=== PATIENT | male | born 1975 | race Caucasian/White ===

== ENCOUNTER 2017-07-05 09:34 | Emergency (ER) | payer OTHER ==
--- NOTE | 2017-07-05 10:24 | RAD ---
PORTABLE CHEST 1 VIEW: Date: 07/05/17 Time: 1002 hours HISTORY: Chest pain. FINDINGS/IMPRESSION: Comparison made with exam of 03/26/17. The heart is enlarged. There is probable consolidation in the left lower lung. No pneumothoraces, fr ank pulmonary edema, or large effusions are identified. POS: [facility]
[2017-07-05 10:25] LABS: #Eosinphils 0.2 thou/uL (0.0-0.7); #Lymphocytes 1.6 thou/uL (1.20-3.40); #Monocytes 0.5 thou/uL (0.11-0.59); #Neutrophils 4.4 thou/uL (1.40-6.50); %Basophils 0.7 % (0.0-1.0); %Eosinophils 3.4 % (0.0-10.0); %Monocytes 7.1 % (0.0-10.0); Hematocrit 43.9 % (42.0-52.0); Mean Platelet Volume 8.4 fL (7.4-10.4); Red Blood Cell (RBC) Count 4.74 mill/uL (4.70-6.10); White Blood Cell (WBC) Count 6.8 thou/uL (4.8-10.8)
[2017-07-05 10:31] LABS: PTT 33.4 SEC (22.9-36.1); Prothrombin Time 13.4 SEC (12.0-14.7)
[2017-07-05 10:49] LABS: ALT (SGPT) 17 U/L (8-55); AST (SGOT) 17 U/L (5-34); Alkaline Phosphatase 67 U/L (40-150); Anion Gap 15 mmol/L (10-20); BUN (Urea Nitrogen) 19 mg/dL (8.9-20.6); Bilirubin, Total 0.6 mg/dL (0.2-1.2); CK (CPK) 125 U/L (30-200); Calc. Creatinine Clearance 0 mL/min (70-130); Calcium 9.3 mg/dL (7.8-10.44); Carbon Dioxide 24 mmol/L (22-29); Chloride 104 mmol/L (98-107); Estimated GFR-MDRD Greater than 90; Globulin 3.4 g/dL (2.4-3.5); Lipase 28 U/L (8-78); Protein, Total 7.6 g/dL (6.0-8.3)
[2017-07-05 10:51] LABS: Troponin I Less than 0.010 ng/mL (< 0.028)
--- NOTE | 2017-07-05 12:08 | CT ---
CT BRAIN NONCONTRAST: HISTORY: A 41-year-old male with an episode of left facial drooping, left facial numbness, drooling, right up per extremity weakness and hypesthesia, and right lower extremity weakness and hypesthesia. FINDINGS: There is no midline shift or any other mass effect. There is no evidence of acute intracranial hemo rrhage, large cortical infarct, obstructive hydrocephalus, or extraaxial fluid collection. The calv arium is intact. IMPRESSION: No acute intracranial findings. jn [] POS: [facility]
[2017-07-05 14:29] LABS: Troponin I Less than 0.010 ng/mL (< 0.028)
== END 2017-07-05 14:45 | disposition home or self-care (01) ==
LOC: ERS 09:34
DX: R07.9 Chest pain, unspecified (principal); G43.909 Migraine, unspecified, not intractable, without status migrainosus; I10 Essential (primary) hypertension; E78.5 Hyperlipidemia, unspecified; E03.9 Hypothyroidism, unspecified; R56.9 Unspecified convulsions; I48.91 Unspecified atrial fibrillation; Z79.82 Long term (current) use of aspirin; Z79.899 Other long term (current) drug therapy
CPT/HCPCS: 36415; 70450; 71010; 80053; 82550; 82553; 83690; 83880; 84484; 85025; 85610; 85730; 93005; 94760

== ENCOUNTER 2017-07-31 20:23 | Emergency (ER) | payer OTHER ==
--- NOTE | 2017-07-31 20:46 | RAD ---
CHEST ONE VIEW 07/31/17 HISTORY: Chest pain. COMPARISON: Chest one view 07/05/17. FINDINGS: Atelectasis is present in both lung bases. Lungs are hypoinflated. No pneumothorax. IMPRESSION: Lung hypoinflation and atelectasis in the basis. POS: [facility]
[2017-07-31] MEDS ORDERED: Acetaminophen 500 MG TAB ONE (21:00)
[2017-07-31] MEDS ORDERED: Nitroglycerin 2% Ointment 1 INCH/1 GM Packet ONE (21:00)
[2017-07-31] MEDS ORDERED: diphenhydrAMINE 50 MG/ML VIAL ONE (21:03)
[2017-07-31 21:06] LABS: #Basophils 0.1 thou/uL (0.0-0.2); #Eosinphils 0.3 thou/uL (0.0-0.7); #Monocytes 0.8 thou/uL (0.11-0.59); #Neutrophils 3.7 thou/uL (1.40-6.50); %Basophils 1.1 % (0.0-1.0); %Lymphocytes 29.8 % (21.0-51.0); %Monocytes 11.2 % (0.0-10.0); Hematocrit 40.1 % (42.0-52.0); Mean Platelet Volume 8.2 fL (7.4-10.4); Red Blood Cell (RBC) Count 4.34 mill/uL (4.70-6.10); White Blood Cell (WBC) Count 6.8 thou/uL (4.8-10.8)
[2017-07-31] MEDS ORDERED: methylPREDNISolone Sod Succ/PF 125 MG/2 ML VIAL ONE (21:12)
[2017-07-31] MEDS ORDERED: Water For Inject, Bacteriostat 30 ML ONE (21:12)
[2017-07-31 21:16] LABS: ALT (SGPT) 14 U/L (8-55); AST (SGOT) 17 U/L (5-34); Alkaline Phosphatase 76 U/L (40-150); Anion Gap 15 mmol/L (10-20); BUN (Urea Nitrogen) 18 mg/dL (8.9-20.6); Bilirubin, Total 0.7 mg/dL (0.2-1.2); CK (CPK) 195 U/L (30-200); Calc. Creatinine Clearance 0 mL/min (70-130); Calcium 9.1 mg/dL (7.8-10.44); Carbon Dioxide 24 mmol/L (22-29); Chloride 105 mmol/L (98-107); Estimated GFR-MDRD Greater than 90; Globulin 3.1 g/dL (2.4-3.5); Lipase 42 U/L (8-78); Protein, Total 7.3 g/dL (6.0-8.3)
[2017-07-31 21:25] LABS: Troponin I Less than 0.010 ng/mL (< 0.028)
== END 2017-08-01 00:07 | disposition home or self-care (01) ==
LOC: ERS 20:23
DX: R07.89 Other chest pain (principal); R79.1 Abnormal coagulation profile; I48.91 Unspecified atrial fibrillation; E03.9 Hypothyroidism, unspecified; E78.2 Mixed hyperlipidemia; I10 Essential (primary) hypertension
CPT/HCPCS: 36415; 71010; 80053; 80164; 80185; 82553; 83690; 84484; 85025; 85379; 93005; 96374; 96375; J1200; J2930

== ENCOUNTER 2017-08-09 18:11 | Emergency (ER) | payer OTHER ==
[2017-08-09 18:50] LABS: #Eosinphils 0.2 thou/uL (0.0-0.7); #Lymphocytes 1.6 thou/uL (1.20-3.40); #Monocytes 0.7 thou/uL (0.11-0.59); #Neutrophils 3.8 thou/uL (1.40-6.50); %Basophils 0.6 % (0.0-1.0); %Eosinophils 3.2 % (0.0-10.0); %Lymphocytes 25.7 % (21.0-51.0); %Monocytes 11.3 % (0.0-10.0); Hematocrit 41.7 % (42.0-52.0); Mean Platelet Volume 9.5 fL (7.4-10.4); Red Blood Cell (RBC) Count 4.48 mill/uL (4.70-6.10); White Blood Cell (WBC) Count 6.3 thou/uL (4.8-10.8)
[2017-08-09 19:13] LABS: ALT (SGPT) 15 U/L (8-55); AST (SGOT) 18 U/L (5-34); Alkaline Phosphatase 62 U/L (40-150); Anion Gap 12 mmol/L (10-20); BUN (Urea Nitrogen) 22 mg/dL (8.9-20.6); Bilirubin, Total 0.7 mg/dL (0.2-1.2); CK (CPK) 246 U/L (30-200); Calc. Creatinine Clearance 0 mL/min (70-130); Calcium 9.6 mg/dL (7.8-10.44); Carbon Dioxide 30 mmol/L (22-29); Chloride 105 mmol/L (98-107); Estimated GFR-MDRD Greater than 90; Globulin 3.1 g/dL (2.4-3.5); Protein, Total 7.4 g/dL (6.0-8.3)
[2017-08-09 19:17] LABS: Troponin I Less than 0.010 ng/mL (< 0.028)
[2017-08-09] MEDS ORDERED: diphenhydrAMINE 50 MG/ML VIAL ONE (22:44)
[2017-08-09] MEDS ORDERED: Metoclopramide HCl 10 MG/2 ML VIAL ONE (22:45)
[2017-08-09] MEDS ORDERED: Ketorolac Tromethamine 30 MG/ML VIAL ONE (22:45)
--- NOTE | 2017-08-09 23:26 | CT ---
HEAD CT NONCONTRAST: Indication: Seizure. Comparison: 07-05-17 FINDINGS: Ventricular system is normal in size. Septum pellucidum and third ventricle are midline. No intracran ial hemorrhage, mass effect, or midline shift. IMPRESSION: No acute intracranial hemorrhage or mass effect. POS: [facility]
--- NOTE | 2017-09-14 12:32 | EKG ---
Test Reason : Blood Pressure : / mmHG Vent. Rate : 089 BPM Atrial Rate : 089 BPM P-R Int : 160 ms QRS Dur : 084 ms QT Int : 356 ms P-R-T Axes : 020 014 047 degrees QTc Int : 433 ms Sinus rhythm with Premature atrial complexes Otherwise normal ECG Confirmed by BELTRAN MAHONEY ([id number]), newspaper copy editor ENRIQUE WATSON ([id number]) on 09/14/2017 12:31:53 PM Referred By: Confirmed By:BELTRAN MAHONEY
== END 2017-08-10 00:31 | disposition home or self-care (01) ==
LOC: ERS 18:11
DX: G43.809 Other migraine, not intractable, without status migrainosus (principal); R56.9 Unspecified convulsions; I48.91 Unspecified atrial fibrillation; E03.9 Hypothyroidism, unspecified; E78.5 Hyperlipidemia, unspecified; E78.2 Mixed hyperlipidemia; I10 Essential (primary) hypertension
CPT/HCPCS: 36415; 70450; 80053; 80164; 82550; 82553; 84484; 85025; 93005; 96365; 96375; J1200; J1885; J2765

== ENCOUNTER 2017-08-26 14:36 | Emergency (ER) | payer OTHER ==
--- NOTE | 2017-08-26 16:15 | RAD ---
LEFT HIP TWO VIEWS: History: Left hip pain. Injury to left hip. FINDINGS: The femoral head is normally maintained. Joint space is normal. No fracture. No acute osseous lesion. IMPRESSION: Unremarkable left hip. POS: [facility]
[2017-08-26 17:06] LABS: #Basophils 0.1 thou/uL (0.0-0.2); #Eosinphils 0.3 thou/uL (0.0-0.7); #Lymphocytes 1.8 thou/uL (1.20-3.40); #Monocytes 0.6 thou/uL (0.11-0.59); #Neutrophils 3.4 thou/uL (1.40-6.50); %Basophils 0.8 % (0.0-1.0); %Eosinophils 5.1 % (0.0-10.0); %Lymphocytes 29.5 % (21.0-51.0); Hematocrit 43.2 % (42.0-52.0); Mean Platelet Volume 8.8 fL (7.4-10.4); White Blood Cell (WBC) Count 6.2 thou/uL (4.8-10.8)
[2017-08-26 17:17] LABS: PTT 32.4 SEC (22.9-36.1)
[2017-08-26 17:30] LABS: ALT (SGPT) 18 U/L (8-55); AST (SGOT) 18 U/L (5-34); Alkaline Phosphatase 74 U/L (40-150); Anion Gap 14 mmol/L (10-20); BUN (Urea Nitrogen) 21 mg/dL (8.9-20.6); Bilirubin, Total 0.5 mg/dL (0.2-1.2); Calc. Creatinine Clearance 0 mL/min (70-130); Calcium 9.4 mg/dL (7.8-10.44); Carbon Dioxide 25 mmol/L (22-29); Chloride 106 mmol/L (98-107); Estimated GFR-MDRD Greater than 90; Globulin 3.4 g/dL (2.4-3.5); Protein, Total 7.8 g/dL (6.0-8.3)
--- NOTE | 2017-08-26 19:20 | CT ---
CT OF HEAD NONCONTRAST 08/26/17 COMPARISON: 08/09/17 INDICATION: Altered mental status. FINDINGS: There is no evidence of intracranial hemorrhage, mass effect or midline shift. No significant interva l change from 08/09/17 exam. IMPRESSION: No acute intracranial hemorrhage or mass effect. POS: [facility]
== END 2017-08-26 19:09 | disposition home or self-care (01) ==
LOC: ERS 14:36
DX: R20.2 Paresthesia of skin (principal); I48.91 Unspecified atrial fibrillation; E03.9 Hypothyroidism, unspecified; I10 Essential (primary) hypertension; E78.2 Mixed hyperlipidemia; Z79.899 Other long term (current) drug therapy
CPT/HCPCS: 36415; 70450; 80053; 85025; 85610; 85730

== ENCOUNTER 2017-10-01 19:07 | Emergency (ER) | payer OTHER ==
[2017-10-01 19:38] LABS: #Basophils 0.1 thou/uL (0.0-0.2); #Eosinphils 0.2 thou/uL (0.0-0.7); #Monocytes 0.9 thou/uL (0.11-0.59); #Neutrophils 5.2 thou/uL (1.40-6.50); %Basophils 0.7 % (0.0-1.0); %Eosinophils 2.9 % (0.0-10.0); %Lymphocytes 24.2 % (21.0-51.0); %Monocytes 10.3 % (0.0-10.0); %Neutrophils 61.9 % (42.0-75.0); Hemoglobin 14.1 g/dL (14.0-18.0); Mean Corpuscular HGB CONC 34.5 g/dL (32.0-36.0); Mean Corpuscular Hemoglobin 31.6 pg (27.0-31.0); Mean Corpuscular Volume 91.4 fl (80.0-94.0); Mean Platelet Volume 9.5 fL (7.4-10.4); Platelet Count 152 thou/uL (130-400); RBC Distribution Width 12.1 % (11.5-14.5); Red Blood Cell (RBC) Count 4.48 mill/uL (4.70-6.10); White Blood Cell (WBC) Count 8.4 thou/uL (4.8-10.8)
[2017-10-01 19:59] LABS: ALT (SGPT) 14 U/L (8-55); AST (SGOT) 14 U/L (5-34); Albumin 4.5 g/dL (3.5-5.0); Alkaline Phosphatase 64 U/L (40-150); Anion Gap 15 mmol/L (10-20); BUN (Urea Nitrogen) 23 mg/dL (8.9-20.6); Bilirubin, Total 0.8 mg/dL (0.2-1.2); CK (CPK) 120 U/L (30-200); Calc. Creatinine Clearance 0 mL/min (70-130); Carbon Dioxide 28 mmol/L (22-29); Chloride 101 mmol/L (98-107); Estimated GFR-MDRD Greater than 90; Globulin 3.1 g/dL (2.4-3.5); Glucose 82 mg/dL (70-105); Potassium 3.9 mmol/L (3.5-5.1); Protein, Total 7.6 g/dL (6.0-8.3); Sodium 140 mmol/L (136-145)
[2017-10-01 20:03] LABS: Troponin I 0.018 ng/mL (< 0.028)
--- NOTE | 2017-10-01 20:49 | RAD ---
PORTABLE CHEST: 10/01/17 HISTORY: Chest pain. The heart is mildly prominent but the heart is accentuated by this projection. The lungs appear clear . No infiltrate. A rounded metallic foreign body overlies the left upper quadrant which apparently represents a coin i n the patient's pocket as noted by the technologist. IMPRESSION: No acute process. POS: [facility]
== END 2017-10-01 22:14 | disposition home or self-care (01) ==
LOC: ERS 19:07
DX: R00.2 Palpitations (principal); I48.91 Unspecified atrial fibrillation; E03.9 Hypothyroidism, unspecified; E78.5 Hyperlipidemia, unspecified; E78.2 Mixed hyperlipidemia; I10 Essential (primary) hypertension; Z79.899 Other long term (current) drug therapy
CPT/HCPCS: 36415; 71045; 80053; 82553; 84484; 85025; 93005

== ENCOUNTER 2017-11-10 10:37 | Observation (INO) | payer OTHER ==
[2017-11-10 11:08] LABS: #Basophils 0.1 thou/uL (0.0-0.2); #Eosinphils 0.4 thou/uL (0.0-0.7); #Lymphocytes 1.6 thou/uL (1.20-3.40); #Monocytes 0.6 thou/uL (0.11-0.59); #Neutrophils 3.9 thou/uL (1.40-6.50); %Basophils 0.8 % (0.0-1.0); %Eosinophils 5.5 % (0.0-10.0); %Monocytes 8.9 % (0.0-10.0); %Neutrophils 60.8 % (42.0-75.0); Hemoglobin 14.9 g/dL (14.0-18.0); Mean Corpuscular HGB CONC 34.7 g/dL (32.0-36.0); Mean Corpuscular Hemoglobin 31.2 pg (27.0-31.0); Mean Corpuscular Volume 89.8 fl (80.0-94.0); Mean Platelet Volume 8.3 fL (7.4-10.4); Platelet Count 192 thou/uL (130-400); RBC Distribution Width 11.7 % (11.5-14.5); Red Blood Cell (RBC) Count 4.76 mill/uL (4.70-6.10); White Blood Cell (WBC) Count 6.5 thou/uL (4.8-10.8)
[2017-11-10 11:15] LABS: Prothrombin Time 12.8 SEC (12.0-14.7)
[2017-11-10 11:16] LABS: PTT 34.5 SEC (22.9-36.1)
[2017-11-10 11:21] LABS: CRP (Inflammatory) Less than 0.50 mg/dL (= or < 0.5); Lipase 49 U/L (8-78)
[2017-11-10 11:25] LABS: ALT (SGPT) 17 U/L (8-55); AST (SGOT) 19 U/L (5-34); Albumin 4.8 g/dL (3.5-5.0); Alkaline Phosphatase 81 U/L (40-150); Anion Gap 12 mmol/L (10-20); BUN (Urea Nitrogen) 20 mg/dL (8.9-20.6); Bilirubin, Total 1.2 mg/dL (0.2-1.2); CK (CPK) 136 U/L (30-200); Calc. Creatinine Clearance 0 mL/min (70-130); Calcium 9.9 mg/dL (7.8-10.44); Carbon Dioxide 30 mmol/L (22-29); Chloride 104 mmol/L (98-107); Estimated GFR-MDRD Greater than 90; Globulin 2.9 g/dL (2.4-3.5); Glucose 94 mg/dL (70-105); Potassium 3.6 mmol/L (3.5-5.1); Protein, Total 7.7 g/dL (6.0-8.3); Sodium 142 mmol/L (136-145)
[2017-11-10 11:26] LABS: CKMB 2.3 ng/mL (0-6.6); Troponin I Less than 0.010 ng/mL (< 0.028)
--- NOTE | 2017-11-10 11:50 | RAD ---
PORTABLE AP CHEST X-RAY: 11/10/2017 HISTORY: Chest pain. COMPARISON: 10/01/2017 FINDINGS: The cardiac silhouette is magnified by projection but is stable in size. The pulmonary vasculature i s within normal limits, and the lungs remain clear. There has been no interval change when compared to the prior exam. IMPRESSION: No acute cardiopulmonary process. POS: [facility]
--- NOTE | 2017-11-10 12:02 | CT ---
CT ANGIOGRAM CHEST WITH CONTRAST CT ANGIOGRAM ABDOMEN WITH CONTRAST: (Aortic dissection protocol) HISTORY: Chest pain. COMPARISON: Chest radiograph same day. FINDINGS: CT angiogram of chest and abdomen performed after the intravenous administration of contrast. Three -D rendering was provided. There are some atelectatic changes in the lingula and the left lower lobe. There is a 3 mm nodule in the left lung apex. No pericardial effusion. Heart size is normal. No aortic dissection. No aneurysmal dilatation. The origins of the great vessels are all patent. No proximal pulmonary arterial filling defect. The exophytic anterior cortex interpolar left kidney mass has mildly increased in size from comparison examinations measuring up to 27 mm, previously up t o 22 or 23 mm. There an area of old fat necrosis of the only mesentery of the distal ileum. The appendix is felt to be visualized and is normal. The abdominal aortoiliac contour is normal. No aneurysmal dilatation. No dissection. No intramural hematoma. No penetrating atherosclerotic ulcer. The spleen is unremarkable. Pancreas is unremarkable. Liver is unremarkable. Moderate facet arthropathy of the lumbar spine. No suspicious lytic or blastic lesion in the skeleto n. IMPRESSION: 1. No aortic dissection, aneurysmal dilatation, intramural hematoma, nor penetrating atherosclerotic ulcer. 2. There is a punctate 3 mm left upper lobe pulmonary nodule. 3. Mild interval size increase of the anterior cortex inner pole left kidney mass measuring up to 27 mm. A nonemergent urologic consultation is recommended for followup. A dedicated renal protocol MR I with subtraction imaging with and without contrast is recommended to evaluate for a small enhancing foci of cystic neoplasm. CODE T POS: [facility]
[2017-11-10 12:04] LABS: Bilirubin Negative (Negative); Blood, Urine Negative (Negative); Clarity CLEAR (Clear); Glucose, Urine (Dipstick) Negative (Negative); Leukocyte Negative (Negative); Nitrite Negative (Negative); Protein, Urine (Dipstick) Negative (Neg-Trace); Specific Gravity, Urine 1.023 (1.002-1.036); pH, Urine 6.5 (5.0-9.0)
[2017-11-10] MEDS ORDERED: ISOVUE-370 76%-LOCM 1 ML ONE (13:11)
[2017-11-10] MEDS ORDERED: Bisacodyl 10 MG SUPP PR PRN (14:25)
[2017-11-10] MEDS ORDERED: Nitroglycerin 0.4 MG TAB (25 Tab Bottle) PO PRN (14:25)
[2017-11-10] MEDS ORDERED: Bisacodyl 5 MG TAB PO PRN (14:25)
[2017-11-10] MEDS ORDERED: hydrALAZINE 20 MG/ML VIAL SLOW IVP PRN (14:37)
--- NOTE | 2017-11-10 14:50 | HP ---
PRIMARY CARE PHYSICIAN: Calin To M.D. CHIEF COMPLAINT: Chest pain. HISTORY OF PRESENT ILLNESS: Mr. Mac is a pleasant 42-year-old gentleman who was seen at [facility] on 11/10/2017. He reports that he developed retrosternal chest discomfort y esterday. He describes it as pressure-like sensation, 5/10 at its worst on and off, accompanied by n ausea and dizziness, radiating to the back, not accompanied by shortness of breath. He also reports that the pain was radiating to his abdomen. He cannot recall any aggravating or relieving factors. REVIEW OF SYSTEMS: The following complete review of systems was negative, unless otherwise mentioned in the HPI or below: Constitutional: Weight loss or gain, ability to conduct usual activities. Skin: Rash, itching. Eyes: Double vision, pain. ENT/Mouth: Nose bleeding, neck stiffness, pain, tenderness. Cardiovascular: Palpitations, dyspnea on exertion, orthopnea. Respiratory: Shortness of breath, wheezing, cough, hemoptysis, fever or night sweats. Gastrointestinal: Poor appetite, abdominal pain, heartburn, nausea, vomiting, constipation, or diarr hea. Genitourinary: Urgency, frequency, dysuria, nocturia. Musculoskeletal: Pain, swelling. Neurologic/Psychiatric: Anxiety, depression. Allergy/Immunologic: Skin rash, bleeding tendency. PAST MEDICAL HISTORY: Significant for complex migraine headaches, hypertension, atrial fibrillation, hypothyroidism, and dyslipidemia. SURGICAL HISTORY: Tonsillectomy. FAMILY HISTORY: Significant for heart disease in his brother and uncles. SOCIAL HISTORY: Patient denies tobacco use, alcohol use or recreational drug use. ALLERGIES: ACETAMINOPHEN. CURRENT MEDICATIONS: Include divalproex 1500 mg at bedtime, lisinopril 20 mg daily, levetiracetam 50 0 mg 2 times a day, dicyclomine 10 mg 2 times a day, amlodipine 5 mg daily, gabapentin 300 mg 2 times a day and potassium chloride 10 mEq daily. PHYSICAL EXAMINATION: GENERAL: On examination, Mr. Sheridan is awake and alert, not in acute distress. VITAL SIGNS: Blood pressure is 147/97, pulse is 82, he is breathing at rate of 20 and saturating 97% on room air. He is afebrile. He is obese. EYES: No scleral icterus. No conjunctival pallor. ENT: Moist mucosal membranes. No oropharyngeal erythema or exudates. NECK: Supple, nontender, normal range of movement. Trachea is midline. RESPIRATORY: Accessory muscles of breathing are not active. Chest wall movements are symmetric bila terally. LUNGS: Clear to auscultation without wheeze, rhonchi or crepitations. CARDIOVASCULAR: S1 and S2 are heard, regular. LUNGS: Peripheral pulses palpable. No carotid bruit, no pericardial rub. ABDOMEN: Distended, nontender, bowel sounds heard, no hepatomegaly, no splenomegaly. NEUROLOGIC: Cranial nerves II-XII intact. Deep tendon reflexes are 2+. MUSCULOSKELETAL: Power is 5/5 in all 4 extremities. Normal range of movement at all major extremity joints. LYMPHATIC: No cervical lymphadenopathy. SKIN: No rashes or subcutaneous nodules. PSYCHIATRIC: Normal mood, normal affect. The patient is oriented to person, place, and time. IMAGING DATA AND LABORATORY DATA: Mr. Miranda'miri labs and investigations were reviewed. I reviewed his electrocardiogram, which shows inferior Q-waves. He is in sinus rhythm. Emergency room physician dhara chery reviewed old electrocardiograms and reports that the inferior Q-wave changes are not new. I also r eviewed his chest x-ray, which does not show any pulmonary infiltrates. He also had CT dissection pr otocol, which did not reveal any aortic dissection, aneurysmal dilatation, intramural hematoma or pen etrating atherosclerotic ulcer. He has a punctate 3 mm left upper lobe pulmonary nodule. He also jules d an increase in the exophytic anterior cortex interpolar left kidney mass from 22 or 23 mm to 27 mm in size. Laboratory investigation show an unremarkable CBC, INR 1.0, elevated carbon dioxide of 30, otherwise normal comprehensive metabolic profile, normal troponin I, normal BNP and normal lipase. U rinalysis is negative. ASSESSMENT AND PLAN: Mr. Sheridan is a pleasant 42-year-old gentleman who was seen at [facility] on 11/10/2017. His problem list includes: 1. Chest pain: Etiology is unclear. He received nitrates with improvement in his chest pain. We w ill be admitted to the hospital for telemetry monitoring and for stress test. Cardiology Service has been consulted by Emergency Room Service. 2. Atrial fibrillation. Patient is currently in normal sinus rhythm. 3. Renal mass: To be followed up as outpatient. 4. Pulmonary nodule: To be followed up as outpatient. 5. Seizures: Continue home medications. 6. Hypertension: Monitor vital signs, titrate antihypertensives as needed. P.r.n. IV hydralazine f or blood pressure spikes. Many thanks for allowing me to participate in your patient's care. Please feel free to contact me wi th any questions or concerns. LEVEL OF RISK: High. LEVEL OF COMPLEXITY: High.
[2017-11-10 15:18] VITALS: BMI 40.1
[2017-11-10 15:43] LABS: Troponin I Less than 0.010 ng/mL (< 0.028)
--- NOTE | 2017-11-10 16:16 | CON ---
DATE OF CONSULTATION: 11/10/2017 PRIMARY MIXING SUPERVISOR: Dr. Reema Sandoval. REASON FOR CONSULTATION: Chest pain and palpitation. HISTORY OF PRESENT ILLNESS: Mr. Sheridan is a 42-year-old gentleman who has been seen and evaluated by Dr. Reema Sandoval in the past. He was last seen in 05/2017. He does have a history of atrial fibril lation in addition to sleep apnea. He recently states he had chest tightness, although it sounds like palpitations. He also states had a history of PVCs in the past. He states it lasted for 10 minutes and was intermittent. He then pro ceeded to the emergency room and was subsequently admitted. His EKG suggested sinus rhythm with nons pecific ST-T wave changes. PAST MEDICAL HISTORY: Paroxysmal atrial fibrillation with CHADS-VASc score of 1, hypertension, hyper lipidemia. ALLERGIES: ACETAMINOPHEN. HOME MEDICATIONS: Lisinopril, testosterone, aspirin, Depakote, dicyclomine, potassium, gabapentin, a nd amlodipine. REVIEW OF SYSTEMS: Ten-point review of systems reviewed as above, otherwise negative. PHYSICAL EXAMINATION: GENERAL: Patient is a pleasant male who is in no acute distress. He does appear older than his stat ed age. VITAL SIGNS: Blood pressure 140/81, pulse 65, temperature afebrile. NEUROLOGIC: The patient is alert and oriented times 3 with no focal neurologic deficits. HEENT: Sclerae without icterus. Mouth has moist mucous membranes with normal pallor. NECK: No JVD. Carotid upstroke brisk. No bruits bilaterally. LUNGS: Clear to auscultation with unlabored respirations. BACK: No scoliosis or kyphosis. CARDIAC: Regular rate and rhythm with normal S1 and S2. No S3 or S4 noted. No significant rubs, mu rmurs, thrills, or gallops noted throughout the precordium. PMI is not displaced. There is no joyce ternal heave. ABDOMEN: Soft, nontender, nondistended. No peritoneal signs present. No hepatosplenomegaly. No ab normal striae. EXTREMITIES: 2+ femoral and 2+ dorsalis pedis pulses. No cyanosis, clubbing, or edema. SKIN: No gross abnormalities. PERTINENT LABORATORY DATA: Hemoglobin 14.9, creatinine 0.75. IMPRESSION: 1. Atypical chest pain. 2. Paroxysmal atrial fibrillation. RECOMMENDATIONS: Mr. Sheridan is scheduled for a noninvasive stress study. It will be a 2-day study gi wilmer his weight of 248. His symptoms may also suggest PVCs or paroxysmal atrial fibrillation. Contin ue to monitor on telemetry monitoring. Further recommendations per Dr. Reema Sandoval in a.m.
[2017-11-10 18:18] LABS: Troponin I Less than 0.010 ng/mL (< 0.028)
[2017-11-10] MEDS: Ibuprofen 200 MG TAB PO PRN (19:47)
[2017-11-11 05:39] LABS: #Eosinphils 0.4 thou/uL (0.0-0.7); #Lymphocytes 1.7 thou/uL (1.20-3.40); #Monocytes 0.6 thou/uL (0.11-0.59); #Neutrophils 3.4 thou/uL (1.40-6.50); %Basophils 0.4 % (0.0-1.0); %Eosinophils 7.2 % (0.0-10.0); %Lymphocytes 27.8 % (21.0-51.0); %Monocytes 9.4 % (0.0-10.0); %Neutrophils 55.2 % (42.0-75.0); Hemoglobin 13.5 g/dL (14.0-18.0); Mean Corpuscular HGB CONC 33.9 g/dL (32.0-36.0); Mean Corpuscular Hemoglobin 31.4 pg (27.0-31.0); Mean Corpuscular Volume 92.5 fl (80.0-94.0); Mean Platelet Volume 8.4 fL (7.4-10.4); Platelet Count 211 thou/uL (130-400); RBC Distribution Width 11.9 % (11.5-14.5); Red Blood Cell (RBC) Count 4.31 mill/uL (4.70-6.10); White Blood Cell (WBC) Count 6.2 thou/uL (4.8-10.8)
[2017-11-11] MEDS: Ibuprofen 200 MG TAB PO PRN (05:47)
[2017-11-11 06:07] LABS: Anion Gap 11 mmol/L (10-20); BUN (Urea Nitrogen) 21 mg/dL (8.9-20.6); Calc. Creatinine Clearance 213 mL/min (70-130); Calcium 9.1 mg/dL (7.8-10.44); Carbon Dioxide 27 mmol/L (22-29); Chloride 105 mmol/L (98-107); Estimated GFR-MDRD Greater than 90; Glucose 95 mg/dL (70-105); Potassium 3.6 mmol/L (3.5-5.1); Sodium 139 mmol/L (136-145)
[2017-11-11] MEDS ORDERED: Enoxaparin Sodium 40 MG/0.4 ML SYRINGE SC SCH (09:00)
--- NOTE | 2017-11-11 10:19 | ULT ---
LEFT LOWER EXTREMITY VENOUS DUPLEX EXAM: History: Left leg pain. FINDINGS: Real-time color doppler evaluation of the left lower extremity is performed from groin to calf. This includes evaluation of the common femoral, superficial, profunda femoral, saphenous, popliteal, and t rifurcation veins. This shows a patent deep venous system. There is normal compressibility and augmentation. There is no evidence of DVT. IMPRESSION: No evidence of DVT of the left lower extremity. POS: [facility]
[2017-11-11 12:18] VITALS: BP 159/88; TEMP 98.4
--- NOTE | 2017-11-11 12:59 | NM ---
NUCLEAR MEDICINE CARDIAC STRESS TEST WITH EJECTION FRACTION: HISTORY: Chest pain. Atrial fibrillation, hypertension, and dyslipidemia. COMPARISON: None. TECHNIQUE: Stress and rest was performed after the intravenous administration of 30.1 and 29.5 mCi technetium-9 9m sestamibi. There is normal left ventricular uptake of radiotracer. No scar or ischemia. Normal wall motion. Calc ulated ejection fraction of 51%. FINDINGS: No evidence of scar or ischemia. Calculated ejection fraction 51%. POS: [facility]
--- NOTE | 2017-11-11 13:36 | DIS ---
DATE OF ADMISSION: 11/10/2017 DATE OF DISCHARGE: 11/11/2017 PRIMARY CARE PHYSICIAN: Dr. Calin To. DISCHARGE DIAGNOSIS: Chest pain. CONDITION OF PATIENT ON THE DAY OF DISCHARGE: Stable. I assessed Mr. Sheridan on the day of discharge. He denies any chest pain or shortness of breath. Vital signs are stable. S1 and S2 are heard, reg ular. Lungs are clear to auscultation bilaterally. DISCHARGE MEDICATIONS: No changes were made to his preadmission home medications as dictated on hist ory and physical note from 11/10/2017. HOSPITAL COURSE: Mr. Sheridan is a pleasant 42-year-old gentleman who was admitted to [facility] on 11/10/2017 for chest pain. He also complained of left lower extremity pain. Pul monary embolism was ruled out with a negative D-dimer. He also had a nuclear stress test, which was normal, with a left ventricle ejection fraction of 51%. He also had a left lower extremity. Vascula r ultrasound, which did not reveal any evidence of deep vein thrombosis. He is being discharged home in a stable condition. On the day of discharge, he has a white count of 6200, hemoglobin 13.5, platelet count 211,000, jasmyne l electrolytes, elevated blood urea nitrogen of 21, with normal creatinine of 0.72. CONSULTATIONS DURING THIS HOSPITALIZATION: Cardiology, Dr. De Santiago. DISCHARGE DESTINATION: Home.
--- NOTE | 2017-11-13 14:25 | EKG ---
Test Reason : Blood Pressure : / mmHG Vent. Rate : 091 BPM Atrial Rate : 091 BPM P-R Int : 148 ms QRS Dur : 086 ms QT Int : 346 ms P-R-T Axes : 001 -20 -69 degrees QTc Int : 425 ms Sinus rhythm with Premature supraventricular complexes Inferior infarct , age undetermined Abnormal ECG Confirmed by ALTHEA RONQUILLO ([id number]), photograph editor ENRIQUE WATSON ([id number]) on 11/13/2017 2:24:54 PM Referred By: Confirmed By:ALTHEA RONQUILLO
--- NOTE | 2017-12-05 22:36 | STRESS ---
Acquisition Time: 2017-11-11 09:15:57 Total Exercise Time: 00:04:00 Test Indications: CHEST PAIN Medications: Protocol: ADENOSINE Max HR: 114 BPM 64% of Pred: 178 BPM Max BP: 160/078 mmHG Max Work Load: 1.0 METS RESTING ECG: NORMAL SINUS RHYTHM AT 76 BPM WITH OCCASIONAL PAC'S SYMPTOMS: DYSPNEA NORMAL BP RESPONSE ECTOPY: NONE ECG STRESS: NO SIGNIFICANT CHANGES INTERPRETATION: NEGATIVE ECG/AWAIT NUCLEAR IMAGES FOR DEFINITIVE DIANGOSIS Confirmed by DELANEY ANTONIO M.D. ([id number]) on 12/05/2017 10:35:36 PM Referred By: MD Anay COTA Confirmed By:DELANEY ANTONIO M.D.
== END 2017-11-11 13:58 | disposition home or self-care (01) ==
LOC: ERS 10:37 → 2SW 12:45
PROVIDERS: ADMIT Internal Medicine; ATTEND Internal Medicine
DX: R07.2 Precordial pain (principal); I10 Essential (primary) hypertension; I48.0 Paroxysmal atrial fibrillation; E03.9 Hypothyroidism, unspecified; E78.5 Hyperlipidemia, unspecified; R56.9 Unspecified convulsions; N28.89 Other specified disorders of kidney and ureter; R91.1 Solitary pulmonary nodule; G43.809 Other migraine, not intractable, without status migrainosus; Z88.8 Allergy status to other drugs, medicaments and biological substances; Z79.899 Other long term (current) drug therapy
CPT/HCPCS: 36415; 71045; 71275; 78452; 80048; 80053; 81003; 82553; 83690; 83880; 84484; 85025; 85379; 85610; 85730; 86140; 93005; 93017; 94760; 96372; A4216; A9500; G0378; J0153; J1650

== ENCOUNTER 2018-01-04 10:00 | Emergency (ER) | payer OTHER ==
[2018-01-04 10:40] LABS: #Eosinphils 0.1 thou/uL (0.0-0.7); #Lymphocytes 2.5 thou/uL (1.20-3.40); #Monocytes 0.7 thou/uL (0.11-0.59); #Neutrophils 4.9 thou/uL (1.40-6.50); %Basophils 0.6 % (0.0-1.0); %Eosinophils 1.6 % (0.0-10.0); %Lymphocytes 30.3 % (21.0-51.0); %Monocytes 8.4 % (0.0-10.0); %Neutrophils 59.1 % (42.0-75.0); Hemoglobin 15.4 g/dL (14.0-18.0); Mean Corpuscular HGB CONC 33.9 g/dL (32.0-36.0); Mean Corpuscular Hemoglobin 31.2 pg (27.0-31.0); Mean Corpuscular Volume 92.1 fl (80.0-94.0); Mean Platelet Volume 8.7 fL (7.4-10.4); Platelet Count 187 thou/uL (130-400); RBC Distribution Width 11.8 % (11.5-14.5); Red Blood Cell (RBC) Count 4.93 mill/uL (4.70-6.10); White Blood Cell (WBC) Count 8.3 thou/uL (4.8-10.8)
[2018-01-04 11:01] LABS: ALT (SGPT) 17 U/L (8-55); AST (SGOT) 16 U/L (5-34); Albumin 4.7 g/dL (3.5-5.0); Alkaline Phosphatase 71 U/L (40-150); Anion Gap 13 mmol/L (10-20); BUN (Urea Nitrogen) 20 mg/dL (8.9-20.6); Bilirubin, Total 0.8 mg/dL (0.2-1.2); Calc. Creatinine Clearance 0 mL/min (70-130); Calcium 9.6 mg/dL (7.8-10.44); Carbon Dioxide 31 mmol/L (22-29); Chloride 101 mmol/L (98-107); Estimated GFR-MDRD Greater than 90; Glucose 88 mg/dL (70-105); Potassium 3.6 mmol/L (3.5-5.1); Protein, Total 7.7 g/dL (6.0-8.3); Sodium 141 mmol/L (136-145)
[2018-01-04 11:05] LABS: CKMB 1.3 ng/mL (0-6.6); Troponin I Less than 0.010 ng/mL (< 0.028)
--- NOTE | 2018-01-04 11:36 | RAD ---
PORTABLE CHEST 1 VIEW: DATE: 01/04/18. TIME: 10:23 a.m. HISTORY: Chest pain. FINDINGS: Comparison is made with the exam of 11/10/17. The heart is enlarged. No focal areas of consolidation, pneumothorax, cyn pulmonary edema, or pleu ral effusions are seen. IMPRESSION: No acute process. POS: [facility]
[2018-01-04 12:15] LABS: Bilirubin Negative (Negative); Blood, Urine Negative (Negative); Clarity CLEAR (Clear); Glucose, Urine (Dipstick) Negative (Negative); Leukocyte Negative (Negative); Nitrite Negative (Negative); Protein, Urine (Dipstick) Negative (Neg-Trace); Specific Gravity, Urine 1.019 (1.002-1.036); pH, Urine 7.5 (5.0-9.0)
[2018-01-04 13:20] LABS: Troponin I Less than 0.010 ng/mL (< 0.028)
== END 2018-01-04 13:39 | disposition home or self-care (01) ==
LOC: ERS 10:00
DX: R07.9 Chest pain, unspecified (principal); R53.1 Weakness; R00.2 Palpitations; R32 Unspecified urinary incontinence; R35.0 Frequency of micturition; I48.91 Unspecified atrial fibrillation; E03.9 Hypothyroidism, unspecified; G43.909 Migraine, unspecified, not intractable, without status migrainosus; E78.5 Hyperlipidemia, unspecified; I10 Essential (primary) hypertension; E78.1 Pure hyperglyceridemia; Z79.899 Other long term (current) drug therapy
CPT/HCPCS: 36415; 71045; 80053; 81003; 82553; 84484; 85025; 93005; 94760; 96360

== ENCOUNTER 2018-01-19 12:33 | Outpatient (CLI) | payer OTHER ==
[2018-01-19 14:41] LABS: Hemoglobin 14.6 g/dL (14.0-18.0); Mean Corpuscular HGB CONC 34.3 g/dL (32.0-36.0); Mean Corpuscular Hemoglobin 30.9 pg (27.0-31.0); Mean Corpuscular Volume 90.2 fl (80.0-94.0); Mean Platelet Volume 8.4 fL (7.4-10.4); Platelet Count 189 thou/uL (130-400); RBC Distribution Width 11.6 % (11.5-14.5); Red Blood Cell (RBC) Count 4.73 mill/uL (4.70-6.10); White Blood Cell (WBC) Count 6.6 thou/uL (4.8-10.8)
[2018-01-19 14:47] LABS: PTT 32.9 SEC (22.9-36.1)
[2018-01-19 15:01] LABS: ALT (SGPT) 14 U/L (8-55); AST (SGOT) 15 U/L (5-34); Albumin 4.4 g/dL (3.5-5.0); Alkaline Phosphatase 71 U/L (40-150); Anion Gap 15 mmol/L (10-20); BUN (Urea Nitrogen) 18 mg/dL (8.9-20.6); Bilirubin, Total 1.1 mg/dL (0.2-1.2); Calc. Creatinine Clearance 0 mL/min (70-130); Calcium 9.5 mg/dL (7.8-10.44); Carbon Dioxide 27 mmol/L (22-29); Chloride 103 mmol/L (98-107); Estimated GFR-MDRD Greater than 90; Globulin 3.1 g/dL (2.4-3.5); Glucose 83 mg/dL (70-105); Potassium 3.5 mmol/L (3.5-5.1); Protein, Total 7.5 g/dL (6.0-8.3); Sodium 141 mmol/L (136-145)
== END 2018-01-19 12:34 | disposition home or self-care (01) ==
LOC: LABBT 12:33
PROVIDERS: ATTEND Internal Medicine Cardiovascular Disease
DX: Z01.818 Encounter for other preprocedural examination (principal); R07.9 Chest pain, unspecified
CPT/HCPCS: 80053; 85027; 85610; 85730

== ENCOUNTER 2018-01-26 05:39 | Day surgery (SDC) | payer OTHER ==
[2018-01-19 13:03] VITALS: BMI 39.4
[2018-01-26] MEDS ORDERED: Diazepam 5 MG TAB ONE ×2 (06:18→10:27)
[2018-01-26] MEDS ORDERED: Sodium Chloride 0.9% 1,000 ML IV SCH (06:30)
[2018-01-26] MEDS ORDERED: Diazepam 5 MG TAB PO SCH ×2 (06:30→10:30)
[2018-01-26] MEDS ORDERED: Lidocaine 1% (PF) 30 ML VIAL ONE (06:37)
[2018-01-26] MEDS ORDERED: Midazolam HCl 2 mg/2 ml Vial ONE (07:09)
[2018-01-26] MEDS ORDERED: Fentanyl 100 MCG/2 ML VIAL ONE (07:10)
[2018-01-26] MEDS ORDERED: Nitroglycerin 100MG/250ML BOT 250 ML ONE (07:43)
[2018-01-26] MEDS ORDERED: Iopamidol 370 76% 100 ML VIAL ONE (11:26)
--- NOTE | 2018-01-27 00:33 | DIS ---
DATE OF DISCHARGE: 01/26/2018 HOSPITAL COURSE: The patient came in for outpatient cardiac catheterization with normal coronary art eries and normal left ventricular function. The patient does have the following problems: 1. Labile hypertension, difficult to control. 2. Intermittent palpitations. He did have one episode documented in the past of atrial fibrillation, but as to my knowledge only on e episode has been documented over the years, other palpitations unassociated with any documented dys rhythmia. PLAN: 1. He will go home on amlodipine 10 mg a day. 2. Lisinopril 20 mg a day. 3. Clonidine 0.1 mg if systolic blood pressures are 180. 4. We would strongly consider outpatient LINQ recorder. He has had history of unexplained syncope. No explanation has been found other than probably orthostatic hypotension, but he also has frequent palpitations. He has gone to the emergency room multiple occasions with these complaints. LINQ woul d be likely helpful. We will refer to Dr. Brito for consideration of that.
== END 2018-01-26 13:43 | disposition home or self-care (01) ==
LOC: CCL 05:39
PROVIDERS: ATTEND Internal Medicine Cardiovascular Disease
PROC: 4A023N7 Measurement of Cardiac Sampling and Pressure, Left Heart, Percutaneous Approach (ICD-10-PCS; principal; 2018-01-26)
PROC: B2111ZZ Fluoroscopy of Multiple Coronary Arteries using Low Osmolar Contrast (ICD-10-PCS; principal; 2018-01-26)
PROC: B2151ZZ Fluoroscopy of Left Heart using Low Osmolar Contrast (ICD-10-PCS; principal; 2018-01-26)
DX: R07.89 Other chest pain (principal); E78.00 Pure hypercholesterolemia, unspecified; I10 Essential (primary) hypertension; G62.9 Polyneuropathy, unspecified; G40.909 Epilepsy, unspecified, not intractable, without status epilepticus; N19 Unspecified kidney failure; I48.0 Paroxysmal atrial fibrillation; I49.3 Ventricular premature depolarization; E78.2 Mixed hyperlipidemia; Z88.8 Allergy status to other drugs, medicaments and biological substances; Z79.82 Long term (current) use of aspirin; Z79.899 Other long term (current) drug therapy
CPT/HCPCS: 76942; 93458; 99152; 99153; C1769; J1644; J2001; J2250; J3010

== ENCOUNTER 2018-01-28 23:17 | Emergency (ER) | payer OTHER ==
[2018-01-29 00:09] LABS: Bilirubin Negative (Negative); Blood, Urine Negative (Negative); Clarity CLEAR (Clear); Glucose, Urine (Dipstick) Negative (Negative); Leukocyte Negative (Negative); Nitrite Negative (Negative); Protein, Urine (Dipstick) Negative (Neg-Trace); Specific Gravity, Urine 1.029 (1.002-1.036); Urobilinogen 0.2 mg/dL (0.2-1.0)
[2018-01-29 00:42] LABS: ALT (SGPT) 15 U/L (8-55); AST (SGOT) 12 U/L (5-34); Albumin 4.3 g/dL (3.5-5.0); Alkaline Phosphatase 69 U/L (40-150); Anion Gap 12 mmol/L (10-20); BUN (Urea Nitrogen) 18 mg/dL (8.9-20.6); Bilirubin, Total 0.6 mg/dL (0.2-1.2); Calc. Creatinine Clearance 0 mL/min (70-130); Calcium 9.5 mg/dL (7.8-10.44); Carbon Dioxide 30 mmol/L (22-29); Chloride 102 mmol/L (98-107); Estimated GFR-MDRD Greater than 90; Glucose 95 mg/dL (70-105); Potassium 4.1 mmol/L (3.5-5.1); Protein, Total 7.3 g/dL (6.0-8.3); Sodium 140 mmol/L (136-145)
[2018-01-29 03:10] LABS: #Eosinphils 0.1 thou/uL (0.0-0.7); #Monocytes 0.8 thou/uL (0.11-0.59); #Neutrophils 5.9 thou/uL (1.40-6.50); %Basophils 0.3 % (0.0-1.0); %Eosinophils 1.3 % (0.0-10.0); %Lymphocytes 22.3 % (21.0-51.0); %Monocytes 9.5 % (0.0-10.0); %Neutrophils 66.6 % (42.0-75.0); Hemoglobin 14.4 g/dL (14.0-18.0); Mean Corpuscular HGB CONC 35.1 g/dL (32.0-36.0); Mean Corpuscular Hemoglobin 31.5 pg (27.0-31.0); Mean Corpuscular Volume 89.7 fl (80.0-94.0); Mean Platelet Volume 8.4 fL (7.4-10.4); Platelet Count 215 thou/uL (130-400); RBC Distribution Width 12.1 % (11.5-14.5); Red Blood Cell (RBC) Count 4.58 mill/uL (4.70-6.10); White Blood Cell (WBC) Count 8.9 thou/uL (4.8-10.8)
== END 2018-01-29 00:46 | disposition home or self-care (01) ==
LOC: ERS 23:17
DX: N39.41 Urge incontinence (principal); I48.91 Unspecified atrial fibrillation; I49.3 Ventricular premature depolarization; E03.9 Hypothyroidism, unspecified; E78.2 Mixed hyperlipidemia; I10 Essential (primary) hypertension; G43.909 Migraine, unspecified, not intractable, without status migrainosus; Z79.899 Other long term (current) drug therapy
CPT/HCPCS: 36415; 80053; 81003; 85025; 87086

== ENCOUNTER 2018-02-05 10:43 | Emergency (ER) | payer OTHER ==
[2018-02-05] MEDS ORDERED: traMADol HCl 50 MG TAB ONE (11:52)
[2018-02-05] MEDS ORDERED: predniSONE 20 MG TAB ONE (11:52)
== END 2018-02-05 12:08 | disposition home or self-care (01) ==
LOC: ERS 10:43
DX: M54.41 Lumbago with sciatica, right side (principal); I48.91 Unspecified atrial fibrillation; E03.9 Hypothyroidism, unspecified; E78.5 Hyperlipidemia, unspecified; E78.2 Mixed hyperlipidemia; I10 Essential (primary) hypertension; G40.909 Epilepsy, unspecified, not intractable, without status epilepticus; Z79.899 Other long term (current) drug therapy
CPT/HCPCS: 99283; J7506

== ENCOUNTER 2018-02-07 23:38 | Emergency (ER) | payer OTHER ==
[2018-02-08 00:49] LABS: Bilirubin Negative (Negative); Blood, Urine Negative (Negative); Clarity CLEAR (Clear); Glucose, Urine (Dipstick) Negative (Negative); Leukocyte Negative (Negative); Nitrite Negative (Negative); Protein, Urine (Dipstick) Negative (Neg-Trace); Specific Gravity, Urine 1.034 (1.002-1.036)
[2018-02-08 00:58] LABS: #Lymphocytes 1.9 thou/uL (1.20-3.40); #Monocytes 1.1 thou/uL (0.11-0.59); #Neutrophils 9.3 thou/uL (1.40-6.50); %Basophils 0.1 % (0.0-1.0); %Eosinophils 0.3 % (0.0-10.0); %Lymphocytes 15.1 % (21.0-51.0); %Monocytes 8.7 % (0.0-10.0); %Neutrophils 75.8 % (42.0-75.0); Hemoglobin 13.4 g/dL (14.0-18.0); Mean Corpuscular Hemoglobin 32.1 pg (27.0-31.0); Mean Corpuscular Volume 91.5 fl (80.0-94.0); Mean Platelet Volume 8.4 fL (7.4-10.4); Platelet Count 177 thou/uL (130-400); RBC Distribution Width 12.2 % (11.5-14.5); Red Blood Cell (RBC) Count 4.18 mill/uL (4.70-6.10); White Blood Cell (WBC) Count 12.3 thou/uL (4.8-10.8)
[2018-02-08 01:11] LABS: ALT (SGPT) 13 U/L (8-55); AST (SGOT) 14 U/L (5-34); Alkaline Phosphatase 59 U/L (40-150); Anion Gap 13 mmol/L (10-20); BUN (Urea Nitrogen) 18 mg/dL (8.9-20.6); Bilirubin, Total 0.5 mg/dL (0.2-1.2); CK (CPK) 54 U/L (30-200); Calc. Creatinine Clearance 0 mL/min (70-130); Calcium 9.1 mg/dL (7.8-10.44); Carbon Dioxide 29 mmol/L (22-29); Chloride 103 mmol/L (98-107); Estimated GFR-MDRD Greater than 90; Globulin 2.8 g/dL (2.4-3.5); Glucose 111 mg/dL (70-105); Potassium 3.9 mmol/L (3.5-5.1); Protein, Total 6.8 g/dL (6.0-8.3); Sodium 141 mmol/L (136-145)
--- NOTE | 2018-02-08 07:26 | MRI ---
LUMBAR SPINE MRI NONCONTRAST: INDICATIONS: Low back pain. FINDINGS: The conus medullaris terminates at the L1 level. There is chronic appearing mild endplate irregulari ty of T12. No acute marrow edema. The lumbar spine disk space heights are relatively well preserved . No subluxation. No significant paraspinous edema. There is a central disk protrusion at T12-L1 with mild effacement of the central aspect of the ventra l thecal sac. No significant mass effect upon the conus medullaris. At the L1-L2 through L5-S1 levels, there is no significant compromise of the central canal or neural foramina. Minimal bulging disks are present at L3-L4, L4-L5, and L5-S1. IMPRESSION: 1. Incidental small central disk protrusion at T12-L1, approximating but not significantly deforming the conus medullaris. 2. No acute abnormality of significance evident within the lumbar spine. POS: [facility]
== END 2018-02-08 03:59 | disposition home or self-care (01) ==
LOC: ERS 23:38
DX: R32 Unspecified urinary incontinence (principal); M47.896 Other spondylosis, lumbar region; I48.91 Unspecified atrial fibrillation; I49.3 Ventricular premature depolarization; E03.9 Hypothyroidism, unspecified; E78.2 Mixed hyperlipidemia; I10 Essential (primary) hypertension; G43.909 Migraine, unspecified, not intractable, without status migrainosus; R56.9 Unspecified convulsions; Z79.899 Other long term (current) drug therapy
CPT/HCPCS: 72148; 80053; 81003; 82550; 85025

== ENCOUNTER 2018-02-21 09:25 | Outpatient (CLI) | payer OTHER ==
[2018-02-21 11:13] LABS: Anion Gap 14 mmol/L (10-20); BUN (Urea Nitrogen) 20 mg/dL (8.9-20.6); Calc. Creatinine Clearance 0 mL/min (70-130); Calcium 9.3 mg/dL (7.8-10.44); Carbon Dioxide 28 mmol/L (22-29); Chloride 104 mmol/L (98-107); Estimated GFR-MDRD Greater than 90; Glucose 85 mg/dL (70-105); Potassium 4.1 mmol/L (3.5-5.1); Sodium 142 mmol/L (136-145)
--- NOTE | 2018-02-21 12:44 | CT ---
CT ABDOMEN WITH AND WITHOUT IV CONTRAST: DATE: 02/21/18. HISTORY: Left renal lesion, complex left renal cyst. COMPARISON: Studies on 04/01/17 and 11/10/17. FINDINGS: Previously seen exophytic increased density cystic lesion superior pole left kidney is again seen. T here is no enhancement seen between the pre- and postcontrast images. The cystic lesion on similar s lice selection to prior study measures 3.1 cm x 2.9 cm and on the study on 11/10/17 measured 2.8 cm x 2.7 cm and on study in 2017 measured 2.8 cm x 2.4 cm. Some of the differences in measurement may be related to slice selection, although this does measure larger in size compared to study dating back t o 2016. No additional renal lesion is seen. There is no hydronephrosis. There is dependent atelect asis. There is approximately a 5 mm pleural-based nodular density in the left lower lobe adjacent to the ma pipe fissure which is stable in size compared to the study on 12/10/16. The liver, spleen, pancreas, bilateral adrenal glands, and right kidney demonstrate a normal CT appea fuad. The abdominal aorta is normal in caliber and has a normal CT appearance. IMPRESSION: 1. Bosniak type II cystic renal lesion superior pole left kidney which has been present since the pr ior studies in 2017 but does measure slightly larger in size compared to prior studies. No enhanceme nt is seen after the administration of intravenous contrast. 2. Stable pleural-based nodular density left lung base which could be related to a focal area of nod ular pleural thickening. POS: [facility]
== END 2018-02-21 09:26 | disposition home or self-care (01) ==
LOC: SCSCT 09:25
PROVIDERS: ATTEND Urology
DX: N28.1 Cyst of kidney, acquired (principal); J98.4 Other disorders of lung
CPT/HCPCS: 74170; 74178; 80048

== ENCOUNTER 2018-03-03 15:03 | Emergency (ER) | payer OTHER ==
[2018-03-03 15:34] LABS: #Basophils 0.1 thou/uL (0.0-0.2); #Eosinphils 0.2 thou/uL (0.0-0.7); #Lymphocytes 1.7 thou/uL (1.20-3.40); %Basophils 0.9 % (0.0-1.0); %Eosinophils 2.1 % (0.0-10.0); %Lymphocytes 21.2 % (21.0-51.0); %Monocytes 12.2 % (0.0-10.0); %Neutrophils 63.6 % (42.0-75.0); Hemoglobin 13.5 g/dL (14.0-18.0); Mean Corpuscular HGB CONC 34.4 g/dL (32.0-36.0); Mean Corpuscular Hemoglobin 31.5 pg (27.0-31.0); Mean Corpuscular Volume 91.5 fL (78.0-98.0); Mean Platelet Volume 8.1 fL (7.4-10.4); Platelet Count 213 thou/uL (130-400); RBC Distribution Width 12.4 % (11.5-14.5); White Blood Cell (WBC) Count 7.9 thou/uL (4.8-10.8)
[2018-03-03 15:56] LABS: ALT (SGPT) 17 U/L (8-55); AST (SGOT) 18 U/L (5-34); Albumin 4.4 g/dL (3.5-5.0); Alkaline Phosphatase 56 U/L (40-150); Anion Gap 17 mmol/L (10-20); BUN (Urea Nitrogen) 43 mg/dL (8.9-20.6); Bilirubin, Total 0.6 mg/dL (0.2-1.2); CK (CPK) 91 U/L (30-200); Calc. Creatinine Clearance 0 mL/min (70-130); Calcium 9.7 mg/dL (7.8-10.44); Carbon Dioxide 22 mmol/L (22-29); Chloride 106 mmol/L (98-107); Estimated GFR-MDRD 55; Globulin 3.1 g/dL (2.4-3.5); Glucose 84 mg/dL (70-105); Potassium 4.6 mmol/L (3.5-5.1); Protein, Total 7.5 g/dL (6.0-8.3); Sodium 140 mmol/L (136-145)
[2018-03-03 16:00] LABS: CKMB 1.6 ng/mL (0-6.6); Troponin I Less than 0.010 ng/mL (< 0.028)
--- NOTE | 2018-03-03 16:28 | RAD ---
CHEST ONE VIEW 03/03/18 HISTORY: Chest pain. COMPARISON: Radiograph 01/04/18. FINDINGS: The heart size is upper limits of normal. No pneumothorax. No effusion. No acute osseous abnormality. IMPRESSION: No acute intrathoracic abnormality. POS: [facility]
[2018-03-03] MEDS ORDERED: Nitroglycerin 2% Ointment 1 INCH/1 GM Packet ONE (16:59)
[2018-03-03] MEDS ORDERED: Nitroglycerin 0.4 MG TAB (25 Tab Bottle) ONE (17:00)
--- NOTE | 2018-03-03 17:08 | CT ---
HEAD CT WITHOUT CONTRAST 03/03/18 COMPARISON: 08/26/17 HISTORY: Dizziness, hypotension. TECHNIQUE: Serial axial CT imaging at 5 mm intervals from vertex through skull base without contrast. FINDINGS: The imaged paranasal sinuses and mastoid air cells demonstrate no acute findings. There is an old fra cture of the medial orbital wall on the right. No displaced calvarial fracture is noted. There is no intracranial hemorrhage, midline shift, mass effect, or ventricular enlargement. IMPRESSION: No acute findings. POS: [facility]
[2018-03-03] MEDS ORDERED: Meclizine HCl 25 MG TAB ONE (17:39)
== END 2018-03-03 20:01 | disposition home or self-care (01) ==
LOC: ERS 15:03
DX: E86.0 Dehydration (principal); R55 Syncope and collapse; I48.91 Unspecified atrial fibrillation; E03.9 Hypothyroidism, unspecified; I10 Essential (primary) hypertension; Z79.899 Other long term (current) drug therapy
CPT/HCPCS: 36415; 70450; 71045; 80053; 82553; 84484; 85025; 93005; 96360

== ENCOUNTER 2018-03-07 11:02 | Day surgery (SDC) | payer OTHER ==
[2018-03-04 10:15] VITALS: BMI 40.1
[2018-03-07] MEDS ORDERED: Lidocaine 1% w/Epinephrine 1:100K 30 ML VIAL ONE (12:09)
--- NOTE | 2018-03-07 14:30 | OP ---
DATE OF PROCEDURE: 03/07/2018 PROCEDURE: Loop recorder insertion. REFERRING PHYSICIAN: Philip Valadez M.D. REASON FOR PROCEDURE: Mr. Sheridan is a 42-year-old man with history of recurrent syncopal spells, poss ible life-threatening arrhythmia. He is here for LINQ recorder insertion. PROCEDURE: The left precordial space was prepped, draped and anesthetized with subcutaneous lidocain e. Following that with a standard Abloomy Reveal LINQ insertion tool kit, incision was made over t he 4th intercostal space and Abloomy LINQ loop recorder, model number LNQ11, serial number [id number] was inserted. The wound was closed with Dermabond application. CONCLUSION: Successful loop recording implantation. PLAN: Routine monitoring.
== END 2018-03-07 14:35 | disposition home or self-care (01) ==
LOC: CCL 11:02
PROVIDERS: ATTEND Internal Medicine Cardiovascular Disease
PROC: 0JH632Z Insertion of Monitoring Device into Chest Subcutaneous Tissue and Fascia, Percutaneous Approach (ICD-10-PCS; principal; 2018-03-07)
DX: R00.2 Palpitations (principal); Z88.8 Allergy status to other drugs, medicaments and biological substances; Z79.82 Long term (current) use of aspirin; Z79.899 Other long term (current) drug therapy
CPT/HCPCS: 33282; 93005; 93010; C1764; J2001

== ENCOUNTER 2018-03-16 13:06 | Emergency (ER) | payer OTHER ==
--- NOTE | 2018-03-19 14:24 | EKG ---
Test Reason : Blood Pressure : / mmHG Vent. Rate : 087 BPM Atrial Rate : 087 BPM P-R Int : 164 ms QRS Dur : 082 ms QT Int : 350 ms P-R-T Axes : 019 003 021 degrees QTc Int : 421 ms Normal sinus rhythm Minimal voltage criteria for LVH, may be normal variant Borderline ECG Confirmed by VIRAL SALAMANCA ([id number]), magazine editor ENRIQUE WATSON ([id number]) on 03/19/2018 2:23:49 PM Referred By: Confirmed By:VIRAL SALAMANCA
== END 2018-03-16 16:55 | disposition home or self-care (01) ==
LOC: ERS 13:06
DX: R00.2 Palpitations (principal); I48.91 Unspecified atrial fibrillation; E03.9 Hypothyroidism, unspecified; E78.2 Mixed hyperlipidemia; I10 Essential (primary) hypertension; G43.909 Migraine, unspecified, not intractable, without status migrainosus; Z79.899 Other long term (current) drug therapy
CPT/HCPCS: 93005

== ENCOUNTER 2018-03-23 12:35 | Emergency (ER) | payer OTHER ==
[2018-03-23 13:41] LABS: #Eosinphils 0.2 thou/uL (0.0-0.7); #Lymphocytes 1.6 thou/uL (1.20-3.40); #Monocytes 0.6 thou/uL (0.11-0.59); #Neutrophils 3.4 thou/uL (1.40-6.50); %Basophils 0.6 % (0.0-1.0); %Eosinophils 3.2 % (0.0-10.0); %Lymphocytes 26.9 % (21.0-51.0); %Monocytes 11.1 % (0.0-10.0); %Neutrophils 58.1 % (42.0-75.0); Hemoglobin 12.9 g/dL (14.0-18.0); Mean Corpuscular HGB CONC 36.3 g/dL (32.0-36.0); Mean Corpuscular Hemoglobin 33.5 pg (27.0-31.0); Mean Corpuscular Volume 92.5 fL (78.0-98.0); Platelet Count 145 thou/uL (130-400); RBC Distribution Width 12.3 % (11.5-14.5); Red Blood Cell (RBC) Count 3.85 mill/uL (4.70-6.10); White Blood Cell (WBC) Count 5.8 thou/uL (4.8-10.8)
--- NOTE | 2018-03-23 13:43 | RAD ---
PORTABLE CHEST 1 VIEW: Date: 03/23/18 Time: 1309 hours HISTORY: Chest pain. FINDINGS/IMPRESSION: Comparison made with exam of 03/03/18. The heart size is borderline. No lobar consolidation, pneumothoraces, cyn pulmonary edema, or large effusions are seen. POS: [facility]
[2018-03-23 14:05] LABS: ALT (SGPT) 15 U/L (8-55); AST (SGOT) 19 U/L (5-34); Albumin 4.5 g/dL (3.5-5.0); Alkaline Phosphatase 63 U/L (40-150); Anion Gap 17 mmol/L (10-20); BUN (Urea Nitrogen) 29 mg/dL (8.9-20.6); Bilirubin, Total 0.5 mg/dL (0.2-1.2); CK (CPK) 136 U/L (30-200); Calc. Creatinine Clearance 0 mL/min (70-130); Calcium 9.5 mg/dL (7.8-10.44); Carbon Dioxide 24 mmol/L (22-29); Chloride 104 mmol/L (98-107); Estimated GFR-MDRD 85; Glucose 78 mg/dL (70-105); Lipase 51 U/L (8-78); Potassium 4.1 mmol/L (3.5-5.1); Protein, Total 7.5 g/dL (6.0-8.3); Sodium 141 mmol/L (136-145)
[2018-03-23 14:09] LABS: CKMB 1.5 ng/mL (0-6.6); Troponin I Less than 0.010 ng/mL (< 0.028)
== END 2018-03-23 15:09 | disposition home or self-care (01) ==
LOC: ERS 12:35
DX: R07.9 Chest pain, unspecified (principal); I10 Essential (primary) hypertension; I48.91 Unspecified atrial fibrillation; E03.9 Hypothyroidism, unspecified; E78.2 Mixed hyperlipidemia; G43.909 Migraine, unspecified, not intractable, without status migrainosus; Z79.899 Other long term (current) drug therapy
CPT/HCPCS: 36415; 71045; 80053; 82550; 82553; 83690; 84484; 85025; 93005

== ENCOUNTER 2018-04-05 11:20 | Inpatient (IN) | payer OTHER ==
--- NOTE | 2018-04-05 12:25 | CT ---
NONCONTRAST CT HEAD: 04/05/2018 HISTORY: Altered mental status. History of atrial fibrillation and migraine headaches. COMPARISON: 03/03/2018 FINDINGS: There is no evidence of a hemorrhage, acute infarction, mass effect, or midline shift. The ventricul ar system is normal in size, shape, and position. Mild mucosal thickening is seen in the left maxillary antrum. There is a defect at the medial right orbital wall, which is stable from the prior exam, and may be developmental versus a remote injury. The mastoid air cells are clear. The calvarial structures are intact. IMPRESSION: No acute intracranial abnormalities demonstrated. POS: [facility]
--- NOTE | 2018-04-05 12:28 | CT ---
NONCONTRAST CT CERVICAL SPINE: 04/05/2018 HISTORY: Neck pain. TECHNIQUE: Contiguous axial CT images were obtained through the cervical spine, from the skull to the C1-C2 leve l. Sagittal and coronal reformatted images are provided. FINDINGS: There is no evidence of a fracture or subluxation involving the cervical spine. Mild facet degenerat james change is seen in the lower cervical spine. Prevertebral soft tissues are within normal limits. The visualized lung apices are clear. IMPRESSION: No fracture or subluxation involving the cervical spine. POS: [facility]
[2018-04-05 12:32] LABS: ALT (SGPT) 18 U/L (8-55); AST (SGOT) 30 U/L (5-34); Albumin 4.9 g/dL (3.5-5.0); Alkaline Phosphatase 65 U/L (40-150); Anion Gap 20 mmol/L (10-20); BUN (Urea Nitrogen) 38 mg/dL (8.9-20.6); Bilirubin, Total 1.2 mg/dL (0.2-1.2); Calc. Creatinine Clearance 0 mL/min (70-130); Calcium 10.6 mg/dL (7.8-10.44); Carbon Dioxide 24 mmol/L (22-29); Chloride 99 mmol/L (98-107); Estimated GFR-MDRD 18; Globulin 3.6 g/dL (2.4-3.5); Glucose 73 mg/dL (70-105); Potassium 4.6 mmol/L (3.5-5.1); Protein, Total 8.5 g/dL (6.0-8.3); Sodium 138 mmol/L (136-145)
--- NOTE | 2018-04-05 12:33 | CT ---
NONCONTRAST CT THORACIC SPINE: Date: 04-05-18 History: Back pain. FINDINGS: There is no evidence of a fracture or subluxation involving the thoracic spine. Vertebral body height s are within normal limits. There are multilevel facet degenerative changes with prominent bridging o steophytes involving the lower thoracic spine. There is mild right sided neural foraminal narrowing a t the T2-3 level with moderate right sided neural foraminal narrowing at T4-5 level and moderate righ t sided neural foraminal narrowing at the T4-5 and T5-6 levels, probably related to the facet degener ative changes. There is ligamentous calcification seen posteriorly involving the lower thoracic spine which does result in mild mass effect on the posterolateral aspect of the ventral subarachnoid space . There is mild narrowing of the central spinal canal at the T10-11 level. Prevertebral soft tissues are within normal limits. There is mild endplate irregularities at the T12-L1 level. This is a stable finding compared to lumba r spine on 02-08-18 and likely related to endplate degenerative change. IMPRESSION: 1. Degenerative changes of the thoracic spine, but no fracture or subluxation is seen. POS: LAUREN
--- NOTE | 2018-04-05 12:36 | CT ---
NONCONTRAST CT LUMBAR SPINE: Date: 04-05-18 History: Low back pain. Comparison: MRI lumbar spine, 02-08-18. FINDINGS: There is minimal wedge shaped deformity involving the T12 vertebral body with endplate degenerative c hanges at this level. However, this is stable from study on 02-08-18 and may be developmental in origi n and related to the endplate degenerative changes although remote compression deformity is a possibi lity. No acute fracture or subluxation is seen involving the lumbar spine. There are scattered mild d egenerative changes within the lumbar spine as visualized on lumbar spine MRI. Paravertebral soft tis sues are within normal limits. Visualized nonenhanced retroperitoneal structures are also grossly nor mal in appearance. IMPRESSION: 1. No acute findings involving the lumbar spine. 2. Mild degenerative changes with findings greatest at the T12-L1 level. These findings are stable co mpared to MRI lumbar spine. POS: LAUREN
[2018-04-05 13:29] LABS: #Basophils 0.1 thou/uL (0.0-0.2); #Eosinphils 0.2 thou/uL (0.0-0.7); #Lymphocytes 1.6 thou/uL (1.20-3.40); #Monocytes 0.9 thou/uL (0.11-0.59); #Neutrophils 7.5 thou/uL (1.40-6.50); %Basophils 0.6 % (0.0-1.0); %Eosinophils 1.9 % (0.0-10.0); %Lymphocytes 15.7 % (21.0-51.0); %Monocytes 9.1 % (0.0-10.0); %Neutrophils 72.7 % (42.0-75.0); Hemoglobin 13.5 g/dL (14.0-18.0); Mean Corpuscular HGB CONC 35.7 g/dL (32.0-36.0); Mean Corpuscular Hemoglobin 32.9 pg (27.0-31.0); Mean Corpuscular Volume 92.1 fL (78.0-98.0); Mean Platelet Volume 8.7 fL (7.4-10.4); Platelet Count 168 thou/uL (130-400); RBC Distribution Width 12.4 % (11.5-14.5); Red Blood Cell (RBC) Count 4.09 mill/uL (4.70-6.10); White Blood Cell (WBC) Count 10.2 thou/uL (4.8-10.8)
[2018-04-05 14:40] LABS: Bilirubin Small (Negative); Blood, Urine Negative (Negative); Clarity CLOUDY (Clear); Glucose, Urine (Dipstick) Negative (Negative); Leukocyte Negative (Negative); Nitrite Negative (Negative); Protein, Urine (Dipstick) 30 mg/dL (Neg-Trace); Specific Gravity, Urine 1.027 (1.002-1.036)
[2018-04-05 14:46] LABS: Squamous Epithelial 0-3 HPF (0-3); WBC/HPF 0-3 HPF (0-3)
[2018-04-05 14:48] LABS: Pathc Cast-AUWi Flag 13.95 (0-2.49)
[2018-04-05 14:50] LABS: Amphetamine Not Detected (NotDetected); Barbiturates Screen Not Detected (NotDetected); Benzodiazepine Screen Not Detected (NotDetected); Cocaine Metabolite Screen Not Detected (NotDetected); Medtox Control Line Valid? VALID (VALID); Medtox Reader # READER 4; Methadone Not Detected (NotDetected); Methamphetamine Not Detected (NotDetected); Opiate Screen Not Detected (NotDetected); Oxycodone Screen Not Detected (NotDetected); Phencyclidine (PCP) Not Detected (NotDetected); THC/Cannabinoid Screen Not Detected (NotDetected); Tricyclic Screen Not Detected (NotDetected)
[2018-04-05 14:55] LABS: Bacteria/HPF 1+ HPF (None Seen); Crystals/HPF 1+ STARCH HPF (Negative); Hyaline Casts/LPF NONE SEEN LPF (0-3 Hyaline); Manual Microscopic Reviewed? No Path Casts Seen; RBC/HPF None Seen HPF (0-3); Renal Epithelial None Seen HPF (0-3); Transitional Epithelial NONE SEEN HPF (0-3)
[2018-04-05] MEDS ORDERED: Ondansetron HCl/PF 4 MG/2 ML Vial IVP PRN (16:32)
[2018-04-05] MEDS ORDERED: Ondansetron ODT 4 MG TAB SL PRN (16:32)
[2018-04-05] MEDS ORDERED: Sodium Chloride 0.9% 1,000 ML IV SCH (16:32)
[2018-04-05] MEDS ORDERED: Lorazepam 2 MG/ML VIAL SLOW IVP PRN (16:42)
[2018-04-05] MEDS ORDERED: Mag-Al 1200 mg/1200 mg/30 ML UDCUP PO PRN (16:42)
[2018-04-05 17:59] VITALS: BMI 41.0
--- NOTE | 2018-04-05 19:07 | ULT ---
BILATERAL CAROTID DOPPLER ULTRASOUND: 04/05/18 HISTORY: Amaurosis fugax. COMPARISON: None. TECHNIQUE: Real time minor scale, color doppler and spectral analysis of the extracranial carotid and vertebral a rteries was performed. No hemodynamically significant stenosis. Antegrade flow of both vertebral arteries. Mild atherosclerotic plaque. Right ICA/CCA ratio of 0.71 and left ICA/CCA ratio of 0.79. IMPRESSION: No hemodynamically significant stenosis. POS: HOME
--- NOTE | 2018-04-05 19:52 | HP ---
PRIMARY CARE PHYSICIAN: Calin To M.D. CHIEF COMPLAINT: Passed out at work. HISTORY OF PRESENT ILLNESS: Mr. Sheridan is a pleasant 42-year-old gentleman that has a history of hype rtension, migraine disorder and seizure disorder. He was in his usual state of health until earlier today. 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 The details of which are very sketchy. It is unclear whether or not this was truly witnessed, but he says the next thing he knew he woke up in the ambulance. When he was brought to the emergency room, he had a CT scan of the head done, whi ch was negative for any acute intracranial abnormality. A prolactin level was elevated, but he was a lso found to have a creatinine of approximately 3.7, which was much higher than his baseline and for this reason, he is being admitted for possible seizure as well as acute renal failure. The patient s ays that he believes that when he works there are some bright white colored rocks, which sounds like he thinks that may trigger his seizures. He says that when he sees them, he loses his vision, but th en he says he loses his vision off and on and he "thinks that he might be going blind." Apparently, he told the ER provider that when he has seizures, he has difficulty with his vision, but he gave me a slightly different history. He says that he also gets pain in his neck and start shaking and this is when he loses the vision. Right now, he is back to his baseline, but he does appear to be a bit s haky. REVIEW OF SYSTEMS: All systems are reviewed and negative except for that mentioned in the history of present illness. PAST MEDICAL HISTORY: Significant for migraine headache, hypertension; possible atrial fibrillation, although in review of his electronic records, he only had possibly one known episode of atrial fibri llation; history of palpitations, which were never associated with any dysrhythmia, and he currently has a LINQ recorder placed; hypothyroidism, hyperlipidemia, and seizure disorder. PAST SURGICAL HISTORY: He has had a tonsillectomy. ALLERGIES: TYLENOL. SOCIAL HISTORY: He is . He is a nonsmoker, nondrinker. He denies using any illicit drugs. He is a F[employer]. FAMILY HISTORY: Significant for hypertension and cancer. MEDICATIONS: Include gabapentin and Depakote. He says on 2 blood pressure medicines as well as aspi rin. PHYSICAL EXAMINATION: GENERAL: He is alert and oriented. He appears to be in no acute distress. VITAL SIGNS: Blood pressure was 138/52, heart rate 81, respiratory rate of 18, and he is afebrile. HEENT: Pupils are equal, round, and reactive. Extraocular muscles are intact. Sclerae are anicteri c. Throat no erythema, no exudates. NECK: No adenopathy, no bruits. LUNGS: Clear to auscultation. There was no wheezing, no rales. CARDIOVASCULAR: He has a normal S1, S2, no S3 or S4. No murmurs, clicks, no rubs. ABDOMEN: Obese, it is soft, it is nontender, nondistended. Positive for bowel sounds. There was no rebound or guarding. EXTREMITIES: No clubbing, cyanosis, no edema. NEUROLOGIC: The exam is nonfocal. SKIN AND INTEGUMENT: No skin changes. No rash. LABORATORY DATA: On his lab work, white blood cell count 10.2, hemoglobin 13.5, hematocrit is 37.7, platelet count is 168. Sodium 138, potassium 4.6, chloride is 99, CO2 is 24, BUN of 38, creatinine 3 .7, glucose is 73. ASSESSMENT AND PLAN: This is a pleasant 42-year-old gentleman that was brought to the hospital after having what sounds like either a syncopal episode or possible seizure. Prolactin level was elevated . He has a known history of seizures. He also is in acute renal failure. I suspect given the type of work that he does, he likely has acute renal failure secondary to prerenal azotemia or volume depl etion. He will be admitted to the stroke unit. He meets criteria for admission based on the acute r enal failure. 1. With regards to the seizure, will need to reconcile and get the doses of his usual medications. A valproic acid level was done in the ER, which was therapeutic and possibly consult Neurology for ad justments of his medications. Also, this vision loss, it is unclear whether or not this is part of h is seizure complex or whether or not this relates to a complex migraine versus some type of transient ischemic attack. We will get carotid Dopplers as well as an echo and ask Neurology for their opinio n regarding this. We will also get a sed rate, given the presence of a headache as well and the visi on changes. 2. Hypertension. We will need to reconcile and restart his medications and p.r.n. medicines as need ed and he will also be placed on deep venous thrombosis and gastrointestinal prophylaxis.
[2018-04-05] MEDS: Gabapentin 300 MG CAP PO SCH (21:49)
[2018-04-05] MEDS: Amlodipine 10 MG TAB PO SCH (21:49)
[2018-04-05] MEDS: Topiramate 25 MG TAB PO SCH (21:49)
[2018-04-05] MEDS: Docusate 100 MG CAP PO SCH (21:51)
[2018-04-05] MEDS: Heparin 5,000 UNITS/ML VIAL SC SCH (21:51)
[2018-04-05] MEDS: Sodium Chloride 0.9% 1,000 ML IV SCH (21:52)
--- NOTE | 2018-04-05 23:58 | CON ---
DATE OF CONSULTATION: 04/05/2018 CONSULTING PHYSICIAN: Hospitalist Service. IMPRESSION: 1. Recurrent blackouts of questionable significance. 2. History of migraine-like headaches. 3. History of pseudoseizures. 4. Postural tremors, likely secondary to the Depakote. 5. Renal insufficiency of uncertain cause. PLAN: 1. Discontinue Depakote. 2. Topamax 50 mg twice a day. 3. Cardiology followup. HISTORY OR PRESENT ILLNESS: Mr. 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 His last admission, he was having pseudoseizures. He reports he has had num erous episodes where his vision goes out on him. He reports this is brought on by walking and an are a where the surface is very light. He gets weak in his knees collapse. He was seen by Dr. Lori danielle d had implanted monitor. He apparently had a blackout at work and was brought to the hospital by carlito jordan. He was found to have a creatinine of 3.79 with a BUN of 38. PHYSICAL EXAMINATION: He is alert and appropriate. His speech is fluent and clear. There are no fo ashley deficits. He has some postural tremor in both hands. There is some questionable slowing of his rapid alternating movements bilaterally. Gait was not tested. LABORATORY STUDIES: Reviewed. CT scan of the brain, cervical, thoracic, and lumbar spine were done and appear unremarkable. The numerous blackouts that he reports are questionable organic etiology given his past history of ps ychogenic symptomatology. The tremor appears consistent with drug-induced tremor and I will try to a ddress that.
[2018-04-06] MEDS: Amlodipine 10 MG TAB PO SCH ×2 (01:53→22:26)
[2018-04-06] MEDS: Sodium Chloride 0.9% 1,000 ML IV SCH ×5 (01:53→23:01)
[2018-04-06 05:40] LABS: #Eosinphils 0.4 thou/uL (0.0-0.7); #Lymphocytes 1.6 thou/uL (1.20-3.40); #Monocytes 0.8 thou/uL (0.11-0.59); %Basophils 0.4 % (0.0-1.0); %Eosinophils 5.2 % (0.0-10.0); %Lymphocytes 24.3 % (21.0-51.0); %Monocytes 11.1 % (0.0-10.0); %Neutrophils 58.9 % (42.0-75.0); Hemoglobin 11.8 g/dL (14.0-18.0); Mean Corpuscular HGB CONC 34.3 g/dL (32.0-36.0); Mean Corpuscular Hemoglobin 32.1 pg (27.0-31.0); Mean Corpuscular Volume 93.5 fL (78.0-98.0); Mean Platelet Volume 8.1 fL (7.4-10.4); Platelet Count 157 thou/uL (130-400); RBC Distribution Width 12.3 % (11.5-14.5); Red Blood Cell (RBC) Count 3.69 mill/uL (4.70-6.10); White Blood Cell (WBC) Count 6.7 thou/uL (4.8-10.8)
[2018-04-06 06:38] LABS: Anion Gap 14 mmol/L (10-20); BUN (Urea Nitrogen) 42 mg/dL (8.9-20.6); Calc. Creatinine Clearance 111 mL/min (70-130); Calcium 8.9 mg/dL (7.8-10.44); Carbon Dioxide 26 mmol/L (22-29); Cardiac Risk 6.5 (Less than 4.5); Chloride 105 mmol/L (98-107); Cholesterol 201 mg/dl (< 200 Desired); Estimated GFR-MDRD 55; Glucose 98 mg/dL (70-105); HDL Cholesterol 31 mg/dL (>60 Neg Risk); LDL Cholesterol, Calculated 109 mg/dL; Potassium 4.4 mmol/L (3.5-5.1); Sodium 141 mmol/L (136-145); Triglycerides 306 mg/dL (Less than 150)
[2018-04-06] MEDS: Topiramate 25 MG TAB PO SCH ×2 (07:52→22:26)
[2018-04-06] MEDS: Aspirin 325 mg Enteric Coated Tablet PO SCH (07:53)
[2018-04-06] MEDS: Heparin 5,000 UNITS/ML VIAL SC SCH ×2 (07:53→22:28)
[2018-04-06] MEDS: Gabapentin 300 MG CAP PO SCH ×2 (07:53→22:27)
[2018-04-06] MEDS: Docusate 100 MG CAP PO SCH ×2 (07:53→22:26)
[2018-04-06] MEDS ORDERED: Enoxaparin Sodium 40 MG/0.4 ML SYRINGE SC SCH (09:00)
--- NOTE | 2018-04-06 11:19 | PDOC.PN ---
- Subjective Encounter Start Date: 04/06/18 Encounter Start Time: 11:19 Mr. Sheridan was seen today in follow-up of syncope, and acute renal failure. He is concerned that his blood pressure is labile. He has a mild headache. - Objective Resuscitation Status: Resuscitation Status FULL:Full Resuscitation MAR Reviewed: Yes Vital Signs & Weight: Vital Signs (12 hours) Temp Pulse Resp BP Pulse Ox 04/06/18 08:00 98.4 F 67 16 04/06/18 07:44 98.4 F 67 16 111/60 100 04/06/18 04:00 97.6 F 67 18 106/57 L 96 04/06/18 01:53 70 04/06/18 00:00 98.1 F 70 18 108/55 L 93 L Weight Weight 254 lb I&O: 04/05/18 04/06/18 04/07/18 06:59 06:59 06:59 Intake Total 1490 Output Total 600 Balance 890 Result Diagrams: 04/06/18 05:26 04/06/18 05:26 Phys Exam - Physical Examination HEENT: PERRLA Respiratory: no wheezing, no rales, no rhonchi, clear to auscultation bilateral Cardiovascular: RRR, no significant murmur, no rub Gastrointestinal: soft, non-tender, positive bowel sounds Musculoskeletal: no edema Dx/Plan (1) Seizure Code(s): R56.9 - UNSPECIFIED CONVULSIONS Status: Acute (2) CONSTANTINE (acute kidney injury) Code(s): N17.9 - ACUTE KIDNEY FAILURE, UNSPECIFIED Status: Acute (3) Complicated migraine Code(s): G43.109 - MIGRAINE WITH AURA, NOT INTRACTABLE, W/O STATUS MIGRAINOSUS Status: Chronic - Plan * Syncope- vs. Seizure - Will await the EEG reults, and recommendations from Neurology * I suspect this was more syncope from dehydration * Acute renal failure- continue to hydrate, renal function is improving * Labile HTN- so far his blood pressure has been stable * Hopefully home tomorrow .
[2018-04-06 12:55] LABS: ANA Symphony (Qualitative) Negative (Negative); dsDNA IgG Antibody 1.8 IU/mL (<10 Negative)
[2018-04-06] MEDS ORDERED: Ondansetron HCl/PF 4 MG/2 ML Vial IVP PRN (23:25)
[2018-04-06] MEDS ORDERED: Ondansetron ODT 4 MG TAB PO PRN (23:25)
[2018-04-07 04:50] LABS: Anion Gap 12 mmol/L (10-20); BUN (Urea Nitrogen) 23 mg/dL (8.9-20.6); Calc. Creatinine Clearance 187 mL/min (70-130); Calcium 9.1 mg/dL (7.8-10.44); Carbon Dioxide 23 mmol/L (22-29); Chloride 107 mmol/L (98-107); Estimated GFR-MDRD Greater than 90; Glucose 97 mg/dL (70-105); Sodium 138 mmol/L (136-145)
[2018-04-07] MEDS: Sodium Chloride 0.9% 1,000 ML IV SCH ×2 (07:43→15:54)
[2018-04-07] MEDS: Topiramate 25 MG TAB PO SCH ×2 (09:50→22:13)
[2018-04-07] MEDS: Gabapentin 300 MG CAP PO SCH ×2 (09:50→22:14)
[2018-04-07] MEDS: Docusate 100 MG CAP PO SCH ×2 (09:50→22:14)
[2018-04-07] MEDS: Aspirin 325 mg Enteric Coated Tablet PO SCH (09:50)
[2018-04-07] MEDS: Heparin 5,000 UNITS/ML VIAL SC SCH ×2 (09:51→22:14)
--- NOTE | 2018-04-07 15:17 | PDOC.PN ---
- Subjective Encounter Start Date: 04/07/18 Encounter Start Time: 15:16 Mr. Sheridan says he has not had a bowel movement in a month. He also says his blood pressure has been varying widely. He also has other multiple other somatic complaints, such as transient vision loss, chest pain right sided, weakness in both legs, and numbness in his legs from the knees down. He also mentioned that his employers are tired of him missing work so much, and have told him he no longer has a job. He doesn't know what he's going to do. - Objective Resuscitation Status: Resuscitation Status FULL:Full Resuscitation MAR Reviewed: Yes Vital Signs & Weight: Vital Signs (12 hours) Temp Pulse Resp BP Pulse Ox 04/07/18 12:00 98.5 F 65 16 124/74 96 04/07/18 08:00 98.7 F 74 16 137/83 99 04/07/18 04:00 97.7 F 74 20 116/75 100 Weight Admit Weight 254 lb Weight 254 lb I&O: 04/06/18 04/07/18 04/08/18 06:59 06:59 06:59 Intake Total 4835 580 Output Total 1850 Balance 2985 580 Result Diagrams: 04/06/18 05:26 04/07/18 04:11 Phys Exam - Physical Examination HEENT: PERRLA Respiratory: no wheezing, no rales, no rhonchi, clear to auscultation bilateral Cardiovascular: RRR, no significant murmur, no rub Gastrointestinal: soft, non-tender, positive bowel sounds Musculoskeletal: no edema Dx/Plan (1) Seizure Code(s): R56.9 - UNSPECIFIED CONVULSIONS Status: Acute (2) CONSTANTINE (acute kidney injury) Code(s): N17.9 - ACUTE KIDNEY FAILURE, UNSPECIFIED Status: Acute (3) Complicated migraine Code(s): G43.109 - MIGRAINE WITH AURA, NOT INTRACTABLE, W/O STATUS MIGRAINOSUS Status: Chronic (4) Constipation Code(s): K59.00 - CONSTIPATION, UNSPECIFIED Status: Acute - Plan * Seizure- Topamax has been added to his regimen * Chest pain and irregular heart rate- will consult Dr. Sandoval * Constipation- treat symptomatically- i ping it has been a month since his last Bowel movement * Acute renal failure- resolved.
[2018-04-07] MEDS: Amlodipine 10 MG TAB PO SCH (22:13)
[2018-04-07] MEDS: Fleet Enema 133 ML BOT PR SCH (22:14)
[2018-04-08] MEDS: Artificial Tears 18 DROP/0.9 ML EA EYE PRN ×2 (06:47→09:09)
[2018-04-08] MEDS: Fleet Enema 133 ML BOT PR SCH (07:30)
[2018-04-08] MEDS: Heparin 5,000 UNITS/ML VIAL SC SCH (07:39)
[2018-04-08] MEDS: Aspirin 325 mg Enteric Coated Tablet PO SCH (07:39)
[2018-04-08] MEDS: Docusate 100 MG CAP PO SCH (07:39)
[2018-04-08] MEDS: Gabapentin 300 MG CAP PO SCH (07:39)
[2018-04-08] MEDS: Topiramate 25 MG TAB PO SCH (07:41)
--- NOTE | 2018-04-08 09:00 | CON ---
DATE OF CONSULTATION: 04/07/2018 HISTORY OF PRESENT ILLNESS: Jose Sheridan is a 42-year-old white male who has had previous history of atrial fibrillation as well as syncopal episodes. He underwent cardiac catheterization on 01/26/2018. He had normal left ventricular function and normal coronary arteries. He does have somewhat labile hypertension. He again had another syncopal episode with the patient not be able to give much history about the event. He did have a LINQ implantable loop recorder placed by Dr. Brito on 03/07/2018. PAST MEDICAL HISTORY: Hypertension, atrial fibrillation, history of palpitations, hypothyroidism, hyperlipidemia, and seizure disorder. OPERATIONS: Tonsillectomy. MEDICATIONS: Amlodipine, aspirin 81 daily, clonidine 0.1 p.r.n., gabapentin 300 b.i.d., ibuprofen 2 tablets b.i.d., lisinopril 20 b.i.d., meclizine one tablet t.i.d., hydrochlorothiazide 10 mEq daily, Flomax 0.4 mg daily. ALLERGIES: TYLENOL. SOCIAL HISTORY: Does not smoke or drink. FAMILY HISTORY: Negative for coronary artery disease. REVIEW OF SYSTEMS: Ten-point review of systems unremarkable. PHYSICAL EXAMINATION: VITAL SIGNS: Blood pressure 153/90, pulse of 70. HEENT: PERRL. NECK: Supple. CHEST: Clear. CARDIAC: S1, S2 normal, without any S3, S4, or murmurs. ABDOMEN: Normal bowel sounds without tenderness. EXTREMITIES: Revealed no clubbing, cyanosis, or edema. LABORATORY AND DIAGNOSTIC DATA: EKG reveals sinus arrhythmia. He does not have any significant arrhythmias since admission. Hemoglobin 11.8, hematocrit 34.5, white count 6700, platelets 157,000. Sodium 138, potassium 4.0, chloride 107, carbon dioxide 23, BUN 23, creatinine 0.84. Cholesterol 201, triglycerides 306, HDL 31, LDL 109. IMPRESSION: 1. Syncopal episode. 2. Hypertension, difficult to control. 3. Normal coronary arteries. 4. History of atrial fibrillation. PLAN: [employer] has been contacted to evaluate his LINQ implantable loop recorder tomorrow to see if he has had any significant arrhythmias at the time of his syncopal episode. [facility]
--- NOTE | 2018-04-08 09:32 | PRG ---
DATE OF SERVICE: 04/08/2018 HISTORY: Mr. Sheridan is doing okay today, no complaints. PHYSICAL EXAMINATION: VITAL SIGNS: His blood pressure is 100/60, pulse 60. LUNGS: Clear. CARDIAC: Normal S1, S2. The LINQ was interrogated. He has some episodes of heart rate up to 220. It is not clear that episode caused his syncope as some of the fast heart rates were actually the day before. ASSESSMENT: 1. Syncopal episode that may be related to orthostatic hypotension and dehydration. The patient umer eared to be dehydrated, his creatinine was up to 3.8, now down to 0.84. 2. Supraventricular tachycardia, very rapid. 3. Labile hypertension. PLAN: 1. I will ask Dr. Brito to see the patient about whether ablation should be done. 2. Blood pressure very difficult to regulate. He is hypertensive at times, still relatively hypoten sive now. I would recommend trying to treat with amlodipine instead of lisinopril, especially in vie w of the renal insufficiency that occurs when he gets dehydrated.
[2018-04-08 15:23] VITALS: BP 122/66; TEMP 97.6
--- NOTE | 2018-04-08 16:07 | PDOC.PN ---
- Subjective Encounter Start Date: 04/08/18 Encounter Start Time: 16:05 Mr. Sheridan was seen today in follow-up. He does not have any new complaints. - Objective Resuscitation Status: Resuscitation Status FULL:Full Resuscitation MAR Reviewed: Yes Vital Signs & Weight: Vital Signs (12 hours) Temp Pulse Resp BP Pulse Ox 04/08/18 15:22 97.6 F 60 16 122/66 100 04/08/18 11:44 98 F 64 16 118/68 96 04/08/18 08:00 97.5 F L 61 18 99 04/08/18 07:55 97.5 F L 61 18 100/61 99 Weight Admit Weight 254 lb Weight 246 lb 3.2 oz I&O: 04/07/18 04/08/18 04/09/18 06:59 06:59 06:59 Intake Total 4835 2189 240 Output Total 1850 1195 250 Balance 2985 994 -10 Result Diagrams: 04/06/18 05:26 04/07/18 04:11 Phys Exam - Physical Examination HEENT: PERRLA Respiratory: no wheezing, no rales, no rhonchi, clear to auscultation bilateral Cardiovascular: RRR, no significant murmur, no rub Gastrointestinal: soft, non-tender, positive bowel sounds Musculoskeletal: no edema Dx/Plan (1) Seizure Code(s): R56.9 - UNSPECIFIED CONVULSIONS Status: Acute (2) CONSTANTINE (acute kidney injury) Code(s): N17.9 - ACUTE KIDNEY FAILURE, UNSPECIFIED Status: Acute (3) Complicated migraine Code(s): G43.109 - MIGRAINE WITH AURA, NOT INTRACTABLE, W/O STATUS MIGRAINOSUS Status: Chronic (4) Constipation Code(s): K59.00 - CONSTIPATION, UNSPECIFIED Status: Acute - Plan * AFIB- case discussed with Dr. Brito and Dr. Sandoval- he will be placed on Multaq to suppress the heart rhythm. * Due to his frequent blackout spells he is not a good candidate for anticoagulation * He is stable for discharge home and close follow-up. .
[2018-04-08] MEDS ORDERED: Dronedarone HCl 400 MG TAB PO SCH (17:00)
--- NOTE | 2018-04-09 04:26 | DIS ---
DATE OF ADMISSION: 04/05/2018 DATE OF DISCHARGE: 04/08/2018 PRIMARY CARE PHYSICIAN: Calin To MD DISCHARGE DISPOSITION: Home. PRIMARY DISCHARGE DIAGNOSES: 1. Syncope. 2. Acute renal failure, resolved. 3. Hypertension. 4. Atrial fibrillation. 5. Seizure disorder. 6. Labile hypertension. DISCHARGE MEDICATIONS: Include Multaq 400 mg twice daily as well as Topamax 50 mg twice a day, Floma x 0.4 mg daily, Antivert 25 mg t.i.d., lisinopril was discontinued, gabapentin 300 mg twice daily, di valproex 1500 mg at bedtime, clonidine as needed, aspirin 81 mg daily, amlodipine 5 mg twice daily an d Tylenol Arthritis as needed. PROCEDURES DONE DURING ADMISSION: The patient had a CT scan of the thoracic, cervical, and lumbar sp ine, which were negative for any fracture. The patient also had a CT scan of the brain, which was ne gative for any acute intracranial abnormality. He had bilateral carotid artery Dopplers, which were negative. An echocardiogram in which he had an ejection fraction of 55-60%. The left atrium was nor mal in size and function. CODE STATUS: FULL CODE. ALLERGIES: ACETAMINOPHEN. CONSULTANTS: Include Dr. Sandoval, Cardiology; Dr. Brito, Electrophysiology; and Dr. Carreon, Neurology . HOSPITAL COURSE: Mr. Sheridan is a pleasant 42-year-old gentleman who presented to the emergency room a fter he had either a syncopal episode at work or he had a seizure. He also had a constellation of ot her symptoms. He was admitted and started on IV fluids and the acute renal failure improved and his creatinine went back to 0.84, which is at his baseline. He was seen by Neurology and his medications were adjusted. He was placed on Topamax in addition to the Depakote. He had his LINQ recorder inte rrogated and it was found that he was having periods of atrial fibrillation, however, it did not madison elate with the syncope. He was placed on Multaq by Dr. Brito and due to his frequent falls and syncop e, it was felt best not to place him on anticoagulation and to continue aspirin daily. The patient w as stabilized and subsequently able to be discharged home in stable condition.
--- NOTE | 2018-04-09 11:48 | EKG ---
Test Reason : REPEAT Blood Pressure : / mmHG Vent. Rate : 090 BPM Atrial Rate : 090 BPM P-R Int : 170 ms QRS Dur : 088 ms QT Int : 362 ms P-R-T Axes : 037 025 042 degrees QTc Int : 442 ms Sinus rhythm with marked sinus arrhythmia Otherwise normal ECG Confirmed by JAYCEE NICOLE DO ([id number]), general expeditor ENRIQUE WATSON ([id number] on 04/09/2018 11:48:23 AM Referred By: Confirmed By:JAYCEE NICOLE DO
--- NOTE | 2018-04-09 13:56 | EKG ---
Test Reason : Blood Pressure : / mmHG Vent. Rate : 096 BPM Atrial Rate : 096 BPM P-R Int : 146 ms QRS Dur : 086 ms QT Int : 342 ms P-R-T Axes : 045 032 059 degrees QTc Int : 432 ms Sinus rhythm with marked sinus arrhythmia Otherwise normal ECG Confirmed by LIBRA HOWARD D.O. ([id number]), scientific publications editor ENRIQUE WATSON ([id number] on 04/09/2018 1:56:26 PM Referred By: Confirmed By:LIBRA HOWARD D.O.
--- NOTE | 2018-04-09 20:06 | CON ---
ELECTROPHYSIOLOGY CONSULTATION REPORT DATE OF CONSULTATION: 04/08/2018 CONSULTING PHYSICIAN: Dr. Sandoval. HISTORY OF PRESENT ILLNESS: I am seeing Mr. 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 His problems are: 1. Recurrent syncopal spells. A. Prior loop recorder implant from 03/07/2018. B. Current episode of syncope with no apparent associated arrhythmia at the time of syncope, but was associated with seizures. 2. Paroxysmal atrial arrhythmias. A. Paroxysmal atrial fibrillation noted with RVR on the day preceding these episodes. 3. History of seizure disorder and complex migraines, followed by Dr. Carreon. 4. Acute renal insufficiency, possibly due to dehydration not improving from admit of creatinine 3.7 9 and BUN 38. Currently, BUN is 23, creatinine 0.84. 5. No history of structural heart disease with left heart catheterization on 01/26/2018, which is no rmal LVEF and no significant coronary artery disease. 6. Labile blood pressures. 7. History of hypothyroidism. 8. Hyperlipidemia. 9. Obesity. 10. chest pains. ALLERGIES: TYLENOL. MEDICATIONS AT HOME: Included Proscar, gabapentin, amlodipine 5 mg twice a day, divalproex, lisinopr il 10 mg twice a day, Iron Plus, vitamin B12, folic acid, ibuprofen 200 mg 2 tablets twice a day, beryl nidine, aspirin, meclizine, Tylenol, tamsulosin. SUBJECTIVE: Mr. Sheridan is here with episode of syncope/seizures on . He was out in the heat, wor ruben, and suddenly developed episodes of seizures. He cannot recall the event, but his emergency dep artment notes from EMS notes that he had a seizure and he fell back on some bricks. He had some post ictal confusion episode of unprovoked apart from being working in the heat. Patient reports neck kanwal ns. No chest pains. He did mention a day before on the , he is not feeling good, occasional sha ruben. He often feels palpitations and rapid heartbeats. Rest of 12-point system otherwise unremarka ble. PAST HISTORY: As above. Patient has been seen in our office by my colleague, Dr. Valadez who recomme nded LINQ recorder implant and see if the patient had persistent arrhythmias and history of syncope/s eizures. It was performed about a month ago. He has had very labile blood pressures, which Dr. Haleigh brantley's managing. Cardiac workup otherwise is negative. He is followed by Dr. Carreon who from neurolo gy standpoint, who is treating postural tremors with Depakote and note history of pseudoseizures, not true seizures in the past. Also, migraine headaches. He does note prior prepsychogenic symptomatol ogy in the past. FAMILY HISTORY: Noncontributory. The patient was adopted at a young age. SOCIAL HISTORY: Patient denies smoking or drug abuse. 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 OBJECTIVE: VITAL SIGNS: Blood pressure 118/68, heart rate 64, respiration 16, temperature 98 degrees Fahrenheit . GENERAL: He is alert and oriented, obese man in no apparent distress. NECK: Supple. Jugular veins not distended. CHEST: Coarse without crackles. CARDIAC: Heart sounds are regular rate and rhythm. No murmur or gallop. ABDOMEN: Benign. Bowel sounds positive. EXTREMITIES: Lower extremities without edema, clubbing, or cyanosis. Pulses are adequate. NEUROLOGIC: Patient is nonfocal. MUSCULOSKELETAL: No joint swelling or deformity. SKIN: Without rash. Left precordial loop recorder site is without reaction. DATABASE: EKGs reviewed. Initial EKG reveals sinus rhythm, rate of 90 beats per minute, no sign of ST-T changes. QTC normal at 442 milliseconds. Subsequent EKG on same day reveals sinus rhythm with frequent PACs at rate of 96 beats per minute. Telemetry strips also reviewed, reveals sinus tachycar sarath with PACs, but also short runs of atrial flutter/coarse fibrillation were noted. The loop record er interrogation was also reviewed and reveals no corresponding arrhythmia episode recorded by loop r ecorder to his syncopal/seizure episodes on the . On the other hand, he has multiple atrial fibr illation with rapid rate episodes are seen on the 04/04, episode thought to be short lasting up to 1 minute and 43 seconds, but with a regular rapid rates are noted up to 222 beats per minute with varia ble cycle length. The episodes of narrow complex. The frequent atrial fibrillation episodes are see n longest duration noted about 15 minutes since implant. The burden of atrial fibrillation is low at 0.1%. A 2D echo from 04/06, this admit reveals LV of 55-60%, trace MR, TR is seen. Carotid Doppler shows n o stenosis. LABORATORY DATA: Initial sodium 138, potassium of 4.6, BUN 30, creatinine is 3.79, , and 0.84 s ubsequently. LDL 109, HDL 31 is noted. AST and ALT 30 and 18. The initial white count is 10.2, hem oglobin 13.5, platelet count is 168,000. Tox screen was significant for valproic acid which the slim ent is taking, otherwise negative. ASSESSMENT AND PLAN: Mr. Sheridan is a 42-year-old man with history of frequent palpitations, very labi le blood pressure, psychogenic seizures with complex migraines, a variety of atypical symptoms, possi reginald complex migraines. He has had a syncopal spell again not explained by arrhythmias on the 2 , more likely to be a seizure episode versus hypertensive episode. The postictal confusion with m ore typical for seizure, though. His brain CT was negative for stroke. On the other hand, he has atrial fibrillation episodes relatively short lasting, but at the very rapi d rates. I think this gentleman would benefit from rate control and suppression of atrial arrhythmias. Some o f his symptoms may derive from his frequent palpitations. I will advise Multaq, hence the history of renal insufficiency initially albeit that normalized. Hence his history of syncopal spells and low CHADS-VASc score of 0, pressure of 1 and has hypertensio n. At this point, I would advise just aspirin for anticoagulation. At later date after stabilization of his neurologic symptoms, he might be considered for pulmonary ve nous isolation procedure, by this point, I would opt for medical management. Thank you again for allowing me to participate in the care of this patient.
== END 2018-04-08 18:16 | disposition home or self-care (01) | DRG 101 ==
LOC: ERS 11:20 → 2SE 16:11
PROVIDERS: ADMIT Internal Medicine; ATTEND Internal Medicine
DX: G40.909 Epilepsy, unspecified, not intractable, without status epilepticus (principal); N17.9 Acute kidney failure, unspecified; R55 Syncope and collapse; Z79.01 Long term (current) use of anticoagulants; I10 Essential (primary) hypertension; E03.9 Hypothyroidism, unspecified; E78.5 Hyperlipidemia, unspecified; Z95.818 Presence of other cardiac implants and grafts; G43.109 Migraine with aura, not intractable, without status migrainosus; K59.00 Constipation, unspecified; I48.0 Paroxysmal atrial fibrillation; E66.9 Obesity, unspecified; Z68.39 Body mass index [BMI] 39.0-39.9, adult; Z71.3 Dietary counseling and surveillance; E86.0 Dehydration
CPT/HCPCS: 36415; 36416; 70450; 72125; 72128; 72131; 80048; 80053; 80061; 80164; 80306; 81003; 81015; 83735; 84146; 85025; 85652; 86038; 86225; 93005; 93306; 93880; A4216; J1644; J2405; Q0162

== ENCOUNTER 2018-08-20 23:25 | Emergency (ER) | payer OTHER ==
[2018-08-20 23:59] LABS: #Eosinphils 0.3 thou/uL (0.0-0.7); #Lymphocytes 1.6 thou/uL (1.20-3.40); #Monocytes 0.7 thou/uL (0.11-0.59); %Basophils 0.6 % (0.0-1.0); %Eosinophils 4.1 % (0.0-10.0); %Lymphocytes 24.2 % (21.0-51.0); %Monocytes 10.9 % (0.0-10.0); %Neutrophils 60.3 % (42.0-75.0); Hemoglobin 13.8 g/dL (14.0-18.0); Mean Corpuscular HGB CONC 34.6 g/dL (32.0-36.0); Mean Corpuscular Hemoglobin 31.6 pg (27.0-31.0); Mean Corpuscular Volume 91.3 fL (78.0-98.0); Mean Platelet Volume 8.9 fL (7.4-10.4); Platelet Count 186 thou/uL (130-400); RBC Distribution Width 12.2 % (11.5-14.5); Red Blood Cell (RBC) Count 4.37 mill/uL (4.70-6.10); White Blood Cell (WBC) Count 6.7 thou/uL (4.8-10.8)
[2018-08-21 00:17] LABS: ALT (SGPT) 15 U/L (8-55); AST (SGOT) 16 U/L (5-34); Albumin 4.2 g/dL (3.5-5.0); Alkaline Phosphatase 71 U/L (40-150); Anion Gap 13 mmol/L (10-20); BUN (Urea Nitrogen) 15 mg/dL (8.9-20.6); Bilirubin, Total 0.5 mg/dL (0.2-1.2); Calc. Creatinine Clearance 0 mL/min (70-130); Calcium 9.6 mg/dL (7.8-10.44); Carbon Dioxide 28 mmol/L (22-29); Chloride 109 mmol/L (98-107); Estimated GFR-MDRD Greater than 90; Globulin 3.4 g/dL (2.4-3.5); Glucose 92 mg/dL (70-105); Potassium 3.6 mmol/L (3.5-5.1); Protein, Total 7.6 g/dL (6.0-8.3); Sodium 146 mmol/L (136-145)
[2018-08-21 04:30] LABS: Bilirubin Small (Negative); Blood, Urine Negative (Negative); Clarity CLEAR (Clear); Glucose, Urine (Dipstick) Negative (Negative); Leukocyte Negative (Negative); Nitrite Negative (Negative); Protein, Urine (Dipstick) Negative (Neg-Trace); Specific Gravity, Urine 1.029 (1.002-1.036)
--- NOTE | 2018-08-21 12:50 | ULT ---
PRELIMINARY REPORT/[facility]/EMERGENCY AFTER HOURS PROCEDURE: EXAM: US Bilateral Duplex Lower Extremity Veins EXAM DATE/TIME: 08/21/2018 5:29 AM CLINICAL HISTORY: 42 years old, male; Signs and symptoms; Swelling (edema) of limb; Lower extremity, bilateral TECHNIQUE: Real-time duplex ultrasound of the Bilateral Lower Extremities with 2-D minor scale, color Doppler lyndsey w and spectral waveform analysis. Complete exam focused on the bilateral lower extremity veins. COMPARISON: No relevant prior studies available. FINDINGS: Right deep veins: Unremarkable. The common femoral, femoral and popliteal veins are patent without th rombus. Normal compressibility, augmentation response and Doppler waveforms. Right superficial veins: Saphenofemoral junction is patent without thrombus. Left deep veins: Unremarkable. The common femoral, femoral and popliteal veins are patent without thr ombus. Normal compressibility, augmentation response and Doppler waveforms. Left superficial veins: Saphenofemoral junction is patent without thrombus. Soft tissues: Unremarkable. IMPRESSION: Negative for DVT. Thank you for allowing us to participate in the care of your patient. Dictated and Authenticated by: Mac Carbone MD 08/21/2018 7:00 AM Central Time ([place] & [place]) FINAL REPORT EMERGENT AFTER HOURS BILATERAL LOWER EXTREMITY VENOUS DOPPLER: IMPRESSION: Agree with the preliminary interpretation given by [facility]. No evidence for lower extremity deep venous thrombosis. POS: [facility]
== END 2018-08-20 23:59 | disposition home or self-care (01) ==
LOC: ERS 23:25
DX: R60.0 Localized edema (principal); I49.9 Cardiac arrhythmia, unspecified; I48.91 Unspecified atrial fibrillation; E03.9 Hypothyroidism, unspecified; E78.2 Mixed hyperlipidemia; I10 Essential (primary) hypertension; G43.909 Migraine, unspecified, not intractable, without status migrainosus; Z79.899 Other long term (current) drug therapy
CPT/HCPCS: 36415; 80053; 81003; 83880; 85025; 85379; 93970

== ENCOUNTER 2018-09-11 14:22 | Emergency (ER) | payer OTHER ==
[2018-09-11 16:16] LABS: #Basophils 0.1 thou/uL (0.0-0.2); #Eosinphils 0.3 thou/uL (0.0-0.7); #Lymphocytes 1.9 thou/uL (1.20-3.40); #Monocytes 0.8 thou/uL (0.11-0.59); #Neutrophils 3.5 thou/uL (1.40-6.50); %Basophils 0.8 % (0.0-1.0); %Eosinophils 4.4 % (0.0-10.0); %Lymphocytes 28.7 % (21.0-51.0); %Monocytes 12.2 % (0.0-10.0); %Neutrophils 53.8 % (42.0-75.0); Hemoglobin 13.8 g/dL (14.0-18.0); Mean Corpuscular HGB CONC 34.2 g/dL (32.0-36.0); Mean Corpuscular Hemoglobin 30.9 pg (27.0-31.0); Mean Corpuscular Volume 90.3 fL (78.0-98.0); Mean Platelet Volume 9.2 fL (7.4-10.4); Platelet Count 144 thou/uL (130-400); RBC Distribution Width 12.5 % (11.5-14.5); Red Blood Cell (RBC) Count 4.46 mill/uL (4.70-6.10); White Blood Cell (WBC) Count 6.5 thou/uL (4.8-10.8)
[2018-09-11 16:30] LABS: Bilirubin Negative (Negative); Blood, Urine Negative (Negative); Clarity CLEAR (Clear); Glucose, Urine (Dipstick) Negative (Negative); Leukocyte Negative (Negative); Nitrite Negative (Negative); Protein, Urine (Dipstick) Negative (Neg-Trace); Specific Gravity, Urine 1.015 (1.002-1.036)
--- NOTE | 2018-09-11 16:35 | RAD ---
CHEST ONE VIEW: History: Pain. Comparison: 03-23-18 FINDINGS: Portable upright chest demonstrates an enlarged cardiac silhouette. The pulmonary vessels and hilum a re normal. Costophrenic angles are clear. No consolidation or mass. No pneumothorax or osseous abnorm alities. IMPRESSION: Cardiomegaly. No acute cardiopulmonary process. POS: [facility]
[2018-09-11 16:38] LABS: ALT (SGPT) 14 U/L (8-55); AST (SGOT) 14 U/L (5-34); Albumin 4.4 g/dL (3.5-5.0); Alkaline Phosphatase 79 U/L (40-150); Anion Gap 12 mmol/L (10-20); BUN (Urea Nitrogen) 13 mg/dL (8.9-20.6); Bilirubin, Total 0.6 mg/dL (0.2-1.2); CK (CPK) 61 U/L (30-200); Calc. Creatinine Clearance 0 mL/min (70-130); Calcium 9.5 mg/dL (7.8-10.44); Carbon Dioxide 24 mmol/L (22-29); Chloride 110 mmol/L (98-107); Estimated GFR-MDRD Greater than 90; Globulin 3.1 g/dL (2.4-3.5); Glucose 76 mg/dL (70-105); Potassium 3.7 mmol/L (3.5-5.1); Protein, Total 7.5 g/dL (6.0-8.3); Sodium 142 mmol/L (136-145)
[2018-09-11 16:42] LABS: Amphetamine Not Detected (NotDetected); Barbiturates Screen Not Detected (NotDetected); Benzodiazepine Screen Not Detected (NotDetected); Cocaine Metabolite Screen Not Detected (NotDetected); Medtox Control Line Valid? VALID (VALID); Medtox Reader # READER 4; Methadone Not Detected (NotDetected); Methamphetamine Not Detected (NotDetected); Opiate Screen Not Detected (NotDetected); Oxycodone Screen Not Detected (NotDetected); Phencyclidine (PCP) Not Detected (NotDetected); THC/Cannabinoid Screen Not Detected (NotDetected); Tricyclic Screen Not Detected (NotDetected)
== END 2018-09-11 18:04 | disposition home or self-care (01) ==
LOC: ERS 14:22
DX: R41.0 Disorientation, unspecified (principal); I48.91 Unspecified atrial fibrillation; E03.9 Hypothyroidism, unspecified; E78.5 Hyperlipidemia, unspecified; E78.2 Mixed hyperlipidemia; I10 Essential (primary) hypertension; Z79.899 Other long term (current) drug therapy
CPT/HCPCS: 36415; 71045; 80053; 80178; 80306; 81003; 82550; 84484; 85025; 93005

== ENCOUNTER 2018-10-27 19:12 | Emergency (ER) | payer OTHER ==
[2018-10-27 20:41] LABS: #Eosinphils 0.3 thou/uL (0.0-0.7); #Lymphocytes 1.7 thou/uL (1.20-3.40); #Monocytes 0.6 thou/uL (0.11-0.59); #Neutrophils 4.4 thou/uL (1.40-6.50); %Basophils 0.4 % (0.0-1.0); %Eosinophils 4.3 % (0.0-10.0); %Lymphocytes 24.5 % (21.0-51.0); %Monocytes 8.5 % (0.0-10.0); %Neutrophils 62.3 % (42.0-75.0); Hemoglobin 14.4 g/dL (14.0-18.0); Mean Corpuscular HGB CONC 34.1 g/dL (32.0-36.0); Mean Corpuscular Hemoglobin 31.1 pg (27.0-31.0); Mean Corpuscular Volume 91.2 fL (78.0-98.0); Mean Platelet Volume 10.8 fL (7.4-10.4); Platelet Count 117 thou/uL (130-400); Platelet Morphology Comment Appears Adequate; RBC Distribution Width 11.8 % (11.5-14.5); Red Blood Cell (RBC) Count 4.63 mill/uL (4.70-6.10); White Blood Cell (WBC) Count 7.1 thou/uL (4.8-10.8)
[2018-10-27 20:47] LABS: ALT (SGPT) 16 U/L (8-55); AST (SGOT) 14 U/L (5-34); Albumin 4.5 g/dL (3.5-5.0); Alkaline Phosphatase 80 U/L (40-150); Anion Gap 13 mmol/L (10-20); BUN (Urea Nitrogen) 14 mg/dL (8.9-20.6); Bilirubin, Total 0.7 mg/dL (0.2-1.2); Calc. Creatinine Clearance 0 mL/min (70-130); Calcium 10.1 mg/dL (7.8-10.44); Carbon Dioxide 28 mmol/L (22-29); Chloride 104 mmol/L (98-107); Estimated GFR-MDRD Greater than 90; Globulin 3.1 g/dL (2.4-3.5); Glucose 105 mg/dL (70-105); Protein, Total 7.6 g/dL (6.0-8.3); Sodium 141 mmol/L (136-145)
[2018-10-27 21:43] LABS: Bilirubin Negative (Negative); Blood, Urine Negative (Negative); Clarity Clear (Clear); Glucose, Urine (Dipstick) Negative (Negative); Leukocyte Negative (Negative); Nitrite Negative (Negative); Protein, Urine (Dipstick) Trace mg/dL (Neg-Trace); Specific Gravity, Urine 1.023 (1.002-1.036)
== END 2018-10-27 23:51 | disposition home or self-care (01) ==
LOC: ERS 19:12
DX: R53.1 Weakness (principal); I48.91 Unspecified atrial fibrillation; I49.3 Ventricular premature depolarization; E03.9 Hypothyroidism, unspecified; I10 Essential (primary) hypertension; F32.9 Major depressive disorder, single episode, unspecified
CPT/HCPCS: 36415; 80053; 80164; 80178; 81003; 82140; 84443; 85025; 93005

== ENCOUNTER 2018-11-11 18:49 | Emergency (ER) | payer OTHER ==
[2018-11-11 19:48] LABS: #Eosinphils 0.3 thou/uL (0.0-0.7); #Lymphocytes 1.6 thou/uL (1.20-3.40); #Monocytes 0.6 thou/uL (0.11-0.59); #Neutrophils 4.5 thou/uL (1.40-6.50); %Basophils 0.7 % (0.0-1.0); %Eosinophils 3.9 % (0.0-10.0); %Lymphocytes 22.2 % (21.0-51.0); %Monocytes 9.2 % (0.0-10.0); Hemoglobin 14.2 g/dL (14.0-18.0); Mean Corpuscular HGB CONC 34.1 g/dL (32.0-36.0); Mean Corpuscular Hemoglobin 30.5 pg (27.0-31.0); Mean Corpuscular Volume 89.7 fL (78.0-98.0); Mean Platelet Volume 10.9 fL (7.4-10.4); Platelet Count 150 thou/uL (130-400); RBC Distribution Width 11.8 % (11.5-14.5); Red Blood Cell (RBC) Count 4.65 mill/uL (4.70-6.10)
--- NOTE | 2018-11-11 20:04 | RAD ---
AP VIEW CHEST 11/11/18 HISTORY: Forgetfulness. Syncope. Substernal pain. AP view chest demonstrates a cardiac loop recorder visualized. The lungs are well aerated. No evidence of active intrathoracic disease seen. No evidence of effusion s, pneumonia or pneumothorax seen. IMPRESSION: Unremarkable AP view chest. POS: [facility]
[2018-11-11 20:10] LABS: Bilirubin Negative (Negative); Blood, Urine Negative (Negative); Clarity CLEAR (Clear); Glucose, Urine (Dipstick) Negative (Negative); Leukocyte Negative (Negative); Nitrite Negative (Negative); Protein, Urine (Dipstick) Negative (Neg-Trace); Specific Gravity, Urine 1.021 (1.002-1.036); pH, Urine 7.5 (5.0-9.0)
[2018-11-11 20:11] LABS: Acetaminophen Less than 6.0 mcg/mL (10.0-30.0); Alcohol Less than 10 mg/dL (Less than 10); Salicylate Less than 8.0 mg/dL (15.0-30.0)
[2018-11-11 20:12] LABS: ALT (SGPT) 13 U/L (8-55); AST (SGOT) 13 U/L (5-34); Albumin 4.5 g/dL (3.5-5.0); Alkaline Phosphatase 77 U/L (40-150); Anion Gap 13 mmol/L (10-20); BUN (Urea Nitrogen) 22 mg/dL (8.9-20.6); Bilirubin, Total 0.6 mg/dL (0.2-1.2); CK (CPK) 61 U/L (30-200); Calc. Creatinine Clearance 0 mL/min (70-130); Calcium 9.8 mg/dL (7.8-10.44); Carbon Dioxide 28 mmol/L (22-29); Chloride 104 mmol/L (98-107); Estimated GFR-MDRD 70; Globulin 3.1 g/dL (2.4-3.5); Glucose 115 mg/dL (70-105); Protein, Total 7.6 g/dL (6.0-8.3); Sodium 141 mmol/L (136-145)
[2018-11-11 20:19] LABS: Amphetamine Not Detected (NotDetected); Barbiturates Screen Not Detected (NotDetected); Benzodiazepine Screen Not Detected (NotDetected); Cocaine Metabolite Screen Not Detected (NotDetected); Medtox Control Line Valid? VALID (VALID); Medtox Reader # READER 4; Methadone Not Detected (NotDetected); Methamphetamine Not Detected (NotDetected); Opiate Screen Not Detected (NotDetected); Oxycodone Screen Not Detected (NotDetected); Phencyclidine (PCP) Not Detected (NotDetected); THC/Cannabinoid Screen Not Detected (NotDetected); Tricyclic Screen Not Detected (NotDetected)
[2018-11-11] MEDS ORDERED: Metoclopramide 10 MG/10 ML UDCUP ONE (21:48)
[2018-11-11] MEDS ORDERED: Dexamethasone 10 MG/ML VIAL ONE (21:49)
[2018-11-11] MEDS ORDERED: Metoclopramide HCl 10 MG/2 ML VIAL ONE (21:49)
[2018-11-11] MEDS ORDERED: Ketorolac Tromethamine 30 MG/ML VIAL ONE (21:49)
== END 2018-11-11 22:58 | disposition home or self-care (01) ==
LOC: ERS 18:49
DX: R53.1 Weakness (principal); I48.91 Unspecified atrial fibrillation; E03.9 Hypothyroidism, unspecified; E78.1 Pure hyperglyceridemia; I49.3 Ventricular premature depolarization; Z79.899 Other long term (current) drug therapy
CPT/HCPCS: 36415; 71045; 80053; 80164; 80177; 80178; 80306; 80307; 81003; 82140; 82550; 84443; 84484; 85025; 93005; 94760; 96374; 96375; J1100; J1885; J2765; J8597

== ENCOUNTER 2018-11-21 09:58 | Emergency (ER) | payer OTHER ==
[2018-11-21 11:09] LABS: Hemoglobin 12.4 g/dL (14.0-18.0); Mean Corpuscular HGB CONC 34.1 g/dL (32.0-36.0); Mean Corpuscular Hemoglobin 31.3 pg (27.0-31.0); Mean Corpuscular Volume 91.6 fL (78.0-98.0); Mean Platelet Volume 10.2 fL (7.4-10.4); Platelet Count 100 thou/uL (130-400); RBC Distribution Width 12.4 % (11.5-14.5); Red Blood Cell (RBC) Count 3.98 mill/uL (4.70-6.10); White Blood Cell (WBC) Count 7.3 thou/uL (4.8-10.8)
[2018-11-21 11:19] LABS: ALT (SGPT) 16 U/L (8-55); AST (SGOT) 13 U/L (5-34); Albumin 4.2 g/dL (3.5-5.0); Alkaline Phosphatase 77 U/L (40-150); Anion Gap 11 mmol/L (10-20); BUN (Urea Nitrogen) 16 mg/dL (8.9-20.6); Bilirubin, Total 0.5 mg/dL (0.2-1.2); Calc. Creatinine Clearance 0 mL/min (70-130); Calcium 9.5 mg/dL (7.8-10.44); Carbon Dioxide 25 mmol/L (22-29); Chloride 109 mmol/L (98-107); Estimated GFR-MDRD Greater than 90; Globulin 2.9 g/dL (2.4-3.5); Glucose 112 mg/dL (70-105); Potassium 3.9 mmol/L (3.5-5.1); Protein, Total 7.1 g/dL (6.0-8.3); Sodium 141 mmol/L (136-145)
[2018-11-21 11:20] LABS: Acetaminophen Less than 6.0 mcg/mL (10.0-30.0); Alcohol Less than 10 mg/dL (Less than 10); CK (CPK) 69 U/L (30-200); Salicylate Less than 8.0 mg/dL (15.0-30.0)
[2018-11-21 11:22] LABS: Bilirubin Negative (Negative); Blood, Urine Negative (Negative); Clarity Clear (Clear); Glucose, Urine (Dipstick) Negative (Negative); Leukocyte Negative (Negative); Nitrite Negative (Negative); Protein, Urine (Dipstick) Negative (Neg-Trace); Specific Gravity, Urine 1.015 (1.005-1.030)
[2018-11-21 11:26] LABS: #Basophils 0.1 thou/uL (0.0-0.2); #Eosinphils 0.3 thou/uL (0.0-0.7); #Lymphocytes 1.2 thou/uL (1.20-3.40); #Monocytes 0.7 thou/uL (0.11-0.59); #Neutrophils 5.1 thou/uL (1.40-6.50); %Basophils 0.8 % (0.0-1.0); %Eosinophils 3.9 % (0.0-10.0); %Lymphocytes 15.9 % (21.0-51.0); %Monocytes 9.6 % (0.0-10.0); %Neutrophils 69.8 % (42.0-75.0); Platelet Morphology Comment Appears Decreased; RBC Morphology Normal
[2018-11-21 11:27] LABS: MDiff Complete? YES
[2018-11-21 11:36] LABS: Amphetamine Not Detected (NotDetected); Barbiturates Screen Not Detected (NotDetected); Benzodiazepine Screen Not Detected (NotDetected); Cocaine Metabolite Screen Not Detected (NotDetected); Medtox Control Line Valid? VALID (VALID); Methadone Not Detected (NotDetected); Methamphetamine Not Detected (NotDetected); Opiate Screen Not Detected (NotDetected); Oxycodone Screen Not Detected (NotDetected); Phencyclidine (PCP) Not Detected (NotDetected); THC/Cannabinoid Screen Not Detected (NotDetected); Tricyclic Screen Not Detected (NotDetected)
--- NOTE | 2018-11-21 12:17 | CT ---
CT OF THE BRAIN WITHOUT CONTRAST: INDICATION: History of being shaky and weak all over for 3 weeks. COMPARISON: Prior exam dated 04/05/2018. FINDINGS: No acute infarct, hemorrhage, or hydrocephalus is present. The septum pellucidum and third ventricle are midline. Mastoid air cells are clear. There is a right medial orbital wall defect which is sta ble to the prior. IMPRESSION: No acute intracranial abnormality. POS: [facility]
== END 2018-11-21 15:40 | disposition home or self-care (01) ==
LOC: SCSER 09:58
DX: G25.2 Other specified forms of tremor (principal); R26.9 Unspecified abnormalities of gait and mobility; R53.1 Weakness; I48.91 Unspecified atrial fibrillation; E03.9 Hypothyroidism, unspecified; E78.2 Mixed hyperlipidemia; I10 Essential (primary) hypertension; F32.9 Major depressive disorder, single episode, unspecified; Z79.899 Other long term (current) drug therapy
CPT/HCPCS: 36415; 70450; 80053; 80164; 80177; 80178; 80306; 80307; 81003; 82140; 82550; 84443; 85025; 93005

== ENCOUNTER 2018-11-25 14:48 | Emergency (ER) | payer OTHER | END 2018-11-25 15:20 | disposition home or self-care (01) | LOC: ERS 14:48 | DX: R60.0 Localized edema (principal); R63.0 Anorexia; E78.5 Hyperlipidemia, unspecified; I10 Essential (primary) hypertension; I48.91 Unspecified atrial fibrillation; E03.9 Hypothyroidism, unspecified; E78.2 Mixed hyperlipidemia; F32.9 Major depressive disorder, single episode, unspecified; Z79.899 Other long term (current) drug therapy; Z79.82 Long term (current) use of aspirin | CPT/HCPCS: 99283 ==

== ENCOUNTER 2018-12-09 21:24 | Emergency (ER) | payer OTHER ==
[2018-12-09 22:02] LABS: #Basophils 0.1 thou/uL (0.0-0.2); #Eosinphils 0.3 thou/uL (0.0-0.7); #Lymphocytes 1.8 thou/uL (1.20-3.40); #Monocytes 0.8 thou/uL (0.11-0.59); #Neutrophils 4.3 thou/uL (1.40-6.50); %Eosinophils 4.4 % (0.0-10.0); %Lymphocytes 24.9 % (21.0-51.0); %Monocytes 10.4 % (0.0-10.0); %Neutrophils 59.3 % (42.0-75.0); Hemoglobin 13.4 g/dL (14.0-18.0); Mean Corpuscular HGB CONC 33.6 g/dL (32.0-36.0); Mean Corpuscular Hemoglobin 30.8 pg (27.0-31.0); Mean Corpuscular Volume 91.6 fL (78.0-98.0); Mean Platelet Volume 9.5 fL (7.4-10.4); Platelet Count 174 thou/uL (130-400); RBC Distribution Width 12.4 % (11.5-14.5); Red Blood Cell (RBC) Count 4.34 mill/uL (4.70-6.10); White Blood Cell (WBC) Count 7.2 thou/uL (4.8-10.8)
[2018-12-09 22:16] LABS: ALT (SGPT) 22 U/L (8-55); AST (SGOT) 27 U/L (5-34); Albumin 4.6 g/dL (3.5-5.0); Alkaline Phosphatase 75 U/L (40-150); Anion Gap 13 mmol/L (10-20); BUN (Urea Nitrogen) 33 mg/dL (8.9-20.6); Bilirubin, Total 0.6 mg/dL (0.2-1.2); Calc. Creatinine Clearance 0 mL/min (70-130); Calcium 9.5 mg/dL (7.8-10.44); Carbon Dioxide 27 mmol/L (22-29); Chloride 103 mmol/L (98-107); Estimated GFR-MDRD 40; Globulin 3.4 g/dL (2.4-3.5); Glucose 93 mg/dL (70-105); Sodium 139 mmol/L (136-145)
[2018-12-09 22:21] LABS: Acetaminophen Less than 6.0 mcg/mL (10.0-30.0); Alcohol Less than 10 mg/dL (Less than 10); CK (CPK) 73 U/L (30-200); Salicylate Less than 8.0 mg/dL (15.0-30.0)
[2018-12-10] MEDS ORDERED: Ondansetron PF 4 MG/2 ML Vial ONE (03:10)
[2018-12-10 04:43] LABS: Bilirubin Negative (Negative); Blood, Urine Negative (Negative); Clarity CLEAR (Clear); Glucose, Urine (Dipstick) Negative (Negative); Leukocyte Negative (Negative); Nitrite Negative (Negative); Protein, Urine (Dipstick) Negative (Neg-Trace); Specific Gravity, Urine 1.012 (1.002-1.036)
[2018-12-10 04:57] LABS: Amphetamine Not Detected (NotDetected); Barbiturates Screen Not Detected (NotDetected); Benzodiazepine Screen Not Detected (NotDetected); Cocaine Metabolite Screen Not Detected (NotDetected); Medtox Control Line Valid? VALID (VALID); Medtox Reader # READER 4; Methadone Not Detected (NotDetected); Methamphetamine Not Detected (NotDetected); Opiate Screen Not Detected (NotDetected); Oxycodone Screen Not Detected (NotDetected); Phencyclidine (PCP) Not Detected (NotDetected); THC/Cannabinoid Screen Not Detected (NotDetected); Tricyclic Screen Not Detected (NotDetected)
--- NOTE | 2018-12-10 08:50 | RAD ---
AP VIEW CHEST: Date: 12/10/18 INDICATION: History of nausea, vomiting, and fever. COMPARISON: Prior exam dated 11/11/18. IMPRESSION: There is stable cardiomegaly and a loop recorder. No air space consolidation, pleural effusion, or pn eumothorax evident. POS: [facility]
== END 2018-12-10 05:17 | disposition home or self-care (01) ==
LOC: ERS 21:24
DX: E86.0 Dehydration (principal); R11.2 Nausea with vomiting, unspecified; E11.9 Type 2 diabetes mellitus without complications; E78.5 Hyperlipidemia, unspecified; I10 Essential (primary) hypertension; I48.91 Unspecified atrial fibrillation; E78.2 Mixed hyperlipidemia; G43.809 Other migraine, not intractable, without status migrainosus; F32.9 Major depressive disorder, single episode, unspecified; Z79.899 Other long term (current) drug therapy
CPT/HCPCS: 36415; 71045; 80053; 80306; 80307; 81003; 82550; 84443; 85025; 87804; 93005; 96361; 96374; J2405

== ENCOUNTER 2019-04-21 12:35 | Outpatient (CLI) | payer OTHER ==
--- NOTE | 2019-04-21 14:41 | CT ---
EXAM: CT Abdomen W WO Con PROVIDED CLINICAL HISTORY: Follow-up complex left renal cyst. COMPARISON: Studies on 02/21/2018 and 04/01/2017. FINDINGS: The exophytic increased density cystic lesion anterior aspect superior pole left kidney is again seen . This cystic lesion measures 3.1 cm craniocaudal x3.2 cm AP x3.2 cm transverse. Measurements on the prior exam were 2.8 cm x 2.9 cm x 3.1 cm. There has been slight interval enlargement of this lesi on compared to prior study as well as enlargement when compared to the study in 2017 were greatest dimension was 2.8 cm. The posterior inferior margin of the cystic lesion, which represents the intrar enal portion of the lesion, is lobulated with suggestion of a septation versus a closely adjacent small cystic lesion. This is a stable finding compared to the prior exams. Subcentimeter pleural-based nodular density at the right lateral costophrenic angle is again seen and unchanged when compared to studies dating back to 2017. There is mild dependent bibasilar atelectasis. Liver, spleen, pancreas, bilateral adrenal glands, right kidney, and abdominal aorta demonstrate a no rmal CT appearance There has been no other interval change when compared to prior studies. No lytic or sclerotic osseous lesions are identified. Degenerative changes are seen in the spine. No suspicious lytic or sclerotic osseous lesions are identified. IMPRESSION: Slight interval enlargement of a Bosniak type II left renal cystic lesion superior pole left kidney.
[2019-04-21] MEDS ORDERED: ISOVUE-370 76%-LOCM 1 ML ONE (16:05)
== END 2019-04-21 12:36 | disposition home or self-care (01) ==
LOC: BICCT 12:35
PROVIDERS: ATTEND Urology
DX: N28.1 Cyst of kidney, acquired (principal)
CPT/HCPCS: 36415; 74170; 80048; 80178

== ENCOUNTER 2019-08-25 16:15 | Emergency (ER) | payer OTHER ==
[2019-08-25 17:19] LABS: #Eosinphils 0.3 thou/uL (0.0-0.7); #Lymphocytes 1.2 thou/uL (1.20-3.40); #Monocytes 0.6 thou/uL (0.11-0.59); %Basophils 0.3 % (0.0-1.0); %Eosinophils 3.3 % (0.0-10.0); %Lymphocytes 14.8 % (21.0-51.0); %Monocytes 7.1 % (0.0-10.0); %Neutrophils 74.5 % (42.0-75.0); Hemoglobin 13.2 g/dL (14.0-18.0); Mean Corpuscular HGB CONC 34.2 g/dL (32.0-36.0); Mean Corpuscular Hemoglobin 30.5 pg (27.0-31.0); Mean Corpuscular Volume 89.3 fL (78.0-98.0); Mean Platelet Volume 9.5 fL (7.4-10.4); Platelet Count 169 thou/uL (130-400); Red Blood Cell (RBC) Count 4.32 mill/uL (4.70-6.10)
[2019-08-25 17:40] LABS: ALT (SGPT) 23 U/L (8-55); AST (SGOT) 20 U/L (5-34); Alkaline Phosphatase 65 U/L (40-110); Anion Gap 9 mmol/L (10-20); BUN (Urea Nitrogen) 15 mg/dL (8.9-20.6); Bilirubin, Total 0.3 mg/dL (0.2-1.2); Calc. Creatinine Clearance 0 mL/min (70-130); Calcium 9.1 mg/dL (7.8-10.44); Carbon Dioxide 30 mmol/L (22-29); Chloride 107 mmol/L (98-107); Estimated GFR-MDRD 87; Glucose 121 mg/dL (70-105); Potassium 3.5 mmol/L (3.5-5.1); Sodium 142 mmol/L (136-145)
[2019-08-25 17:53] LABS: Bilirubin Negative (Negative); Blood, Urine Negative (Negative); Clarity Clear (Clear); Glucose, Urine (Dipstick) Normal (Negative); Leukocyte Negative Leu/uL (Negative); Nitrite Negative (Negative); Protein, Urine (Dipstick) 20 mg/dL (Neg-Trace)
[2019-08-25] MEDS ORDERED: Ibuprofen 800 MG TAB ONE (18:14)
== END 2019-08-25 18:06 | disposition home or self-care (01) ==
LOC: ERS 16:15
DX: R53.1 Weakness (principal); M19.90 Unspecified osteoarthritis, unspecified site; I48.91 Unspecified atrial fibrillation; E78.5 Hyperlipidemia, unspecified; E87.1 Hypo-osmolality and hyponatremia; I10 Essential (primary) hypertension; F32.9 Major depressive disorder, single episode, unspecified; Z79.899 Other long term (current) drug therapy
CPT/HCPCS: 36415; 80053; 80164; 80178; 81003; 84443; 85025; 99284

== ENCOUNTER 2019-09-07 17:03 | Observation (INO) | payer OTHER ==
[2019-09-07 19:54] VITALS: BMI 44.0
[2019-09-07] MEDS ORDERED: Senokot S 8.6-50 MG TAB PO PRN (20:29)
[2019-09-07] MEDS ORDERED: Guaifenesin DM 100-10/5 ML UDCUP PO PRN (20:29)
[2019-09-07] MEDS ORDERED: Ondansetron ODT 4 MG TAB PO PRN (20:29)
[2019-09-07] MEDS ORDERED: Ondansetron PF 4 MG/2 ML Vial IVP PRN (20:29)
--- NOTE | 2019-09-07 20:52 | PDOC.EVN ---
Event Note - Event Note Event Note: Patient put in observation for Afib/flutter now rate controlled and switching to oral Diltiazem. Recent pacemaker by Dr. Brito so should tolerate rate control agents. Admission dictated #[id number]
[2019-09-07] MEDS ORDERED: OLANZapine 5 MG TAB PO SCH (21:00)
[2019-09-07] MEDS ORDERED: Zolpidem Tartrate 5 MG TAB PO SCH (21:00)
[2019-09-07] MEDS ORDERED: Rosuvastatin 10 MG TAB PO SCH (21:00)
[2019-09-07] MEDS ORDERED: Lithium Carbonate ER 450 mg Tablet PO SCH (21:00)
[2019-09-07] MEDS ORDERED: Diltiazem HCl SR 90 mg Capsule PO SCH (21:00)
--- NOTE | 2019-09-07 22:05 | HP ---
PRIMARY CARE PHYSICIAN: Calin To MD CHIEF COMPLAINT: Feeling a little off and told to come in by Dr. Brito's office. HISTORY OF PRESENT ILLNESS: This is a 43-year-old male with a history of long-standing atrial arrhythmias, unable to be controlled due to recurrent bradycardia. He had a pacemaker placed on the 13th of this month by Dr. rBito to prevent bradycardias to allow better control of his heart rate. The patient reports that he has been feeling a little bit off, a little bit confused for the last 2 days, otherwise not able to say much about anything else going on. He was called by Dr. Brito's office and told that he needed to come into the hospital. He went into the [facility] near his house. There, he was found to be in atrial flutter with a 2:1 block, heart rates in the 130s to 150s. He was given diltiazem 20 mg IV and 60 mg orally. His heart rate initially returned to sinus rhythm, however, then it went back into the flutter waves, so he is given another 20 mg of diltiazem and put on a diltiazem drip and transferred to our hospital. In the ER here, he was found to have his heart rate just under 100 beats per minute with sinus beats noted with multiple frequent sinus arrhythmic beats as well. He has been put in observation for Cardiology to evaluate him. Currently, he is off the diltiazem drip. His heart rate is in the 80s. REVIEW OF SYSTEMS: CONSTITUTIONAL: No fevers. No chills. EYES: No double vision. He has had some blurred vision recently, unable to say how long. ENT: No congestion, drainage, or sore throat. CARDIOVASCULAR: He has had some intermittent left-sided chest pains. He is not able to describe them or say often he was having them or how long they were going on, but he is not currently feeling any chest pain at this time. PULMONARY: No coughing, wheezing, or shortness of breath. GASTROINTESTINAL: He had some lower abdominal pains that he cannot really characterize, on and off. He does not certain exactly how long and he is not currently having them right now. No nausea or vomiting. No diarrhea or constipation. GENITOURINARY: No dysuria or hematuria. MUSCULOSKELETAL: No muscle aches or joint pain. SKIN: No rashes or other lesions noted. NEUROLOGIC: No numbness, tingling, or focal weakness. PAST MEDICAL HISTORY: 1. Paroxysmal atrial fibrillation with sick sinus. 2. Hypertension. 3. Hyperlipidemia. 4. Hypothyroidism. 5. Seizure disorder. 6. Bipolar disorder. 7. Complex migraines. PAST SURGICAL HISTORY: 1. Tonsillectomy. 2. Cardiac cath. 3. Pacemaker. PAST PSYCHIATRIC HISTORY: Depression with previous admissions to psychiatric facilities. SOCIAL HISTORY: The patient is , lives at home with his . Denies tobacco, alcohol, or illicit drug use. He is a full code. His is his medical decision maker. Her name is Francisca Sheridan. FAMILY HISTORY: Mother had coronary artery disease. ALLERGIES: TYLENOL. CURRENT MEDICATIONS: 1. Lisinopril 20 mg, I believe, with hydrochlorothiazide 12.5 mg combined 2 times a day. 2. Levetiracetam 500 mg daily. 3. Topiramate 50 mg twice a day. 4. . 5. Escitalopram 20 mg daily. 6. [place] 450 mg daily. 7. Midodrine 2.5 mg TID. 8. Potassium chloride 10 mEq twice a day. 9. Crestor 10 mg daily. 10. Zolpidem 5 mg at night. 11. Fenofibrate 40 mg daily. 12. Olanzapine 15 mg daily. 13. The patient does not appear to be on the flecainide that he was previously on. PHYSICAL EXAMINATION: VITAL SIGNS: Blood pressure 127/96, pulse 80, respirations 19, O2 saturation 95 % on room air, and temperature 98.5. GENERAL: This is a well-developed, obese, white male, in no acute distress. He does have slow responses in his mannerisms and responses indicate the possibility of some level of mental retardation. HEENT: Pupils are equal, round, and reactive to light. Oropharynx clear without lesions, erythema, or exudate. NECK: Supple. No lymphadenopathy. No thyroid nodules or enlargement. HEART: Irregularly irregular rhythm. Rate controlled. LUNGS: Clear to auscultation bilaterally. No wheezes, crackles, or rhonchi. ABDOMEN: Soft. Nontender to palpation. Normoactive bowel sounds. No hepatosplenomegaly or other masses. EXTREMITIES: No clubbing, cyanosis, or edema. SKIN: No rashes or lesions noted. NEUROLOGIC: Intact strength and sensation in all extremities. No facial droop. PSYCHIATRIC: Alert and oriented x3. Normal mood and affect. LABORATORY DATA: Labs from the outside hospital reviewed shows a normal white blood cell count. Normal hemoglobin, hematocrit, and platelets. Complete metabolic panel is notable for glucose of 118, BUN of 20, chloride of 110, albumin of 3.3. The rest of the complete metabolic panel is normal. Troponin was negative. Chest x-ray report from the outside hospital shows prior pacemaker implantation, cardiomegaly, very mild bibasilar interstitial edema, but no acute infiltrates or other acute changes. ASSESSMENT: 1. Atrial fibrillation/atrial flutter with rapid ventricular response, now controlled with diltiazem, off diltiazem drip. I will give a dose of 90 mg of the 12-hour diltiazem tonight and then tomorrow we will start him on a dose of 240 mg once daily Cardizem CD to try and provide good control to his heart rate. I will go ahead and consult Cardiology and they can notify Dr. Brito if he is needed as well. 2. Hypertension. We will resume the patient's lisinopril/hydrochlorothiazide and potassium. 3. Seizure disorder. We will resume the patient's home medications. 4. Insomnia. We will resume the patient's Ambien. 5. Gastrointestinal prophylaxis. We will put the patient on Pepcid twice a day. 6. Deep venous thrombosis prophylaxis. We will put the patient on SCDs while in bed. We will put him on subcu Lovenox for right now, just a prophylactic dose, and we will allow Cardiology to determine if he should be on an aspirin or on full anticoagulation for his atrial fibrillation. 7. Code status. I did discuss with the patient and the family. The patient is a full code. His is his medical decision maker should he be incapacitated, her name is Francisca Sheridan. Job ID: [id number] MTDD
[2019-09-07] MEDS: Topiramate 25 MG TAB PO SCH (23:17)
[2019-09-07] MEDS: Midodrine HCl 5 MG TAB PO SCH (23:18)
[2019-09-07] MEDS: Famotidine 20 MG TAB PO SCH (23:19)
[2019-09-08 05:27] LABS: #Eosinphils 0.3 thou/uL (0.0-0.7); #Lymphocytes 1.5 thou/uL (1.20-3.40); #Monocytes 0.7 thou/uL (0.11-0.59); #Neutrophils 5.1 thou/uL (1.40-6.50); %Basophils 0.1 % (0.0-1.0); %Eosinophils 4.5 % (0.0-10.0); %Monocytes 8.9 % (0.0-10.0); %Neutrophils 66.5 % (42.0-75.0); Hemoglobin 11.9 g/dL (14.0-18.0); Mean Corpuscular Hemoglobin 30.7 pg (27.0-31.0); Mean Corpuscular Volume 90.4 fL (78.0-98.0); Mean Platelet Volume 8.2 fL (7.4-10.4); Platelet Count 212 thou/uL (130-400); RBC Distribution Width 12.5 % (11.5-14.5); Red Blood Cell (RBC) Count 3.88 mill/uL (4.70-6.10); White Blood Cell (WBC) Count 7.6 thou/uL (4.8-10.8)
[2019-09-08 05:46] LABS: Anion Gap 11 mmol/L (10-20); BUN (Urea Nitrogen) 20 mg/dL (8.9-20.6); Calc. Creatinine Clearance 145 mL/min (70-130); Calcium 8.5 mg/dL (7.8-10.44); Carbon Dioxide 27 mmol/L (22-29); Chloride 107 mmol/L (98-107); Estimated GFR-MDRD 69; Glucose 92 mg/dL (70-105); Potassium 3.9 mmol/L (3.5-5.1); Sodium 141 mmol/L (136-145)
[2019-09-08] MEDS: Famotidine 20 MG TAB PO SCH (08:52)
[2019-09-08] MEDS: Midodrine HCl 5 MG TAB PO SCH (08:53)
[2019-09-08] MEDS: Topiramate 25 MG TAB PO SCH (08:53)
[2019-09-08] MEDS ORDERED: Escitalopram Oxalate 20 mg Tablet PO SCH (09:00)
[2019-09-08] MEDS ORDERED: Potassium Chloride 10 MEQ TAB PO SCH (09:00)
[2019-09-08] MEDS ORDERED: Lisinopril/Hydrochlorothiazide 20 mg/12.5 mg Tablet PO SCH (09:00)
[2019-09-08] MEDS ORDERED: Fenofibrate Nanocrystallized 145 MG TAB PO SCH (09:00)
[2019-09-08] MEDS ORDERED: levETIRAcetam 500 MG TAB PO SCH (09:00)
--- NOTE | 2019-09-08 09:29 | PDOC.HOSPP ---
- Subjective Encounter Date: 09/08/19 Encounter Time: 11:50 Subjective: Patient without complaints this morning. He has little bits of chest pain but states this is chronic. Feeling normal this morning. Seen by Dr. Brito and Sarah hernandez. - Objective Vital Signs & Weight: Vital Signs (12 hours) Temp Pulse Resp BP BP BP Pulse Ox 09/08/19 08:54 96 09/08/19 07:53 97.4 F L 73 18 111/68 96 09/08/19 03:46 97.6 F 76 18 110/54 L 97 09/07/19 23:10 97.6 F 150 H 22 H 133/81 94 L Weight Weight 273 lb 1 oz I&O: 09/07/19 09/08/19 09/09/19 06:59 06:59 06:59 Intake Total 240 Balance 240 Result Diagrams: 09/08/19 05:13 09/08/19 05:13 EKG Reviewed by me: Yes (short run of aflutter overnight, now in NSR) Hospitalist ROS - Review of Systems Constitutional: denies: fever, chills Respiratory: denies: cough, shortness of breath Cardiovascular: denies: palpitations Gastrointestinal: denies: nausea, vomiting, abdominal pain - Medication Medications: Active Medications Generic Name Dose Route Start Last Admin Trade Name Freq PRN Reason Stop Dose Admin Diltiazem HCl 240 mg 09/08/19 09:00 09/08/19 08:51 Cardizem Cd PO 240 mg DAILY THALIA Administration Divalproex Sodium 1,500 mg 09/07/19 21:00 09/07/19 23:18 Depakote Er PO 1,500 mg HS THALIA Administration Escitalopram Oxalate 20 mg 09/08/19 09:00 09/08/19 08:52 Lexapro PO 20 mg DAILY THALIA Administration Famotidine 20 mg 09/07/19 21:00 09/08/19 08:52 Pepcid PO 20 mg BID THALIA Administration Fenofibrate 145 mg 09/08/19 09:00 09/08/19 08:52 Tricor PO 145 mg DAILY THALIA Administration Lisinopril/HCTZ 1 tab 09/08/19 09:00 09/08/19 08:52 Prinizide 20-12.5 PO 1 tab DAILY THALIA Administration Levetiracetam 500 mg 09/08/19 09:00 09/08/19 08:52 Keppra PO 500 mg DAILY THALIA Administration Crook Carbonate 450 mg 09/07/19 21:00 09/07/19 23:18 Eskalith Er PO 450 mg HS THALIA Administration Midodrine 2.5 mg 09/07/19 21:00 09/08/19 08:53 Proamatine PO 2.5 mg TID THALIA Administration Olanzapine 15 mg 09/07/19 21:00 09/07/19 23:19 Zyprexa PO 15 mg HS THALIA Administration Potassium Chloride 10 meq 09/08/19 09:00 09/08/19 08:53 Klor-Con 10 PO 10 meq QAM THALIA Administration Rosuvastatin Calcium 10 mg 09/07/19 21:00 09/07/19 23:19 Crestor PO 10 mg HS THALIA Administration Topiramate 50 mg 09/07/19 21:00 09/08/19 08:53 Topamax PO 50 mg BID THALIA Administration Zolpidem Tartrate 5 mg 09/07/19 21:00 09/07/19 23:17 Ambien PO 5 mg HS THALIA Administration - Exam General Appearance: NAD Eye: anicteric sclera ENT: moist mucosa Heart: RRR, no murmur, no gallops, no rubs Respiratory: CTAB, no wheezes, no rales, no ronchi Gastrointestinal: soft, non-tender, non-distended, normal bowel sounds Psychiatric: normal behavior, A&O x 3 Psychiatric - other findings: flattened affect Hosp A/P (1) Atrial fibrillation and flutter Code(s): I48.91 - UNSPECIFIED ATRIAL FIBRILLATION; I48.92 - UNSPECIFIED ATRIAL FLUTTER Status: Resolved (2) Hypertension Code(s): I10 - ESSENTIAL (PRIMARY) HYPERTENSION Status: Chronic Qualifiers: Hypertension type: essential hypertension Qualified Code(s): I10 - Essential (primary) hypertension (3) Seizure disorder Code(s): G40.909 - EPILEPSY, UNSP, NOT INTRACTABLE, WITHOUT STATUS EPILEPTICUS Status: Chronic (4) Bipolar disorder Code(s): F31.9 - BIPOLAR DISORDER, UNSPECIFIED Status: Chronic (5) Insomnia Code(s): G47.00 - INSOMNIA, UNSPECIFIED Status: Chronic - Plan Patient with a run of Aflutter overnight, now back in sinus rhythm converted to oral diltiazem Spoke with Dr. Brito after he saw the patient. Plan is to continue cardizem, increase flecanide, and can f/u in Dr. Brito's office next week as previously scheduled Cleared to d/c home.
[2019-09-08] MEDS ORDERED: Flecainide 50 MG TAB PO SCH ×3 (11:00→21:00)
[2019-09-08 12:47] VITALS: BP 120/60; TEMP 97.7
[2019-09-08] MEDS ORDERED: Cyclobenzaprine 10 MG TAB PO SCH (15:00)
--- NOTE | 2019-09-08 16:34 | DIS ---
DATE OF ADMISSION: 09/07/2019 DATE OF DISCHARGE: 09/08/2019 PRIMARY CARE PHYSICIAN: Calin To MD ARMORER TECHNICIAN: Lawson Brito MD REASON FOR ADMISSION: Atrial fibrillation/atrial flutter with rapid ventricular rate. DIAGNOSES AT DISCHARGE: 1. Atrial fibrillation and flutter, controlled. 2. Hypertension. 3. Seizure disorder. 4. Bipolar disorder. 5. Insomnia. PROCEDURES: None. CONSULTATIONS: Electrophysiology, Dr. Brito. SUMMARY HOSPITAL COURSE: This is a 43-year-old man with a history of longstanding atrial arrhythmias and was also with recurrent syncopal episodes and some bradycardia with attempts at rate control. He had a pacemaker placed earlier this month by Dr. Brito. He reports feeling a little off for the last couple of days, but nothing that really bothered him much. He was called by Dr. Brito's office and told that he needs to be good to go into their office to be seen. He instead went to the nearest emergency room. There, he was found to be in atrial flutter in the 130s to 150s, was given diltiazem 20 mg IV and then 60 mg orally. This had return the heart rate to sinus rhythm, but it went back into atrial flutter, so he was given another 20 mg of diltiazem IV and started on a drip and transferred to our hospital. When he arrived to our ER, his heart rate was just under 100 beats per minute and mostly sinus rhythm with lots of atrial ectopic beats, but was asymptomatic otherwise. The patient was observed in the hospital overnight. He was given a dose of oral diltiazem last night and started on long-acting diltiazem this morning. He had one run of self-limited run of atrial flutter last night, it was asymptomatic and has been in sinus rhythm ever since. Dr. Brito did evaluate him this morning. He increased his flecainide and recommended continuing the diltiazem and is cleared him to go home to follow up as previously scheduled appointment next week on September 12. DISCHARGE MANAGEMENT: Discharged home. FOLLOWUP: Follow up with Dr. Brito as scheduled next week. ACTIVITY: As tolerated. DIET: Healthy heart diet. MEDICATIONS: 1. Cardizem CD 240 mg p.o. daily 30 capsules dispensed. 2. Flecainide 100 mg twice a day, 60 tablets dispensed. 3. Continue aspirin 81 mg daily. 4. Flexeril 10 mg 3 times a day. 5. Divalproex sodium extended release 1500 mg at night. 6. Escitalopram 20 mg daily. 7. Fenofibrate 160 mg daily. 8. Keppra 500 mg daily. 9. Levothyroxine 25 mcg daily. 10. Lisinopril/hydrochlorothiazide 20/12.5 mg daily. 11. [place] carbonate extended release 450 mg at night. 12. Meloxicam 15 mg daily. 13. Multivitamin daily. 14. Olanzapine 15 mg at night. 15. Potassium chloride 10 mEq daily. 16. Tamsulosin 0.4 mg daily. 17. Topamax 50 mg twice a day. 18. Ambien 5 mg at night. Job ID: [id number]
[2019-09-09] MEDS ORDERED: Levothyroxine Sodium 25 MCG TAB PO SCH (06:00)
[2019-09-09] MEDS ORDERED: Multivit, Therapeutic 1 TAB PO SCH (09:00)
[2019-09-09] MEDS ORDERED: Aspirin 81 mg Enteric Coated Tablet PO SCH (09:00)
[2019-09-09] MEDS ORDERED: Tamsulosin HCl 0.4 MG CAP PO SCH (09:00)
[2019-09-09] MEDS ORDERED: Meloxicam 15 MG TAB PO SCH (09:00)
--- NOTE | 2019-09-12 10:38 | CON ---
DATE OF CONSULTATION: This is Melita Lewis NP dictating a report for Lawson Brito MD. REASON FOR VISIT: Atrial flutter. Consultation was performed by Dr. Lawson Brito. HISTORY OF PRESENT ILLNESS: Mr. Sheridan is a 43-year-old gentleman, well known to our practice with a history of vasovagal syncope, sleep apnea, and bradycardia. At times, he would have extreme bradycardia with pauses up to 6 seconds with bradycardic episodes frequently in the 40-beat per minute range found on previously existing loop recorder. He underwent a dual-chamber pacemaker implantation in earlier this month. He has also been seen to have paroxysmal atrial fibrillation. His CHADS-VASc score is 0, so he is on baby aspirin daily for stroke prophylaxis. By one of his home pacemaker reports, he was found to have atrial flutter with occasional RVR, but episodes were fairly brief in duration up to 45 minutes. He was offered an outpatient office visit as well as an ablation today, with which he declined, and he ended up going to an emergency room closer to him and was transferred to [place] for further evaluation. He has been given IV loading dose of diltiazem and placed on a drip, converting him to sinus rhythm. Since that time, he has had paroxysmal atrial flutter episodes. He continues to have a myriad of vague symptoms, though does not appear to be extremely symptomatic with his atrial flutter. He reports he feels "weird" with episodes from time to time. Mr. Sheridan is currently resting in bed. He denies any ongoing heart racing, palpitations, chest pain or pressure, syncope, near syncope, stroke, or stroke-like symptoms. REVIEW OF SYSTEMS: Twelve-point review of systems was conducted. Positive for feeling cough. Otherwise, his 12-point review of systems was negative except that listed above in HPI. PAST MEDICAL HISTORY: 1. Recurrent syncopal episodes. 2. Seizure disorder with complex migraines, followed by Dr. Carreon. 3. Dual-chamber pacemaker, implanted in 08/2019. 4. Paroxysmal atrial fibrillation. 5. History of acute renal insufficiency secondary to dehydration with prior hospitalization. 6. Structurally normal heart, normal LVEF by left heart catheterization in 01/2018. 7. Hypothyroidism. 8. Hyperlipidemia. 9. Obesity. ALLERGIES: TYLENOL. HOME MEDICATIONS: Include: 1. Multivitamin daily. 2. Meloxicam daily. 3. Flexeril 10 mg t.i.d. 4. Aspirin 81 mg daily. 5. Tamsulosin one tablet daily. 6. Synthroid 25 mcg daily. 7. Lisinopril/hydrochlorothiazide one tablet daily. 8. Fenofibrate daily. 9. Escitalopram 20 mg daily. 10. Divalproex sodium 1500 mg nightly. 11. . 12. [place] one tablet nightly. 13. Topamax b.i.d. 14. Potassium daily. 15. Keppra daily. 16. Ambien nightly. 17. Flecainide 50 mg b.i.d. FAMILY HISTORY: Denies sudden cardiac or early-onset PAD. SOCIAL HISTORY: He is . Denies current tobacco habituation or illicit drug use. OBJECTIVE DATA: VITAL SIGNS: Temperature 97.4, pulse 73, blood pressure 111/68, respirations 18, and oxygen 96% on room air. GENERAL: The patient is somewhat sleepy and lethargic this morning, but arousable and oriented to person, place, and fairly to situation, which is his baseline. He is in no apparent distress, resting comfortably in the bed during the time of exam. NECK: Supple without jugular venous distention. There is no lymphadenopathy. Trachea is midline. LUNGS: Clear to auscultation, but diminished due to habitus. Respirations are even and unlabored. HEART: Rate is regularly regular. PMI is nonpalpable due to habitus. There is a left precordial device, was recently placed. Incision edges are well approximated. There is not any redness, drainage, or open areas. Normal healing is taking place. ABDOMEN: Obese, soft, and nontender without palpable masses. Hepatojugular reflux negative. EXTREMITIES: Warm and dry to touch without clubbing, cyanosis, or edema. NEUROLOGIC: Grossly intact and nonfocal. Gait was not assessed. DATABASE: EKG today shows sinus rhythm with paroxysmal atrial flutter episodes occasionally with RVR up to 130 beats per minute, largely with flutter rates between 90 and 115. DEVICE CHECK: The patient has a [employer] dual-chamber pacemaker. Device interrogation shows paroxysmal atrial flutter episodes occasionally with RVR, seen above, otherwise device is functioning normally. The longest atrial flutter episode was just under 1 hour. Most episodes are quite brief under 5-10 minutes. LABORATORY DATA: Hematology was unremarkable. Chemistry was unremarkable. Creatinine is 1.15. IMPRESSION: 1. Atrial flutter, likely CTI dependent. 2. Dual-chamber pacemaker in situ, recently placed with normal operation. 3. CHADS-VASc score of 0, on aspirin 81 mg daily for stroke prophylaxis. 4. Paroxysmal atrial fibrillation. 5. History of sick sinus syndrome, prompting the dual-pacemaker implant. 6. History of syncope secondary to vasovagal reactions and tachy-william arrhythmias. 7. Preserved left ventricular ejection fraction. 8. Seizure disorder. 9. Psychiatric disorders. PLAN AND RECOMMENDATIONS: I find Mr. Sheridan is back in sinus rhythm today. His pacemaker shows he is having paroxysmal atrial flutter episodes. In the past with a tendency for bradycardia, we had been limited with medical management for his atrial arrhythmias and not been at any rate control. I agree with the decision of Dr. Leggett for initiating diltiazem for rate control, but have also opted for increasing his flecainide. I have ordered a one-time 50 mg dose and then will restart his flecainide at 100 mg p.o. b.i.d. He has had renal insufficiency in the past; however, his creatinine is now 1.15 and stable. He should tolerate higher dose of this medication well. He has a followup appointment on 09/12, at which point we will re-evaluate his arrhythmia status and possibly contemplate CTI ablation in the future. Mr. Sheridan is a fairly complex gentleman with some psychiatric and seizure disorders. He is high risk for an atrial fibrillation ablation, but could benefit from a CTI ablation down the line. At this point, it appears he is mildly symptomatic with his atrial flutter and we will continue with medication management for now. I also encouraged him to follow up with his psychiatrist for management of his Lexapro and psychiatric disorders. The patient is stable for discharge today and we will see him back on the as mentioned above. Thank you for allowing me to participate in the care of this patient. Job ID: [id number]
== END 2019-09-08 15:31 | disposition home or self-care (01) ==
LOC: ERS 17:03 → 2SW 19:30
PROVIDERS: ADMIT Emergency Medicine; ATTEND Emergency Medicine
DX: I48.0 Paroxysmal atrial fibrillation (principal); I48.92 Unspecified atrial flutter; I10 Essential (primary) hypertension; E03.9 Hypothyroidism, unspecified; F31.9 Bipolar disorder, unspecified; G40.909 Epilepsy, unspecified, not intractable, without status epilepticus; G47.00 Insomnia, unspecified; Z79.82 Long term (current) use of aspirin; Z79.899 Other long term (current) drug therapy; Z88.6 Allergy status to analgesic agent; Z95.0 Presence of cardiac pacemaker
CPT/HCPCS: 36415; 80048; 85025; 93005; G0378

== ENCOUNTER 2019-09-12 15:19 | Outpatient (CLI) | payer OTHER ==
[2019-09-12 15:56] LABS: #Eosinphils 0.4 thou/uL (0.0-0.7); #Lymphocytes 1.4 thou/uL (1.20-3.40); #Monocytes 0.8 thou/uL (0.11-0.59); #Neutrophils 7.1 thou/uL (1.40-6.50); %Basophils 0.4 % (0.0-1.0); %Eosinophils 3.8 % (0.0-10.0); %Lymphocytes 14.6 % (21.0-51.0); %Monocytes 8.5 % (0.0-10.0); %Neutrophils 72.8 % (42.0-75.0); Hemoglobin 13.1 g/dL (14.0-18.0); Mean Corpuscular HGB CONC 34.2 g/dL (32.0-36.0); Mean Corpuscular Hemoglobin 31.2 pg (27.0-31.0); Mean Platelet Volume 10.8 fL (7.4-10.4); Platelet Count 168 thou/uL (130-400); RBC Distribution Width 12.6 % (11.5-14.5); Red Blood Cell (RBC) Count 4.19 mill/uL (4.70-6.10); White Blood Cell (WBC) Count 9.8 thou/uL (4.8-10.8)
[2019-09-12 16:22] LABS: ALT (SGPT) 19 U/L (8-55); AST (SGOT) 19 U/L (5-34); Albumin 4.4 g/dL (3.5-5.0); Alkaline Phosphatase 61 U/L (40-110); Anion Gap 12 mmol/L (10-20); BUN (Urea Nitrogen) 41 mg/dL (8.9-20.6); Bilirubin, Total 0.3 mg/dL (0.2-1.2); Calc. Creatinine Clearance 0 mL/min (70-130); Calcium 9.2 mg/dL (7.8-10.44); Carbon Dioxide 26 mmol/L (22-29); Chloride 107 mmol/L (98-107); Estimated GFR-MDRD 16; Glucose 87 mg/dL (70-105); Potassium 4.5 mmol/L (3.5-5.1); Protein, Total 7.4 g/dL (6.0-8.3); Sodium 140 mmol/L (136-145)
[2019-09-12 16:40] LABS: Free T4 (Free Thyroxine) 1.16 ng/dL (0.70-1.48); Thyroid Stimulating Hormone 6.1003 uIU/mL (0.35-4.94)
== END 2019-09-12 15:20 | disposition home or self-care (01) ==
LOC: LAB 15:19
PROVIDERS: ATTEND Family Medicine
DX: T56.891S Toxic effect of other metals, accidental (unintentional), sequela (principal); E03.9 Hypothyroidism, unspecified
CPT/HCPCS: 80053; 80178; 84439; 84443; 85025

== ENCOUNTER 2019-09-12 16:03 | Inpatient (IN) | payer OTHER ==
--- NOTE | 2019-09-12 16:47 | RAD ---
EXAM: Single view of the chest HISTORY: Syncope and chest pain COMPARISON: 04/14/2019 FINDINGS: Single view of the chest shows a normal sized cardiomediastinal silhouette. A pacemaker se en with its leads in the right atrium and ventricle. There is no evidence of consolidation, mass, or pleural effusion. The bones are unremarkable. IMPRESSION: No evidence of acute cardiopulmonary disease
[2019-09-12 16:50] LABS: #Eosinphils 0.4 thou/uL (0.0-0.7); #Lymphocytes 1.4 thou/uL (1.20-3.40); #Monocytes 0.7 thou/uL (0.11-0.59); #Neutrophils 6.5 thou/uL (1.40-6.50); %Basophils 0.1 % (0.0-1.0); %Lymphocytes 15.4 % (21.0-51.0); %Neutrophils 72.6 % (42.0-75.0); Hemoglobin 11.9 g/dL (14.0-18.0); Mean Corpuscular HGB CONC 34.7 g/dL (32.0-36.0); Mean Corpuscular Hemoglobin 31.4 pg (27.0-31.0); Mean Corpuscular Volume 90.4 fL (78.0-98.0); Mean Platelet Volume 9.5 fL (7.4-10.4); Platelet Count 225 thou/uL (130-400); RBC Distribution Width 12.6 % (11.5-14.5); Red Blood Cell (RBC) Count 3.78 mill/uL (4.70-6.10)
[2019-09-12 17:12] LABS: ALT (SGPT) 18 U/L (8-55); AST (SGOT) 18 U/L (5-34); Alkaline Phosphatase 55 U/L (40-110); Anion Gap 11 mmol/L (10-20); BUN (Urea Nitrogen) 42 mg/dL (8.9-20.6); Bilirubin, Total 0.3 mg/dL (0.2-1.2); CK (CPK) 72 U/L (30-200); Calc. Creatinine Clearance 0 mL/min (70-130); Calcium 8.8 mg/dL (7.8-10.44); Carbon Dioxide 25 mmol/L (22-29); Chloride 107 mmol/L (98-107); Estimated GFR-MDRD 15; Globulin 2.7 g/dL (2.4-3.5); Glucose 102 mg/dL (70-105); Lipase 74 U/L (8-78); Potassium 4.2 mmol/L (3.5-5.1); Protein, Total 6.7 g/dL (6.0-8.3); Sodium 139 mmol/L (136-145)
[2019-09-12 17:18] LABS: INR-International Normal Ratio 1.1; PTT 31.4 SEC (22.9-36.1); Prothrombin Time 13.9 SEC (12.0-14.7)
[2019-09-12 17:19] LABS: D-Dimer Test 0.56 *mcg/mL (0.27-0.43)
--- NOTE | 2019-09-12 17:19 | CT ---
CT BRAIN NONCONTRAST: DATE: HISTORY: 44-year-old male with altered mental status. FINDINGS: There is no evidence of acute intra-axial or extra-axial hemorrhage. There is no midline shift or any other mass effect. There is no extra-axial fluid collection. There is no evidence of obstructive hydrocephalus. Calvarium is intact. IMPRESSION: No acute intracranial findings.
[2019-09-12 17:31] LABS: Acetaminophen Less than 6.0 mcg/mL (10.0-30.0); Alcohol Less than 10 mg/dL (Less than 10); Salicylate Less than 8.0 mg/dL (15.0-30.0)
[2019-09-12 18:04] LABS: CKMB 1.8 ng/mL (0-6.6)
[2019-09-12 18:11] LABS: Bilirubin Negative (Negative); Blood, Urine Trace (Negative); Clarity Extra Turbid (Clear); Glucose, Urine (Dipstick) Normal (Negative); Leukocyte Negative Leu/uL (Negative); Nitrite Negative (Negative); Protein, Urine (Dipstick) 100 mg/dL (Neg-Trace)
[2019-09-12 18:16] LABS: Amphetamine Not Detected (NotDetected); Barbiturates Screen Not Detected (NotDetected); Benzodiazepine Screen Not Detected (NotDetected); Cocaine Metabolite Screen Not Detected (NotDetected); Medtox Control Line Valid? VALID (VALID); Medtox Reader # READER 1; Methadone Not Detected (NotDetected); Methamphetamine Not Detected (NotDetected); Opiate Screen Not Detected (NotDetected); Oxycodone Screen Not Detected (NotDetected); Phencyclidine (PCP) Not Detected (NotDetected); THC/Cannabinoid Screen Not Detected (NotDetected); Tricyclic Screen Not Detected (NotDetected)
[2019-09-12 18:19] LABS: Bacteria/HPF 1+ HPF (None Seen); Renal Epithelial 0-3 HPF (None Seen); Transitional Epithelial 0-3 HPF (None Seen)
[2019-09-12 18:20] LABS: Calcium Oxalate Crystals 2+ HPF (None Seen)
[2019-09-12] MEDS ORDERED: Amiodarone 150 MG/3 ML VIAL ONE (18:29)
[2019-09-12] MEDS ORDERED: Magnesium 2 GM/50 ML BAG (IN WATER) ONE (18:30)
[2019-09-12] MEDS ORDERED: levETIRAcetam In NaCl (Iso-Os) 1,000 MG in Premix Bag 1 BAG IVPB SCH (18:30)
[2019-09-12] MEDS ORDERED: Amiodarone 450 MG, Admixture Fee 1 EACH in Dextrose 5% in Water 250 ML IVPB SCH (18:45)
[2019-09-12] MEDS ORDERED: Amiodarone 150 MG, Admixture Fee 1 EACH in Dextrose 5% in Water 100 ML IVPB SCH (18:45)
[2019-09-12] MEDS ORDERED: Senokot S 8.6-50 MG TAB PO PRN (20:43)
[2019-09-12] MEDS ORDERED: Sodium Chloride 0.9% 1,000 ML IV SCH (20:45)
[2019-09-12 20:55] LABS: Troponin I 0.025 ng/mL (< 0.028)
[2019-09-13 00:43] VITALS: BMI 43.8
[2019-09-13] MEDS ORDERED: Sodium Chloride 0.9% 500 ML IV SCH (01:15)
--- NOTE | 2019-09-13 01:38 | HP ---
PRIMARY CARE PHYSICIAN: Dr. To. CHIEF COMPLAINT: Syncope. HISTORY OF PRESENT ILLNESS: Mr. Sheridan is a 44-year-old man, known to us from a recent admission with similar symptoms. Reports that he has been having multiple syncopal episodes over the last few days. Reports that he saw Dr. To on Wednesday, evidently saw Dr. Brito prior to admission. Reports that he has been not feeling very well. Has been passing out and generally not feeling well. He has a past medical history pertinent for chronic paroxysmal atrial fibrillation, aflutter, PVCs, hyperlipidemia, hypertension, hypothyroidism, seizure disorder, endorses complex migraines. He recently had a pacemaker placed for some symptomatic bradycardia, atrial fibrillation, aflutter. He was recently discharged from here on the of this month for aflutter, atrial fibrillation, and RVR. It was rate controlled and he was sent home to follow up with Dr. To, and Dr. Brito. Medications were changed, but he says he has not really felt well for most of this week. They increased his flecainide on the last admission. The patient does report that he saw him today prior to coming over here and that he was given another medication as a prescription, but does not remember what it was. Dr. Brito note noted that they might contemplate a CTI ablation in the future and for that reason, we will consult him for this admission as well. The patient was found to have acute renal failure. When it was checked, his GFR on 09/08, prior to discharge, was 69, today it is 15. BUN 42, creatinine is 4.32. Prolactin was also found to be 78.69. He had 2 troponins while in the emergency room. First one was slightly in the indeterminate range of 0.032 second one at 0.025. He will be admitted to [facility] for further management. REVIEW OF SYSTEMS: The patient reports multiple episodes of syncope. Reports that he generally does not feel well. He is not sure if he has had any seizure-type migraine in the last couple of days. Reports that he generally feels unwell. Does not feel like his normal self. He denies any fever, chills, any abdominal pain, any dysuria. All systems are reviewed and are negative unless mentioned in the HPI or above. PAST MEDICAL HISTORY: Please see HPI. PAST SURGICAL HISTORY: Tonsillectomy, cardiac cath, had a LINQ monitor placed and then removed, and this was replaced with a pacemaker on the August 25, 2019. PSYCHIATRIC HISTORY: Depression, bipolar, complex migraines/seizures. SOCIAL HISTORY: Denies any alcohol use, drug use, has no smoking history. He lives at home with his family. KNOWN ALLERGIES: Tylenol. CURRENT MEDICATIONS: 1. Aspirin 81 mg p.o. daily. 2. Flexeril 10 mg p.o. t.i.d. 3. Valproic acid 1500 mg p.o. at bedtime. 4. Escitalopram 20 mg p.o. daily. 5. Fenofibrate 160 mg p.o. daily. 6. Keppra 500 mg p.o. daily. 7. Lisinopril/hydrochlorothiazide 20/12.5 p.o. daily. 8. [place] 450 mg p.o. at bedtime. 9. Meloxicam 15 mg p.o. daily. 10. Multivitamin one tablet p.o. daily. 11. Zyprexa 15 mg p.o. at bedtime. 12. Potassium chloride 10 mEq p.o. daily. 13. Flomax 0.4 mg p.o. daily. 14. Ambien 5 mg p.o. at bedtime. 15. Diltiazem 240 mg p.o. daily. 16. Flecainide 100 mg p.o. q.12 hours. 17. Levothyroxine 25 mcg p.o. daily. 18. Topiramate 50 mg p.o. b.i.d.. PHYSICAL EXAMINATION: VITAL SIGNS: Blood pressure 112/75, pulse is 91, respiratory rate is 18, temperature is 98.6, pO2 saturations are 96% on room air. GENERAL: The patient is alert and oriented to person, place, and time. He appears nontoxic, but he does feel ill appearing. HEENT: Head is atraumatic and normocephalic. Eyes, pupils are equally round and reactive to light. Eyelids are normal to inspection. ENT, mucous membranes are moist. Mouth exam is normal. NECK: Normal range of motion. Trachea is midline. RESPIRATORY/CHEST: Breath sounds are clear. Chest expansion is equal. CARDIOVASCULAR: Irregularly irregular. Heart sounds are normal. ABDOMEN: Nontender. Bowel sounds are heard. BACK: Normal range of motion. No tenderness. EXTREMITIES: Upper extremities; normal range of motion, motor strength is normal, radial pulses are normal. Lower extremities; normal range of motion, motor strength is normal, pedal pulses are normal, there is no edema noted. NEURO: The patient is oriented to person, place, and time. Speech is normal. SKIN: Warm, dry, normal in color of that is visualized. PSYCHIATRIC: He has a normal affect. LABORATORY DATA: EKG in the emergency room shows sinus tach, beats per minute 116. Second EKG shows sinus tach, 96, with premature atrial complexes. Head CT shows no acute intracranial findings. Chest, no acute findings. ASSESSMENT AND PLAN: 1. Paroxysmal atrial fibrillation, atrial flutter. The patient was started on a Cordarone drip in the emergency room after he was given 150 mg IV push. He was also given magnesium 2 L of normal saline and a Keppra 1000 mg. The patient will be admitted to telemetry for further management and monitoring. We have asked Dr. Brito to consult as well as Cardiology. 2. Acute renal failure with a creatinine in the last 4 days elevated to 4.32 with BUN of 42, with a GFR of 15. We will stop any nephrotoxic medicines. We will repeat the lab values in the morning. The patient received 2 L of fluid in the emergency room. We will continue gentle hydration at 50 mL per hour. If creatinine does not improve, we will renal adjust medications. We have asked Dr. Marques to consult. 3. Seizure disorder/complex migraines. Keppra dosing was given in the emergency room. The patient did have an elevated prolactin. We will continue home medications. We will check a Keppra level in the morning after the IV dose given today in the emergency room. With renal failure, we will keep a close eye on this. 4. History of hypothyroidism. We will restart home medications. 5. History of bipolar disorder. Home medications will be restarted. We may have to renal adjust these doses if kidney function does not improve. 6. The patient had a D-dimer in the emergency room, which was elevated. CTA of the chest was unable to be performed due to the GFR. The patient with atrial fibrillation, atrial flutter. We will rule this out with a V/Q scan tomorrow. 7. Urine was negative for nitrites, leukocyte esterase, but did have some white blood cells, 1+ bacteria. This has been sent off for culture. We will hold off on treating for now. The patient also had blood cultures sent by the ER. These are also pending. 8. Gastrointestinal prophylaxis has been started. 9. Deep vein thrombosis. We will put the patient on SCDs while in bed. Lovenox for anticoagulation has been held for now. We will ask Cardiology to determine if the patient should be on full-dose aspirin or full-dose anticoagulation paroxysmal atrial fibrillation. 10. History of BPH. We are going to hold his Flomax for now. 11. The patient takes lithium and due to the patient's current renal function, we will check a lithium level. 12. Case discussed with Dr. Bernard, who agrees with plan. 13. Hospital course is dependent on clinical findings. Job ID: [id number]
[2019-09-13] MEDS ORDERED: Sodium Chloride 0.9% 1,000 ML IV SCH (01:45)
[2019-09-13 02:56] LABS: ALT (SGPT) 16 U/L (8-55); AST (SGOT) 21 U/L (5-34); Albumin 3.7 g/dL (3.5-5.0); Alkaline Phosphatase 56 U/L (40-110); Anion Gap 12 mmol/L (10-20); BUN (Urea Nitrogen) 40 mg/dL (8.9-20.6); Bilirubin, Total 0.2 mg/dL (0.2-1.2); Calc. Creatinine Clearance 55 mL/min (70-130); Carbon Dioxide 20 mmol/L (22-29); Chloride 113 mmol/L (98-107); Estimated GFR-MDRD 23; Globulin 2.5 g/dL (2.4-3.5); Glucose 122 mg/dL (70-105); Potassium 4.2 mmol/L (3.5-5.1); Protein, Total 6.2 g/dL (6.0-8.3); Sodium 141 mmol/L (136-145)
[2019-09-13 05:15] LABS: #Eosinphils 0.4 thou/uL (0.0-0.7); #Lymphocytes 1.5 thou/uL (1.20-3.40); #Monocytes 0.8 thou/uL (0.11-0.59); #Neutrophils 5.4 thou/uL (1.40-6.50); %Basophils 0.1 % (0.0-1.0); %Eosinophils 5.1 % (0.0-10.0); %Lymphocytes 17.8 % (21.0-51.0); %Monocytes 10.3 % (0.0-10.0); %Neutrophils 66.8 % (42.0-75.0); Hemoglobin 11.2 g/dL (14.0-18.0); Mean Corpuscular HGB CONC 32.7 g/dL (32.0-36.0); Mean Corpuscular Hemoglobin 30.4 pg (27.0-31.0); Mean Platelet Volume 9.6 fL (7.4-10.4); Platelet Count 155 thou/uL (130-400); RBC Distribution Width 12.5 % (11.5-14.5); Red Blood Cell (RBC) Count 3.68 mill/uL (4.70-6.10); White Blood Cell (WBC) Count 8.1 thou/uL (4.8-10.8)
[2019-09-13] MEDS: Levothyroxine Sodium 25 MCG TAB PO SCH (05:20)
--- NOTE | 2019-09-13 07:28 | PDOC.HOSPP ---
- Subjective Encounter Date: 09/13/19 Encounter Time: 14:00 Subjective: Patient with some shivering/intention tremor. States it has been going on only since last night. No chest pain. No SOB. Fainting a lot at home but none here. - Objective Vital Signs & Weight: Vital Signs (12 hours) Temp Pulse Resp BP Pulse Ox 09/13/19 04:00 97.4 F L 82 16 107/54 L 94 L 09/13/19 01:50 110/53 L 09/12/19 23:55 102/60 09/12/19 23:30 97.7 F 81 16 70/44 L 95 09/12/19 23:25 87/47 L 09/12/19 21:58 97.8 F 105 H 18 121/78 95 09/12/19 21:55 95 Weight Weight 271 lb 8 oz Result Diagrams: 09/13/19 04:32 09/13/19 02:05 Additional Labs: Accuchecks 09/12/19 16:19 POC Glucose 98 Hospitalist ROS - Review of Systems Constitutional: denies: fever, chills Respiratory: denies: cough, shortness of breath Cardiovascular: denies: chest pain, palpitations, orthopnea Gastrointestinal: denies: nausea, vomiting, abdominal pain - Medication Medications: Active Medications Generic Name Dose Route Start Last Admin Trade Name Freq PRN Reason Stop Dose Admin Divalproex Sodium 1,500 mg 09/12/19 21:00 09/13/19 01:38 Depakote Er PO Not Given HS THALIA Sodium Chloride 1,000 mls @ 50 mls/hr 09/12/19 20:45 09/13/19 00:21 Normal Saline 0.9% IV 09/13/19 16:44 1,000 mls .Q20H THALIA Administration Levothyroxine Sodium 25 mcg 09/13/19 06:00 09/13/19 05:20 Synthroid PO 25 mcg 0600 THALIA Administration - Exam General Appearance: NAD, awake alert Eye: anicteric sclera ENT: moist mucosa Heart: RRR, no murmur, no gallops, no rubs Respiratory: CTAB, no wheezes, no rales, no ronchi Gastrointestinal: soft, non-tender, non-distended, normal bowel sounds Extremities: no edema Psychiatric: A&O x 3, flat affect Hosp A/P (1) Atrial fibrillation and flutter Code(s): I48.91 - UNSPECIFIED ATRIAL FIBRILLATION; I48.92 - UNSPECIFIED ATRIAL FLUTTER Status: Resolved (2) Syncope Code(s): R55 - SYNCOPE AND COLLAPSE Status: Acute (3) Acute renal failure Status: Acute (4) Complicated migraine Code(s): G43.109 - MIGRAINE WITH AURA, NOT INTRACTABLE, W/O STATUS MIGRAINOSUS Status: Chronic (5) Seizure disorder Code(s): G40.909 - EPILEPSY, UNSP, NOT INTRACTABLE, WITHOUT STATUS EPILEPTICUS Status: Chronic (6) Bipolar disorder Code(s): F31.9 - BIPOLAR DISORDER, UNSPECIFIED Status: Chronic (7) Hypertension Code(s): I10 - ESSENTIAL (PRIMARY) HYPERTENSION Status: Chronic Qualifiers: Hypertension type: essential hypertension Qualified Code(s): I10 - Essential (primary) hypertension (8) Hypothyroidism Code(s): E03.9 - HYPOTHYROIDISM, UNSPECIFIED Status: Chronic - Plan Patient now in NSR with diltiazem drip from the ER, one low BP overnight but better this AM Dr. Brito consulted, will see tomorrow, continue diltiazem for now Renal failure markedly improved with IV fluids in ER, continue fluids Resume home meds for seizures and bipolar DVT prophylaxis- Lovenox
[2019-09-13] MEDS: Cyclobenzaprine 10 MG TAB PO SCH ×3 (09:34→22:39)
[2019-09-13] MEDS: Topiramate 25 MG TAB PO SCH ×2 (09:34→22:38)
[2019-09-13] MEDS: Escitalopram Oxalate 20 mg Tablet PO SCH (09:34)
[2019-09-13] MEDS: Fenofibrate Nanocrystallized 145 MG TAB PO SCH (09:34)
[2019-09-13] MEDS: levETIRAcetam 500 MG TAB PO SCH (09:34)
[2019-09-13] MEDS: Aspirin 81 mg Enteric Coated Tablet PO SCH (09:34)
[2019-09-13] MEDS: Multivitamin W/ Minerals 1 TAB PO SCH (09:34)
[2019-09-13] MEDS: Famotidine 20 MG TAB PO SCH (09:35)
[2019-09-13] MEDS: Tamsulosin HCl 0.4 MG CAP PO SCH (09:35)
--- NOTE | 2019-09-13 11:37 | NM ---
EXAM: Nuclear medicine VQ scan COMPARISON: Chest x-ray 09/12/2019 HISTORY: Shortness of breath TECHNIQUE: Perfusion images were obtained using 6.5 mCi of technetium 99m MAA. The patient could not perform ventilation images. FINDINGS: Perfusion: No small, medium, or large perfusion defects are seen. IMPRESSION: No perfusion defects identified. Normal perfusion exam.
--- NOTE | 2019-09-13 14:19 | CON ---
DATE OF CONSULTATION: 09/13/2019 CONSULTING PHYSICIAN: Dr. Mariella Stauffer. REASON FOR CONSULTATION: Acute kidney injury. REASON FOR ADMISSION: Syncope. HISTORY OF PRESENT ILLNESS: This is a 44-year-old male with history of hypertension, hyperlipidemia, PVC, hypothyroidism, atrial fibrillation, came to the hospital with syncope and was admitted and was found to have elevated creatinine. Nephrology was consulted. The patient is feeling better. No nausea or vomiting. No chest pain. No fever or chills. PAST MEDICAL HISTORY: Positive for; 1. Hypertension. 2. Hyperlipidemia. 3. PVCs. 4. Hypothyroidism. 5. Seizure disorder. 6. Migraines. 7. Atrial fibrillation. PAST SURGICAL HISTORY: 1. Tonsillectomy. 2. Cardiac cath procedure. 3. Pacemaker placement. HOME MEDICATIONS: Reviewed. ALLERGIES: TYLENOL. SOCIAL HISTORY: No smoking, alcohol, or illicit drug abuse. FAMILY HISTORY: No history of kidney disease. REVIEW OF SYSTEMS: CONSTITUTIONAL: Negative for weight loss or gain, ability to conduct usual activities. SKIN: Negative for rash, itching. EYES: Negative for double vision, pain. ENT/MOUTH: Negative for nose bleeding, neck stiffness, pain, tenderness. CARDIOVASCULAR: Negative for palpitations, dyspnea on exertion, orthopnea. RESPIRATORY: Negative for shortness of breath, wheezing, cough, hemoptysis, fever or night sweats. GASTROINTESTINAL: Negative for poor appetite, abdominal pain, heartburn, nausea, vomiting, constipation, or diarrhea. GENITOURINARY: Negative for urgency, frequency, dysuria, nocturia. MUSCULOSKELETAL: Negative for pain, swelling. NEUROLOGIC/PSYCHIATRIC: Negative for anxiety, depression. ALLERGY/IMMUNOLOGIC: Negative for skin rash, bleeding tendency. PHYSICAL EXAMINATION: GENERAL: This is a well-built male, in no apparent distress. VITAL SIGNS: Temperature 98.2, pulse 85, respiratory rate 16, blood pressure 136/82. HEENT: Atraumatic, normocephalic. Oral mucosa is moist. NECK: Supple. CV: S1, S2. Rate and rhythm regular. RESPIRATORY: Clear. GASTROINTESTINAL: Abdomen is soft. MUSCULOSKELETAL: 1+ edema. DERMATOLOGIC: No skin rash. NEUROLOGICAL: Alert and awake. PSYCHIATRIC: Mood and affect are normal. LABORATORY DATA: Hemoglobin 11.2. Potassium 4.2, BUN is 40, and creatinine is 2.9. ASSESSMENT AND PLAN: 1. Acute kidney injury. Creatinine is much better. On admission, it was 4.3, now is down to 2.9. Continue hydration. Avoid nephrotoxins. 2. Acidosis. 3. Anemia. 4. Edema. 5. History of hypertension. Plan to monitor labs. Avoid nephrotoxins and renally dose the medications. Medication list reviewed. Continue hydration as tolerated. We will follow. Job ID: [id number]
--- NOTE | 2019-09-13 15:49 | CON ---
DATE OF CONSULTATION: 09/13/2019 INDICATION FOR CONSULTATION: A 44-year-old gentleman with multiple episodes of atrial flutter, who has had episodes in the past of multiple syncopal episodes and was again admitted after having syncopal episodes. He has been followed by Dr. Brito as far as Electrophysiology is concerned. 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 He also had a history of atrial fibrillation/flutter, has been trying to be treated by medications. He continues to have atrial flutter. The pacemaker was interrogated yesterday when he came to the emergency room. He was found to have multiple episodes of atrial flutter. The ventricular response was not extremely high. He also was noted to have acute renal insufficiency and appeared to be dehydrated; however, he says he has been eating and drinking normally and has been urinating quite a bit. I am uncertain as to whether or not there may be some other etiology of this. I do not appear to be on any diuretics. At this time, his renal function has improved after being given normal saline. His creatinine on admission was 4.3, is now decreased down to 2.98. His sodium was 141 with potassium of 4.2. His cardiac enzymes are negative for any evidence of myocardial infarction and he denies any chest pain. He just continues to have syncopal episodes. PAST MEDICAL HISTORY: Mainly significant for the episodes of atrial fibrillation and flutter. He also has a history of somewhat of, I believe, he has some type of seizure disorder. He has been followed by Neurology in the past. He has a history of dehydration in the past also when he was recently admitted back in August. He was just recently admitted I believe on September 08. He has undergone I believe cardiac catheterization and echocardiogram in the past, which showed normal coronary arteries and normal left ventricular systolic function. He does seem to have other psychiatric disorder, I am uncertain exactly what his diagnoses are in full. PAST SURGICAL HISTORY: He has had a LINQ replaced, this was removed at the time he had a pacemaker inserted recently. He has also had a tonsillectomy. He has bipolar disorder and history of seizures and some migraines. SOCIAL HISTORY: There is no history of alcohol or tobacco abuse. He lives at home with his family. ALLERGIES: HE IS ALLERGIC TO TYLENOL. PRESENT MEDICATIONS: Prior to admission, he was on flecainide 100 mg every 12 hours, this has recently been increased, this has been placed on hold due to the renal function. Otherwise, he is taking; 1. Aspirin 81 mg a day. 2. Flexeril 10 mg three times a day. 3. Valproic acid. 4. Escitalopram. 5. Fenofibrate. 6. Keppra. 7. Lisinopril/hydrochlorothiazide. 8. [place]. 9. Meloxicam. 10. Multivitamin. 11. Zyprexa. 12. Potassium. 13. Flomax. 14. Ambien. 15. Diltiazem. 16. Levothyroxine. 17. Topiramate. REVIEW OF SYSTEMS: A 12-point review of systems is relatively unremarkable except for the concern of frequent falls or syncopal episodes. PHYSICAL EXAMINATION: GENERAL: Reveals a middle-aged gentleman, who is morbidly obese, somewhat difficult to understand, but otherwise is alert and oriented. VITAL SIGNS: Fluctuated. The blood pressure at times has been as low as 70/44, this is now improved. His blood pressure today at this time is 141/68, heart rate is in the 80s, respiratory rate is 18. He is afebrile. HEENT: Shows head to be normocephalic and atraumatic. Carotid pulses are present. There are no bruits. CHEST: Clear to auscultation. There were no rales, rhonchi, or wheezing. CARDIOVASCULAR: At this time shows a regular rhythm. There were no significant murmurs, heaves, thrills, bruits, or rubs. ABDOMEN: Shows morbid obesity. Positive bowel sounds are present. No tenderness or masses were palpable. EXTREMITIES: Show no clubbing or cyanosis. He did have minimal lower extremity edema, perhaps 1+, otherwise unremarkable. SKIN: Warm and dry. LABORATORY DATA: As noted above. The elevated BUN and creatinine with a BUN now of 40 with a creatinine 2.98. BUN on admission was 42 and creatinine was 4.3. , blood sugar was 122, magnesium was 2.9. His TSH level was elevated at 7.79 and prolactin level also was 78.6. DIAGNOSTIC STUDIES: His EKG showed atrial flutter with a well-controlled ventricular response at that time, which is now converted back to sinus rhythm. IMPRESSION: Frequent episodes of syncope, most likely due to orthostatic hypotension or possibly due to the decreased atrial kick associated with his atrial flutter, but he does have a normal ejection fraction and normal coronary arteries. This may be contributing some to his episodes of syncope. We will discuss this with the adult remedial education instructor and have Dr. Brito revisit with him tomorrow since he is followed him on a routine basis. He is not a good candidate for flecainide since his renal function has been fluctuating. Also, may be due to medications or interactions, but with the renal function with the patient not being able to adequately understand the situation, I would not advise this medication at this time. I would agree with the amiodarone as he is being given at this time. For his other medical problems, please refer to the notes dictated by the Hospital Service and I will ask Dr. Brito to visit with the patient tomorrow. Job ID: [id number] MTDD
[2019-09-13] MEDS ORDERED: FLU VACC QS2019-20(6MOS UP)/PF 60 MCG/0.5 ML SYRINGE IM ONE (21:00)
[2019-09-13] MEDS ORDERED: Lithium Carbonate ER 450 mg Tablet PO SCH (21:00)
[2019-09-13] MEDS: OLANZapine 5 MG TAB PO SCH (22:38)
[2019-09-13] MEDS: Diltiazem HCl SR 60 mg Capsule PO SCH (22:38)
[2019-09-13] MEDS: Zolpidem Tartrate 5 MG TAB PO SCH (23:09)
[2019-09-14 05:29] LABS: #Eosinphils 0.4 thou/uL (0.0-0.7); #Lymphocytes 1.5 thou/uL (1.20-3.40); #Monocytes 0.7 thou/uL (0.11-0.59); #Neutrophils 4.2 thou/uL (1.40-6.50); %Basophils 0.3 % (0.0-1.0); %Eosinophils 6.3 % (0.0-10.0); %Lymphocytes 21.6 % (21.0-51.0); %Monocytes 9.9 % (0.0-10.0); %Neutrophils 61.9 % (42.0-75.0); Hemoglobin 11.1 g/dL (14.0-18.0); Mean Corpuscular HGB CONC 32.8 g/dL (32.0-36.0); Mean Corpuscular Hemoglobin 29.6 pg (27.0-31.0); Mean Corpuscular Volume 90.3 fL (78.0-98.0); Mean Platelet Volume 9.1 fL (7.4-10.4); Platelet Count 163 thou/uL (130-400); RBC Distribution Width 12.4 % (11.5-14.5); Red Blood Cell (RBC) Count 3.74 mill/uL (4.70-6.10); White Blood Cell (WBC) Count 6.8 thou/uL (4.8-10.8)
[2019-09-14 05:52] LABS: Anion Gap 9 mmol/L (10-20); BUN (Urea Nitrogen) 23 mg/dL (8.9-20.6); Calc. Creatinine Clearance 137 mL/min (70-130); Calcium 8.2 mg/dL (7.8-10.44); Carbon Dioxide 23 mmol/L (22-29); Chloride 110 mmol/L (98-107); Estimated GFR-MDRD 66; Glucose 88 mg/dL (70-105); Potassium 4.5 mmol/L (3.5-5.1); Sodium 137 mmol/L (136-145)
[2019-09-14] MEDS: Levothyroxine Sodium 25 MCG TAB PO SCH (05:56)
--- NOTE | 2019-09-14 07:22 | PDOC.HOSPP ---
- Subjective Encounter Date: 09/14/19 Encounter Time: 11:30 Subjective: Patient a bit groggy this AM. No events overnight. - Objective Vital Signs & Weight: Vital Signs (12 hours) Temp Pulse Resp BP Pulse Ox 09/14/19 04:00 97.8 F 75 18 103/55 L 95 09/13/19 23:51 97.8 F 80 20 116/53 L 95 09/13/19 20:01 96 09/13/19 20:00 98.3 F 80 20 112/62 96 Weight Weight 271 lb 8 oz I&O: 09/13/19 09/14/19 09/15/19 06:59 06:59 06:59 Intake Total 2609 Output Total 3705 Balance -1096 Result Diagrams: 09/14/19 05:13 09/14/19 05:13 Hospitalist ROS - Review of Systems ROS unobtainable: due to mental status Other: sleeping, not talkative when I wake him up - Medication Medications: Active Medications Generic Name Dose Route Start Last Admin Trade Name Irene PRN Reason Stop Dose Admin Aspirin 81 mg 09/13/19 09:00 09/13/19 09:34 Ecotrin PO 81 mg QAM THALIA Administration Cyclobenzaprine HCl 10 mg 09/13/19 09:00 09/13/19 22:39 Flexeril PO 10 mg TID THALIA Administration Diltiazem HCl 60 mg 09/13/19 21:00 09/13/19 22:38 Cardizem Sr PO 60 mg BID THALIA Administration Divalproex Sodium 1,500 mg 09/12/19 21:00 09/13/19 22:39 Depakote Er PO 1,500 mg HS THALIA Administration Escitalopram Oxalate 20 mg 09/13/19 09:00 09/13/19 09:34 Lexapro PO 20 mg DAILY THALIA Administration Famotidine 20 mg 09/13/19 09:00 09/13/19 09:35 Pepcid PO 20 mg DAILY THALIA Administration Fenofibrate 145 mg 09/13/19 09:00 09/13/19 09:34 Tricor PO 145 mg DAILY THALIA Administration Iron/Minerals/Multivitamins 1 tab 09/13/19 09:00 09/13/19 09:34 Theragran M PO 1 tab DAILY THALIA Administration Levetiracetam 500 mg 09/13/19 09:00 09/13/19 09:34 Keppra PO 500 mg DAILY THALIA Administration Levothyroxine Sodium 25 mcg 09/13/19 06:00 09/14/19 05:56 Synthroid PO 25 mcg 0600 THAILA Administration Olanzapine 15 mg 09/13/19 21:00 09/13/19 22:38 Zyprexa PO 15 mg HS THALIA Administration Tamsulosin HCl 0.4 mg 09/13/19 09:00 09/13/19 09:35 Flomax PO 0.4 mg DAILY THALIA Administration Topiramate 50 mg 09/13/19 09:00 09/13/19 22:38 Topamax PO 50 mg BID THALIA Administration Zolpidem Tartrate 5 mg 09/13/19 21:00 09/13/19 23:09 Ambien PO Not Given HS THALIA - Exam General Appearance: NAD General - other findings: snoring loudly Heart: no murmur, no gallops, no rubs, irregular Respiratory: CTAB, no wheezes, no rales, no ronchi Respiratory - other findings: on and off obstructive sounds and snoring when he sleeps Gastrointestinal: soft, non-tender, non-distended, normal bowel sounds Gastrointestinal - other findings: obese Psychiatric: somnolent Hosp A/P (1) Atrial fibrillation and flutter Code(s): I48.91 - UNSPECIFIED ATRIAL FIBRILLATION; I48.92 - UNSPECIFIED ATRIAL FLUTTER Status: Resolved (2) Syncope Code(s): R55 - SYNCOPE AND COLLAPSE Status: Acute (3) Acute renal failure Status: Acute (4) Complicated migraine Code(s): G43.109 - MIGRAINE WITH AURA, NOT INTRACTABLE, W/O STATUS MIGRAINOSUS Status: Chronic (5) Seizure disorder Code(s): G40.909 - EPILEPSY, UNSP, NOT INTRACTABLE, WITHOUT STATUS EPILEPTICUS Status: Chronic (6) Bipolar disorder Code(s): F31.9 - BIPOLAR DISORDER, UNSPECIFIED Status: Chronic (7) Hypertension Code(s): I10 - ESSENTIAL (PRIMARY) HYPERTENSION Status: Chronic Qualifiers: Hypertension type: essential hypertension Qualified Code(s): I10 - Essential (primary) hypertension (8) Hypothyroidism Code(s): E03.9 - HYPOTHYROIDISM, UNSPECIFIED Status: Chronic - Plan Patient converted to NSR with Amiodarone but had hypotension and d/c'd Afib recurred, rate now controlled with diltiazem. Apparently patient never started his diltiazem outpatient Dr. Brito consulted, will continue Diltiazem and can restart Flecanide now that creatinine normalized Renal failure markedly improved with IV fluids in ER, continue fluids, creatinine normalized this AM Resume home meds for seizures and bipolar [place] level elevated with tremor, medication d/c'd for now, recheck level in the AM DVT prophylaxis- Lovenox
--- NOTE | 2019-09-14 07:51 | ULT ---
RENAL ULTRASOUND: HISTORY: Acute renal insufficiency. FINDINGS: Real-time imaging of the right and left kidneys was performed. The kidneys are within normal limits of size. The right kidney measures 11.3 cm in length. The left kidney measures 13.2 cm. In the mid to upper pole region of the left kidney is a complex hypoechoic mass measuring 3.4 x 4.9 cm. Review is made of an 04/21/2019 CT examination which showed a Bosniak type II cystic lesion in this region. The bladder region appears unremarkable. IMPRESSION: 1. No evidence of obstruction. 2. Complex left renal cyst again identified similar in appearance to the 04/21/2019 CT study. POS: LAUREN
[2019-09-14] MEDS: Famotidine 20 MG TAB PO SCH ×2 (08:24→20:39)
[2019-09-14] MEDS: Topiramate 25 MG TAB PO SCH ×2 (08:24→20:40)
[2019-09-14] MEDS: Fenofibrate Nanocrystallized 145 MG TAB PO SCH (08:24)
[2019-09-14] MEDS: Aspirin 81 mg Enteric Coated Tablet PO SCH (08:25)
[2019-09-14] MEDS: levETIRAcetam 500 MG TAB PO SCH (08:25)
[2019-09-14] MEDS: Diltiazem HCl SR 60 mg Capsule PO SCH ×2 (08:25→20:40)
[2019-09-14] MEDS: Multivitamin W/ Minerals 1 TAB PO SCH (08:25)
[2019-09-14] MEDS: Tamsulosin HCl 0.4 MG CAP PO SCH (08:25)
[2019-09-14] MEDS: Escitalopram Oxalate 20 mg Tablet PO SCH (08:25)
[2019-09-14] MEDS: Cyclobenzaprine 10 MG TAB PO SCH ×3 (08:25→20:39)
--- NOTE | 2019-09-14 09:54 | PRG ---
DATE OF SERVICE: 09/14/2019 SUBJECTIVE: I am seeing Mr. Sheridan at our [facility] as a followup. His problems are Mr. Sheridan was readmitted after continued dizziness and near syncopal spells. He was noted to have markedly elevated creatinine of 2.78. Also, the lithium level was elevated as well. He was transiently in the atrial flutter and received IV amiodarone, but that terminated. Eventually, it was stopped due to lower blood pressures. He is mostly maintaining sinus rhythm with intermittent short atrial flutter episodes only. OBJECTIVE: VITAL SIGNS: Blood pressure 105/56, heart rate 78, respirations 20, and temperature 97.7 degrees Fahrenheit. GENERAL: Alert and oriented man, in no apparent distress. NECK: Supple. Jugular veins difficult to visualize due to obesity. CHEST: Coarse without crackles. HEART: Sounds are regular rate and rhythm. No murmur or gallop. ABDOMEN: Benign. Bowel sounds positive. EXTREMITIES: Lower extremities without edema, clubbing, or cyanosis. DATABASE: EKG is reviewed, reveals currently sinus rhythm, atrially paced, [place] AV conduction. Interrogation of the ICD reveals intermittent episodes of atrial flutter with moderately controlled ventricular rates. LABORATORY DATA: Reviewed, revealing lithium level is 1.675 which is above the normal 1 to 1.2. The initial BUN is 42, creatinine is 4.32, sodium 139, potassium 4.2. Subsequently, the sodium 137, potassium 4.5, BUN is 23, creatinine 1.2, likely with hydration. The prolactin level was elevated at 78.69. Cortisol levels are 2. Troponin level is 0.025, previously 0.032. ASSESSMENT AND PLAN: Mr. Sheridan is a 44-year-old man with a history of syncopal spells, mostly due to vasovagal syncope, managed with midodrine. He also has atrial fibrillation/flutter, under moderate suppression with flecainide, apparently paroxysmal. According to his pacemaker interrogation, which was placed due to bradyarrhythmias couple of weeks ago, he still has episodes of atrial fibrillation/flutter, but the rates are mostly controlled. Now, he is readmitted with symptoms of syncopal episodes, although his history is extremely poor. He had just seen me prior to the admission in the office. Even there, he was markedly somnolent, but not passed out. His vital signs remained stable. I think his syncopal spells at this time more likely to be due to the polypharmacy with his psychoactive medications. Currently, he was in acute renal failure with elevated lithium levels, which could have contributed to this. On the other hand, he continues to have atrial fibrillation with flutter episodes, although I do not think that is a primary cause for his syncopal spells. For now, we will continue flecainide and diltiazem. We are contemplating outpatient ablation after medical/psychiatric stabilization is achieved. Due to his history of syncope and fall and low CHADS-VASc score, he is not on oral anticoagulation, just aspirin only. Should we proceed with the ablation, he will need to be anticoagulated, and I would like to have him stable on his psychoactive medication as well. Discussed with the patient. He seems to be more awake than I saw him last visit. We will follow up with you. Job ID: [id number]
[2019-09-14] MEDS: Midodrine HCl 5 MG TAB PO SCH ×2 (14:48→20:40)
--- NOTE | 2019-09-14 15:32 | PRG ---
DATE OF SERVICE: 09/14/2019 SUBJECTIVE: Patient was seen and examined at bedside and overnight events noted. Patient denies any shortness of breath or chest pain or palpitation. No history of nausea or vomiting or diarrhea or fever or chills or cramps. OBJECTIVE: GENERAL: This is an obese male, in no apparent distress. VITAL SIGNS: Temperature 97.7. Pulse 88. Respiratory rate 16. Blood pressure 113/70. HEENT: Atraumatic, normocephalic. Oral mucosa is moist NECK: Supple. CARDIOVASCULAR: S1, S2 heard. Rate and rhythm regular. RESPIRATORY: Clear to auscultation. GASTROINTESTINAL: Abdomen is soft. MUSCULOSKELETAL: No tenderness. No edema. DERMATOLOGIC: No skin rash. NEUROLOGIC: Alert and awake and oriented X3. No focal neurologic deficits. Moving all the extremities. PSYCHIATRIC: Mood and affect normal. LABORATORY DATA: Creatinine is 1.2. ASSESSMENT AND PLAN: 1. Acute kidney injury, much better. 2. Acidosis, better. 3. Anemia. 4. Edema. 5. History of hypertension, stable. 6. Obesity. Labs are much better. I will sign off. Please call back with any questions. Job ID: [id number]
[2019-09-14] MEDS: Flecainide 50 MG TAB PO SCH (20:39)
[2019-09-14] MEDS: Gabapentin 300 MG CAP PO SCH (20:39)
[2019-09-14] MEDS: Rosuvastatin 10 MG TAB PO SCH (20:39)
[2019-09-14] MEDS: Zolpidem Tartrate 5 MG TAB PO SCH (20:39)
[2019-09-14] MEDS: OLANZapine 5 MG TAB PO SCH (20:39)
[2019-09-15] MEDS: Levothyroxine Sodium 25 MCG TAB PO SCH (05:23)
[2019-09-15 08:08] LABS: #Eosinphils 0.5 thou/uL (0.0-0.7); #Lymphocytes 1.7 thou/uL (1.20-3.40); #Monocytes 0.8 thou/uL (0.11-0.59); #Neutrophils 4.3 thou/uL (1.40-6.50); %Basophils 0.1 % (0.0-1.0); %Eosinophils 6.8 % (0.0-10.0); %Lymphocytes 23.7 % (21.0-51.0); %Monocytes 10.5 % (0.0-10.0); %Neutrophils 58.9 % (42.0-75.0); Hemoglobin 11.7 g/dL (14.0-18.0); Mean Corpuscular HGB CONC 34.6 g/dL (32.0-36.0); Mean Corpuscular Hemoglobin 31.3 pg (27.0-31.0); Mean Corpuscular Volume 90.6 fL (78.0-98.0); Mean Platelet Volume 9.2 fL (7.4-10.4); Platelet Count 160 thou/uL (130-400); RBC Distribution Width 12.4 % (11.5-14.5); Red Blood Cell (RBC) Count 3.74 mill/uL (4.70-6.10); White Blood Cell (WBC) Count 7.3 thou/uL (4.8-10.8)
[2019-09-15 08:20] LABS: Anion Gap 11 mmol/L (10-20); BUN (Urea Nitrogen) 22 mg/dL (8.9-20.6); Calc. Creatinine Clearance 148 mL/min (70-130); Calcium 8.8 mg/dL (7.8-10.44); Carbon Dioxide 26 mmol/L (22-29); Chloride 108 mmol/L (98-107); Estimated GFR-MDRD 72; Glucose 100 mg/dL (70-105); Potassium 4.6 mmol/L (3.5-5.1); Sodium 140 mmol/L (136-145)
[2019-09-15] MEDS: Midodrine HCl 5 MG TAB PO SCH ×3 (08:59→21:34)
[2019-09-15] MEDS: Famotidine 20 MG TAB PO SCH ×2 (08:59→21:34)
[2019-09-15] MEDS: Fenofibrate Nanocrystallized 145 MG TAB PO SCH (08:59)
[2019-09-15] MEDS: levETIRAcetam 500 MG TAB PO SCH (09:00)
[2019-09-15] MEDS: Escitalopram Oxalate 20 mg Tablet PO SCH (09:00)
[2019-09-15] MEDS: Flecainide 50 MG TAB PO SCH (09:00)
[2019-09-15] MEDS: Aspirin 81 mg Enteric Coated Tablet PO SCH (09:00)
[2019-09-15] MEDS: Cyclobenzaprine 10 MG TAB PO SCH ×3 (09:00→21:36)
[2019-09-15] MEDS: Gabapentin 300 MG CAP PO SCH ×2 (09:01→21:37)
[2019-09-15] MEDS: Topiramate 25 MG TAB PO SCH ×2 (09:01→21:34)
[2019-09-15] MEDS: Tamsulosin HCl 0.4 MG CAP PO SCH (09:01)
[2019-09-15] MEDS: Multivitamin W/ Minerals 1 TAB PO SCH (09:01)
--- NOTE | 2019-09-15 10:18 | PDOC.EP ---
- Subjective Date: 09/15/19 Time: 10:11 Interval History: Follow up for arrhythmia management. More alert today but speech remains garbled. He is making eye contact and is able to converse, asking appropriate questions. - Review of Systems ROS unobtainable: due to mental status Constitutional: reports: malaise, weakness. denies: chills, fever Cardiology: denies: chest pain, edema, heart racing, palpitations, passing out Gastrointestinal: denies: abdominal pain, constipation, diarrhea - Objective Allergies/Adverse Reactions: Allergies Allergy/AdvReac Type Severity Reaction Status Date / Time acetaminophen [From Tylenol] Allergy Severe Swollen Verified 09/07/19 19:34 Lips Current Medications Aspirin (Ecotrin) 81 mg PO QAM [facility] Last Admin: 09/15/19 09:00 Dose: 81 mg Cyclobenzaprine HCl (Flexeril) 10 mg PO TID [facility] Last Admin: 09/15/19 09:00 Dose: 10 mg Diltiazem HCl (Cardizem Cd) 240 mg PO DAILY [facility] Divalproex Sodium (Depakote Er) 1,500 mg PO HS [facility] Last Admin: 09/14/19 20:41 Dose: 1,500 mg Escitalopram Oxalate (Lexapro) 20 mg PO DAILY [facility] Last Admin: 09/15/19 09:00 Dose: 20 mg Famotidine (Pepcid) 20 mg PO BID [facility] Last Admin: 09/15/19 08:59 Dose: 20 mg Fenofibrate (Tricor) 145 mg PO DAILY [facility] Last Admin: 09/15/19 08:59 Dose: 145 mg Flecainide Acetate (Tambocor) 100 mg PO Q12HR [facility] Last Admin: 09/15/19 09:00 Dose: 100 mg Gabapentin (Neurontin) 300 mg PO BID [facility] Last Admin: 09/15/19 09:01 Dose: 300 mg Amiodarone HCl 450 mg/Miscellaneous Medication 1 each/ Dextrose/Water 259 mls @ 0 mls/hr IVPB INF [facility]; Protocol Iron/Minerals/Multivitamins (Theragran M) 1 tab PO DAILY [facility] Last Admin: 09/15/19 09:01 Dose: 1 tab Levetiracetam (Keppra) 500 mg PO DAILY [facility] Last Admin: 09/15/19 09:00 Dose: 500 mg Levothyroxine Sodium (Synthroid) 25 mcg PO 0600 [facility] Last Admin: 09/15/19 05:23 Dose: 25 mcg Metoprolol Succinate (Toprol Xl) 25 mg PO DAILY [facility] Midodrine (Proamatine) 2.5 mg PO TID [facility] Last Admin: 09/15/19 08:59 Dose: 2.5 mg Olanzapine (Zyprexa) [address] [facility] Last Admin: 09/14/19 20:39 Dose: 15 mg Rosuvastatin Calcium (Crestor) [address] [facility] Last Admin: 09/14/19 20:39 Dose: 10 mg Senna/Docusate Sodium (Senokot S) 2 tab PO BID PRN PRN Reason: Constipation Sodium Chloride (Flush - Normal Saline) 10 ml IVF PRN PRN PRN Reason: Saline Flush Last Admin: 09/14/19 20:41 Dose: 10 ml Tamsulosin HCl (Flomax) 0.4 mg PO DAILY [facility] Last Admin: 09/15/19 09:01 Dose: 0.4 mg Topiramate (Topamax) 50 mg PO BID [facility] Last Admin: 09/15/19 09:01 Dose: 50 mg Zolpidem Tartrate (Ambien) [address] [facility] Last Admin: 09/14/19 20:39 Dose: 5 mg Vital Signs & Weight: Vital Signs Temp Pulse Resp BP Pulse Ox 09/15/19 07:50 98.6 F 88 16 96/70 98 09/15/19 03:52 98.4 F 81 16 102/60 94 L 09/15/19 00:00 98.3 F 88 16 92/64 96 Weight 271 lb 8 oz I/O: I/O 09/14/19 09/15/19 09/16/19 06:59 06:59 06:59 Intake Total 8429 1410 Output Total 2391 9772 Balance -7681 -085 - Medication Contraindications No Anticoagulant reason: Treatment not indicated (low chads vasck score.) - Physical Exam General: no apparent distress, other (lethargic and difficult to wake up. garbled speech persists) HEENT: mucus membranes moist, normocephaly Neck: supple neck, midline trachea, no JVD/HJR Cardiology: no murmur Lungs: clear to auscultation, no wheeze, rales, rhonchi Abdomen: soft, no hepatosplenomegaly, HJR negative Extremities: dry, strong pulses, warm - Labs Result Diagrams: 09/15/19 07:41 09/15/19 07:41 - EKG Interpretation EKG shows: Typical atrial flutter (paroxysmal.) - Device Device: dual, pacemaker Device Result: [facility] - Assessment/Plan Assessment/Plan: 1. Atrial fibrillation & typical atrial flutter - moderately suppressed with flecainide as OP but given amio in ER. Flecainide was stopped due to CONSTANTINE. - low chads2-vasc score: ASA only given his frequent falls and syncopal episodes 2. Altered mental status - possibly from polypharmacy and lithium toxicity 3. CONSTANTINE -resolved 4. Dual chamber PPM, nml function 5. Recurrent vasovagal syncope Starting on lovenox for anticoagulation in anticipation of EP study with ablation on Wednesday for CTI flutter and atrial fibrillation. Discussed R/B/U extensively with patient who agrees to procedure on Wednesday. Refrain from flecainide at this time and go with rate control over weekend. Hold
--- NOTE | 2019-09-15 11:14 | PDOC.HOSPP ---
- Subjective Encounter Date: 09/15/19 Encounter Time: 07:45 Subjective: +Somnolent.. No specific complaint. - Objective Vital Signs & Weight: Vital Signs (12 hours) Temp Pulse Resp BP BP Pulse Ox 09/15/19 11:04 112 H 99/62 09/15/19 07:50 98.6 F 88 16 96/70 98 09/15/19 03:52 98.4 F 81 16 102/60 94 L 09/15/19 00:00 98.3 F 88 16 92/64 96 Weight Weight 271 lb 8 oz I&O: 09/14/19 09/15/19 09/16/19 06:59 06:59 06:59 Intake Total 2609 1410 Output Total 7822 8826 Balance -1096 -215 Result Diagrams: 09/15/19 07:41 09/15/19 07:41 Hospitalist ROS - Medication Medications: Active Medications Generic Name Dose Route Start Last Admin Trade Name Freq PRN Reason Stop Dose Admin Aspirin 81 mg 09/13/19 09:00 09/15/19 09:00 Ecotrin PO 81 mg QAM THALIA Administration Cyclobenzaprine HCl 10 mg 09/13/19 09:00 09/15/19 09:00 Flexeril PO 10 mg TID THALIA Administration Diltiazem HCl 240 mg 09/15/19 09:00 09/15/19 11:04 Cardizem Cd PO 240 mg DAILY THALIA Administration Divalproex Sodium 1,500 mg 09/12/19 21:00 09/14/19 20:41 Depakote Er PO 1,500 mg HS THALIA Administration Escitalopram Oxalate 20 mg 09/13/19 09:00 09/15/19 09:00 Lexapro PO 20 mg DAILY THALIA Administration Famotidine 20 mg 09/14/19 21:00 09/15/19 08:59 Pepcid PO 20 mg BID THALIA Administration Fenofibrate 145 mg 09/13/19 09:00 09/15/19 08:59 Tricor PO 145 mg DAILY THALIA Administration Flecainide Acetate 100 mg 09/14/19 21:00 09/15/19 09:00 Tambocor PO 100 mg Q12HR THALIA Administration Gabapentin 300 mg 09/14/19 21:00 09/15/19 09:01 Neurontin PO 300 mg BID THALIA Administration Iron/Minerals/Multivitamins 1 tab 09/13/19 09:00 09/15/19 09:01 Theragran M PO 1 tab DAILY THALIA Administration Levetiracetam 500 mg 09/13/19 09:00 09/15/19 09:00 Keppra PO 500 mg DAILY THALIA Administration Levothyroxine Sodium 25 mcg 09/13/19 06:00 09/15/19 05:23 Synthroid PO 25 mcg 0600 THALIA Administration Metoprolol Succinate 25 mg 09/15/19 09:00 09/15/19 11:05 Toprol Xl PO 25 mg DAILY THALIA Administration Midodrine 2.5 mg 09/14/19 15:00 09/15/19 08:59 Proamatine PO 2.5 mg TID THALIA Administration Olanzapine 15 mg 09/13/19 21:00 09/14/19 20:39 Zyprexa PO 15 mg HS THALIA Administration Rosuvastatin Calcium 10 mg 09/14/19 21:00 09/14/19 20:39 Crestor PO 10 mg HS THALIA Administration Sodium Chloride 10 ml 09/12/19 20:43 09/14/19 20:41 Flush - Normal Saline IVF 10 ml PRN PRN Administration Saline Flush Tamsulosin HCl 0.4 mg 09/13/19 09:00 09/15/19 09:01 Flomax PO 0.4 mg DAILY THALIA Administration Topiramate 50 mg 09/13/19 09:00 09/15/19 09:01 Topamax PO 50 mg BID THALIA Administration Zolpidem Tartrate 5 mg 09/13/19 21:00 09/14/19 20:39 Ambien PO 5 mg HS THALIA Administration - Exam General Appearance: NAD Neck: no JVD Heart: RRR, irregular Respiratory: CTAB Gastrointestinal: soft Extremities: no edema Neurological: no weakness (+myoclonic jerks..) Hosp A/P (1) CONSTANTINE (acute kidney injury) Code(s): N17.9 - ACUTE KIDNEY FAILURE, UNSPECIFIED Status: Acute (2) [place] toxicity Code(s): T56.891A - TOXIC EFFECT OF OTH METALS, ACCIDENTAL (UNINTENTIONAL), INIT Status: Acute Qualifiers: Injury intent: accidental or unintentional (3) Bipolar disorder Code(s): F31.9 - BIPOLAR DISORDER, UNSPECIFIED Status: Chronic (4) Hypothyroidism Code(s): E03.9 - HYPOTHYROIDISM, UNSPECIFIED Status: Chronic (5) Seizure Code(s): R56.9 - UNSPECIFIED CONVULSIONS Status: Chronic (6) Atrial fibrillation and flutter Code(s): I48.91 - UNSPECIFIED ATRIAL FIBRILLATION; I48.92 - UNSPECIFIED ATRIAL FLUTTER Status: Resolved - Plan BP noticed to be low. Decrease Cardizem to 120 mg qd.. Possible ablation as outpatient.
--- NOTE | 2019-09-15 12:12 | PQF ---
RJ QUINN UMA MD [id number] [address] [place] [address] [id number] CLINICAL DOCUMENTATION IMPROVEMENT CLARIFICATION FORM: ICD-10 Updated PLEASE DO AN ADDENDUM TO THE PROGRESS NOTE WITH ANY DOCUMENTATION UPDATES OR ADDITIONS AND CARRY THROUGH TO DC SUMMARY. THANK YOU. DATE: 09/18/19 ATTN: Dr. Lopez Please exercise your independent, professional judgment in responding to the clarification form. Clinical indicators are provided on the bottom of this form for your review Please check appropriate box(s): [ ] Encephalopathy: Type: [ X ] Acute [ ] Subacute [ ] Chronic Etiology: [ ] Metabolic due to CONSTANTINE X ] Toxic due to polypharmacy and lithium toxicity [ ] Drug induced: [ ] Unspecified [ ] in the setting of underlying dementia [ ] Other (please specify) [ ] Transient Alteration of Awareness [ ] Other diagnosis [ ] Unable to determine In addition, please specify: Present on Admission (POA): [ X] Yes [ ] No [ ] Unable to determine For continuity of documentation, please document condition throughout progress notes and discharge summary. Thank You. CLINICAL INDICATORS - SIGNS / SYMPTOMS / LABS / RESULTS AND LOCATION IN EMR Altered mental status / confusion--> 09/15 Alisha: "altered mental status-possibly from polypharmacy and lithium toxicity" Metabolic / electrolyte abnormality-->09/12 bun 40, creat 2.98, GFR 23--09/15 bun 22, creat 1.11, GFR 72 per labs 09/13 Eden level 1.675 per lab RISK FACTORS / RESULTS AND LOCATION IN EMR Toxic substances / poisoning--> 09/15 Vertil: "Eden toxicity"; home med: lithium 450mg po HS 09/13 Obriant: "acute renal failure" TREATMENTS / RESULTS AND LOCATION IN EMR Renal consult 09/12 orders Eden 450mg po HS dc'd 09/13 per orders IV fluids--> 09/12-09/13/19 NS at 50; NS 1.4L bolus 09/13/19 per orders (This form is maintained as a part of the permanent medical record) 2014 [employer]. All Rights Reserved Nasra Uriarte RN, BSN, CCDS [email or web address] [phone] MTDColin
--- NOTE | 2019-09-15 16:33 | PRG ---
DATE OF SERVICE: 09/15/2019 SUBJECTIVE: Patient was seen and examined at bedside and overnight events noted. Patient denies any shortness of breath or chest pain or palpitation. No history of nausea or vomiting or diarrhea or fever or chills or cramps. OBJECTIVE: GENERAL: This is an obese male, in no apparent distress. VITAL SIGNS: Temperature 98.4. Heart rate 93. Respiratory rate 18. Blood pressure 140/70. HEENT: Atraumatic, normocephalic. Oral mucosa is moist. NECK: Supple. CARDIOVASCULAR: S1, S2 heard. Rate and rhythm regular. RESPIRATORY: Clear to auscultation. GASTROINTESTINAL: Abdomen is soft. MUSCULOSKELETAL: No tenderness. No edema. DERMATOLOGIC: No skin rash. NEUROLOGIC: Alert and awake and oriented x3. No focal neurologic deficits. Moving all the extremities. PSYCHIATRIC: Mood and affect normal. LABORATORY DATA: Potassium 4.6, BUN is 22, and creatinine is 1.1. ASSESSMENT AND PLAN: 1. Acute kidney injury, much better. 2. Acidosis. 3. Edema. 4. History of hypertension. 5. Obesity. Renal function is much better. I will sign off. Please call back with any questions. Job ID: [id number]
[2019-09-15] MEDS: Zolpidem Tartrate 5 MG TAB PO SCH (21:36)
[2019-09-15] MEDS: Rosuvastatin 10 MG TAB PO SCH (21:36)
[2019-09-15] MEDS: Digoxin 0.125 MG TAB PO SCH (21:36)
[2019-09-15] MEDS: OLANZapine 5 MG TAB PO SCH (21:36)
[2019-09-15] MEDS: Enoxaparin Sodium 120 MG/0.8 ML SYRINGE SC SCH (21:37)
[2019-09-16] MEDS ORDERED: Sodium Chloride 0.9% 500 ML IV SCH (04:45)
[2019-09-16] MEDS ORDERED: Midodrine HCl 5 MG TAB PO SCH (05:45)
[2019-09-16] MEDS: Levothyroxine Sodium 25 MCG TAB PO SCH (05:56)
[2019-09-16] MEDS: Famotidine 20 MG TAB PO SCH ×2 (08:16→21:03)
[2019-09-16] MEDS: Aspirin 81 mg Enteric Coated Tablet PO SCH (08:16)
[2019-09-16] MEDS: Fenofibrate Nanocrystallized 145 MG TAB PO SCH (08:16)
[2019-09-16] MEDS: Tamsulosin HCl 0.4 MG CAP PO SCH (08:17)
[2019-09-16] MEDS: Topiramate 25 MG TAB PO SCH ×2 (08:17→21:01)
[2019-09-16] MEDS: Multivitamin W/ Minerals 1 TAB PO SCH (08:17)
[2019-09-16] MEDS: Midodrine HCl 5 MG TAB PO SCH ×3 (08:17→21:02)
[2019-09-16] MEDS: Gabapentin 300 MG CAP PO SCH ×2 (08:18→21:02)
[2019-09-16] MEDS: levETIRAcetam 500 MG TAB PO SCH (08:18)
[2019-09-16] MEDS: Escitalopram Oxalate 20 mg Tablet PO SCH (08:18)
[2019-09-16] MEDS: Cyclobenzaprine 10 MG TAB PO SCH ×3 (08:18→21:03)
[2019-09-16] MEDS: Enoxaparin Sodium 120 MG/0.8 ML SYRINGE SC SCH ×2 (08:32→21:08)
--- NOTE | 2019-09-16 10:46 | PDOC.HOSPP ---
- Subjective Encounter Date: 09/16/19 Encounter Time: 07:50 Subjective: Somnolent, with prolonged apneic episodes noticed.. - Objective Vital Signs & Weight: Vital Signs (12 hours) Temp Pulse Resp BP Pulse Ox 09/16/19 08:46 72 09/16/19 07:20 97.9 F 72 16 102/62 93 L 09/16/19 04:00 99 F 72 14 84/52 L 95 09/16/19 00:00 99.1 F 77 20 94/58 L 96 Weight Weight 271 lb 8 oz I&O: 09/15/19 09/16/19 09/17/19 06:59 06:59 06:59 Intake Total 1410 980 Output Total 1625 520 Balance -215 460 Result Diagrams: 09/15/19 07:41 09/15/19 07:41 Additional Labs: Accuchecks 09/16/19 08:11 POC Glucose 105 Hospitalist ROS - Medication Medications: Active Medications Generic Name Dose Route Start Last Admin Trade Name Freq PRN Reason Stop Dose Admin Aspirin 81 mg 09/13/19 09:00 09/16/19 08:16 Ecotrin PO 81 mg QAM THALIA Administration Cyclobenzaprine HCl 10 mg 09/13/19 09:00 09/16/19 08:18 Flexeril PO 10 mg TID THALIA Administration Digoxin 0.125 mg 09/15/19 21:00 09/15/19 21:36 Lanoxin PO 09/16/19 21:01 0.125 mg QPM THALIA Administration Diltiazem HCl 120 mg 09/16/19 09:00 09/16/19 08:46 Cardizem Cd PO Not Given DAILY THALIA Divalproex Sodium 1,500 mg 09/12/19 21:00 09/15/19 21:41 Depakote Er PO 1,500 mg HS THALIA Administration Enoxaparin Sodium 120 mg 09/15/19 21:00 09/16/19 08:32 Lovenox SC 09/17/19 21:01 120 mg 0900,2100 THALIA Administration Escitalopram Oxalate 20 mg 09/13/19 09:00 09/16/19 08:18 Lexapro PO 20 mg DAILY THALIA Administration Famotidine 20 mg 09/14/19 21:00 09/16/19 08:16 Pepcid PO 20 mg BID THALIA Administration Fenofibrate 145 mg 09/13/19 09:00 09/16/19 08:16 Tricor PO 145 mg DAILY THALIA Administration Gabapentin 300 mg 09/14/19 21:00 09/16/19 08:18 Neurontin PO 300 mg BID THALIA Administration Iron/Minerals/Multivitamins 1 tab 09/13/19 09:00 09/16/19 08:17 Theragran M PO 1 tab DAILY THALIA Administration Levetiracetam 500 mg 09/13/19 09:00 09/16/19 08:18 Keppra PO 500 mg DAILY THALIA Administration Levothyroxine Sodium 25 mcg 09/13/19 06:00 09/16/19 05:56 Synthroid PO 25 mcg 0600 THALIA Administration Metoprolol Succinate 25 mg 09/15/19 09:00 09/16/19 08:46 Toprol Xl PO Not Given DAILY [facility] Midodrine 2.5 mg 09/14/19 15:00 09/16/19 08:17 Proamatine PO 2.5 mg TID THALIA Administration Olanzapine 15 mg 09/13/19 21:00 09/15/19 21:36 Zyprexa PO 15 mg HS THALIA Administration Rosuvastatin Calcium 10 mg 09/14/19 21:00 09/15/19 21:36 Crestor PO 10 mg HS THALIA Administration Sodium Chloride 10 ml 09/12/19 20:43 09/14/19 20:41 Flush - Normal Saline IVF 10 ml PRN PRN Administration Saline Flush Tamsulosin HCl 0.4 mg 09/13/19 09:00 09/16/19 08:17 Flomax PO 0.4 mg DAILY THALIA Administration Topiramate 50 mg 09/13/19 09:00 09/16/19 08:17 Topamax PO 50 mg BID THALIA Administration Zolpidem Tartrate 5 mg 09/13/19 21:00 09/15/19 21:36 Ambien PO 5 mg HS THALIA Administration - Exam Neck: no JVD Heart: RRR Respiratory: CTAB Gastrointestinal: soft Extremities: no edema Psychiatric: somnolent Hosp A/P (1) CONSTANTINE (acute kidney injury) Code(s): N17.9 - ACUTE KIDNEY FAILURE, UNSPECIFIED Status: Resolved (2) [place] toxicity Code(s): T56.891A - TOXIC EFFECT OF OTH METALS, ACCIDENTAL (UNINTENTIONAL), INIT Status: Resolved Qualifiers: Injury intent: accidental or unintentional (3) Bipolar disorder Code(s): F31.9 - BIPOLAR DISORDER, UNSPECIFIED Status: Chronic (4) Hypothyroidism Code(s): E03.9 - HYPOTHYROIDISM, UNSPECIFIED Status: Chronic (5) Seizure Code(s): R56.9 - UNSPECIFIED CONVULSIONS Status: Chronic (6) Sleep apnea in adult Code(s): G47.30 - SLEEP APNEA, UNSPECIFIED Status: Acute - Plan BP noticed to be low. Decrease Cardizem to 120 mg qd.. Started on Digoxin Possible EP & ablation on Wednesday. Restart [place]. Start CPAP... Sleep studies as outpatient..
[2019-09-16 11:26] LABS: Actual Bicarbonate (HCO3a) 22.7 mEq/L (22-28); Calcium, Ionized 1.19 mmol/L (1.12-1.30); Carboxyhemoglobin (COHb) 1.1 gm% (0.0-3.0); Hemoglobin (Hb) 12.4 g/dL (14.0-18.0); O2 Tension (PaO2) 71.4 mmHg (80.0-100.0); Potassium - ABG Lab 3.77 mmol/L (3.70-5.30); pH, Arterial 7.34 (7.35-7.45)
[2019-09-16 11:27] LABS: Puncture Site RRA
[2019-09-16 15:21] LABS: Free T4 (Free Thyroxine) 0.81 ng/dL (0.70-1.48)
[2019-09-16 15:33] LABS: Thyroid Stimulating Hormone 7.7597 uIU/mL (0.35-4.94)
[2019-09-16] MEDS: Digoxin 0.125 MG TAB PO SCH (20:59)
[2019-09-16] MEDS: OLANZapine 5 MG TAB PO SCH (21:00)
[2019-09-16] MEDS: Rosuvastatin 10 MG TAB PO SCH (21:00)
[2019-09-16] MEDS: Zolpidem Tartrate 5 MG TAB PO SCH (21:03)
[2019-09-17] MEDS: Levothyroxine Sodium 25 MCG TAB PO SCH (06:34)
[2019-09-17 06:35] LABS: Anion Gap 12 mmol/L (10-20); BUN (Urea Nitrogen) 21 mg/dL (8.9-20.6); Calc. Creatinine Clearance 156 mL/min (70-130); Calcium 8.8 mg/dL (7.8-10.44); Carbon Dioxide 26 mmol/L (22-29); Chloride 108 mmol/L (98-107); Estimated GFR-MDRD 77; Glucose 91 mg/dL (70-105); Potassium 3.9 mmol/L (3.5-5.1); Sodium 142 mmol/L (136-145)
--- NOTE | 2019-09-17 08:50 | PDOC.HOSPP ---
- Subjective Encounter Date: 09/17/19 Encounter Time: 07:50 Subjective: Somnolent.. - Objective Vital Signs & Weight: Vital Signs (12 hours) Temp Pulse Resp BP BP BP Pulse Ox 09/17/19 07:38 98.0 F 80 12 134/76 95 09/17/19 06:34 73 112/54 L 09/17/19 04:00 98.0 F 75 18 111/59 L 92 L 09/17/19 00:00 98.6 F 78 18 110/81 96 09/16/19 23:05 79 13 95 09/16/19 20:59 87 Weight Weight 271 lb 8 oz I&O: 09/16/19 09/17/19 09/18/19 06:59 06:59 06:59 Intake Total 980 1020 Output Total 520 1175 Balance 460 -155 Result Diagrams: 09/15/19 07:41 09/17/19 06:07 Hospitalist ROS - Medication Medications: Active Medications Generic Name Dose Route Start Last Admin Trade Name Freq PRN Reason Stop Dose Admin Aspirin 81 mg 09/13/19 09:00 09/16/19 08:16 Ecotrin PO 81 mg QAM THALIA Administration Cyclobenzaprine HCl 10 mg 09/13/19 09:00 09/16/19 21:03 Flexeril PO Not Given TID THALIA Diltiazem HCl 120 mg 09/16/19 09:00 09/17/19 06:34 Cardizem Cd PO 120 mg DAILY THALIA Administration Divalproex Sodium 1,500 mg 09/12/19 21:00 09/16/19 20:57 Depakote Er PO 1,500 mg HS THALIA Administration Enoxaparin Sodium 120 mg 09/15/19 21:00 09/16/19 21:08 Lovenox SC 09/17/19 21:01 120 mg 0900,2100 THALIA Administration Escitalopram Oxalate 20 mg 09/13/19 09:00 09/16/19 08:18 Lexapro PO 20 mg DAILY THALIA Administration Famotidine 20 mg 09/14/19 21:00 09/16/19 21:03 Pepcid PO 20 mg BID THALIA Administration Fenofibrate 145 mg 09/13/19 09:00 09/16/19 08:16 Tricor PO 145 mg DAILY THALIA Administration Gabapentin 300 mg 09/14/19 21:00 09/16/19 21:02 Neurontin PO 300 mg BID THALIA Administration Iron/Minerals/Multivitamins 1 tab 09/13/19 09:00 09/16/19 08:17 Theragran M PO 1 tab DAILY THALIA Administration Levetiracetam 500 mg 09/13/19 09:00 09/16/19 08:18 Keppra PO 500 mg DAILY THALIA Administration Levothyroxine Sodium 25 mcg 09/13/19 06:00 09/17/19 06:34 Synthroid PO 25 mcg 0600 THALIA Administration [place] Carbonate 300 mg 09/16/19 17:00 09/16/19 15:57 Lithobid Er PO 300 mg BID-WM THALIA Administration Metoprolol Succinate 25 mg 09/15/19 09:00 09/16/19 08:46 Toprol Xl PO Not Given DAILY [facility] Midodrine 2.5 mg 09/14/19 15:00 09/16/19 21:02 Proamatine PO 2.5 mg TID THALIA Administration Olanzapine 15 mg 09/13/19 21:00 09/16/19 21:00 Zyprexa PO 15 mg HS THALIA Administration Rosuvastatin Calcium 10 mg 09/14/19 21:00 09/16/19 21:00 Crestor PO 10 mg HS THALIA Administration Sodium Chloride 10 ml 09/12/19 20:43 09/14/19 20:41 Flush - Normal Saline IVF 10 ml PRN PRN Administration Saline Flush Tamsulosin HCl 0.4 mg 09/13/19 09:00 09/16/19 08:17 Flomax PO 0.4 mg DAILY THALIA Administration Topiramate 50 mg 09/13/19 09:00 09/16/19 21:01 Topamax PO 50 mg BID THALIA Administration Zolpidem Tartrate 5 mg 09/13/19 21:00 09/16/19 21:03 Ambien PO Not Given HS THALIA - Exam General Appearance: NAD Neck: no JVD Heart: RRR Respiratory: CTAB Gastrointestinal: soft Extremities: no edema Neurological: no weakness Hosp A/P (1) CONSTANTINE (acute kidney injury) Code(s): N17.9 - ACUTE KIDNEY FAILURE, UNSPECIFIED Status: Resolved (2) [place] toxicity Code(s): T56.891A - TOXIC EFFECT OF OTH METALS, ACCIDENTAL (UNINTENTIONAL), INIT Status: Resolved Qualifiers: Injury intent: accidental or unintentional (3) Bipolar disorder Code(s): F31.9 - BIPOLAR DISORDER, UNSPECIFIED Status: Chronic (4) Hypothyroidism Code(s): E03.9 - HYPOTHYROIDISM, UNSPECIFIED Status: Chronic (5) Seizure Code(s): R56.9 - UNSPECIFIED CONVULSIONS Status: Chronic (6) Sleep apnea in adult Code(s): G47.30 - SLEEP APNEA, UNSPECIFIED Status: Acute - Plan BPis better.. Cardizem decreased to 120 mg qd.. Started on Digoxin Possible EP & ablation on Wednesday. [place] restarted...f/u level. Start CPAP... Consider Sleep studies as outpatient..
[2019-09-17] MEDS: Midodrine HCl 5 MG TAB PO SCH ×3 (09:20→20:39)
[2019-09-17] MEDS: Gabapentin 300 MG CAP PO SCH ×2 (09:20→20:45)
[2019-09-17] MEDS: Escitalopram Oxalate 20 mg Tablet PO SCH (09:20)
[2019-09-17] MEDS: Topiramate 25 MG TAB PO SCH ×2 (09:22→20:42)
[2019-09-17] MEDS: Multivitamin W/ Minerals 1 TAB PO SCH (09:23)
[2019-09-17] MEDS: Tamsulosin HCl 0.4 MG CAP PO SCH (09:23)
[2019-09-17] MEDS: Fenofibrate Nanocrystallized 145 MG TAB PO SCH (09:24)
[2019-09-17] MEDS: levETIRAcetam 500 MG TAB PO SCH (09:24)
[2019-09-17] MEDS: Aspirin 81 mg Enteric Coated Tablet PO SCH (09:24)
[2019-09-17] MEDS: Famotidine 20 MG TAB PO SCH ×2 (09:26→20:45)
[2019-09-17] MEDS: Cyclobenzaprine 10 MG TAB PO SCH ×3 (09:26→20:38)
[2019-09-17] MEDS: Enoxaparin Sodium 120 MG/0.8 ML SYRINGE SC SCH ×2 (10:21→20:38)
[2019-09-17] MEDS: Zolpidem Tartrate 5 MG TAB PO SCH (20:38)
[2019-09-17] MEDS: Rosuvastatin 10 MG TAB PO SCH (20:38)
[2019-09-17] MEDS: OLANZapine 5 MG TAB PO SCH (20:41)
[2019-09-18 05:24] LABS: #Eosinphils 0.5 thou/uL (0.0-0.7); #Lymphocytes 1.7 thou/uL (1.20-3.40); #Monocytes 0.8 thou/uL (0.11-0.59); #Neutrophils 4.1 thou/uL (1.40-6.50); %Basophils 0.1 % (0.0-1.0); %Eosinophils 7.3 % (0.0-10.0); %Lymphocytes 23.6 % (21.0-51.0); %Monocytes 11.5 % (0.0-10.0); %Neutrophils 57.4 % (42.0-75.0); Hemoglobin 12.6 g/dL (14.0-18.0); Mean Corpuscular HGB CONC 33.3 g/dL (32.0-36.0); Mean Corpuscular Hemoglobin 29.6 pg (27.0-31.0); Mean Corpuscular Volume 88.9 fL (78.0-98.0); Mean Platelet Volume 9.2 fL (7.4-10.4); Platelet Count 148 thou/uL (130-400); RBC Distribution Width 12.7 % (11.5-14.5); Red Blood Cell (RBC) Count 4.26 mill/uL (4.70-6.10); White Blood Cell (WBC) Count 7.1 thou/uL (4.8-10.8)
[2019-09-18] MEDS: Levothyroxine Sodium 25 MCG TAB PO SCH (05:31)
[2019-09-18 05:41] LABS: Anion Gap 11 mmol/L (10-20); BUN (Urea Nitrogen) 23 mg/dL (8.9-20.6); Calc. Creatinine Clearance 177 mL/min (70-130); Carbon Dioxide 23 mmol/L (22-29); Chloride 108 mmol/L (98-107); Estimated GFR-MDRD 88; Glucose 88 mg/dL (70-105); Sodium 138 mmol/L (136-145)
[2019-09-18] MEDS ORDERED: Lidocaine 1% PF 5 ML VIAL ONE (10:27)
[2019-09-18] MEDS ORDERED: PHENYLEPHRINE-NS 100 MCG/ML 10 ML SYRINGE ONE (10:27)
[2019-09-18] MEDS ORDERED: diphenhydrAMINE 50 MG/ML VIAL ONE (10:27)
[2019-09-18] MEDS ORDERED: ePHEDrine/0.9% NaCl/PF SYRINGE 50 mg/10 ml ONE (10:27)
[2019-09-18] MEDS ORDERED: Ondansetron PF 4 MG/2 ML Vial ONE (10:27)
[2019-09-18] MEDS ORDERED: PROPOFOL 200 MG/20 ML VIAL ONE (10:27)
[2019-09-18] MEDS ORDERED: Vecuronium 10 MG VIAL ONE ×2 (10:27→12:31)
[2019-09-18] MEDS ORDERED: Glycopyrrolate 0.2 MG/ML 5 ML SYRINGE ONE (10:27)
[2019-09-18] MEDS ORDERED: Dexamethasone 20 MG/5 ML VIAL ONE (10:27)
[2019-09-18] MEDS ORDERED: Heparin 10,000 UNITS/1 ML VIAL ONE ×2 (10:51→14:26)
[2019-09-18] MEDS ORDERED: Heparin (Artline) 1,500 ML ONE (10:51)
[2019-09-18] MEDS: Cyclobenzaprine 10 MG TAB PO SCH ×3 (11:57→22:01)
[2019-09-18] MEDS: Midodrine HCl 5 MG TAB PO SCH ×3 (11:58→21:52)
[2019-09-18] MEDS: Famotidine 20 MG TAB PO SCH ×2 (11:58→21:52)
[2019-09-18] MEDS ORDERED: Fentanyl 100 MCG/2 ML VIAL ONE ×2 (12:31→15:24)
[2019-09-18] MEDS ORDERED: Midazolam HCl 2 mg/2 ml Vial ONE (12:31)
[2019-09-18] MEDS ORDERED: Phenylephrine HCL 10 MG/ML VIAL ONE (13:33)
--- NOTE | 2019-09-18 13:49 | PDOC.HOSPP ---
- Subjective Encounter Date: 09/18/19 Encounter Time: 21:30 Subjective: Patient is s/p ablation today. He has some chest pressure from the procedure, some shortness of breath. No other complaints. He is on oxygen at baseline at home - Objective Vital Signs & Weight: Vital Signs (12 hours) Temp Pulse Pulse Resp BP BP BP 09/18/19 11:22 98.0 F 73 16 99/51 L 09/18/19 09:08 69 110/67 09/18/19 07:20 97.6 F 68 16 106/62 09/18/19 04:12 96.8 F L 67 18 101/66 Pulse Ox 09/18/19 11:22 92 L 09/18/19 09:08 09/18/19 07:20 95 09/18/19 04:12 95 Weight Weight 271 lb 8 oz I&O: 09/17/19 09/18/19 09/19/19 06:59 06:59 06:59 Intake Total 1020 720 Output Total 1175 2125 Balance -155 -1405 Result Diagrams: 09/18/19 05:08 09/18/19 05:08 Hospitalist ROS - Review of Systems Constitutional: denies: fever, chills Respiratory: denies: cough, dry Cardiovascular: denies: chest pain Gastrointestinal: denies: nausea, vomiting - Medication Medications: Active Medications Generic Name Dose Route Start Last Admin Trade Name Freq PRN Reason Stop Dose Admin Aspirin 81 mg 09/13/19 09:00 09/17/19 09:24 Ecotrin PO 81 mg QAM THALIA Administration Cyclobenzaprine HCl 10 mg 09/13/19 09:00 09/18/19 11:57 Flexeril PO Not Given TID THALIA Diltiazem HCl 120 mg 09/16/19 09:00 09/17/19 06:34 Cardizem Cd PO 120 mg DAILY THALIA Administration Divalproex Sodium 1,500 mg 09/12/19 21:00 09/17/19 20:40 Depakote Er PO 1,500 mg HS THALIA Administration Escitalopram Oxalate 20 mg 09/13/19 09:00 09/17/19 09:20 Lexapro PO 20 mg DAILY THALIA Administration Famotidine 20 mg 09/14/19 21:00 09/18/19 11:58 Pepcid PO Not Given BID THALIA Fenofibrate 145 mg 09/13/19 09:00 09/17/19 09:24 Tricor PO 145 mg DAILY THALIA Administration Gabapentin 300 mg 09/14/19 21:00 09/17/19 20:45 Neurontin PO 300 mg BID THALIA Administration Iron/Minerals/Multivitamins 1 tab 09/13/19 09:00 09/17/19 09:23 Theragran M PO 1 tab DAILY THALIA Administration Levetiracetam 500 mg 09/13/19 09:00 09/17/19 09:24 Keppra PO 500 mg DAILY THALIA Administration Levothyroxine Sodium 25 mcg 09/13/19 06:00 09/18/19 05:31 Synthroid PO 25 mcg [address] [place] Carbonate 300 mg 09/16/19 17:00 09/18/19 11:58 Lithobid Er PO Not Given BID-WM THALIA Metoprolol Succinate 25 mg 09/15/19 09:00 09/17/19 09:22 Toprol Xl PO 25 mg DAILY THALIA Administration Midodrine 2.5 mg 09/14/19 15:00 09/18/19 11:58 Proamatine PO Not Given TID THALIA Olanzapine 15 mg 09/13/19 21:00 09/17/19 20:41 Zyprexa PO 15 mg HS [facility] Administration Rosuvastatin Calcium 10 mg 09/14/19 21:00 09/17/19 20:38 Crestor PO 10 mg HS THALIA Administration Sodium Chloride 10 ml 09/12/19 20:43 09/14/19 20:41 Flush - Normal Saline IVF 10 ml PRN PRN Administration Saline Flush Tamsulosin HCl 0.4 mg 09/13/19 09:00 09/17/19 09:23 Flomax PO 0.4 mg DAILY THALIA Administration Topiramate 50 mg 09/13/19 09:00 09/17/19 20:42 Topamax PO 50 mg BID THALIA Administration Zolpidem Tartrate 5 mg 09/13/19 21:00 09/17/19 20:38 Ambien PO Not Given HS THALIA - Exam General Appearance: NAD, awake alert Eye: PERRL, anicteric sclera ENT: normocephalic atraumatic, no oropharyngeal lesions Heart: RRR, no murmur, no gallops, no rubs Respiratory: CTAB, no wheezes, no rales, no ronchi Gastrointestinal: soft, non-tender, non-distended, no hepatomegaly Extremities: no cyanosis, no clubbing, no edema Skin: normal turgor, no lesions, no rashes Neurological: cranial nerve grossly intact, normal sensation to touch, no new deficit Hosp A/P - Plan Chest Xray; no acute disease CT brain: no acute disease Pulmonary perfusion: no defects Renal ultrasound: complex left renal cyst This is 44 year old male with multiple syncopal episodes found to be in paroxysmal atrial fibrillation, s/p ablation today Atrial fibrillation s/p pacemaker placement - on diltiazem 120 mg - s/p ablation today [place] toxicity - last level was low, lithium restartred Anemia - Hb 12.6 SEizure - keppra - topamax - depakote CONSTANTINE - resolved Lethargy - improved - stopped sleeping meds and flexeril Dispo: monitor heart rate in am
[2019-09-18] MEDS ORDERED: Heparin 25,000 units/D5W 500 ML ONE (14:32)
[2019-09-18] MEDS ORDERED: Isoproterenol 0.2 MG/1 ML AMP ONE ×2 (14:55→15:54)
[2019-09-18] MEDS ORDERED: Protamine Sulfate 50 MG/5 ML VIAL ONE (16:40)
[2019-09-18] MEDS ORDERED: Ondansetron HCl/PF 4 MG/2 ML Vial IVP PRN (17:02)
[2019-09-18] MEDS ORDERED: Naloxone HCl 0.4 mg/ml Vial ONE (17:53)
[2019-09-18] MEDS: Aspirin 81 mg Enteric Coated Tablet PO SCH (18:17)
[2019-09-18] MEDS: levETIRAcetam 500 MG TAB PO SCH (18:18)
[2019-09-18] MEDS: Fenofibrate Nanocrystallized 145 MG TAB PO SCH (18:18)
[2019-09-18] MEDS: Gabapentin 300 MG CAP PO SCH ×2 (18:18→21:55)
[2019-09-18] MEDS: Escitalopram Oxalate 20 mg Tablet PO SCH (18:18)
[2019-09-18] MEDS: Tamsulosin HCl 0.4 MG CAP PO SCH (18:19)
[2019-09-18] MEDS: Topiramate 25 MG TAB PO SCH ×2 (18:19→21:51)
[2019-09-18] MEDS: Multivitamin W/ Minerals 1 TAB PO SCH (18:19)
[2019-09-18] MEDS ORDERED: Ketorolac Tromethamine 30 MG/ML VIAL IVP PRN (19:00)
[2019-09-18] MEDS ORDERED: Rivaroxaban 10 MG TAB PO SCH (19:30)
[2019-09-18] MEDS: OLANZapine 5 MG TAB PO SCH (21:50)
[2019-09-18] MEDS: Rosuvastatin 10 MG TAB PO SCH (21:50)
[2019-09-18] MEDS: Sucralfate 1 GM TAB PO SCH (21:56)
--- NOTE | 2019-09-18 23:22 | OP ---
DATE OF PROCEDURE: 09/18/2019 PROCEDURE: Electrophysiology study and radiofrequency ablation report. REASON FOR PROCEDURE: Mr. Sheridan is a 44-year-old man with prior history of syncopal spells, vasovagal syncope but also marked pauses are noted. He has sleep apnea as well, LINQ recorder was in place in the past demonstrating frequent episodes of atrial fibrillation and flutter. More recently, underwent a dual-chamber pacemaker implantation also demonstrating frequent atrial flutter and fibrillation episodes both. He is here for ablation of the atrial fibrillation and flutter. A SETH prior to the procedure demonstrates no intracardiac clots. DESCRIPTION OF PROCEDURE: The patient received general anesthesia by Anesthesia specialist. Left and right femoral veins were prepped, draped, and anesthetized using subcutaneous lidocaine and under ultrasound guidance, both femoral veins were cannulated. On the left side, an 11-Albanian sheath and a Preface sheath were introduced through which an intracardiac echocardiogram probe was advanced to the right atrium, which was used to monitor the transeptal procedure as well as pericardial space and catheter manipulation throughout the case. Through the Preface sheath, a Duo-Deca catheter was used to place a decapolar coronary sinus catheter. Both CS cannulation was fairly difficult. The right-sided vein was cannulated also and two 8-Albanian short sheaths were introduced. A ThermoCool SFST catheter was advanced to the right atrium and with careful attention not to dislodge the preexisting pacemaker leads. 3D map of the right atrium was obtained. Basic EP study was performed with the following findings. Baseline rhythm was sinus rhythm at RR 712 milliseconds, AL 195 milliseconds, QRS 67 milliseconds, QT 350 milliseconds, AH 87 milliseconds, HV 55 milliseconds. The burst atrial pacing performed inducing typically appearing isthmus dependent atrial flutter with proximal to distal CS activation. Overdrive pacing at the cavotricuspid isthmus terminated the arrhythmia. Due to the typical appearing EKGs in the presenting rhythm, also central to distal CS activation pattern, the decision made to perform cavotricuspid isthmus ablation. Under ultrasound and CARTO map guidance, a cavo-tricuspid isthmus ablation was performed increasing the transisthmus time for the original 4 milliseconds to 130 milliseconds. The transisthmus block was demonstrated by longest transisthmus time was adjacent to the ablation line. Following that, through the right, Preface sheaths were exchanged to SL1 sheath. They were used to perform a transseptal puncture using a powered Frederic needle under intracardiac echo guidance. Prior to the puncture, IV heparin was administered in bolus in a drip fashion which were monitored with serial ACTs and adjusted to keep the ACT over 350 throughout the case. Through the SL1 sheaths, a ThermoCool SFST catheter and a 20-pole Lasso catheter were advanced to the left atrium. 3D map of the left atrium was obtained and left common pulmonary veins were noted. Chronic venous isolation procedure was performed isolating both right-sided veins and the left common pulmonary vein. In addition, a roof line and an inferior line were placed. The posterior wall had partial patency still at the end of the case due to conduction through an area adjacent to the esophagus to avoid excessive heating, minimize the skelton in this area. The re was no evidence of accessory pathway with LV pacing. Isuprel was administered. Burst atrial pacing was delivered and we did not induce atrial arrhythmias. No PACs are observed with Isuprel, any reconnections re-ablated. The catheter was withdrawn from the left atrium and the heparin was stopped and reversed later with protamine. Long sheaths were exchanged for short sheaths and Vascade closure devices were used to close all four venous access sites. Before removing the ICE catheter, no pericardial effusion was seen pre and postprocedure and also cardiac silhouette did not change significantly. CONCLUSION: 1. Inducible atrial flutter. 2. Successful cavotricuspid isthmus ablation performed limiting inducibility of atrial flutter. 3. Successful pulmonary venous isolation performed, has history of atrial fibrillation as well documented by the pacemaker. 4. Normal AV mohit function and His-Purkinje function, pre and post ablation. 5. No evidence of accessory pathway with LV pacing. 6. Adequate pacemaker function demonstrated pre and postprocedure. PLAN: Stop flecainide. Monitor for recurrent arrhythmias. Add oral anticoagulants. Job ID: [id number] [facility]
[2019-09-19] MEDS: Zolpidem Tartrate 5 MG TAB PO SCH ×2 (00:33→21:28)
[2019-09-19 05:31] LABS: Anion Gap 13 mmol/L (10-20); BUN (Urea Nitrogen) 19 mg/dL (8.9-20.6); Calc. Creatinine Clearance 177 mL/min (70-130); Carbon Dioxide 24 mmol/L (22-29); Chloride 108 mmol/L (98-107); Estimated GFR-MDRD 88; Glucose 100 mg/dL (70-105); Potassium 4.6 mmol/L (3.5-5.1); Sodium 140 mmol/L (136-145)
[2019-09-19] MEDS: Sucralfate 1 GM TAB PO SCH ×4 (06:37→21:28)
[2019-09-19] MEDS: Levothyroxine Sodium 25 MCG TAB PO SCH (06:37)
[2019-09-19] MEDS: Aspirin 81 mg Enteric Coated Tablet PO SCH (09:29)
[2019-09-19] MEDS: Cyclobenzaprine 10 MG TAB PO SCH ×3 (09:29→21:42)
[2019-09-19] MEDS: Escitalopram Oxalate 20 mg Tablet PO SCH (09:29)
[2019-09-19] MEDS: Famotidine 20 MG TAB PO SCH ×2 (09:29→21:27)
[2019-09-19] MEDS: Midodrine HCl 5 MG TAB PO SCH ×3 (09:30→21:27)
[2019-09-19] MEDS: Gabapentin 300 MG CAP PO SCH ×2 (09:30→21:27)
[2019-09-19] MEDS: Fenofibrate Nanocrystallized 145 MG TAB PO SCH (09:30)
[2019-09-19] MEDS: levETIRAcetam 500 MG TAB PO SCH (09:30)
[2019-09-19] MEDS: Multivitamin W/ Minerals 1 TAB PO SCH (09:34)
[2019-09-19] MEDS: Tamsulosin HCl 0.4 MG CAP PO SCH (09:34)
[2019-09-19] MEDS: Topiramate 25 MG TAB PO SCH ×2 (09:34→21:27)
--- NOTE | 2019-09-19 11:05 | EKG ---
Test Reason : Blood Pressure : / mmHG Vent. Rate : 071 BPM Atrial Rate : 071 BPM P-R Int : 222 ms QRS Dur : 094 ms QT Int : 420 ms P-R-T Axes : 043 051 070 degrees QTc Int : 456 ms Sinus rhythm with 1st degree A-V block Nonspecific T wave abnormality Abnormal ECG When compared with ECG of 12-SEP-2019 16:40, (Unconfirmed) NC interval has increased Vent. rate has decreased BY 45 BPM Non-specific change in ST segment in Anterior leads Confirmed by DR. Eran MEJIA ([id number]) on 09/19/2019 11:05:09 AM Referred By: [facility] Confirmed By:DR. Eran MEJIA
--- NOTE | 2019-09-19 11:12 | EKG ---
Test Reason : Blood Pressure : / mmHG Vent. Rate : 094 BPM Atrial Rate : 094 BPM P-R Int : 206 ms QRS Dur : 092 ms QT Int : 362 ms P-R-T Axes : 053 040 076 degrees QTc Int : 452 ms Normal sinus rhythm Nonspecific T wave abnormality Abnormal ECG When compared with ECG of 18-SEP-2019 08:32, (Unconfirmed) No significant change was found Confirmed by DR. Eran MEJIA ([id number]) on 09/19/2019 11:11:58 AM Referred By: [facility] Confirmed By:DR. Eran MEJIA
--- NOTE | 2019-09-19 13:42 | RAD ---
EXAM: XR Chest 1 View Portable PROVIDED CLINICAL HISTORY: Chest pain COMPARISON: 09/12/2019 FINDINGS: Cardiac silhouette appears prominent, likely least partially on the basis of portable technique. Left subclavian cardiac pacing device is again demonstrated in similar position. No focal consolidation, pleural fluid or pneumothorax apparent. IMPRESSION: No evidence for an acute cardiopulmonary process.
--- NOTE | 2019-09-19 16:49 | PDOC.EP ---
- Subjective Date: 09/19/19 Time: 08:00 Interval History: Follow up for arrhythmia management. - Review of Systems Constitutional: denies: chills, fever, malaise, sweats, weakness, other Respiratory: denies: cough, dry, hemoptysis, pleuritic pain, shortness of breath , SOB with excertion, sputum, wheezing, other Cardiology: reports: other. denies: chest pain, edema, heart racing, light headedness, orthopnea, paroxysmal noc. dyspnea, palpitations, passing out, pleuritic pain, pressure, swelling Gastrointestinal: denies: abdominal pain, constipation, diarrhea, nausea, vomitting Musculoskeletal: denies: unstable gait, neck pain, shoulder pain Neurological: denies: headache, vision changes - Objective Allergies/Adverse Reactions: Allergies Allergy/AdvReac Type Severity Reaction Status Date / Time acetaminophen [From Tylenol] Allergy Severe Swollen Verified 09/07/19 19:34 Lips Current Medications Aspirin (Ecotrin) 81 mg PO QAM [facility] Last Admin: 09/19/19 09:29 Dose: 81 mg Cyclobenzaprine HCl (Flexeril) 10 mg PO TID [facility] Last Admin: 09/19/19 09:29 Dose: Not Given Divalproex Sodium (Depakote Er) 1,500 mg PO HS [facility] Last Admin: 09/18/19 21:56 Dose: 1,500 mg Escitalopram Oxalate (Lexapro) 20 mg PO DAILY [facility] Last Admin: 09/19/19 09:29 Dose: 20 mg Famotidine (Pepcid) 20 mg PO BID [facility] Last Admin: 09/19/19 09:29 Dose: 20 mg Fenofibrate (Tricor) 145 mg PO DAILY [facility] Last Admin: 09/19/19 09:30 Dose: 145 mg Gabapentin (Neurontin) 300 mg PO BID [facility] Last Admin: 09/19/19 09:30 Dose: 300 mg Iron/Minerals/Multivitamins (Theragran M) 1 tab PO DAILY [facility] Last Admin: 09/19/19 09:34 Dose: 1 tab Ketorolac Tromethamine (Toradol) 30 mg IVP Q6H PRN PRN Reason: Pain Stop: 09/23/19 19:01 Levetiracetam (Keppra) 500 mg PO DAILY [facility] Last Admin: 09/19/19 09:30 Dose: 500 mg Levothyroxine Sodium (Synthroid) 25 mcg PO 0600 [facility] Last Admin: 09/19/19 06:37 Dose: 25 mcg [place] Carbonate (Lithobid Er) 300 mg PO BID[facility] [place] Last Admin: 09/19/19 09:28 Dose: 300 mg Metoprolol Succinate (Toprol Xl) 25 mg PO DAILY [facility] Last Admin: 09/19/19 09:30 Dose: 25 mg Midodrine (Proamatine) 2.5 mg PO TID [facility] Last Admin: 09/19/19 09:30 Dose: 2.5 mg Olanzapine (Zyprexa) 15 mg PO [facility] Last Admin: 09/18/19 21:50 Dose: 15 mg Pantoprazole Sodium (Protonix) 40 mg PO DAILY [facility] Stop: 10/18/19 09:01 Last Admin: 09/19/19 09:34 Dose: 40 mg Rivaroxaban (Xarelto) 20 mg PO 1800 [facility] Rosuvastatin Calcium (Crestor) 10 mg PO [facility] Last Admin: 09/18/19 21:50 Dose: 10 mg Senna/Docusate Sodium (Senokot S) 2 tab PO BID PRN PRN Reason: Constipation Sodium Chloride (Flush - Normal Saline) 10 ml IVF PRN PRN PRN Reason: Saline Flush Last Admin: 09/14/19 20:41 Dose: 10 ml Sucralfate (Carafate) 1 gm PO [facility] Stop: 10/02/19 17:01 Last Admin: 09/19/19 12:25 Dose: 1 gm Tamsulosin HCl (Flomax) 0.4 mg PO DAILY [facility] Last Admin: 09/19/19 09:34 Dose: 0.4 mg Topiramate (Topamax) 50 mg PO BID [facility] Last Admin: 09/19/19 09:34 Dose: 50 mg Zolpidem Tartrate (Ambien) 5 mg PO [facility] Last Admin: 09/19/19 00:33 Dose: 5 mg Vital Signs & Weight: Vital Signs Temp Pulse Pulse Pulse Resp BP BP 09/19/19 16:00 98.9 F 93 20 09/19/19 13:22 106 H 97 117/75 94/67 09/19/19 11:10 98.6 F 94 18 09/19/19 08:00 09/19/19 07:19 98.2 F 92 20 BP Pulse Ox 09/19/19 16:00 81/51 L 94 L 09/19/19 13:22 09/19/19 11:10 100/51 L 93 L 09/19/19 08:00 95 09/19/19 07:19 118/69 97 Weight 271 lb 8 oz I/O: I/O 09/18/19 09/19/19 09/20/19 06:59 06:59 06:59 Intake Total 720 300 600 Output Total 3465 7615 Balance -1405 -2275 600 - Quality Measures Condition: Atrial Fibrillation/Flutter (hx or current) CV meds: Xarelto: Yes - Physical Exam General: alert & oriented x3, appears well, no apparent distress, affect appropriate HEENT: mucus membranes moist, normocephaly Neck: supple neck, midline trachea, no JVD/HJR, no lymphadenopathy Cardiology: regular rate and rhythm, no murmur, PMI nondisplaced Lungs: clear to auscultation, no wheeze, rales, rhonchi Neurology: cranial nerve 2-12 intact, sensory function intact Abdomen: unremarkable, active bowel sounds, no pulsations/bruits, no hepatosplenomegaly Skin: groin sites stable - Labs Result Diagrams: 09/18/19 05:08 09/19/19 04:39 - EKG Interpretation EKG Method: 12 Lead EKG shows: Sinus rhythm - Assessment/Plan Assessment/Plan: 1. Atrial fibrillation & typical atrial flutter - moderately suppressed with flecainide as OP but given amio in ER. Flecainide was stopped due to COSNTANTINE. Flecainide DCd - low chads2-vasc score: Needs OAC post ablation. Xarelto resumed. -SR post ablation. 2. Altered mental status - possibly from polypharmacy and lithium toxicity 3. CONSTANTINE -resolved 4. Dual chamber PPM, nml function 5. Recurrent vasovagal syncope Resumed xarelto with recent ablation. Stable post ablation. DC on post PVAI meds : protonix 40mg PO QD x 30 days, Carafate 1 gram QID x 2 weeks. Furosemide 40mg PO PRN edema/SOB and KCl 20mEq PO to take with lasix. OK for DC by EP. follow up in 6 weeks to be arranged.
[2019-09-19] MEDS: Rivaroxaban 10 MG TAB PO SCH (17:39)
--- NOTE | 2019-09-19 18:51 | PDOC.HOSPP ---
- Subjective Encounter Date: 09/19/19 Encounter Time: 13:00 Subjective: The patient still had some mild chest pressure after procedure. No shortness of breath. Walked with PT and was thought to be weak on right side and need a rolling walker and home health. In afternoon, patient was sleeping. While being awoken, and nurse felt he was confused and kept saying "no" over and over again. Also had some hallucinations. Patient oriented times three on my evaluation. - Objective Vital Signs & Weight: Vital Signs (12 hours) Temp Pulse Pulse Pulse Resp BP BP 09/19/19 16:40 09/19/19 16:00 98.9 F 93 20 09/19/19 13:22 106 H 97 117/75 94/67 09/19/19 11:10 98.6 F 94 18 09/19/19 08:00 09/19/19 07:19 98.2 F 92 20 BP BP Pulse Ox 09/19/19 16:40 102/68 09/19/19 16:00 81/51 L 94 L 09/19/19 13:22 09/19/19 11:10 100/51 L 93 L 09/19/19 08:00 95 09/19/19 07:19 118/69 97 Weight Weight 271 lb 8 oz I&O: 09/18/19 09/19/19 09/20/19 06:59 06:59 06:59 Intake Total 720 300 600 Output Total 2125 2575 Balance -1405 -2276 600 Result Diagrams: 09/18/19 05:08 09/19/19 04:39 Additional Labs: Accuchecks 09/19/19 16:37 POC Glucose 106 Hospitalist ROS - Review of Systems Constitutional: denies: fever, chills - Medication Medications: Active Medications Generic Name Dose Route Start Last Admin Trade Name Freq PRN Reason Stop Dose Admin Aspirin 81 mg 09/13/19 09:00 09/19/19 09:29 Ecotrin PO 81 mg QAM THALIA Administration Cyclobenzaprine HCl 10 mg 09/13/19 09:00 09/19/19 17:21 Flexeril PO Not Given TID THALIA Divalproex Sodium 1,500 mg 09/12/19 21:00 09/18/19 21:56 Depakote Er PO 1,500 mg HS THALIA Administration Escitalopram Oxalate 20 mg 09/13/19 09:00 09/19/19 09:29 Lexapro PO 20 mg DAILY THALIA Administration Famotidine 20 mg 09/14/19 21:00 09/19/19 09:29 Pepcid PO 20 mg BID THALIA Administration Fenofibrate 145 mg 09/13/19 09:00 09/19/19 09:30 Tricor PO 145 mg DAILY THALIA Administration Gabapentin 300 mg 09/14/19 21:00 09/19/19 09:30 Neurontin PO 300 mg BID THALIA Administration Iron/Minerals/Multivitamins 1 tab 09/13/19 09:00 09/19/19 09:34 Theragran M PO 1 tab DAILY [facility] Administration Levetiracetam 500 mg 09/13/19 09:00 09/19/19 09:30 Keppra PO 500 mg DAILY [facility] Administration Levothyroxine Sodium 25 mcg 09/13/19 06:00 09/19/19 06:37 Synthroid PO 25 mcg 0600 THALIA Administration [place] Carbonate 300 mg 09/16/19 17:00 09/19/19 17:38 Lithobid Er PO 300 mg BID-[facility]ALIA Administration Metoprolol Succinate 25 mg 09/15/19 09:00 09/19/19 09:30 Toprol Xl PO 25 mg DAILY [facility] Administration Midodrine 2.5 mg 09/14/19 15:00 09/19/19 17:38 Proamatine PO 2.5 mg TID THALIA Administration Olanzapine 15 mg 09/13/19 21:00 09/18/19 21:50 Zyprexa PO 15 mg HS [facility] Administration Pantoprazole Sodium 40 mg 09/19/19 09:00 09/19/19 09:34 Protonix PO 10/18/19 09:01 40 mg DAILY [facility] Administration Rivaroxaban 20 mg 09/19/19 18:00 09/19/19 17:39 Xarelto PO 20 mg 1800 [facility] Administration Rosuvastatin Calcium 10 mg 09/14/19 21:00 09/18/19 21:50 Crestor PO 10 mg HS [facility]ALIA Administration Sodium Chloride 10 ml 09/12/19 20:43 09/14/19 20:41 Flush - Normal Saline IVF 10 ml PRN PRN Administration Saline Flush Sucralfate 1 gm 09/18/19 21:00 09/19/19 17:39 Carafate PO 10/02/19 17:01 1 gm ACHS THALIA Administration Tamsulosin HCl 0.4 mg 09/13/19 09:00 09/19/19 09:34 Flomax PO 0.4 mg DAILY [facility] Administration Topiramate 50 mg 09/13/19 09:00 09/19/19 09:34 Topamax PO 50 mg BID [facility] Administration Zolpidem Tartrate 5 mg 09/13/19 21:00 09/19/19 00:33 Ambien PO 5 mg HS THALIA Administration - Exam General Appearance: NAD, awake alert Eye: PERRL, anicteric sclera ENT: normocephalic atraumatic, no oropharyngeal lesions Neck: supple, symmetric, no JVD, no thyromegaly Heart: RRR, no murmur, no gallops, no rubs Respiratory: CTAB, no wheezes, no rales, no ronchi Gastrointestinal: soft, non-tender, non-distended Extremities: no cyanosis, no clubbing, no edema Hosp A/P - Plan Chest Xray; no acute disease CT brain: no acute disease Pulmonary perfusion: no defects Renal ultrasound: complex left renal cyst This is 44 year old male with multiple syncopal episodes found to be in paroxysmal atrial fibrillation, s/p ablation today Atrial fibrillation s/p pacemaker placement - on metoprolol. Diltiazem and fleicanide discontinued. Has recorder, can be discharged from EP Standpoint - s/p ablation 1/6 Orthostatic hypotension - on midodrine tid [place] toxicity - last level was low, lithium restarted. Will recheck level today #Slurred speech #Hallucinations - will check CT head and repeat lithium levels Anemia - Hb 12.6 SEizure - keppra - topamax - depakote CONSTANTINE - resolved Lethargy - improved - stopped sleeping meds and flexeril Dispo: monitor heart rate in am
--- NOTE | 2019-09-19 19:36 | CT ---
CT BRAIN 09/19/19 PROVIDED CLINICAL HISTORY: Altered mental status. FINDINGS: Comparison 09/12/19. The ventricular system is unchanged in size and morphology. There is no evidence for intracranial hem orrhage or mass effect. There is partial opacification of left sided mastoid air cells. The extracran ial soft tissues and osseous structures appear otherwise unremarkable. IMPRESSION: 1. No evidence for intracranial hemorrhage or mass effect. 2. Partial opacification of the left mastoid air cells. POS: ALFREDO
[2019-09-19] MEDS: Rosuvastatin 10 MG TAB PO SCH (21:27)
[2019-09-19] MEDS: OLANZapine 5 MG TAB PO SCH (21:28)
[2019-09-20] MEDS: Levothyroxine Sodium 25 MCG TAB PO SCH (06:25)
--- NOTE | 2019-09-20 07:37 | DIS ---
DATE OF ADMISSION: 09/12/2019 DATE OF DISCHARGE: 09/19/2019 DISCHARGE DIAGNOSES: Recurrent vasovagal syncope, possibly secondary to atrial fibrillation and atrial flutter; acute encephalopathy secondary to lithium toxicity; acute kidney injury; anemia; seizures. BRIEF HISTORY OF PRESENT ILLNESS: This is a 44-year-old male with past medical history of hyperlipidemia, hypertension, hypothyroidism, seizure disorder, bipolar disorder, who presented to the emergency room with passing out and not feeling well. Upon arrival to the ER, the patient was noted to have sinus tachycardia with a heart rate of 116. The patient was initially started on a Cardizem drip and was also given amiodarone. The patient was admitted for further management. The patient was also noted to have a creatinine of 4.32 when he initially presented to the emergency room and was given IV fluids. The patient also was noted to have an elevated lithium level of 1.675. Chest x-ray and CT head on admission showed no acute disease and a V/Q scan showed no evidence of PE. HOSPITAL COURSE: Atrial fibrillation/Atrial flutter: The patient had consultation with Cardiology, who recommended consultation with EP. The patient underwent a pacemaker interrogation, which still showed some episodes of atrial fibrillation and atrial flutter. Dr. Brito evaluated the patient and initially thought his syncopal spells were secondary to polypharmacy from his psychiatric medications versus possibly orthostatic hypotension. The patient was hydrated with IV fluids and his lithium dose was reduced. He was also started on anticoagulation with Xarelto. Eventually, the patient underwent an ablation on 09/18. The patient had a SETH prior to the procedure, which showed no intracardiac clots. The patient was monitored overnight and there were no further arrhythmias overnight. The patient was evaluated by Physical Therapy and was felt to be slightly weak on the right side and they recommended a rolling walker and home health. The patient will be discharged with metoprolol 25 mg p.o. daily. Diltiazem was discontinued by EP. The patient was discharged with Xarelto 20 mg , aspirin, and atorvastatin. The patient will need to follow up with Dr. Brito in 4 weeks. The patient should also follow up with his PCP in a week. History of orthostatic hypotension/vasovagal syncope: The patient will be continued on his midodrine as an outpatient. [place] toxicity/hallucinations: The patient did have an elevated lithium level of 1.65 on admission. He was on 450 mg at night. His lithium was reduced to 300 mg b.i.d. Repeat lithium level on the shows that it was low at 0.3. The patient appears to be stable and does not have any active psychosis. On discharge, stated that he is having some hallucinations, however, does not appear to be a threat to himself or anyone else. CT head was done which showed no acute disease. She was advised to follow up with his psychiatrist in [place] and if there is any evidence of acute psychosis, the patient should be seen by a psychiatrist urgently. Currently, I do not want to adjust any of his antipsychotics, given his recent ablation yesterday. Acute kidney injury: The patient had a creatinine of 4 on admission. He was hydrated with IV fluids. Nephrology was consulted. Renal ultrasound done on showed no hydronephrosis. Creatinine eventually came back to baseline at 0.93. Lethargy: The patient had some lethargy from his seizure medication and his psychoactive medication. His sleeping medications and his Flexeril were discontinued with improvement. [place] dose was reduced to 300 mg b.i.d. with improvement. The patient will continue on his seizure medications and follow up with his neurologist and psychiatrist. Seizure: The patient should continue Keppra, Topamax, and Depakote. Anemia: The patient's hemoglobin was 12.6. TSH was elevated, however, free T4 was normal. This will be worked up further as an outpatient with his PCP. NIURKA: patient has been refusing to wear his CPAP machine at night per nursing staff. He is encouraged to wear it. DISCHARGE PHYSICAL EXAMINATION: VITAL SIGNS: Temperature 98.9, heart rate 91, respiratory rate 16, O2 saturation 97% on room air, and blood pressure 100/63. GENERAL: The patient is alert, awake, oriented x3. He is off oxygen. CVS: Regular rate and rhythm with no murmurs, rubs, or gallops. LUNGS: Clear to auscultation bilaterally. ABDOMEN: Positive bowel sounds, soft, nontender, nondistended. EXTREMITIES: No edema. PSYCH: patient gives one word answers to most questions PERTINENT LABORATORY DATA: CBC on 09/18: Shows white count 7.1, hemoglobin 12.6, hematocrit 37.9. BMP on 09/19: Shows elevated chloride of 108. Rest of BMP is unremarkable. TSH on 09/16: 7.75. Free T4 on 09/16: 0.81. Prolactin on 09/12: 78.69. Cortisol: 2.00. LFTs: AST is 21, ALT is 16, alkaline phosphatase is 56. Ammonia: 33. PERTINENT IMAGING STUDIES: Chest x-ray on 09/12: No acute disease. CT brain on 09/12: There was no acute disease. V/Q scan on 09/13: Shows no defects. Renal ultrasound on 09/13: Shows complex renal cyst. Chest x-ray on 09/19: Shows no evidence of acute disease. DISCHARGE CONDITION: Stable. ACTIVITY: As tolerated. DIET: Heart healthy diet. DISCHARGE MEDICATIONS: 1. [place] 300 mg p.o. b.i.d. 2. Protonix 40 mg p.o. daily. 3. Xarelto 20 mg p.o. daily. 4. Sucralfate 1 g p.o. t.i.d. 5. Levothyroxine 25 mcg p.o. daily. 6. Ambien 5 mg p.o. at bedtime. 7. Flomax 0.4 mg p.o. at bedtime. 8. Rosuvastatin 10 mg p.o. at bedtime. 9. Zyprexa 15 mg p.o. daily. 10. Multivitamin one tablet p.o. daily. 11. Midodrine 2.5 mg p.o. t.i.d. 12. Metoprolol succinate 25 mg p.o. daily. 13. Lisinopril 20 mg p.o. b.i.d. 14. Keppra 500 mg p.o. daily. 15. Gabapentin 300 mg p.o. b.i.d. 16. Fenofibrate 160 mg p.o. daily. 17. Escitalopram 20 mg p.o. daily. 18. Depakote 1500 mg p.o. at bedtime. 19. Flexeril 10 mg tablet, one tablet p.o. t.i.d. p.r.n. 20. Aspirin 81 mg p.o. q.a.m. DISCHARGE INSTRUCTIONS: The patient underwent an ablation on 09/18 for his atrial fibrillation. He should continue his metoprolol. He should start taking Protonix 40 mg daily to prevent stomach ulcers and sucralfate for acid reflux. The patient did have some mild chest pain after his ablation, but repeat chest x-ray on the day of discharge was unremarkable. The patient should start taking Xarelto to prevent stroke. He should follow up with Dr. Brito from Cardiology in 4 weeks and his PCP in a week. The patient should also follow up with psychiatrist for any hallucinations and to call more urgently if there are any active psychotic episodes. The patient will be discharged with home health and with a rolling walker. Job ID: [id number] [facility]ITALColin
[2019-09-20] MEDS: Topiramate 25 MG TAB PO SCH (09:03)
[2019-09-20] MEDS: Sucralfate 1 GM TAB PO SCH ×3 (09:03→17:23)
[2019-09-20] MEDS: Midodrine HCl 5 MG TAB PO SCH ×2 (09:04→15:30)
[2019-09-20] MEDS: Fenofibrate Nanocrystallized 145 MG TAB PO SCH (09:05)
[2019-09-20] MEDS: Aspirin 81 mg Enteric Coated Tablet PO SCH (09:05)
[2019-09-20] MEDS: Cyclobenzaprine 10 MG TAB PO SCH ×2 (09:05→15:30)
[2019-09-20] MEDS: Multivitamin W/ Minerals 1 TAB PO SCH (09:05)
[2019-09-20] MEDS: Gabapentin 300 MG CAP PO SCH (09:06)
[2019-09-20] MEDS: Famotidine 20 MG TAB PO SCH (09:06)
[2019-09-20] MEDS: Tamsulosin HCl 0.4 MG CAP PO SCH (09:06)
[2019-09-20] MEDS: Escitalopram Oxalate 20 mg Tablet PO SCH (09:06)
[2019-09-20] MEDS: levETIRAcetam 500 MG TAB PO SCH (09:06)
--- NOTE | 2019-09-20 14:20 | PDOC.EP ---
- Subjective Date: 09/20/19 Time: 14:17 Interval History: arryhtmia management post ablation. Patient sleeping in bed, somewhat difficult to awaken but once awake he did converse. His speech remains garbled. his questions are appropriate. - Review of Systems Constitutional: denies: chills, fever, malaise, sweats Respiratory: denies: cough, dry, hemoptysis, pleuritic pain, shortness of breath Cardiology: reports: chest pain (aches with deep breath). denies: edema, heart racing, light headedness, palpitations Gastrointestinal: denies: abdominal pain, constipation, diarrhea, nausea, vomitting - Objective Allergies/Adverse Reactions: Allergies Allergy/AdvReac Type Severity Reaction Status Date / Time acetaminophen [From Tylenol] Allergy Severe Swollen Verified 09/07/19 19:34 Lips Current Medications Aspirin (Ecotrin) 81 mg PO QAM [facility] Last Admin: 09/20/19 09:05 Dose: 81 mg Cyclobenzaprine HCl (Flexeril) 10 mg PO TID [facility] Last Admin: 09/20/19 09:05 Dose: 10 mg Divalproex Sodium (Depakote Er) 1,500 mg PO HS [facility] Last Admin: 09/19/19 21:33 Dose: 1,500 mg Escitalopram Oxalate (Lexapro) 20 mg PO DAILY [facility] Last Admin: 09/20/19 09:06 Dose: 20 mg Famotidine (Pepcid) 20 mg PO BID [facility] Last Admin: 09/20/19 09:06 Dose: 20 mg Fenofibrate (Tricor) 145 mg PO DAILY [facility] Last Admin: 09/20/19 09:05 Dose: 145 mg Gabapentin (Neurontin) 300 mg PO BID [facility] Last Admin: 09/20/19 09:06 Dose: 300 mg Iron/Minerals/Multivitamins (Theragran M) 1 tab PO DAILY [facility] Last Admin: 09/20/19 09:05 Dose: 1 tab Ketorolac Tromethamine (Toradol) 30 mg IVP Q6H PRN PRN Reason: Pain Stop: 09/23/19 19:01 Levetiracetam (Keppra) 500 mg PO DAILY [facility] Last Admin: 09/20/19 09:06 Dose: 500 mg Levothyroxine Sodium (Synthroid) 25 mcg PO 0600 [facility] Last Admin: 09/20/19 06:25 Dose: 25 mcg [place] Carbonate (Lithobid Er) 300 mg PO BID-[facility] Last Admin: 09/20/19 09:02 Dose: 300 mg Metoprolol Succinate (Toprol Xl) 25 mg PO DAILY [facility] Last Admin: 09/20/19 09:06 Dose: 25 mg Midodrine (Proamatine) 2.5 mg PO TID [facility] Last Admin: 09/20/19 09:04 Dose: 2.5 mg Olanzapine (Zyprexa) 15 mg PO [facility] Last Admin: 09/19/19 21:28 Dose: 15 mg Pantoprazole Sodium (Protonix) 40 mg PO DAILY [facility] Stop: 10/18/19 09:01 Last Admin: 09/20/19 09:05 Dose: 40 mg Rivaroxaban (Xarelto) 20 mg PO 1800 [facility] Last Admin: 09/19/19 17:39 Dose: 20 mg Rosuvastatin Calcium (Crestor) 10 mg PO [facility] Last Admin: 09/19/19 21:27 Dose: 10 mg Senna/Docusate Sodium (Senokot S) 2 tab PO BID PRN PRN Reason: Constipation Sodium Chloride (Flush - Normal Saline) 10 ml IVF PRN PRN PRN Reason: Saline Flush Last Admin: 09/14/19 20:41 Dose: 10 ml Sucralfate (Carafate) 1 gm PO ACHS [facility] Stop: 10/02/19 17:01 Last Admin: 09/20/19 12:18 Dose: 1 gm Tamsulosin HCl (Flomax) 0.4 mg PO DAILY [facility] Last Admin: 09/20/19 09:06 Dose: 0.4 mg Topiramate (Topamax) 50 mg PO BID [facility] Last Admin: 09/20/19 09:03 Dose: 50 mg Zolpidem Tartrate (Ambien) 5 mg PO [facility] Last Admin: 09/19/19 21:28 Dose: 5 mg Vital Signs & Weight: Vital Signs Temp Pulse Pulse Pulse Resp BP BP 09/20/19 11:20 98.9 F 91 16 09/20/19 10:10 80 94 157/117 H 93/64 09/20/19 07:17 98.2 F 84 16 09/20/19 03:55 99.5 F 88 16 BP Pulse Ox 01/08/20 11:20 110/63 97 01/08/20 10:10 09/20/19 07:17 102/67 96 09/20/19 03:55 119/64 94 L Weight 271 lb 8 oz I/O: I/O 09/19/19 09/20/19 09/21/19 06:59 06:59 06:59 Intake Total 300 1080 Output Total 2575 1050 Balance -2275 30 - Quality Measures Condition: Atrial Fibrillation/Flutter (hx or current) CV meds: Xarelto: Yes - Physical Exam General: no apparent distress, affect appropriate. negative: speech clear HEENT: mucus membranes moist, normocephaly, EOMI. negative: jaundice Neck: supple neck, midline trachea, no JVD/HJR, no lymphadenopathy Cardiology: regular rate and rhythm, no murmur. negative: tachycardia, bradycardia Lungs: clear to auscultation, normal breath sounds Neurology: no lateralizing findings Abdomen: unremarkable, active bowel sounds, no hepatosplenomegaly, HJR negative Extremities: dry, strong pulses, warm Skin: groin sites stable - Labs Result Diagrams: 09/18/19 05:08 09/19/19 04:39 - EKG Interpretation EKG Method: Telemetry EKG shows: Sinus rhythm - Assessment/Plan Assessment/Plan: 1. Atrial fibrillation & typical atrial flutter - moderately suppressed with flecainide as OP but given amio in ER. Flecainide was stopped due to CONSTANTINE. Flecainide DCd - low chads2-vasc score: Needs OAC post ablation. Xarelto resumed. -SR post ablation. 2. Altered mental status - possibly from polypharmacy and lithium toxicity 3. CONSTANTINE -resolved 4. Dual chamber PPM, nml function 5. Recurrent vasovagal syncope DC was delayed for concerns with speech/repitition and questionable mental status. Having some mild chest discomfort post ablation from inflammation. Can take PRN ibuprofen if becomes bothersome. Continue xarelto with recent ablation. Stable post ablation. DC on post PVAI meds: protonix 40mg PO QD x 30 days, Carafate 1 gram QID x 2 weeks. Furosemide 40mg PO PRN edema/SOB and KCl 20mEq PO to take with lasix. OK for DC by EP. follow up in 6 weeks to be arranged.
[2019-09-20 15:39] VITALS: BP 113/73; TEMP 98
--- NOTE | 2019-09-20 16:56 | ECHO ---
DATE OF SERVICE: 09/18/19 REFERRING PHYSICIAN: Dr. Sandoval REASON FOR PROCEDURE: The patient is a 44-year-old man presenting with recurrent syncopal spells. History of seizure disord er, acute renal insufficiency, some lithium poisoning. Also has frequent recurring atrial arrhythmias including atypical atrial flutter, atrial fibrillation and typical atrial flutter as well. Here for radiofrequency ablation. SETH was performed prior to the procedure to rule out intracardiac clots. PROCEDURE: The patient received general anesthesia by Anesthesia specialist. After adequate level o f sedation achieved, a standard transesophageal echocardiogram probe was passed into the esophagus wi thout difficulty. Patient tolerated the procedure well, no complications noted. RESULTS: Left atrium is normal in size. The left atrial appendage well visualized and appears to be free of cl ots. The rest of the appendage velocities are excellent at up to 1 m per second. Four out of four pu lmonary veins were seen. The mitral valve has no significant regurgitation. The interatrial septum is free of defect. The left ventricular systolic function is preserved. Mild LVH is noted. Right side d chambers are nondilated. Pacemaker wires are noted in the right sided chambers. No significant tric uspid or pulmonary regurgitation seen. The aortic valve has three leaflets without regurgitation or s tenosis. Pericardial space without effusion. The visualized portion of ascending and descending aort a without aneurysm, dissection or atheroma. CONCLUSION: 1. No intracardiac clots. 2. Normal left ventricular systolic function. 3. Normal left atrial size. 4. No significant valvular heart disease. PLAN: Proceed with ablation.
[2019-09-20] MEDS: Rivaroxaban 10 MG TAB PO SCH (17:23)
--- NOTE | 2019-09-22 15:14 | EKG ---
Test Reason : POST ABLATION Blood Pressure : / mmHG Vent. Rate : 107 BPM Atrial Rate : 107 BPM P-R Int : 176 ms QRS Dur : 088 ms QT Int : 354 ms P-R-T Axes : 053 041 065 degrees QTc Int : 472 ms Sinus tachycardia Nonspecific T wave abnormality Abnormal ECG When compared with ECG of 18-SEP-2019 08:32, [place] interval has decreased Vent. rate has increased BY [address] Eran MEJIA ([id number]) on 09/22/2019 3:13:38 PM Referred By: [facility] Confirmed By:DR. Eran MEJIA
== END 2019-09-20 19:05 | disposition home health service (06) | DRG 273 ==
LOC: ERS 16:03 → 2SE 22:12
PROVIDERS: ADMIT Internal Medicine; ATTEND Internal Medicine
PROC: 02583ZZ Destruction of Conduction Mechanism, Percutaneous Approach (ICD-10-PCS; principal; 2019-09-18)
PROC: 02K83ZZ Map Conduction Mechanism, Percutaneous Approach (ICD-10-PCS; 2019-09-18)
PROC: 4A023FZ Measurement of Cardiac Rhythm, Percutaneous Approach (ICD-10-PCS; 2019-09-18)
PROC: 4A0234Z Measurement of Cardiac Electrical Activity, Percutaneous Approach (ICD-10-PCS; 2019-09-18)
DX: I48.92 Unspecified atrial flutter (principal); G92 Toxic encephalopathy; N17.9 Acute kidney failure, unspecified; E87.2 Acidosis; Z68.41 Body mass index [BMI] 40.0-44.9, adult; G40.909 Epilepsy, unspecified, not intractable, without status epilepticus; E78.5 Hyperlipidemia, unspecified; I10 Essential (primary) hypertension; E03.9 Hypothyroidism, unspecified; Z90.89 Acquired absence of other organs; Z95.0 Presence of cardiac pacemaker; F31.9 Bipolar disorder, unspecified; Z79.82 Long term (current) use of aspirin; Z79.899 Other long term (current) drug therapy; N40.0 Benign prostatic hyperplasia without lower urinary tract symptoms; G43.109 Migraine with aura, not intractable, without status migrainosus; D64.9 Anemia, unspecified; E66.9 Obesity, unspecified; T56.891A Toxic effect of other metals, accidental (unintentional), initial encounter; G47.30 Sleep apnea, unspecified; E78.00 Pure hypercholesterolemia, unspecified; I48.0 Paroxysmal atrial fibrillation; G47.33 Obstructive sleep apnea (adult) (pediatric)
CPT/HCPCS: 36415; 36416; 70450; 71045; 76770; 78582; 80048; 80053; 80177; 80178; 80306; 80307; 81003; 81015; 82140; 82533; 82550; 82553; 82805; 83690; 83735; 83880; 84146; 84439; 84443; 84484; 85025; 85347; 85379; 85610; 85730; 87040; 87086; 90471; 90686; 90732; 93005; 93010; 93312; 93613; 93622; 93623; 93656; 93657; 93662; 94660; 94760; 96361; 96365; 96366; 96367; 96368; A9540; A9558; C1731; C1732; C1759; C1769; G0008; G0009; J0282; J1100; J1200; J1644; J1650; J1953; J2001; J2250; J2310; J2370; J2405; J2704; J2720; J3010; J3475; J7070

== ENCOUNTER 2019-10-03 23:02 | Inpatient (IN) | payer OTHER ==
[2019-10-04 01:41] LABS: Troponin I 0.012 ng/mL (< 0.028)
[2019-10-04 05:19] LABS: Troponin I Less than 0.010 ng/mL (< 0.028)
[2019-10-04] MEDS ORDERED: Ondansetron PF 4 MG/2 ML Vial IVP PRN (06:46)
[2019-10-04] MEDS ORDERED: Sodium Chloride 0.9% 1,000 ML IV SCH (07:00)
--- NOTE | 2019-10-04 08:01 | HP ---
PRIMARY CARE PHYSICIAN: Unknown. CHIEF COMPLAINT: Dizziness, lightheadedness, diplopia. Transfer from [facility] for severe hypotension. HISTORY OF PRESENT ILLNESS: This is a 44-year-old male, recently discharged on 09/19/2019 with chronic medical comorbidities including paroxysmal atrial fibrillation, who has a permanent pacemaker in place with recent LINQ removal and ablation in early September 2019 for inducible atrial flutter, seizure disorder, bipolar disorder, on lithium, with recent toxicity and acute kidney injury, now resolved, orthostatic hypotension, documented hypertension, on lisinopril, p.r.n. clonidine, and metoprolol-XL, obstructive sleep apnea, who developed complaints of diplopia, dizziness, lightheadedness, and multiple episodes of near syncope at 1 :00 p.m. while at home, prompting his spouse to drive him to a tertiary ER for further evaluation. There he was noted to have severe hypotension of 55/30 and responded to IV fluid boluses with blood pressures of 110/68. Pulse was documented as normal sinus rhythm. Rest of lab work was reported to be unremarkable. In the ER, pacemaker interrogation revealed no abnormalities and threshold of pacing was noted to be set at 40 beats per minute. The patient was reported to have his pulse drop as low as 50s without pacing. The lithium level was normal. Serum creatinine was mildly elevated at 1.7. Noncontrast head CT was unremarkable. The patient was admitted for further observation. At bedside, the patient offers limited history. He denies any further complaints of double vision. He is asleep and states he feels overall better and he denies any dizziness or lightheadedness. Blood pressures have not been documented, but are reported by nursing staff to be normotensive. Orthostatic vital signs have not been checked. The patient reports that he takes all medications as prescribed in "everything that is in the bag." Review of medications notes p.r.n. clonidine 0.1 mg tablet, lisinopril 20 mg, metoprolol-XL 25 mg, and midodrine 2.5 mg three times per day amongst other medications. PAST MEDICAL HISTORY: Paroxysmal atrial fibrillation, status post permanent pacemaker and prior LINQ with recent ablation for inducible atrial fibrillation, recent hospitalization for acute toxic encephalopathy secondary to lithium toxicity and acute kidney injury, orthostatic hypotension, hypertension, NIURKA, seizure disorder, bipolar disorder. PAST SURGICAL HISTORY: Permanent pacemaker placement LINQ placement with subsequent removal, recent atrial fibrillation ablation, tonsillectomy, left heart cardiac catheterization. SOCIAL HISTORY: The patient is , lives at home with his spouse. He denies tobacco or alcohol use. ALLERGIES: LISTED TO ACETAMINOPHEN CAUSING ANAPHYLAXIS. REVIEW OF SYSTEMS: Pertinent positives as per HPI. Remainder of review of systems negative. MEDICATIONS: Reviewed as per admission medication reconciliation. FAMILY HISTORY: Notable for coronary artery disease in patient's mother. PHYSICAL EXAMINATION: VITAL SIGNS: At outside facility revealed initial blood pressure 55/30 with a documented pulse of 83, respirations 20, and temperature of 98.2. Most recent blood pressure is 123/75 with a pulse 44 to 70, sinus rhythm, and telemetry monitoring noting PACs, temperature 97.3, and oxygen saturation 98. GENERAL APPEARANCE: This is a middle-aged obese male who is an okay historian, and not in any obvious distress. HEENT: Normocephalic, atraumatic. No facial asymmetry. Pupils equally round. Extraocular muscles intact. Moist mucous membranes. NECK: Supple. CARDIOVASCULAR: S1, S2. Regular rate and rhythm. No harsh murmurs. No reproducible chest wall tenderness to palpation. There is a healing incision site over the left chest precordium. LUNGS: Nonlabored respiration on bilateral anterior auscultation. Symmetrical chest expansion. No wheezing or rales. ABDOMEN: Soft, obese, nontender, nondistended. EXTREMITIES: No appreciable edema in bilateral lower extremities. SKIN: Warm to touch without rash, pallor, or abrasions. LABORATORY DATA: Serial troponin negative x2. Review of outside labs reveal a white blood cell count of 8.2, H and H 11.4/35.9, MCV of 90.2, platelets 274. Chemistries reviewed. BUN and creatinine of 17/1.70 with a GFR of 47. Sodium 142, potassium 3.2, chloride 105, bicarb 25, calcium 8.8. LFTs unremarkable. Lipase 283, amylase 62. Urinalysis, specific gravity 1.025, negative nitrites, negative leukocyte esterase, 2.0 urobilinogen. Lactic acid of 2.90. Urine drug screen was negative. TSH is 9.869. ASSESSMENT: 1. Severe hypotension of unspecified etiology. Evaluate for cardiogenic etiology versus possible orthostatic hypotension. The patient will be admitted to telemetry observation unit. He received 2 L IV fluid bolus at outside facility with blood pressure now normotensive. He was also noted to have low pulse rates with pacemaker threshold set at 40 beats per minute without any pacing and normal interrogation. We will continue patient on maintenance IV fluids, withhold oral antihypertensive medications except for metoprolol-XL noting paroxysmal atrial flutter history, consult Cardiology and continue intravascular fluid resuscitation. The patient unfortunately is not an extremely reliable historian and unclear if the patient has taken any of his p.r.n. clonidine tablets. 2. Acute kidney injury, likely secondary to severe hypotension. The patient has received IV fluid resuscitation at outside facility. We will continue on maintenance IV fluids and repeat a.m. labs. 3. Lactic acidosis likely secondary to severe hypotension. Blood cultures obtained at outside facility. Suspect secondary to low blood pressures and low suspicion for infectious etiology. 4. History of recent ablation for inducible atrial flutter. Continue medication as per recent Electrophysiology recommendations. 5. History of orthostatic hypotension. Continue oral midodrine 2.5 mg 3 times per day. Withhold all oral antihypertensive medications. 6. Seizure disorder. Continue home medications documented on recent discharge summary for Keppra, Topamax, and Depakote. However, the patient has noted does not have all these medications in his current bag. We will need further clarification. 7. Obstructive sleep apnea. Continue CPAP. 8. Bipolar disorder. Continue oral lithium 300 mg p.o. twice daily. Rowena levels at borderline normal 0.938. Deep venous thrombosis prophylaxis. The patient is on therapeutic anticoagulation with Xarelto for atrial fibrillation history. Disposition: Telemetry observation status. Job ID: [id number] [facility]
[2019-10-04 09:12] LABS: Anion Gap 12 mmol/L (10-20); BUN (Urea Nitrogen) 20 mg/dL (8.9-20.6); Calc. Creatinine Clearance 133 mL/min (70-130); Calcium 8.7 mg/dL (7.8-10.44); Carbon Dioxide 23 mmol/L (22-29); Chloride 110 mmol/L (98-107); Estimated GFR-MDRD 64; Glucose 92 mg/dL (70-105); Potassium 3.9 mmol/L (3.5-5.1); Sodium 141 mmol/L (136-145)
[2019-10-04] MEDS ORDERED: Tamsulosin HCl 0.4 MG CAP PO SCH (10:00)
[2019-10-04] MEDS ORDERED: OLANZapine 5 MG TAB PO SCH (10:00)
[2019-10-04] MEDS ORDERED: Topiramate 25 MG TAB PO SCH (10:00)
[2019-10-04] MEDS ORDERED: Multivit, Therapeutic 1 TAB PO SCH (10:00)
[2019-10-04] MEDS ORDERED: Sucralfate 1 GM TAB PO SCH (10:00)
[2019-10-04] MEDS ORDERED: Aspirin 81 mg Enteric Coated Tablet PO SCH (10:00)
[2019-10-04] MEDS ORDERED: Levothyroxine Sodium 25 MCG TAB PO SCH (10:00)
[2019-10-04] MEDS ORDERED: Gabapentin 300 MG CAP PO SCH (10:00)
[2019-10-04] MEDS ORDERED: Ondansetron ODT 4 MG TAB PO PRN (13:54)
[2019-10-04] MEDS: Sucralfate 1 GM TAB PO SCH ×2 (15:23→20:26)
[2019-10-04] MEDS: Rivaroxaban 10 MG TAB PO SCH (18:02)
--- NOTE | 2019-10-04 19:34 | CON ---
DATE OF CONSULTATION: 10/04/2019 REASON FOR CONSULTATION: Severe hypotension. HISTORY OF PRESENT ILLNESS: Mr. Sheridan is a very pleasant gentleman with history of atrial fibrillation, autonomic insufficiency, recurrent hypotension, tachycardia and bradycardia, previous pacemaker with episode of near syncope with severe hypotension. Mr. Sheridan was transferred from [facility]. He was recently discharged on 09/19/2019. He had undergone ablation for an atrial arrhythmias, which I believe was atrial fibrillation. We will need to check on that versus atrial flutter. The patient also had history of bipolar disorder and history of renal insufficiency. He has a history of severe orthostatic hypotension and dysautonomia. He also had some sleep apnea. The patient had multiple episodes of near-syncope at home. It was noted in the emergency room, his blood pressure was as low as 55/30. He responded to intravenous fluid boluses with the blood pressure 110/68. Pulse is normal according to the notes. The lithium level is normal. Creatinine is slightly elevated at 1.7. The patient did not have chest pain or pressure, but states he did have near syncope. MEDICATIONS: Listed in his notes included; 1. Aspirin. 2. Tamsulosin. I do not know at what time he is taking that. 3. Levothyroxine. 4. Midodrine 5 mg 3 times a day. 5. Metoprolol succinate 25 mg a day. 6. Lisinopril 20 mg twice a day. 7. Gabapentin. 8. [place]. 9. Xarelto 20 mg a day. 10. Clonidine if needed. 11. Meloxicam. 12. Topamax. ALLERGIES: ALLERGY TO ACETAMINOPHEN OR INTOLERANCE. SOCIAL HISTORY: No alcohol or tobacco abuse. REVIEW OF SYSTEMS: CONSTITUTIONAL: Positive for weakness and fatigue. VISION: No changes now, but he said he did have trouble seeing when his blood pressure is low. HEARING: No changes. PULMONARY: No cough or wheezing. GASTROINTESTINAL: No nausea, vomiting, or diarrhea. SKIN: No rashes. NEUROLOGIC: No unilateral weakness or numbness. PSYCHIATRIC: No unusual depression or anxiety. HEMATOLOGIC: No unusual bruising. GENITOURINARY: No burning with urination. PHYSICAL EXAMINATION: GENERAL: This is a pleasant 44-year-old man. VITAL SIGNS: Blood pressure has been variable, recently it has been high 159/100 and pulse 88. LUNGS: Clear. CARDIAC: Normal S1 and normal S2. ABDOMEN: Soft and nontender. EXTREMITIES: Warm and dry. No clubbing. No cyanosis. He has no edema now. PERTINENT LABORATORY: His troponin was normal. Creatinine 1.23. [place] level on the was 0.938, which is slightly below the recorded therapeutic range of 1 to 1.2. The EKG does show intermittent periods of low heart rate. Speaking to the [employer] pacemaker public [employer] sales representative, it is programmed to intermittently drop the rate to see if the pacing can be ablated. ASSESSMENT: 1. Severe labile hypertension and hypotension, dysautonomia. 2. Atrial arrhythmias. The most recent procedure, had an ablation by Dr. Brito. It looks like he did have some atrial flutter at that time, also atrial fibrillation ablation. PLAN: 1. Try to simplify medicines. We will continue the metoprolol. 2. We will increase the pacemaker rate up to 70 to try to see if again smoothed out his blood pressure. 3. Have him take tamsulosin at bedtime instead in the morning as it causes orthostatic hypotension. 4. Stop midodrine at the present time. 5. Further recommendations following the hospital course. We will try to regulate his blood pressure more closely. Potentially could go higher on the beta shantelle and as I said, we will stop the midodrine at this time, very difficult situation. Job ID: [id number]
[2019-10-04] MEDS: Gabapentin 300 MG CAP PO SCH (20:26)
[2019-10-04] MEDS: Zolpidem Tartrate 5 MG TAB PO SCH (20:26)
[2019-10-04] MEDS: Topiramate 25 MG TAB PO SCH (20:26)
[2019-10-04] MEDS: Rosuvastatin 10 MG TAB PO SCH (20:26)
[2019-10-05 04:59] LABS: Hemoglobin 12.5 g/dL (14.0-18.0); Mean Corpuscular Hemoglobin 30.2 pg (27.0-31.0); Mean Corpuscular Volume 88.8 fL (78.0-98.0); Mean Platelet Volume 7.9 fL (7.4-10.4); Platelet Count 220 thou/uL (130-400); RBC Distribution Width 13.3 % (11.5-14.5); Red Blood Cell (RBC) Count 4.15 mill/uL (4.70-6.10); White Blood Cell (WBC) Count 6.5 thou/uL (4.8-10.8)
[2019-10-05] MEDS: Levothyroxine Sodium 25 MCG TAB PO SCH (05:37)
[2019-10-05 05:40] VITALS: BMI 43.8
[2019-10-05] MEDS: Aspirin 81 mg Enteric Coated Tablet PO SCH (09:00)
[2019-10-05] MEDS ORDERED: Tamsulosin HCl 0.4 MG CAP PO SCH (09:00)
[2019-10-05] MEDS ORDERED: Meloxicam 15 MG TAB PO SCH (09:00)
[2019-10-05] MEDS: OLANZapine 5 MG TAB PO SCH (09:01)
[2019-10-05] MEDS: Sucralfate 1 GM TAB PO SCH ×3 (09:01→21:05)
[2019-10-05] MEDS: Gabapentin 300 MG CAP PO SCH ×2 (09:01→21:05)
[2019-10-05] MEDS: Topiramate 25 MG TAB PO SCH ×2 (09:01→21:03)
[2019-10-05] MEDS: Multivit, Therapeutic 1 TAB PO SCH (09:02)
--- NOTE | 2019-10-05 09:42 | PRG ---
DATE OF SERVICE: 10/05/2019 SUBJECTIVE: Mr. Sheridan is feeling better. No complaints. OBJECTIVE: VITAL SIGNS: His blood pressure 136/85, pulse 80 and it is regular. LUNGS: Clear. CARDIAC: Normal S1 and normal S2. ABDOMEN: Soft and nontender. EXTREMITIES: There is no edema. ASSESSMENT: 1. Labile hypertension and hypotension, improved. 2. Status post pacemaker. We increased the heart rate yesterday. 3. Started giving the Flomax in the evening instead the morning. PLAN: Watch him today prior to go home tomorrow if he is doing well. Job ID: [id number]
--- NOTE | 2019-10-05 17:42 | PDOC.HOSPP ---
- Subjective Encounter Date: 10/05/19 Encounter Time: 10:00 Subjective: no overnight events. Blood pressure has been less labile since pacing HR changed to 70 last evening. This morning, lying comfortably in bed and has no complaints except for mild general weakness. - Objective Vital Signs & Weight: Vital Signs (12 hours) Temp Pulse Resp BP BP BP Pulse Ox 10/05/19 15:46 97.9 F 84 13 141/84 H 94 L 10/05/19 11:32 97.3 F L 84 13 135/83 97 10/05/19 07:31 95 10/05/19 07:29 97.4 F L 80 14 136/85 95 Weight Weight 271 lb 12.8 oz I&O: 10/04/19 10/05/19 10/06/19 06:59 06:59 06:59 Intake Total 1200 Output Total 1850 Balance -650 Result Diagrams: 10/05/19 04:13 10/04/19 08:50 Hospitalist ROS - Review of Systems Constitutional: denies: fever, chills, sweats, weakness, malaise, other Respiratory: denies: cough, dry, shortness of breath, hemoptysis, SOB with excertion, pleuritic pain, sputum, wheezing, other Cardiovascular: denies: chest pain, palpitations, orthopnea, paroxysmal noc. dyspnea, edema, light headedness, other Gastrointestinal: denies: nausea, vomiting, abdominal pain, diarrhea, constipation, melena, hematochezia, other Neurological: reports: weakness - Medication Medications: Active Medications Generic Name Dose Route Start Last Admin Trade Name Freq PRN Reason Stop Dose Admin Aspirin 81 mg 10/05/19 09:00 10/05/19 09:00 Ecotrin PO 81 mg QAM THALIA Administration Divalproex Sodium 1,500 mg 10/04/19 21:00 10/04/19 20:27 Depakote Er PO 1,500 mg HS THALIA Administration Gabapentin 300 mg 10/04/19 21:00 10/05/19 09:01 Neurontin PO 300 mg BID THALIA Administration Levothyroxine Sodium 25 mcg 10/05/19 06:00 10/05/19 05:37 Synthroid PO 25 mcg 0600 THALIA Administration Metoprolol Succinate 25 mg 10/05/19 09:00 10/05/19 09:01 Toprol Xl PO 25 mg DAILY THALIA Administration Multivitamins 1 tab 10/05/19 09:00 10/05/19 09:02 Theragran PO 1 tab DAILY THALIA Administration Olanzapine 15 mg 10/05/19 09:00 10/05/19 09:01 Zyprexa PO 15 mg DAILY THALIA Administration Ondansetron HCl 4 mg 10/04/19 13:54 10/04/19 13:57 Zofran Odt PO 4 mg Q4H PRN Administration Nausea/Vomiting Pantoprazole Sodium 40 mg 10/05/19 09:00 10/05/19 09:01 Protonix PO 40 mg DAILY THALIA Administration Rivaroxaban 20 mg 10/04/19 18:00 10/04/19 18:02 Xarelto PO 20 mg 1800 THALIA Administration Rosuvastatin Calcium 10 mg 10/04/19 21:00 10/04/19 20:26 Crestor PO 10 mg HS THALIA Administration Sodium Chloride 10 ml 10/04/19 09:00 10/05/19 09:06 Flush - Normal Saline IVF Not Given Q12HR [facility] Sucralfate 1 gm 10/04/19 15:00 10/05/19 15:29 Carafate PO 1 gm TID THALIA Administration Topiramate 25 mg 10/04/19 21:00 10/05/19 09:01 Topamax PO 25 mg BID THALIA Administration Zolpidem Tartrate 5 mg 10/04/19 21:00 10/04/19 20:26 Ambien PO 5 mg HS THALIA Administration - Exam General Appearance: NAD, awake alert Neck: supple, symmetric, no JVD, no thyromegaly, no lymphadenopathy, no carotid bruit Heart: no murmur, no gallops, no rubs, normal peripheral pulses, irregular Respiratory: no wheezes, no ronchi, normal chest expansion, no tachypnea, normal percussion Respiratory - other findings: inspiratory rales mostly RLF Gastrointestinal: soft, non-tender, non-distended, normal bowel sounds, no palpable masses, no hepatomegaly, no splenomegaly, no bruit Extremities: no edema Psychiatric: normal affect, normal behavior, A&O x 3 Hosp A/P - Plan * dysautonomia * symptomatic bradycardia with labile hypotension * BP has been well controlled and stable since changing pacemaker HR to 70 * * continue metoprolol, hold midodrine * changed tamsulosin to qPM per cardiology * atrial flutter * atrial fibrillation * rate controlled with metoprolol; will continue
[2019-10-05] MEDS: Rivaroxaban 10 MG TAB PO SCH (17:55)
[2019-10-05] MEDS: Rosuvastatin 10 MG TAB PO SCH (21:04)
[2019-10-05] MEDS: Tamsulosin HCl 0.4 MG CAP PO SCH (21:04)
[2019-10-05] MEDS: Zolpidem Tartrate 5 MG TAB PO SCH (21:05)
[2019-10-06] MEDS: Levothyroxine Sodium 25 MCG TAB PO SCH (05:39)
[2019-10-06] MEDS ORDERED: Diltiazem 125 MG in Sodium Chloride 0.9% 100 ML IVPB SCH (07:30)
[2019-10-06] MEDS ORDERED: Sotalol HCl 80 MG TAB PO SCH (09:00)
[2019-10-06] MEDS ORDERED: Metoprolol Tartrate 50 MG TAB PO SCH ×2 (09:10→09:30)
[2019-10-06] MEDS: Gabapentin 300 MG CAP PO SCH ×2 (09:11→21:36)
[2019-10-06] MEDS: Aspirin 81 mg Enteric Coated Tablet PO SCH (09:11)
[2019-10-06] MEDS: Multivit, Therapeutic 1 TAB PO SCH (09:11)
[2019-10-06] MEDS: Sucralfate 1 GM TAB PO SCH ×3 (09:12→21:35)
[2019-10-06] MEDS: Topiramate 25 MG TAB PO SCH ×2 (09:12→21:35)
[2019-10-06] MEDS: OLANZapine 5 MG TAB PO SCH (09:16)
--- NOTE | 2019-10-06 16:15 | CON ---
DATE OF CONSULTATION: 10/06/2019 REFERRING PHYSICIAN: Reema Sandoval MD HISTORY OF PRESENT ILLNESS: I am seeing Mr. Sheridan at our [facility] Telemetry Floor as an electrophysiology strategic consultant. His problems are: 1. Recurrent atrial arrhythmias. a. History of paroxysmal atrial fibrillation and atrial flutter with episodic RVR. b. Status post pulmonary venous isolation procedure on 09/18/2019, also PVAI and CTI ablation performed. c. Currently readmission with nonsustained atrial flutter episodes with rapid rates. 2. Recurrent syncopal spells. a. history of autonomic imbalance/vasovagal syncope related syncopal spell on chronic midodrine. 3. Tachy-william syndrome with marked pauses, prompted a dual-chamber pacemaker implantation in July 2019. 4. No history of structural heart disease, preserved LVEF in the past. 5. History of labile blood pressures. 6. History of hypothyroidism. 7. History of seizure disorder. 8. History of bipolar disorder, on lithium. 9. History of obesity. ALLERGIES: TYLENOL. MEDICATIONS: At home included 1. Divalproex. 2. Aspirin. 3. Tamsulosin. 4. Escitalopram. 5. Levetiracetam. 6. Zolpidem. 7. Zyprexa. 8. Synthroid. 9. Multivitamin. 10. Cyclobenzaprine. 11. Midodrine 5 mg 3 times a day. 12. Rosuvastatin. 13. Metoprolol succinate 25 mg daily. 14. Lisinopril 20 mg twice a day. 15. Gabapentin. 16. [place] 300 mg twice a day. 17. Xarelto 10 mg daily. 18. Sucralfate. 19. Clonidine. 20. Meloxicam. 21. Topiramate/Topamax. SUBJECTIVE: Mr. Sheridan is here feeling dizzy and lightheaded and in the ER was found to have a transiently low blood pressure. He had near syncopal spells at home and was brought back to the emergency room. Blood pressure is markedly reduced initially fluid boluses improved to 110/68. Initial rhythm was sinus rhythm but while monitoring on the floor, he developed atrial flutter with increased ventricular rates. His creatinine was mildly elevated, lithium levels were still normal and was admitted for further observation. Currently still persistent atrial flutter with atypical morphology. No further questions at this point. He denies PND or orthopnea. No chest pains. No fever, chills, cough, normal swallowing noted. No dizziness, loss of consciousness. Respiratory system otherwise unremarkable. PAST MEDICAL HISTORY: As above. SOCIAL HISTORY: The patient denies smoking, EtOH, or drug abuse. FAMILY HISTORY: Not contributory. OBJECTIVE DATA: VITAL SIGNS: Blood pressure is 112/86, heart rate 100, respiratory rate is 18, and temperature 98 degrees Fahrenheit, sitting blood pressures are fluctuating between 120s to 160s at times. GENERAL: Alert and oriented man, in no apparent distress. NECK: Supple. Jugular veins difficult to visualize. CHEST: Coarse. No crackles. HEART: Heart sounds are irregular. S1 is variable. No murmur or gallop. The epicardial pacemaker insertion site is healing well. ABDOMEN: Benign. Bowel sounds are positive. No hepatosplenomegaly noted. EXTREMITIES: Lower extremities without edema, clubbing, or cyanosis. Groin site is without reaction. NEUROLOGICAL: Nonfocal, although somewhat slow speech is noted, which is his baseline. No focalizing deficits. SKIN: Without rash. DATABASE: EKG is reviewed revealing an atypical atrial flutter currently on telemetry strips. On presentation, rhythm is sinus rhythm at 49 beats per minute. Interrogation of the pacemaker is reviewed revealing a [employer] MRI compatible dual-chamber pacemaker, longevity set over seven years. Lead parameters are adequate sensing over 5 mV in atrial and 12 mV in right ventricle. Current programming of turned off and the base rate is increased to 70 beats per minute. The patient had atrial fibrillation burden 5.7% since last check. Longest duration of documented notes which is 10 hours on the 26 of September, but a week after his ablation. ASSESSMENT AND PLAN: Mr. Sheridan is a pleasant 44-year-old man with history of recurrent atrial arrhythmias, syncopal spells, thought to be secondary to vasovagal syncope, but worsened by tachy-william arrhythmias. He has had a pacemaker implanted last year and on September 18, underwent a pulmonary venous isolation and cavotricuspid isthmus ablation from which he is recovering well. Despite has occasional recurrent atrial arrhythmia episodes. It is not clear whether these episodes are clearly corresponding to him feeling poorly, but suppression of the rhythm would be reasonable by resuming flecainide. In the past, he tolerated this medication well and has controlled his rhythm some although now after ablation expecting better efficacy from this drug. Also, he would benefit from increasing his beta shantelle therapy as tolerated. He may require resumption of midodrine to allow for blood pressure lowering to avoid excessive vasovagal spells in the future as well. Recent ablation for now good recovery. We will obtain 2D echo results, but no high suspicion for tamponade present. Continue Carafate and Protonix for at least 2 weeks post procedure, which is about now. Continue chronic anticoagulation with Xarelto. Thank you again for allowing me to participate in the care of this patient. Job ID: [id number]
[2019-10-06] MEDS: Rivaroxaban 10 MG TAB PO SCH (17:18)
[2019-10-06] MEDS: Flecainide 50 MG TAB PO SCH (17:18)
[2019-10-06] MEDS ORDERED: Flecainide 50 MG TAB PO SCH (18:00)
[2019-10-06] MEDS: Rosuvastatin 10 MG TAB PO SCH (21:35)
[2019-10-06] MEDS: Zolpidem Tartrate 5 MG TAB PO SCH (21:35)
[2019-10-06] MEDS: Tamsulosin HCl 0.4 MG CAP PO SCH (21:35)
[2019-10-07] MEDS: Levothyroxine Sodium 25 MCG TAB PO SCH (06:34)
[2019-10-07] MEDS: OLANZapine 5 MG TAB PO SCH (09:13)
[2019-10-07] MEDS: Flecainide 50 MG TAB PO SCH ×2 (09:14→22:18)
[2019-10-07] MEDS: Topiramate 25 MG TAB PO SCH ×2 (09:15→22:19)
[2019-10-07] MEDS: Aspirin 81 mg Enteric Coated Tablet PO SCH (09:15)
[2019-10-07] MEDS: Multivit, Therapeutic 1 TAB PO SCH (09:15)
[2019-10-07] MEDS: Gabapentin 300 MG CAP PO SCH ×2 (09:15→22:18)
[2019-10-07] MEDS: Sucralfate 1 GM TAB PO SCH ×3 (09:16→22:17)
--- NOTE | 2019-10-07 11:54 | PDOC.HOSPP ---
- Subjective Encounter Date: 10/06/19 Encounter Time: 10:00 Subjective: Overnight, converted to atypical aflut, remained asymptmatic. - Objective Vital Signs & Weight: Vital Signs (12 hours) Temp Pulse Resp BP BP Pulse Ox 10/07/19 11:41 98.2 F 87 18 113/71 96 10/07/19 08:08 97.1 F L 71 16 140/89 95 10/07/19 03:27 98.4 F 82 17 123/80 95 Weight Weight 270 lb 4.8 oz I&O: 10/06/19 10/07/19 10/08/19 06:59 06:59 06:59 Intake Total 1030 1560 Output Total 1500 400 Balance -470 1160 Result Diagrams: 10/05/19 04:13 10/04/19 08:50 Hospitalist ROS - Review of Systems Constitutional: denies: fever, chills, sweats, weakness, malaise, other Respiratory: denies: cough, dry, shortness of breath, hemoptysis, SOB with excertion, pleuritic pain, sputum, wheezing, other Cardiovascular: denies: chest pain, palpitations, orthopnea, paroxysmal noc. dyspnea, edema, light headedness, other Gastrointestinal: denies: nausea, vomiting, abdominal pain, diarrhea, constipation, melena, hematochezia, other Genitourinary: denies: dysuria, frequency, incontinence, hematuria, retention, other Neurological: denies: weakness, numbness, incoordination, change in speech, confusion, seizures, other - Medication Medications: Active Medications Generic Name Dose Route Start Last Admin Trade Name Irene PRN Reason Stop Dose Admin Aspirin 81 mg 10/05/19 09:00 10/07/19 09:15 Ecotrin PO 81 mg QAM THALIA Administration Divalproex Sodium 1,500 mg 10/04/19 21:00 10/06/19 21:35 Depakote Er PO 1,500 mg HS THALIA Administration Flecainide Acetate 100 mg 10/07/19 09:00 10/07/19 09:14 Tambocor PO 100 mg Q12HR THALIA Administration Gabapentin 300 mg 10/04/19 21:00 10/07/19 09:15 Neurontin PO 300 mg BID THALIA Administration Levothyroxine Sodium 25 mcg 10/05/19 06:00 10/07/19 06:34 Synthroid PO 25 mcg 0600 THALIA Administration Metoprolol Succinate 50 mg 10/07/19 09:00 10/07/19 09:15 Toprol Xl PO 50 mg DAILY THALIA Administration Multivitamins 1 tab 10/05/19 09:00 10/07/19 09:15 Theragran PO 1 tab DAILY THALIA Administration Olanzapine 15 mg 10/05/19 09:00 10/07/19 09:13 Zyprexa PO 15 mg DAILY THALIA Administration Ondansetron HCl 4 mg 10/04/19 13:54 10/04/19 13:57 Zofran Odt PO 4 mg Q4H PRN Administration Nausea/Vomiting Pantoprazole Sodium 40 mg 10/05/19 09:00 10/07/19 09:15 Protonix PO 40 mg DAILY THALIA Administration Rivaroxaban 20 mg 10/04/19 18:00 10/06/19 17:18 Xarelto PO 20 mg 1800 THALIA Administration Rosuvastatin Calcium 10 mg 10/04/19 21:00 10/06/19 21:35 Crestor PO 10 mg HS THALIA Administration Sodium Chloride 10 ml 10/04/19 09:00 10/07/19 09:16 Flush - Normal Saline IVF 10 ml Q12HR THALIA Administration Sucralfate 1 gm 10/04/19 15:00 10/07/19 09:16 Carafate PO 1 gm TID THALIA Administration Tamsulosin HCl 0.4 mg 10/05/19 21:00 10/06/19 21:35 Flomax PO 0.4 mg 2100 THALIA Administration Topiramate 25 mg 10/04/19 21:00 10/07/19 09:15 Topamax PO 25 mg BID THALIA Administration Zolpidem Tartrate 5 mg 10/04/19 21:00 10/06/19 21:35 Ambien PO 5 mg HS THALIA Administration - Exam General Appearance: NAD, awake alert Neck: supple, symmetric, no JVD, no thyromegaly, no lymphadenopathy, no carotid bruit Heart: no murmur, no gallops, irregular Respiratory: CTAB, no wheezes, no rales, no ronchi, normal chest expansion, no tachypnea, normal percussion Gastrointestinal: soft, non-tender, non-distended, normal bowel sounds, no palpable masses, no hepatomegaly, no splenomegaly, no bruit Neurological: cranial nerve grossly intact, normal sensation to touch, no weakness, no focal deficits, no new deficit Psychiatric: normal affect, normal behavior, A&O x 3 Hosp A/P - Plan * dysautonomia * symptomatic bradycardia with labile hypotension * BP has been well controlled and stable since changing pacemaker HR to 70 () * converted back to atypical atrial flut; echo benign * * continue metoprolol, per cardiology, will resume midodrine prior to discharge to prevent vasovagal episodes * changed tamsulosin to qPM per cardiology * atrial flutter * atrial fibrillation * rate controlled with metoprolol; will continue
--- NOTE | 2019-10-07 15:46 | PDOC.CPN ---
- Subjective Date: 10/07/19 Time: 13:00 Interval history: Patient without complaints. Still with breakthrough AFlutter with RVR. - Review of Systems General: denies: fever/chills, weight/appetite/sleep changes, night sweats, fatigue Respiratory: denies: cough, congestion, shortness of breath, exercise intolerance Cardiovascular: denies: chest pain, palpitation, edema, paroxysmal nocturnal dyspnea, orthopnea Gastrointestinal: denies: nausea, vomiting, diarrhea, constipation, abd pain, GI bleeding Musculoskeletal: denies: pain, tenderness, stiffness, swelling, arthritis/ arthralgias Neurological: denies: numbness, syncope, seizure, weakness - Objective Allergies/Adverse Reactions: Allergies Allergy/AdvReac Type Severity Reaction Status Date / Time acetaminophen [From Tylenol] Allergy Severe Swollen Verified 09/07/19 19:34 Lips Visit Medications: Current Medications Aspirin (Ecotrin) 81 mg PO QAM [facility] Last Admin: 10/07/19 09:15 Dose: 81 mg Divalproex Sodium (Depakote Er) 1,500 mg PO HS [facility] Last Admin: 10/06/19 21:35 Dose: 1,500 mg Flecainide Acetate (Tambocor) 100 mg PO Q12HR [facility] Last Admin: 10/07/19 09:14 Dose: 100 mg Gabapentin (Neurontin) 300 mg PO BID [facility] Last Admin: 10/07/19 09:15 Dose: 300 mg Diltiazem HCl 125 mg/ Sodium (Chloride) 125 mls @ 10 mls/hr IVPB INF [facility] Levothyroxine Sodium (Synthroid) 25 mcg PO 0600 [facility] Last Admin: 10/07/19 06:34 Dose: 25 mcg Metoprolol Succinate (Toprol Xl) 50 mg PO DAILY [facility] Last Admin: 10/07/19 09:15 Dose: 50 mg Multivitamins (Theragran) 1 tab PO DAILY [facility] Last Admin: 10/07/19 09:15 Dose: 1 tab Olanzapine (Zyprexa) 15 mg PO DAILY [facility] Last Admin: 10/07/19 09:13 Dose: 15 mg Pantoprazole Sodium (Protonix) 40 mg PO DAILY [facility] Last Admin: 10/07/19 09:15 Dose: 40 mg Rivaroxaban (Xarelto) 20 mg PO 1800 [facility] Last Admin: 10/06/19 17:18 Dose: 20 mg Rosuvastatin Calcium (Crestor) 10 mg PO HS [facility] Last Admin: 10/06/19 21:35 Dose: 10 mg Sodium Chloride (Flush - Normal Saline) 10 ml IVF Q12HR [facility] Last Admin: 10/07/19 09:16 Dose: 10 ml Sodium Chloride (Flush - Normal Saline) 10 ml IVF PRN PRN PRN Reason: Saline Flush Sucralfate (Carafate) 1 gm PO TID [facility] Last Admin: 10/07/19 09:16 Dose: 1 gm Tamsulosin HCl (Flomax) 0.4 mg PO 2100 [facility] Last Admin: 10/06/19 21:35 Dose: 0.4 mg Topiramate (Topamax) 25 mg PO BID [facility] Last Admin: 10/07/19 09:15 Dose: 25 mg Zolpidem Tartrate (Ambien) 5 mg PO HS [facility] Last Admin: 10/06/19 21:35 Dose: 5 mg Vital Signs & Weight: Vital Signs Temp Pulse Resp BP Pulse Ox 10/07/19 11:41 98.2 F 87 18 113/71 96 10/07/19 08:08 97.1 F L 71 16 140/89 95 Weight 270 lb 4.8 oz - Physical Exam General: appears well, no apparent distress HEENT: mucus membranes moist Neck: supple neck Cardiac: regular rate and rhythm Lungs: clear to auscultation Abdomen: soft, non-tender Extremities: no cyanosis Skin: clear Musculoskeletal: no pain - Labs Result Diagrams: 10/05/19 04:13 10/04/19 08:50 Troponin/CKMB Troponin I 0.010 ng/mL (< 0.028) 10/04/19 07:04 - Assessment/Plan Assessment/Plan: 1. AFlutter with RVR 2. BPD 3. History of recurrent syncope/dystonia Reviewed EKG. QT has lengthened since admit after 2 doses of flecainide. Recommend repeat EKG at 1700 prior to further dosage today. Advised caution with lithium/Xarelto combination. Patient without bleeding complications in the past on both meds. RG-Pt seen and examined. Agree with the above. Keep overnight
[2019-10-07] MEDS: Rivaroxaban 10 MG TAB PO SCH (17:27)
--- NOTE | 2019-10-07 18:50 | PDOC.HOSPP ---
- Subjective Encounter Date: 10/07/19 Encounter Time: 18:48 Subjective: Pt seen followup re: dysautonomia. feels better, no complaints. - Objective Vital Signs & Weight: Vital Signs (12 hours) Temp Pulse Resp BP BP Pulse Ox 10/07/19 16:29 98.0 F 85 20 136/89 96 10/07/19 11:41 98.2 F 87 18 113/71 96 10/07/19 08:08 97.1 F L 71 16 140/89 95 Weight Weight 270 lb 4.8 oz I&O: 10/06/19 10/07/19 10/08/19 06:59 06:59 06:59 Intake Total 1030 1560 Output Total 1500 400 Balance -470 1160 Result Diagrams: 10/05/19 04:13 10/04/19 08:50 Additional Labs: Labs and MARs reviewed by me EKG Reviewed by me: Yes (Tele: NSR) Hospitalist ROS - Review of Systems Cardiovascular: denies: chest pain, palpitations, orthopnea, paroxysmal noc. dyspnea, edema, light headedness Gastrointestinal: denies: nausea, vomiting, abdominal pain, diarrhea, constipation, melena, hematochezia - Medication Medications: Active Medications Generic Name Dose Route Start Last Admin Trade Name Freq PRN Reason Stop Dose Admin Aspirin 81 mg 10/05/19 09:00 10/07/19 09:15 Ecotrin PO 81 mg QAM THALIA Administration Divalproex Sodium 1,500 mg 10/04/19 21:00 10/06/19 21:35 Depakote Er PO 1,500 mg HS THALIA Administration Flecainide Acetate 100 mg 10/07/19 09:00 10/07/19 09:14 Tambocor PO 100 mg Q12HR THALIA Administration Gabapentin 300 mg 10/04/19 21:00 10/07/19 09:15 Neurontin PO 300 mg BID THALIA Administration Levothyroxine Sodium 25 mcg 10/05/19 06:00 10/07/19 06:34 Synthroid PO 25 mcg 0600 THALIA Administration Metoprolol Succinate 50 mg 10/07/19 09:00 10/07/19 09:15 Toprol Xl PO 50 mg DAILY THALIA Administration Multivitamins 1 tab 10/05/19 09:00 10/07/19 09:15 Theragran PO 1 tab DAILY THALIA Administration Olanzapine 15 mg 10/05/19 09:00 10/07/19 09:13 Zyprexa PO 15 mg DAILY THALIA Administration Pantoprazole Sodium 40 mg 10/05/19 09:00 10/07/19 09:15 Protonix PO 40 mg DAILY THALIA Administration Rivaroxaban 20 mg 10/04/19 18:00 10/07/19 17:27 Xarelto PO 20 mg 1800 THALIA Administration Rosuvastatin Calcium 10 mg 10/04/19 21:00 10/06/19 21:35 Crestor PO 10 mg HS THALIA Administration Sodium Chloride 10 ml 10/04/19 09:00 10/07/19 09:16 Flush - Normal Saline IVF 10 ml Q12HR THALIA Administration Sucralfate 1 gm 10/04/19 15:00 10/07/19 15:47 Carafate PO 1 gm TID THALIA Administration Tamsulosin HCl 0.4 mg 10/05/19 21:00 10/06/19 21:35 Flomax PO 0.4 mg 2100 THALIA Administration Topiramate 25 mg 10/04/19 21:00 10/07/19 09:15 Topamax PO 25 mg BID THALIA Administration Zolpidem Tartrate 5 mg 10/04/19 21:00 10/06/19 21:35 Ambien PO 5 mg HS THALIA Administration - Exam General Appearance: NAD Eye: anicteric sclera ENT: moist mucosa Neck: supple Heart: RRR, no rubs Respiratory: CTAB Gastrointestinal: soft, non-tender Extremities: no edema Musculoskeletal: no muscle wasting Psychiatric: normal affect, normal behavior Hosp A/P - Plan ASSESSMENT/PLAN: * dysautonomia * stable * symptomatic bradycardia with labile hypotension * start midodrine * atrial flutter * atrial fibrillation * Continue metoprolol and flecainide
[2019-10-07] MEDS: Tamsulosin HCl 0.4 MG CAP PO SCH (22:17)
[2019-10-07] MEDS: Zolpidem Tartrate 5 MG TAB PO SCH (22:18)
[2019-10-07] MEDS: Midodrine HCl 5 MG TAB PO SCH (22:18)
[2019-10-07] MEDS: Rosuvastatin 10 MG TAB PO SCH (22:18)
--- NOTE | 2019-10-08 01:08 | DIS ---
DATE OF ADMISSION: 10/04/2019 DATE OF DISCHARGE: 10/07/2019 PRIMARY CARE PROVIDER: Calin To MD DISCHARGE DIAGNOSES: 1. Symptomatic bradycardia. 2. Labile hypotension. 3. Atrial fibrillation/flutter. 4. Dysautonomia. CONDITION OF PATIENT ON THE DAY OF DISCHARGE: Stable. I assessed Mr. Sheridan on the day of discharge. He denies any chest pain or shortness of breath. Vital signs are stable. S1 and S2 are heard, regular. Lungs are clear to auscultation bilaterally. CONSULTATIONS DURING THIS HOSPITALIZATION: Cardiology, Dr. Sandoval, and Electrophysiology, Dr. rBito. HOSPITAL COURSE: Mr. Sheridan is a pleasant 44-year-old gentleman, who was admitted to [facility] on October 04, 2019 for severe hypotension. Please refer to Dr. Rishabh Caldwell's history and physical note dated October 04, 2019 for further details. He was seen by Cardiology and Electrophysiology Services. He had his heart rates at 70 on his pacemaker, with improvement in symptoms. He has been started on flecainide. He has also been started on midodrine. He has used both these medications in the past. He has been cleared for discharge by consultants services. He also had 2D echocardiogram, which showed normal left ventricular size, left ventricular ejection fraction estimated at 55% to 60%, normal-sized left atrium , and structurally normal mitral valve. Please note that he had runs of atrial fibrillation/flutter during this hospitalization, but had converted to sinus rhythm and was in normal sinus rhythm on the day of discharge. DISCHARGE MEDICATIONS: 1. Aspirin 81 mg daily. 2. Clonidine 0.1 mg as needed. 3. Flexeril 1 tablet 3 times a day as needed. 4. Divalproex 1500 mg at bedtime. 5. Escitalopram 20 mg daily. 6. Gabapentin 300 mg 2 times a day. 7. Keppra 500 mg daily. 8. Lisinopril 20 mg 2 times a day. 9. Meloxicam 15 mg daily. 10. Metoprolol succinate 25 mg daily. 11. Multivitamins one tablet daily. 12. Zyprexa 15 mg daily. 13. Crestor 10 mg at bedtime. 14. Tamsulosin 0.4 mg daily. 15. Topamax 50 mg 2 times a day. 16. Ambien 5 mg at bedtime. 17. Flecainide 100 mg 2 times a day. 18. Synthroid 25 mcg daily. 19. [place] carbonate 300 mg 2 times a day. 20. Midodrine 2.5 mg 3 times a day. 21. Rivaroxaban 20 mg daily. 22. Carafate 1 g 3 times a day. Please note that his lithium level was low at 0.938 during this hospitalization. He is advised to follow up with his primary care provider for the same. Many thanks for allowing me to participate in your patient's care. Please feel free to contact me with any questions or concerns. DISCHARGE DESTINATION: Home. TIME SPENT: Total amount of time spent coordinating this discharge: 32 minutes. ACTIVITY: Activity as tolerated. DIET: Heart healthy. POST-ACUTE CARE FOLLOWUP: With primary care provider in 3 days. Job ID: [id number] MTDD
[2019-10-08] MEDS: Levothyroxine Sodium 25 MCG TAB PO SCH (07:25)
[2019-10-08] MEDS: OLANZapine 5 MG TAB PO SCH (08:56)
[2019-10-08] MEDS: Flecainide 50 MG TAB PO SCH ×2 (08:56→20:31)
[2019-10-08] MEDS: Multivit, Therapeutic 1 TAB PO SCH (08:57)
[2019-10-08] MEDS: Aspirin 81 mg Enteric Coated Tablet PO SCH ×2 (08:57→09:13)
[2019-10-08] MEDS: Gabapentin 300 MG CAP PO SCH ×2 (08:57→20:31)
[2019-10-08] MEDS: Sucralfate 1 GM TAB PO SCH ×3 (08:57→20:32)
[2019-10-08] MEDS: Midodrine HCl 5 MG TAB PO SCH ×3 (08:57→20:32)
[2019-10-08] MEDS: Topiramate 25 MG TAB PO SCH ×2 (09:02→20:54)
[2019-10-08] MEDS ORDERED: Aspirin 81 mg Enteric Coated Tablet ONE (09:05)
--- NOTE | 2019-10-08 10:13 | PDOC.CPN ---
- Subjective Date: 10/08/19 Time: 10:11 Interval history: No new complaints. Still with intermittent breaththrough atrial tach. Repeat EKG with mild QT prolongation after flecainide. Not currently significant. - Review of Systems General: denies: fever/chills, weight/appetite/sleep changes, night sweats, fatigue Respiratory: denies: cough, congestion, shortness of breath, exercise intolerance Cardiovascular: denies: chest pain, palpitation, edema, paroxysmal nocturnal dyspnea, orthopnea Gastrointestinal: denies: nausea, vomiting, diarrhea, constipation, abd pain, GI bleeding Musculoskeletal: denies: pain, tenderness, stiffness, swelling, arthritis/ arthralgias Neurological: denies: numbness, syncope, seizure, weakness - Objective Allergies/Adverse Reactions: Allergies Allergy/AdvReac Type Severity Reaction Status Date / Time acetaminophen [From Tylenol] Allergy Severe Swollen Verified 09/07/19 19:34 Lips Visit Medications: Current Medications Aspirin (Ecotrin) 81 mg PO QAM [facility] Last Admin: 10/08/19 09:13 Dose: Not Given Divalproex Sodium (Depakote Er) 1,500 mg PO HS [facility] Last Admin: 10/07/19 22:17 Dose: 1,500 mg Flecainide Acetate (Tambocor) 100 mg PO Q12HR [facility] Last Admin: 10/08/19 08:56 Dose: 100 mg Gabapentin (Neurontin) 300 mg PO BID [facility] Last Admin: 10/08/19 08:57 Dose: 300 mg Diltiazem HCl 125 mg/ Sodium (Chloride) 125 mls @ 10 mls/hr IVPB INF [facility] Levothyroxine Sodium (Synthroid) 25 mcg PO 0600 [facility] Last Admin: 10/08/19 07:25 Dose: 25 mcg Metoprolol Succinate (Toprol Xl) 50 mg PO DAILY [facility] Last Admin: 10/08/19 08:57 Dose: 50 mg Midodrine (Proamatine) 5 mg PO TID [facility] Last Admin: 10/08/19 08:57 Dose: 5 mg Multivitamins (Theragran) 1 tab PO DAILY [facility] Last Admin: 10/08/19 08:57 Dose: 1 tab Olanzapine (Zyprexa) 15 mg PO DAILY [facility] Last Admin: 10/08/19 08:56 Dose: 15 mg Pantoprazole Sodium (Protonix) 40 mg PO DAILY [facility] Last Admin: 10/08/19 08:57 Dose: 40 mg Rivaroxaban (Xarelto) 20 mg PO 1800 [facility] Last Admin: 10/07/19 17:27 Dose: 20 mg Rosuvastatin Calcium (Crestor) 10 mg PO HS [facility] Last Admin: 10/07/19 22:18 Dose: 10 mg Sodium Chloride (Flush - Normal Saline) 10 ml IVF Q12HR [facility] Last Admin: 10/08/19 09:08 Dose: 10 ml Sodium Chloride (Flush - Normal Saline) 10 ml IVF PRN PRN PRN Reason: Saline Flush Sucralfate (Carafate) 1 gm PO TID [facility] Last Admin: 10/08/19 08:57 Dose: 1 gm Tamsulosin HCl (Flomax) 0.4 mg PO 2100 [facility] Last Admin: 10/07/19 22:17 Dose: 0.4 mg Topiramate (Topamax) 25 mg PO BID [facility] Last Admin: 10/08/19 09:02 Dose: 25 mg Zolpidem Tartrate (Ambien) 5 mg PO [facility] Last Admin: 10/07/19 22:18 Dose: 5 mg Vital Signs & Weight: Vital Signs Temp Pulse Resp BP Pulse Ox 10/08/19 07:37 97.5 F L 77 20 142/77 H 97 10/08/19 04:14 97.5 F L 71 16 135/74 96 Weight 274 lb - Physical Exam General: alert & oriented x3, no apparent distress HEENT: mucus membranes moist Neck: supple neck Cardiac: regular rate and rhythm Lungs: clear to auscultation Neuro: grossly intact Abdomen: unremarkable Extremities: no edema Skin: clear Musculoskeletal: no pain - Labs Result Diagrams: 10/05/19 04:13 10/04/19 08:50 Troponin/CKMB Troponin I 0.010 ng/mL (< 0.028) 10/04/19 07:04 - Assessment/Plan Assessment/Plan: 1. AFlutter with RVR 2. BPD 3. History of recurrent syncope/dystonia 4. Paroxysmal AF s/p previous PVI Still with short breakthrough runs of tachy. Will increase Toprol.
--- NOTE | 2019-10-08 15:58 | PDOC.HOSPP ---
- Subjective Encounter Date: 10/08/19 Encounter Time: 09:00 Subjective: Pt seen for followup re: dysautonomia. Feels better, no complaints today. - Objective Vital Signs & Weight: Vital Signs (12 hours) Temp Pulse Resp BP Pulse Ox 10/08/19 11:45 97.3 F L 80 16 121/77 95 10/08/19 07:37 97.5 F L 77 20 142/77 H 97 10/08/19 04:14 97.5 F L 71 16 135/74 96 Weight Weight 274 lb I&O: 10/07/19 10/08/19 10/09/19 06:59 06:59 06:59 Intake Total 1560 1940 Output Total 400 1520 Balance 1160 420 Result Diagrams: 10/05/19 04:13 10/04/19 08:50 Additional Labs: Labs and MARs reviewed by me EKG Reviewed by me: Yes (Tele; atrial arrhythmias) Hospitalist ROS - Review of Systems Cardiovascular: denies: chest pain, palpitations, orthopnea, paroxysmal noc. dyspnea, edema, light headedness Skin: denies: rash, lesions, marilynn, bruising - Medication Medications: Active Medications Generic Name Dose Route Start Last Admin Trade Name Freq PRN Reason Stop Dose Admin Aspirin 81 mg 10/05/19 09:00 10/08/19 09:13 Ecotrin PO Not Given QAM THALIA Divalproex Sodium 1,500 mg 10/04/19 21:00 10/07/19 22:17 Depakote Er PO 1,500 mg HS THALIA Administration Flecainide Acetate 100 mg 10/07/19 09:00 10/08/19 08:56 Tambocor PO 100 mg Q12HR THALIA Administration Gabapentin 300 mg 10/04/19 21:00 10/08/19 08:57 Neurontin PO 300 mg BID THALIA Administration Levothyroxine Sodium 25 mcg 10/05/19 06:00 10/08/19 07:25 Synthroid PO 25 mcg 0600 THALIA Administration Midodrine 5 mg 10/07/19 21:00 10/08/19 15:48 Proamatine PO 5 mg TID THALIA Administration Multivitamins 1 tab 10/05/19 09:00 10/08/19 08:57 Theragran PO 1 tab DAILY THALIA Administration Olanzapine 15 mg 10/05/19 09:00 10/08/19 08:56 Zyprexa PO 15 mg DAILY THALIA Administration Pantoprazole Sodium 40 mg 10/05/19 09:00 10/08/19 08:57 Protonix PO 40 mg DAILY THALIA Administration Rivaroxaban 20 mg 10/04/19 18:00 10/07/19 17:27 Xarelto PO 20 mg 1800 THALIA Administration Rosuvastatin Calcium 10 mg 10/04/19 21:00 10/07/19 22:18 Crestor PO 10 mg HS THALIA Administration Sodium Chloride 10 ml 10/04/19 09:00 10/08/19 09:08 Flush - Normal Saline IVF 10 ml Q12HR THALIA Administration Sucralfate 1 gm 10/04/19 15:00 10/08/19 15:48 Carafate PO 1 gm TID THALIA Administration Tamsulosin HCl 0.4 mg 10/05/19 21:00 10/07/19 22:17 Flomax PO 0.4 mg 2100 THALIA Administration Topiramate 25 mg 10/04/19 21:00 10/08/19 09:02 Topamax PO 25 mg BID THALIA Administration Zolpidem Tartrate 5 mg 10/04/19 21:00 10/07/19 22:18 Ambien PO 5 mg HS THALIA Administration - Exam General - other findings: Morbid obese Eye: anicteric sclera ENT: moist mucosa Neck: supple, no JVD Heart: RRR Respiratory: CTAB Gastrointestinal: soft, non-tender Extremities: no clubbing Psychiatric: normal affect, normal behavior Hosp A/P - Plan ASSESSMENT/PLAN: * dysautonomia * stable * symptomatic bradycardia with labile hypotension * Pt started on midodrine * atrial flutter * atrial fibrillation * Continue metoprolol and flecainide * Likely home tomorrow after seen by EP service.
[2019-10-08] MEDS: Rivaroxaban 10 MG TAB PO SCH (17:37)
[2019-10-08] MEDS: Rosuvastatin 10 MG TAB PO SCH (20:32)
[2019-10-08] MEDS: Tamsulosin HCl 0.4 MG CAP PO SCH (20:32)
[2019-10-08] MEDS: Zolpidem Tartrate 5 MG TAB PO SCH (20:33)
[2019-10-09] MEDS: Levothyroxine Sodium 25 MCG TAB PO SCH (05:27)
[2019-10-09] MEDS: Aspirin 81 mg Enteric Coated Tablet PO SCH (09:42)
[2019-10-09] MEDS: Gabapentin 300 MG CAP PO SCH ×2 (09:42→21:05)
[2019-10-09] MEDS: Flecainide 50 MG TAB PO SCH ×2 (09:42→21:05)
[2019-10-09] MEDS: Midodrine HCl 5 MG TAB PO SCH ×3 (09:43→21:05)
[2019-10-09] MEDS: OLANZapine 5 MG TAB PO SCH (09:43)
[2019-10-09] MEDS: Multivit, Therapeutic 1 TAB PO SCH (09:43)
[2019-10-09] MEDS: Sucralfate 1 GM TAB PO SCH ×3 (09:44→21:05)
[2019-10-09] MEDS: Topiramate 25 MG TAB PO SCH ×2 (09:44→21:05)
--- NOTE | 2019-10-09 16:31 | PDOC.EP ---
- Subjective Date: 10/09/19 Time: 16:29 Interval History: follow up for atrial flutter and medication management. Patient asleep in bed. Slightly difficult to arouse which is not entirely uncommon with this gentleman. He denies any cardiac events or concerns currently. - Review of Systems Constitutional: denies: chills, fever, malaise, sweats, weakness, other Respiratory: denies: cough, dry, hemoptysis, pleuritic pain, shortness of breath , SOB with excertion, sputum, wheezing, other Cardiology: denies: chest pain, edema, heart racing, light headedness, passing out - Objective Allergies/Adverse Reactions: Allergies Allergy/AdvReac Type Severity Reaction Status Date / Time acetaminophen [From Tylenol] Allergy Severe Swollen Verified 09/07/19 19:34 Lips Current Medications Aspirin (Ecotrin) 81 mg PO QAM [facility] Last Admin: 10/09/19 09:42 Dose: 81 mg Divalproex Sodium (Depakote Er) 1,500 mg PO [facility] Last Admin: 10/08/19 20:54 Dose: 1,500 mg Flecainide Acetate (Tambocor) 100 mg PO Q12HR [facility] Last Admin: 10/09/19 09:42 Dose: 100 mg Gabapentin (Neurontin) 300 mg PO BID [facility] Levothyroxine Sodium (Synthroid) 25 mcg PO 0600 [facility] Last Admin: 10/09/19 05:27 Dose: 25 mcg Metoprolol Succinate (Toprol Xl) 25 mg PO DAILY [facility] Last Admin: 10/09/19 09:43 Dose: 25 mg Midodrine (Proamatine) 5 mg PO TID [facility] Last Admin: 10/09/19 09:43 Dose: 5 mg Multivitamins (Theragran) 1 tab PO DAILY [facility] Last Admin: 10/09/19 09:43 Dose: 1 tab Olanzapine (Zyprexa) 15 mg PO DAILY [facility] Last Admin: 10/09/19 09:43 Dose: 15 mg Pantoprazole Sodium (Protonix) 40 mg PO DAILY [facility] Last Admin: 10/09/19 09:43 Dose: 40 mg Rivaroxaban (Xarelto) 20 mg PO 1800 [facility] Last Admin: 10/08/19 17:37 Dose: 20 mg Rosuvastatin Calcium (Crestor) 10 mg PO [facility] Last Admin: 10/08/19 20:32 Dose: 10 mg Sodium Chloride (Flush - Normal Saline) 10 ml IVF Q12HR [facility] Last Admin: 10/09/19 09:44 Dose: 10 ml Sodium Chloride (Flush - Normal Saline) 10 ml IVF PRN PRN PRN Reason: Saline Flush Sucralfate (Carafate) 1 gm PO TID [facility] Last Admin: 10/09/19 09:44 Dose: 1 gm Tamsulosin HCl (Flomax) 0.4 mg PO 2100 [facility] Last Admin: 10/08/19 20:32 Dose: 0.4 mg Topiramate (Topamax) 25 mg PO BID [facility] Last Admin: 10/09/19 09:44 Dose: 25 mg Zolpidem Tartrate (Ambien) 5 mg PO HS [facility] Last Admin: 10/08/19 20:33 Dose: 5 mg Vital Signs & Weight: Vital Signs Temp Pulse Resp BP Pulse Ox 10/09/19 11:44 98.3 F 76 14 133/74 95 10/09/19 08:20 95 10/09/19 07:35 97.1 F L 69 16 137/83 95 Weight 272 lb 11.2 oz I/O: I/O 10/08/19 10/09/19 10/10/19 06:59 06:59 06:59 Intake Total 1940 2780 Output Total 1520 550 Balance 420 2230 - Quality Measures Condition: Atrial Fibrillation/Flutter (hx or current) CV meds: Xarelto: Yes - Physical Exam General: no apparent distress, affect appropriate (at baseline.). negative: speech clear HEENT: mucus membranes moist, normocephaly. negative: jaundice Neck: supple neck, no JVD/HJR, no lymphadenopathy Cardiology: regular rate and rhythm, PMI nondisplaced Lungs: clear to auscultation, normal breath sounds, no wheeze, rales, rhonchi Neurology: cranial nerve 2-12 intact, grossly intact, sensory function intact - Labs Result Diagrams: 10/05/19 04:13 10/04/19 08:50 - EKG Interpretation EKG Method: Telemetry - Assessment/Plan Assessment/Plan: 1. Atrial arrhythmias - s/p PVAI and redo CTI flutter ablation on 09/18, refractory to flecainide - inflammative early recurrence of non sustained atrial flutter and PAT runs prompting reinitiation of flecainide. - No clear correlation of symptoms with tachy episodes. - rhythm stable x 24 hrs - Continue flecainide 100mg BID and toprol XL 25mg daily 2. Oral anticoagulation - requires at least 6-8 weeks OAC post ablation despite low CHADS2-VASC score - continue xarelto 3. 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 Bipolar - lithium levels now stable, per medicine 5. Recurrent syncope and collapse - questionable use of midodrine per admission. BP stable now on midodrine 5 TID OK for DC by EP. Had CONSTANTINE in August. Consider lower midodrine dose if creatinine elevates although it was stable at admit this visit.
--- NOTE | 2019-10-09 16:46 | PRG ---
DATE OF SERVICE: 10/09/2019 SUBJECTIVE: Mr. Sheridan is very sleepy. He really seems very groggy. No chest pain or pressure. OBJECTIVE: VITAL SIGNS: Blood pressure 133/74, pulse 76 and regular. LUNGS: Clear. CARDIAC: Normal S1, normal S2. ABDOMEN: Obese, nontender. EXTREMITIES: No edema. ASSESSMENT: 1. Cardiac status appears stable. 2. Very groggy. PLAN: Check electrolytes tomorrow. Hopefully be able to be released home tomorrow. Job ID: [id number]
--- NOTE | 2019-10-09 17:42 | PDOC.HOSPP ---
- Subjective Encounter Date: 10/09/19 Encounter Time: 07:40 Subjective: t seen for followup re: dysautonomia. No complaints today. - Objective Vital Signs & Weight: Vital Signs (12 hours) Temp Pulse Resp BP BP Pulse Ox 10/09/19 16:25 97.9 F 72 16 117/50 L 96 10/09/19 11:44 98.3 F 76 14 133/74 95 10/09/19 08:20 95 10/09/19 07:35 97.1 F L 69 16 137/83 95 Weight Weight 272 lb 11.2 oz I&O: 10/08/19 10/09/19 10/10/19 06:59 06:59 06:59 Intake Total 1940 2780 Output Total 1520 550 Balance 420 2230 Result Diagrams: 10/10/19 04:09 10/10/19 04:09 Additional Labs: Labs and MARs reviewed by me EKG Reviewed by me: Yes (tele: NSR) Hospitalist ROS - Review of Systems Constitutional: denies: fever, chills, sweats, weakness, malaise Cardiovascular: denies: chest pain, palpitations, orthopnea, paroxysmal noc. dyspnea, edema, light headedness - Medication Medications: Active Medications Generic Name Dose Route Start Last Admin Trade Name Freq PRN Reason Stop Dose Admin Aspirin 81 mg 10/05/19 09:00 10/09/19 09:42 Ecotrin PO 81 mg QAM THALIA Administration Divalproex Sodium 1,500 mg 10/04/19 21:00 10/08/19 20:54 Depakote Er PO 1,500 mg HS THALIA Administration Flecainide Acetate 100 mg 10/07/19 09:00 10/09/19 09:42 Tambocor PO 100 mg Q12HR [facility]ALIA Administration Levothyroxine Sodium 25 mcg 10/05/19 06:00 10/09/19 05:27 Synthroid PO 25 mcg 0600 [facility] Administration Metoprolol Succinate 25 mg 10/09/19 09:00 10/09/19 09:43 Toprol Xl PO 25 mg DAILY [facility] Administration Midodrine 5 mg 10/07/19 21:00 10/09/19 16:29 Proamatine PO 5 mg TID THALIA Administration Multivitamins 1 tab 10/05/19 09:00 10/09/19 09:43 Theragran PO 1 tab DAILY [facility]AL[facility] Administration Olanzapine 15 mg 10/05/19 09:00 10/09/19 09:43 Zyprexa PO 15 mg DAILY [facility] Administration Pantoprazole Sodium 40 mg 10/05/19 09:00 10/09/19 09:43 Protonix PO 40 mg DAILY [facility] Administration Rivaroxaban 20 mg 10/04/19 18:00 10/08/19 17:37 Xarelto PO 20 mg 1800 THALIA Administration Rosuvastatin Calcium 10 mg 10/04/19 21:00 10/08/19 20:32 Crestor PO 10 mg HS THALIA Administration Sodium Chloride 10 ml 10/04/19 09:00 10/09/19 09:44 Flush - Normal Saline IVF 10 ml Q12HR [facility]ALIA Administration Sucralfate 1 gm 10/04/19 15:00 10/09/19 16:29 Carafate PO 1 gm TID THALIA Administration Tamsulosin HCl 0.4 mg 10/05/19 21:00 10/08/19 20:32 Flomax PO 0.4 mg 2100 [facility] Administration Topiramate 25 mg 10/04/19 21:00 10/09/19 09:44 Topamax PO 25 mg BID [facility] Administration Zolpidem Tartrate 5 mg 10/04/19 21:00 10/08/19 20:33 Ambien PO 5 mg HS THALIA Administration - Exam General Appearance: NAD Eye: anicteric sclera ENT: moist mucosa Neck: supple Heart: RRR Respiratory: CTAB Gastrointestinal: soft, non-tender Musculoskeletal: normal tone, normal strength Psychiatric: normal affect, normal behavior Hosp A/P - Plan ASSESSMENT/PLAN: * dysautonomia * stable, continue midodrine * symptomatic bradycardia with labile hypotension * continue midodrine * atrial flutter * atrial fibrillation * Continue metoprolol and flecainide * Likely home in 24 h. * *
[2019-10-09] MEDS: Rivaroxaban 10 MG TAB PO SCH (18:06)
--- NOTE | 2019-10-09 18:59 | EKG ---
Test Reason : Blood Pressure : / mmHG Vent. Rate : 113 BPM Atrial Rate : 326 BPM P-R Int : 000 ms QRS Dur : 092 ms QT Int : 330 ms P-R-T Axes : 000 054 076 degrees QTc Int : 452 ms Demand pacemaker; interpretation is based on intrinsic rhythm Atrial fibrillation with rapid ventricular response with premature ventricular or aberrantly conducte d complexes Nonspecific T wave abnormality , probably digitalis effect Abnormal ECG When compared with ECG of 03-OCT-2019 23:13, (Unconfirmed) Atrial fibrillation has replaced Electronic ventricular pacemaker Vent. rate has increased BY 64 BPM Confirmed by NEVIN JENKINS, DR. Ruano (4) on 10/09/2019 6:58:29 PM Referred By: [facility] Confirmed By:DR. Bindu ROONEY MD
--- NOTE | 2019-10-09 19:02 | EKG ---
Test Reason : Blood Pressure : / mmHG Vent. Rate : 078 BPM Atrial Rate : 078 BPM P-R Int : 190 ms QRS Dur : 096 ms QT Int : 406 ms P-R-T Axes : 042 044 061 degrees QTc Int : 462 ms Normal sinus rhythm Nonspecific T wave abnormality Prolonged QT Abnormal ECG When compared with ECG of 07-OCT-2019 05:21, (Unconfirmed) Premature atrial complexes are no longer Present Confirmed by NEVIN JENKINS, STammy (4) on 10/09/2019 7:02:25 PM Referred By: [facility] Confirmed By:DR. Bindu ROONEY MD
--- NOTE | 2019-10-09 19:02 | EKG ---
Test Reason : Blood Pressure : / mmHG Vent. Rate : 080 BPM Atrial Rate : 080 BPM P-R Int : 000 ms QRS Dur : 096 ms QT Int : 404 ms P-R-T Axes : 040 038 069 degrees QTc Int : 465 ms demand atrial pacemaker Sinus rhythm with Premature atrial complexes Nonspecific T wave abnormality Prolonged QT Abnormal ECG When compared with ECG of 06-OCT-2019 13:41, (Unconfirmed) Sinus rhythm has replaced Atrial fibrillation Confirmed by ENVIN JENKINS, DR. Ruano (4) on 10/09/2019 7:01:56 PM Referred By: [facility] Confirmed By:DR. Bindu ROONEY MD
[2019-10-09] MEDS ORDERED: Gabapentin 300 MG CAP PO SCH (21:00)
[2019-10-09] MEDS: Tamsulosin HCl 0.4 MG CAP PO SCH (21:05)
[2019-10-09] MEDS: Rosuvastatin 10 MG TAB PO SCH (21:05)
[2019-10-09] MEDS: Zolpidem Tartrate 5 MG TAB PO SCH (21:06)
[2019-10-10 04:41] LABS: #Eosinphils 0.4 thou/uL (0.0-0.7); #Lymphocytes 1.7 thou/uL (1.20-3.40); #Monocytes 0.6 thou/uL (0.11-0.59); #Neutrophils 3.3 thou/uL (1.40-6.50); %Lymphocytes 28.3 % (21.0-51.0); %Monocytes 9.4 % (0.0-10.0); %Neutrophils 55.2 % (42.0-75.0); Hemoglobin 10.8 g/dL (14.0-18.0); Mean Corpuscular Hemoglobin 29.4 pg (27.0-31.0); Mean Platelet Volume 8.1 fL (7.4-10.4); Platelet Count 210 thou/uL (130-400); RBC Distribution Width 13.6 % (11.5-14.5); Red Blood Cell (RBC) Count 3.68 mill/uL (4.70-6.10); White Blood Cell (WBC) Count 5.9 thou/uL (4.8-10.8)
[2019-10-10 04:54] LABS: Anion Gap 12 mmol/L (10-20); BUN (Urea Nitrogen) 18 mg/dL (8.9-20.6); Calc. Creatinine Clearance 182 mL/min (70-130); Calcium 8.5 mg/dL (7.8-10.44); Carbon Dioxide 27 mmol/L (22-29); Chloride 106 mmol/L (98-107); Estimated GFR-MDRD Greater than 90; Glucose 95 mg/dL (70-105); Potassium 3.6 mmol/L (3.5-5.1); Sodium 141 mmol/L (136-145)
[2019-10-10] MEDS: Levothyroxine Sodium 25 MCG TAB PO SCH (06:09)
[2019-10-10] MEDS: Gabapentin 300 MG CAP PO SCH (08:37)
[2019-10-10] MEDS: Flecainide 50 MG TAB PO SCH (08:37)
[2019-10-10] MEDS: OLANZapine 5 MG TAB PO SCH (08:37)
[2019-10-10] MEDS: Midodrine HCl 5 MG TAB PO SCH ×2 (08:37→14:52)
[2019-10-10] MEDS: Aspirin 81 mg Enteric Coated Tablet PO SCH (08:37)
[2019-10-10] MEDS: Sucralfate 1 GM TAB PO SCH ×2 (08:37→14:52)
[2019-10-10] MEDS: Multivit, Therapeutic 1 TAB PO SCH (08:38)
[2019-10-10] MEDS: Topiramate 25 MG TAB PO SCH (08:45)
--- NOTE | 2019-10-10 11:53 | PRG ---
DATE OF SERVICE: 10/10/2019 SUBJECTIVE: Mr. Sheridan feels better today. No chest pain. His heart rate is controlled. OBJECTIVE: VITAL SIGNS: Blood pressure 132/70. LUNGS: Clear. CARDIAC: Normal S1. Normal S2. ABDOMEN: Soft and nontender. ASSESSMENT: 1. Labile hypertension. 2. Atrial arrhythmias, controlled. PLAN: He is on multiple medications including midodrine 5 mg 3 times a day, Toprol-XL 25 mg a day, aspirin 81 mg a day, flecainide 100 mg twice a day, Xarelto 20 mg a day, and Crestor 10 mg a day. Job ID: [id number]
[2019-10-10 15:20] VITALS: BP 137/71; TEMP 98.1
--- NOTE | 2019-10-11 02:13 | DIS ---
DATE OF ADMISSION: 10/04/2019 DATE OF DISCHARGE: 10/10/2019 PRIMARY CARE PROVIDER: Calin To MD DISCHARGE DIAGNOSES: 1. Symptomatic bradycardia. 2. Labile hypotension. 3. Atrial fibrillation/flutter. 4. Dysautonomia. Please note that I dictated another discharge summary on 10/07/2019. The patient was not discharged home that day and was held back for observation on telemetry. CONDITION OF PATIENT ON THE DAY OF DISCHARGE: Stable. I assessed Mr. Sheridan on the day of discharge. He denies any complaints. Vital signs are stable. S1 and S2 are heard, regular. Lungs are clear to auscultation bilaterally. CONSULTATIONS DURING THIS HOSPITALIZATION: Cardiology, Dr. Sandoval and electrophysiology, Dr. Brito. HOSPITAL COURSE: As dictated in my discharge summary dated 10/07/2019. DISCHARGE MEDICATIONS: His midodrine dose has been increased to 5 mg 3 times a day. Otherwise, no change was made to his medications as dictated in my discharge summary dated 10/07/2019. Please note that his lithium level was low at 0.938 during this hospitalization. Many thanks for allowing me to participate in your patient's care. Please feel free to contact me with any questions or concerns. POST-ACUTE CARE FOLLOWUP: With primary care provider in 3 days. DIET: Heart healthy. ACTIVITY: As tolerated. DISCHARGE DESTINATION: Home. TIME SPENT: Total amount of time spent coordinating this discharge: 18 minutes. Job ID: [id number] MTDD
--- NOTE | 2019-10-16 22:44 | PQF ---
JR QUINN DAVID [id number] CLINICAL DOCUMENTATION CLARIFICATION FORM: POST DISCHARGE Addendum to original discharge summary date: ____ Late entry note date: __ DATE:10/16/2019 ATTN: KAILA COTA Please exercise your independent, professional judgment in responding to the clarification form. Clinical indicators are provided on the bottom of this form for your review Please check appropriate box(s): [ x ] Hypotension due to dysautonomia [ ] Hypotension not due to dysautonomia [ ] Other diagnosis [ ] Unable to determine In addition, please specify: Present on Admission (POA): [ x ] Yes [ ] No [ ] Unable to determine For continuity of documentation, please document condition throughout progress notes and discharge summary. Thank You. CLINICAL INDICATORS - SIGNS / SYMPTOMS / LABS Dizziness, lightheadedness-Documented in H&P on 10/04 by Rishabh Caldwell MD Multiple episodes of near syncope at 1.00 P.M. While at home prompting his spouse to drive him to a tertiary ER for further evaluation, There he was noted to have severe hypotension of 55/30 and responded to IV fluid boluses.Documented in H&P on 10/04 by Rishabh Caldwell MD Dysautonomia-Documented in Hospitalist progress note on 10/05 by Jf Cardenas MD Symptomatic bradycardia with labile hypotension -Documented in Hospitalist progress note on 10/05 by Jf Cardenas MD Atrial flutter, atrial fibrillation -Documented in Hospitalist progress note on 10/05 by Jf Cardenas MD RISK FACTORS Symptomatic bradycardia with labile hypotension -Documented in Hospitalist progress note on 10/05 by Jf Cardenas MD Atrial flutter, atrial fibrillation -Documented in Hospitalist progress note on 10/05 by Jf Cardenas MD TREATMENTS: He has also been started on midodrine -Documented in Discharge summary on 10/07 by Manfred Hall Sodium chloride 1000 ml IV -Documented in Medication snapshot [employer] 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 All Rights Reserved [email or web address] [phone] [email or web address]
== END 2019-10-10 16:50 | disposition home or self-care (01) | DRG 91 ==
LOC: ERS 23:02 → 2NO 10-04 02:55
PROVIDERS: ADMIT Hospitalist; ATTEND Hospitalist
DX: G90.1 Familial dysautonomia [Riley-Day] (principal); R40.2122 Coma scale, eyes open, to pain, at arrival to emergency department; N17.9 Acute kidney failure, unspecified; E87.2 Acidosis; I48.92 Unspecified atrial flutter; Z68.41 Body mass index [BMI] 40.0-44.9, adult; I95.9 Hypotension, unspecified; R00.1 Bradycardia, unspecified; G47.33 Obstructive sleep apnea (adult) (pediatric); I10 Essential (primary) hypertension; F31.9 Bipolar disorder, unspecified; G40.909 Epilepsy, unspecified, not intractable, without status epilepticus; R40.2362 Coma scale, best motor response, obeys commands, at arrival to emergency department; R40.2252 Coma scale, best verbal response, oriented, at arrival to emergency department; E03.9 Hypothyroidism, unspecified; I49.9 Cardiac arrhythmia, unspecified; E66.9 Obesity, unspecified; I48.0 Paroxysmal atrial fibrillation; Z95.0 Presence of cardiac pacemaker; Z82.49 Family history of ischemic heart disease and other diseases of the circulatory system; Z88.8 Allergy status to other drugs, medicaments and biological substances
CPT/HCPCS: 36415; 36416; 80048; 80178; 84484; 85025; 85027; 93005; 93010; 93306; 94760; Q0162

== ENCOUNTER 2020-02-27 15:59 | Observation (INO) | payer OTHER ==
--- NOTE | 2020-02-27 17:20 | RAD ---
RADIOGRAPH CHEST 1 VIEW: DATE: 02/27/2020 HISTORY: 44-year-old male with hypertension FINDINGS: There are no airspace densities, pulmonary edema, pneumothorax, or cardiomegaly. The lateral costophr enic angles are sharp. Left-sided generator with double lead pacemaker. IMPRESSION: 1. No acute cardiopulmonary findings. 2. Transvenous permanent pacemaker.
[2020-02-27 19:18] LABS: #Basophils 0.1 thou/uL (0.0-0.2); #Eosinphils 0.2 thou/uL (0.0-0.7); #Lymphocytes 1.5 thou/uL (1.20-3.40); #Monocytes 0.7 thou/uL (0.11-0.59); #Neutrophils 5.7 thou/uL (1.40-6.50); %Basophils 0.6 % (0.0-1.0); %Eosinophils 2.4 % (0.0-10.0); %Lymphocytes 18.8 % (21.0-51.0); %Monocytes 8.5 % (0.0-10.0); %Neutrophils 69.7 % (42.0-75.0); Hemoglobin 14.7 g/dL (14.0-18.0); Mean Corpuscular HGB CONC 35.2 g/dL (32.0-36.0); Mean Corpuscular Hemoglobin 29.9 pg (27.0-31.0); Mean Platelet Volume 8.4 fL (7.4-10.4); Platelet Count 222 thou/uL (130-400); RBC Distribution Width 12.5 % (11.5-14.5); White Blood Cell (WBC) Count 8.2 thou/uL (4.8-10.8)
[2020-02-27 19:26] LABS: Bilirubin Negative (Negative); Blood, Urine Negative (Negative); Clarity Clear (Clear); Glucose, Urine (Dipstick) Normal (Negative); Leukocyte Negative Leu/uL (Negative); Nitrite Negative (Negative); Protein, Urine (Dipstick) 20 mg/dL (Neg-Trace); Urobilinogen Normal mg/dL (Less than 2)
[2020-02-27 19:45] LABS: ALT (SGPT) 30 U/L (8-55); AST (SGOT) 18 U/L (5-34); Albumin 4.4 g/dL (3.5-5.0); Alkaline Phosphatase 114 U/L (40-110); Anion Gap 14 mmol/L (10-20); BUN (Urea Nitrogen) 15 mg/dL (8.9-20.6); Bilirubin, Total 0.8 mg/dL (0.2-1.2); CK (CPK) 51 U/L (30-200); Calc. Creatinine Clearance 0 mL/min (70-130); Calcium 9.5 mg/dL (7.8-10.44); Carbon Dioxide 27 mmol/L (22-29); Chloride 101 mmol/L (98-107); Estimated GFR-MDRD Greater than 90; Globulin 3.4 g/dL (2.4-3.5); Glucose 97 mg/dL (70-105); Lipase 44 U/L (8-78); Potassium 3.3 mmol/L (3.5-5.1); Protein, Total 7.8 g/dL (6.0-8.3); Sodium 139 mmol/L (136-145)
[2020-02-27] MEDS ORDERED: Aspirin Chewable 81 MG TAB ONE (21:22)
[2020-02-27 22:34] LABS: Troponin I Less than 0.010 ng/mL (< 0.028)
--- NOTE | 2020-02-27 23:53 | PDOC.HHP ---
Hospitalist HPI - History of Present Illness Persistent chest pain x 3 days. History of Present Illness: Patient states he has been experiencing constant central chest pressure for the last 3 days. At its worst it is a 5/10 in severity and he has noted an elevated BP. Normally his BP runs in the 180s/100 range. As of recently his DBP has been 115 to 130. He has been taking 0.1 mg of Clonidine hourly and initially it helps to improve his BP slightly with some improvement in his discomfort but this only lasts 40 min to an hour. He has had blurring of his vision. No facial numbness or tingling. No headache no nausea/vomiting. Reports having discomfort in the left shoulder and left side of his neck with weakness in his left arm and tingling in his left hand. Denies any lower extremity weakness. No speech changes. Denies any sob. All other ROS negative. ED Course: EKG, NSR with HR of 93. PACs. No ST changes. T waves inverted in lead III. Patient given aspirin 324 mg. CXR unremarkable. UA done and unremarkable. Labs notable for slightly low potassium of 3.3 Hospitalist ROS - Review of Systems Constitutional: denies: fever, chills, sweats, weakness, malaise, other Eyes: reports: vision change (blurred vision). denies: pain, conjunctivae inflammation, eyelid inflammation, redness, other ENT: denies: ear pain, ear discharge, nose pain, nose discharge, nose congestion , mouth pain, mouth swelling, throat pain, throat swelling, other Respiratory: denies: cough, dry, shortness of breath, hemoptysis, SOB with excertion, pleuritic pain, sputum, wheezing, other Cardiovascular: reports: chest pain. denies: palpitations, orthopnea, paroxysmal noc. dyspnea, edema, light headedness, other Gastrointestinal: denies: nausea, vomiting, abdominal pain, diarrhea, constipation, melena, hematochezia, other Genitourinary: denies: dysuria, frequency, incontinence, hematuria, retention, other Musculoskeletal: reports: shoulder pain (left shoulder pain). denies: neck pain , arm pain, back pain, hand pain, leg pain, foot pain, other Neurological: reports: weakness (left arm and hand). denies: numbness, incoordination, change in speech, confusion, seizures, other - Medication Medications: ALLERGIES: Acetaminophen. CURRENT MEDICATIONS: Aspirin Childrens TABLET, CHEWABLE : Strength - 81 mg : ORAL Patient Dose: 1 tab(s) Oral once a day. gabapentin CAPSULE (HARD, SOFT, ETC.) : Strength - 300 mg : ORAL Patient Dose: 1 tab(s) Oral 2 times a day. levETIRAcetam oral TABLET : Strength - 500 mg : ORAL Patient Dose: 1 tab(s) Oral 2 times a day. levothyroxine oral TABLET : Strength - 25 mcg : ORAL Patient Dose: 1 tab(s) Oral once a day. lisinopril TABLET : Strength - 20 mg : ORAL Patient Dose: 1 tab(s) Oral once a day. metoprolol succinate TABLET, EXTENDED RELEASE 24 HR : Strength - 100 mg : ORAL Patient Dose: 25 tab(s) Oral once a day. pantoprazole oral TABLET, DELAYED RELEASE (ENTERIC COATED) : Strength - 40 mg : ORAL Patient Dose: 1 tab(s) Oral once a day. Xarelto TABLET : Strength - 20 mg : ORAL Patient Dose: 1 tab(s) Oral once a day. cyclobenzaprine tablet : Strength - 10 mg : ORAL Patient Dose: 10 mg Oral 2 times a day. escitalopram oxalate tablet : Strength - 20 mg : ORAL Patient Dose: 20 mg Oral once a day. fenofibrate tablet : Strength - 160 mg : ORAL Patient Dose: 160 mg Oral once a day. topiramate tablet : Strength - 50 mg : ORAL Patient Dose: 50 mg Oral 2 times a day. midodrine tablet : Strength - 2.5 mg : ORAL Patient Dose: 2.5 mg Oral 3 times a day. lithium carbonate capsule : Strength - 300 mg : ORAL Patient Dose: 300 mg Oral 2 times a day. divalproex tablet extended release 24 hr : Strength - 250 mg : ORAL Patient Dose: 1500 mg Oral once a day (at bedtime). tamsulosin capsule : Strength - 0.4 mg : ORAL Patient Dose: 0.4 mg Oral once a day (at bedtime). Ambien tablet : Strength - 5 mg : ORAL Patient Dose: 5 mg Oral once a day. OLANZapine oral tablet : Strength - 15 mg : ORAL Patient Dose: 15 mg Oral once a day. rosuvastatin tablet : Strength - 10 mg : ORAL Patient Dose: 10 mg Oral once a day. zolpidem oral tablet : Strength - 10 mg : ORAL Patient Dose: 5 mg Oral once a day (at bedtime). Hospitalist History - Past Medical History Source: patient Cardiac: reports: AFIB, CAD, HTN, Hyperlipidemia, Other (PVCs.) EDUCATION ASSISTANT: reports: Seizure Psych: reports: Anxiety, Bipolar, Depression, Other (Complex migraines) Endocrine: reports: Hypothyroidism - Past Surgical History Past Surgical History: reports: Tonsillectomy, Other (Cardiac cath Pacemaker Loop recorder) - Family History Family History: reports: no pertinent history - Social History Smoking Status: Never smoker Alcohol: reports: None Drugs: reports: none Living Situation: With Family Activity level: independent ambulation - Exam General Appearance: NAD, awake alert Eye: PERRL, anicteric sclera ENT: normocephalic atraumatic, no oropharyngeal lesions, moist mucosa Neck: supple, no lymphadenopathy Neck - other findings: discomfort to left side of neck on palpation, normal ROM Heart: no murmur, normal peripheral pulses, irregular Respiratory: CTAB, no wheezes, no rales, no ronchi, normal chest expansion, no tachypnea Gastrointestinal: soft Hospitalist Results - Labs Result Diagrams: 02/27/20 18:58 02/27/20 18:58 Lab results: WBC 8.2 thou/uL (4.8-10.8) 02/27/20 18:58 Hgb 14.7 g/dL (14.0-18.0) 02/27/20 18:58 Hct 41.6 % (42.0-52.0) L 02/27/20 18:58 MCV 85.0 fL (78.0-98.0) 02/27/20 18:58 Plt Count 222 thou/uL (130-400) 02/27/20 18:58 Neutrophils % 69.7 % (42.0-75.0) 02/27/20 18:58 Sodium 139 mmol/L (136-145) 02/27/20 18:58 Potassium 3.3 mmol/L (3.5-5.1) L 02/27/20 18:58 Chloride 101 mmol/L (98-107) 02/27/20 18:58 Carbon Dioxide 27 mmol/L (22-29) 02/27/20 18:58 BUN 15 mg/dL (8.9-20.6) 02/27/20 18:58 Creatinine 0.77 mg/dL (0.7-1.3) 02/27/20 18:58 Glucose 97 mg/dL (70-105) 02/27/20 18:58 Calcium 9.5 mg/dL (7.8-10.44) 02/27/20 18:58 Total Bilirubin 0.8 mg/dL (0.2-1.2) 02/27/20 18:58 AST 18 U/L (5-34) 02/27/20 18:58 ALT 30 U/L (8-55) 02/27/20 18:58 Alkaline Phosphatase 114 U/L (40-110) H 02/27/20 18:58 Creatine Kinase 51 U/L (30-200) 02/27/20 18:58 Troponin I Less than 0.010 ng/mL (< 0.028) 02/27/20 21:48 B-Natriuretic Peptide 15.5 pg/mL (0-100) 02/27/20 18:58 Serum Total Protein 7.8 g/dL (6.0-8.3) 02/27/20 18:58 Albumin 4.4 g/dL (3.5-5.0) 02/27/20 18:58 Lipase 44 U/L (8-78) 02/27/20 18:58 Urine Ketones Negative mg/dL (Negative) 02/27/20 19:00 Urine Blood Negative (Negative) 02/27/20 19:00 Urine Nitrite Negative (Negative) 02/27/20 19:00 Ur Leukocyte Esterase Negative Kerry/uL (Negative) 02/27/20 19:00 - Radiology Interpretation Chest x-ray Status: report reviewed by or Hospitalist H&P A/P - Problem (1) Chest pain Code(s): R07.9 - CHEST PAIN, UNSPECIFIED Status: Acute (2) Pain of left shoulder joint on movement Code(s): M25.512 - PAIN IN LEFT SHOULDER Status: Acute (3) Muscle weakness of left upper extremity Code(s): M62.81 - MUSCLE WEAKNESS (GENERALIZED) Status: Acute (4) Uncontrolled hypertension Code(s): I10 - ESSENTIAL (PRIMARY) HYPERTENSION Status: Chronic (5) Chronic a-fib Code(s): I48.20 - CHRONIC ATRIAL FIBRILLATION, UNSPECIFIED Status: Chronic (6) Hypertension Code(s): I10 - ESSENTIAL (PRIMARY) HYPERTENSION Status: Chronic Qualifiers: Hypertension type: essential hypertension Qualified Code(s): I10 - Essential (primary) hypertension (7) Bipolar disorder Code(s): F31.9 - BIPOLAR DISORDER, UNSPECIFIED Status: Chronic (8) Hypothyroidism Code(s): E03.9 - HYPOTHYROIDISM, UNSPECIFIED Status: Chronic (9) Seizure Code(s): R56.9 - UNSPECIFIED CONVULSIONS Status: Chronic - Plan Plan: Cardiac monitoring. Trend troponins. Nitro bid ordered. Add Mg+ and TSH. Cardiology consult. (Per patient request, he sees Dr. Sandoval) CT scan of LUE given pain with palpation and movement. Monitor BP. PRN Hydralazine. GI prophylaxis with Famotidine. DVT Prophylaxis with mechanical SCDs. CODE STATUS FULL
[2020-02-28] MEDS ORDERED: Nitroglycerin 0.4 MG TAB (25 Tab Bottle) PO PRN (00:12)
[2020-02-28] MEDS ORDERED: hydrALAZINE 20 MG/ML VIAL SLOW IVP PRN (00:25)
[2020-02-28] MEDS ORDERED: Nitroglycerin 2% Ointment 1 INCH/1 GM Packet TOP SCH (01:00)
[2020-02-28] MEDS ORDERED: Potassium Chloride 20 MEQ in Premix Bag 1 BAG IVPB SCH (01:00)
[2020-02-28 01:32] LABS: Troponin I Less than 0.010 ng/mL (< 0.028)
[2020-02-28] MEDS ORDERED: Cyclobenzaprine 10 MG TAB PO PRN (03:40)
[2020-02-28] MEDS ORDERED: Potassium Chloride 20 MEQ/100 ML PREMIX BAG ONE (04:36)
[2020-02-28 08:02] LABS: #Eosinphils 0.2 thou/uL (0.0-0.7); #Lymphocytes 1.7 thou/uL (1.20-3.40); #Monocytes 0.8 thou/uL (0.11-0.59); #Neutrophils 4.8 thou/uL (1.40-6.50); %Basophils 0.5 % (0.0-1.0); %Eosinophils 2.2 % (0.0-10.0); %Lymphocytes 22.6 % (21.0-51.0); %Monocytes 10.1 % (0.0-10.0); %Neutrophils 64.6 % (42.0-75.0); Hemoglobin 13.9 g/dL (14.0-18.0); Mean Corpuscular HGB CONC 34.8 g/dL (32.0-36.0); Mean Corpuscular Hemoglobin 30.1 pg (27.0-31.0); Mean Corpuscular Volume 86.5 fL (78.0-98.0); Mean Platelet Volume 10.3 fL (7.4-10.4); Platelet Count 148 thou/uL (130-400); RBC Distribution Width 12.5 % (11.5-14.5); Red Blood Cell (RBC) Count 4.62 mill/uL (4.70-6.10); White Blood Cell (WBC) Count 7.4 thou/uL (4.8-10.8)
--- NOTE | 2020-02-28 08:03 | CT ---
PRELIMINARY REPORT/[facility]/EMERGENCY AFTER HOURS PROCEDURE: EXAM: CT left Shoulder, without IV contrast. CLINICAL HISTORY: Possible rotator cuff injury. The patient reports his pain is on the left side of his chest and radia ting to his left shoulder and left side of his neck TECHNIQUE: Axial images were acquired through the left shoulder without IV contrast. Reformatted images were rev iewed. COMPARISON: None provided. FINDINGS: BONES: No acute fracture or focal osseous lesion. JOINTS: No dislocation. Mild glenohumeral joint space loss with subchondral sclerosis and marginal osteophyt es compatible with mild degenerative osteoarthritis. Joint space narrowing within the acromioclavicu lar joint with soft tissue thickening consistent with degenerative change. No obvious rotator cuff i njury. The rotator cuff muscles demonstrate normal bulk and attenuation. SOFT TISSUES: Left chest wall dual-lead pacemaker with leads in the right atrium and right ventricle. The heart is enlarged. No pericardial effusion. Mild atelectasis within the left lung. IMPRESSION: 1. No acute osseous abnormality. 2. Mild left Glenohumeral and acromioclavicular joint arthrosis. 3. Left-sided cardiac pacemaker with cardiomegaly. ELECTRONICALLY SIGNED BY: Hugo Blanco M.D. Feb 28, 2020 12:56:38 AM CDT This report is intended for review by the ordering physician only, in accordance of law. If you recei ve this report in error, please call [facility] at [phone]. FINAL REPORT EMERGENCY AFTER HOURS CT LEFT SHOULDER WITHOUT CONTRAST: FINDINGS/IMPRESSION: I agree with the findings and impression given in the preliminary report per [facility] physici an. No evidence of acute osseous abnormality of the shoulder. POS: BRETT
[2020-02-28 08:24] LABS: Anion Gap 15 mmol/L (10-20); BUN (Urea Nitrogen) 17 mg/dL (8.9-20.6); Calc. Creatinine Clearance 0 mL/min (70-130); Calcium 9.2 mg/dL (7.8-10.44); Carbon Dioxide 26 mmol/L (22-29); Cardiac Risk 5.6 (Less than 4.5); Chloride 103 mmol/L (98-107); Cholesterol 209 mg/dl (< 200 Desired); Estimated GFR-MDRD Greater than 90; Glucose 104 mg/dL (70-105); HDL Cholesterol 37 mg/dL (>60 Neg Risk); LDL Cholesterol, Calculated 121 mg/dL; Potassium 3.5 mmol/L (3.5-5.1); Sodium 140 mmol/L (136-145); Triglycerides 256 mg/dL (Less than 150)
[2020-02-28] MEDS: Levothyroxine Sodium 25 MCG TAB PO SCH (08:30)
[2020-02-28] MEDS ORDERED: OLANZapine 5 MG TAB PO SCH (09:00)
[2020-02-28] MEDS ORDERED: Famotidine/PF 20 mg/2ml Vial SLOW IVP SCH (09:00)
[2020-02-28] MEDS ORDERED: Lisinopril 20 MG TAB PO SCH (09:00)
[2020-02-28] MEDS: Escitalopram Oxalate 20 mg Tablet PO SCH (09:55)
[2020-02-28] MEDS: Aspirin 325 mg Enteric Coated Tablet PO SCH (09:55)
[2020-02-28] MEDS: Tamsulosin HCl 0.4 MG CAP PO SCH (09:56)
[2020-02-28] MEDS: levETIRAcetam 500 MG TAB PO SCH ×2 (09:56→22:33)
[2020-02-28] MEDS: Topiramate 25 MG TAB PO SCH ×2 (09:57→22:33)
[2020-02-28 10:59] VITALS: BMI 44.0
--- NOTE | 2020-02-28 12:34 | PDOC.HOSPP ---
- Subjective Encounter Date: 02/28/20 Encounter Time: 11:00 Subjective: no chest pain or sob has left shoulder pain, no weakness or tingling in the arm he does not recall all of his meds f/u with psychiatrist for bipolar disorder with depression lives with his - Objective Vital Signs & Weight: Vital Signs (12 hours) Temp Pulse Resp BP Pulse Ox 02/28/20 11:49 98.5 F 73 16 143/88 H 96 02/28/20 08:36 97.7 F 76 18 129/69 97 02/28/20 06:35 97.8 F 98 20 171/101 H 98 Weight Weight 273 lb I&O: 02/27/20 02/28/20 02/29/20 06:59 06:59 06:59 Output Total 275 Balance -275 Result Diagrams: 02/28/20 07:53 02/28/20 07:53 Hospitalist ROS - Medication Medications: Active Medications Generic Name Dose Route Start Last Admin Trade Name Freq PRN Reason Stop Dose Admin Aspirin 325 mg 02/28/20 09:00 02/28/20 09:55 Ecotrin PO 325 mg DAILY THALIA Administration Escitalopram Oxalate 20 mg 02/28/20 09:00 02/28/20 09:55 Lexapro PO 20 mg DAILY THALIA Administration Famotidine 20 mg 02/28/20 09:00 02/28/20 09:57 Pepcid SLOW IVP 20 mg Q12HR THALIA Administration Levetiracetam 500 mg 02/28/20 09:00 02/28/20 09:56 Keppra PO 500 mg BID THALIA Administration Levothyroxine Sodium 25 mcg 02/28/20 06:00 02/28/20 08:30 Synthroid PO 25 mcg 0600 THALIA Administration Lisinopril 20 mg 02/28/20 09:00 02/28/20 09:56 Zestril PO 20 mg BID THALIA Administration Metoprolol Succinate 25 mg 02/28/20 09:00 02/28/20 09:56 Toprol Xl PO 25 mg DAILY THALIA Administration Olanzapine 15 mg 02/28/20 09:00 02/28/20 09:55 Zyprexa PO 15 mg DAILY THALIA Administration Sodium Chloride 10 ml 02/28/20 00:10 02/28/20 09:58 Flush - Normal Saline IVF 10 ml Q12HR PRN Administration Saline Flush Tamsulosin HCl 0.4 mg 02/28/20 09:00 02/28/20 09:56 Flomax PO 0.4 mg DAILY THALIA Administration Topiramate 50 mg 02/28/20 09:00 02/28/20 09:57 Topamax PO 50 mg BID THALIA Administration - Exam General Appearance: awake alert Eye: PERRL, anicteric sclera ENT: no oropharyngeal lesions, moist mucosa Neck: supple, no JVD Heart: RRR, no murmur Respiratory: no wheezes, no rales Gastrointestinal: soft, non-tender, non-distended, normal bowel sounds Extremities: no cyanosis, no edema Neurological: cranial nerve grossly intact, no focal deficits Psychiatric: normal affect, A&O x 3 Hosp A/P (1) Chest pain Code(s): R07.9 - CHEST PAIN, UNSPECIFIED Status: Acute Qualifiers: Chest pain type: unspecified Qualified Code(s): R07.9 - Chest pain, unspecified (2) Obesity Code(s): E66.9 - OBESITY, UNSPECIFIED Status: Chronic Qualifiers: Obesity classification: adult class 3 (BMI >= 40) Body mass index: BMI 40.0 -44.9 (3) Dyslipidemia Code(s): E78.5 - HYPERLIPIDEMIA, UNSPECIFIED Status: Chronic (4) Pain of left shoulder joint on movement Code(s): M25.512 - PAIN IN LEFT SHOULDER Status: Acute (5) Chronic a-fib Code(s): I48.20 - CHRONIC ATRIAL FIBRILLATION, UNSPECIFIED Status: Chronic (6) Uncontrolled hypertension Code(s): I10 - ESSENTIAL (PRIMARY) HYPERTENSION Status: Chronic (7) Bipolar disorder Code(s): F31.9 - BIPOLAR DISORDER, UNSPECIFIED Status: Chronic Qualifiers: Active/Remission status: remission status unspecified Qualified Code(s): F31.9 - Bipolar disorder, unspecified (8) Hypothyroidism Code(s): E03.9 - HYPOTHYROIDISM, UNSPECIFIED Status: Chronic Qualifiers: Hypothyroidism type: unspecified Qualified Code(s): E03.9 - Hypothyroidism , unspecified (9) Seizure disorder Code(s): G40.909 - EPILEPSY, UNSP, NOT INTRACTABLE, WITHOUT STATUS EPILEPTICUS Status: Chronic - Plan staff will obtain accurate med list from [facility] d/w Dr.Lori, had normal cath before, he will CT angio abd to r/o renal art stenosis to optimize htn meds continue xarelto, lopressor, crestor, tricor, keppra home dose, lisinopril and synthroid for now to continue home meds for bipolar per recent pharmacy refill. non cardiac chest pain hemostable likely dc plan in am once htn is well controlled
--- NOTE | 2020-02-28 13:17 | CT ---
Exam: CT angiogram of the abdominal aorta and CT angiogram of the pelvis HISTORY: Evaluate renal arteries. Labile hypertension COMPARISON: None TECHNIQUE: CT angiogram of the abdominal aorta and pelvis is performed in the axial plane. Three-dime nsional reformatted images are submitted for dictation FINDINGS: Abdomen CT: Dependent atelectatic changes and groundglass opacities in the lung bases Normal heart size. No significant pericardial fluid Hypoattenuation liver due to hepatic steatosis Appropriate arterial phase enhancement of the adrenal glands, pancreas Symmetric enhancement of the kidneys. Bilaterally no obstructive uropathy. Exophytic cyst emanates fr om the anterior left renal cortex and measures 3.3 x 3.3 cm. Cyst has a attenuation coefficient of 20 Hounsfield units. No mesenteric mass, nephropathy, free air or free fluid Limited evaluation of the alimentary canal by the lack of oral contrast. No evidence of bowel obstruc tion Pelvic CT: No mass, lymphadenopathy, free air or free fluid. Osseous structures: No lytic or blastic lesions CT ANGIOGRAM: The descending thoracic aorta, abdominal aorta and aortic bifurcation have appropriate enhancement and luminal diameter. Appropriate enhancement and luminal diameter the celiac artery origin, superior mesenteric artery origin and inferior mesenteric artery origin. Single left and sing le right renal arteries. Appropriate enhancement and luminal diameter. The common iliac arteries, internal iliac arteries and external iliac arteries have appropriate enhancement. Bilateral common fe moral arteries have appropriate enhancement IMPRESSION: 1. No significant stenosis or atherosclerosis involving the aorta including the origin of both solita ry renal arteries 2. Slightly complex left renal cyst. Correlation made with a renal ultrasound 09/13/2019 and compared w ith CT 04/21/2019 does not demonstrate any significant change. Transcribed Date/Time: 02/28/2020 1:26 PM
[2020-02-28] MEDS ORDERED: Rivaroxaban 10 MG TAB PO SCH (18:00)
--- NOTE | 2020-02-28 18:21 | CON ---
DATE OF CONSULTATION: 02/28/2020 REASON FOR CONSULTATION: Extremely labile blood pressure, chest discomfort. HISTORY OF PRESENT ILLNESS: Mr. Jose Sheridan is a 44-year-old gentleman. He has history of severe labile hypertension, also atrial arrhythmias. He is admitted to the hospital with chest pain. He says he seems to be aware of his chest when his blood pressure gets over high sometimes to 130 diastolic. Other times, he has had syncopal episodes due to hypotension. PAST MEDICAL HISTORY: Past history of atrial fibrillation ablation, previous pacemaker insertion, labile hypertension. MEDICATIONS: Please see the nurse's notes, but the patient is really unsure about what actually he is taking. He is listed to be on midodrine, but he does not know if he is really taking that, also lisinopril, metoprolol, Crestor. Again, he is unsure about any of his medicines. REVIEW OF SYSTEMS: CONSTITUTIONAL: No significant weight gain or loss. VISION: No changes. HEARING: No changes. PULMONARY: No cough or wheezing. GASTROINTESTINAL: No nausea, vomiting, or diarrhea. SKIN: No rashes. NEUROLOGIC: No unilateral weakness or numbness. PSYCHIATRIC: No unusual depression or anxiety. PHYSICAL EXAMINATION: GENERAL: This is a pleasant gentleman, in no distress. VITAL SIGNS: Blood pressure 170/100, then 129/69, pulse 76. LUNGS: Clear. CARDIAC: Normal S1, normal S2. ABDOMEN: Soft, nontender. EXTREMITIES: No edema. SKIN: Warm and dry. DIAGNOSTIC DATA: EKG, sinus rhythm with occasional atrial paced beat. PLAN: I asked him to bring in the medication list to see what he is actually taking and we will take it from there. Job ID: [id number] [facility]
[2020-02-28] MEDS ORDERED: Zolpidem Tartrate 5 MG TAB PO SCH (21:00)
[2020-02-28] MEDS ORDERED: Rosuvastatin 10 MG TAB PO SCH (21:00)
[2020-02-28] MEDS: busPIRone HCl 10 MG TAB PO SCH (22:31)
[2020-02-29] MEDS: Levothyroxine Sodium 25 MCG TAB PO SCH (06:20)
[2020-02-29] MEDS ORDERED: Multivit, Therapeutic 1 TAB PO SCH (09:00)
[2020-02-29] MEDS: busPIRone HCl 10 MG TAB PO SCH (10:12)
[2020-02-29] MEDS: Aspirin 325 mg Enteric Coated Tablet PO SCH (10:12)
[2020-02-29] MEDS: Tamsulosin HCl 0.4 MG CAP PO SCH (10:12)
[2020-02-29] MEDS: Escitalopram Oxalate 20 mg Tablet PO SCH (10:12)
[2020-02-29] MEDS: levETIRAcetam 500 MG TAB PO SCH (10:13)
[2020-02-29] MEDS: Topiramate 25 MG TAB PO SCH (10:45)
--- NOTE | 2020-02-29 14:27 | PRG ---
DATE OF SERVICE: 02/29/2020 SUBJECTIVE: Mr. Sheridan is doing well. No chest pain or pressure. OBJECTIVE: VITAL SIGNS: Blood pressure is 117/89, pulse 72. LUNGS: Clear. CARDIAC: Normal S1, normal S2. ABDOMEN: Obese and nontender. ASSESSMENT: 1. Labile hypertension. 2. No evidence of any renal artery stenosis on angiogram. 3. The patient unfortunately does not have a good insight into what medicines he is taking, but currently he is on metoprolol. We will increase dose to metoprolol succinate 50 mg a day. 4. Rivaroxaban (Xarelto 20 mg a day). 5. Currently, he is on lisinopril. 6. He is not on midodrine. The patient will be followed up as an outpatient and strongly encouraged the patient to bring his medicines with him at every visit and it is always quite confusing what he is actually taking. Job ID: [id number] [facility]
[2020-02-29 15:41] VITALS: BP 142/87; TEMP 97.7
--- NOTE | 2020-02-29 16:02 | DIS ---
DATE OF ADMISSION: 02/27/2020 DATE OF DISCHARGE: 02/29/2020 DISCHARGE DISPOSITION: To home. PRIMARY DISCHARGE DIAGNOSES: 1. Labile hypertension. 2. Chest pain, resolved. 3. Left shoulder joint pain, likely musculoskeletal. 4. Chronic atrial fibrillation. 5. Obesity. 6. Dyslipidemia. 7. Obstructive sleep apnea. 8. Bipolar disorder. 9. Hypothyroidism. 10. Seizure disorder. PROCEDURES DONE DURING HOSPITALIZATION: Chest x-ray done showed no acute cardiopulmonary findings. CT scan of left upper extremity without contrast done showed no acute osseous abnormality. Mild left glenohumeral and acromioclavicular joint arthrosis. CT angio of the abdomen and pelvis done showed no significant stenosis or atherosclerosis involving the aorta including the origin of both solitary renal arteries. Slightly complex left renal cyst. H and H of 13 and 39, platelet count 148. Discharge BUN and creatinine are 17 and 0.7. Total cholesterol 209, triglycerides 256, LDL 121, and HDL 37. TSH 4.1. Troponin x3 negative. BNP 15. DISCHARGE MEDICATIONS: 1. Aspirin 81 mg p.o. daily. 2. Buspirone 15 mg twice daily. 3. Escitalopram 20 mg daily. 4. Multivitamin one tablet daily. 5. Zyprexa 15 mg daily. 6. Topiramate 75 mg p.o. at bedtime. 7. Xarelto 20 mg daily. 8. Crestor 40 mg p.o. daily. ALLERGIES: TO ACETAMINOPHEN. INPATIENT CONSULT: Dr. Sandoval for Cardiology. BRIEF COURSE DURING HOSPITALIZATION: The patient initially got admitted on the with complaints of persistent chest pain for nearly 3 days. He also had left upper extremity shoulder and arm pain associated with his chest discomfort. He was initially admitted to telemetry. He has had 3 sets of cardiac enzymes done, which were negative. The patient has had recent cardiac catheterization done, which showed normal coronaries, hence no further cardiac workup were done. His hypertension was uncontrolled initially and later this became labile. He has had a CT angio of the abdomen and pelvis done, which showed no renal artery stenosis. The patient is on multiple psychotropic medication and he has been counseled to see his primary psychiatrist in 1 week. He is also advised to check blood pressure and pulse twice daily to follow up with his primary care physician in 1 week. He will follow up with Dr. Sandoval in 2 to 3 weeks. He has remained hemodynamically stable, eating and ambulating in the room prior to discharge. Please note, I have seen and examined the patient on the day of discharge. Job ID: [id number]
== END 2020-02-29 17:14 | disposition home or self-care (01) ==
LOC: ERS 15:59 → ERHOLD 22:00 → 2SE 02-28 06:49
PROVIDERS: ADMIT Internal Medicine; ATTEND Internal Medicine
DX: R07.89 Other chest pain (principal); M25.512 Pain in left shoulder; M62.81 Muscle weakness (generalized); I10 Essential (primary) hypertension; I48.20 Chronic atrial fibrillation, unspecified; E78.5 Hyperlipidemia, unspecified; G47.33 Obstructive sleep apnea (adult) (pediatric); F31.9 Bipolar disorder, unspecified; E03.9 Hypothyroidism, unspecified; G40.909 Epilepsy, unspecified, not intractable, without status epilepticus; I25.10 Atherosclerotic heart disease of native coronary artery without angina pectoris; I49.3 Ventricular premature depolarization; F41.9 Anxiety disorder, unspecified; G43.809 Other migraine, not intractable, without status migrainosus; M19.012 Primary osteoarthritis, left shoulder; N28.1 Cyst of kidney, acquired; E66.9 Obesity, unspecified; Z68.41 Body mass index [BMI] 40.0-44.9, adult; Z79.01 Long term (current) use of anticoagulants; Z79.82 Long term (current) use of aspirin; Z79.899 Other long term (current) drug therapy; Z88.6 Allergy status to analgesic agent; Z95.0 Presence of cardiac pacemaker
CPT/HCPCS: 36415; 71045; 74174; 80048; 80053; 80061; 81003; 82550; 83690; 83735; 83880; 84443; 84484; 85025; 93005; 94760; 96365; 96366; 96375; G0378; J3480; S0028